=== PATIENT | male | born 1935 | race Hispanic/Latino ===

== ENCOUNTER 2016-10-28 13:32 | Inpatient (IN) | payer MEDICARE, OTHER ==
[2016-10-28 13:37] VITALS: BMI 35.8
[2016-10-28] MEDS ORDERED: Azithromycin 500MG/NS 250ml 250 ML IV STA (13:46)
[2016-10-28] MEDS ORDERED: cefTRIAXone 1 gm 100 ML IV STA (13:46)
--- NOTE | 2016-10-28 14:05 | ED PDOC ---
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 Patient reports non pleuritic chest pain since this morning. Pain is associated with shortness of breath. Patient notes chronic bilateral lower extremity swelling. He denies any fever, nausea, vomiting, or any other complaints at this time. HPI and ROS obtain via job site supervisor. Time/Duration: 1-3 hours Symptom Onset: Sudden Symptom Course: Unchanged Quality: Other Activities at Onset: Rest Context: Home Associated Symptoms (Text): shortness of breath Past Medical History - Provider Review Nursing Documentation Reviewed: Yes - Cardiac Hx Cardiac Disorders: Yes Hx Hypertension: Yes - Pulmonary Hx Respiratory Disorders: No - Neurological Hx Neurological Disorder: No - HEENT Hx HEENT Disorder: No - Renal Hx Renal Disorder: No - Endocrine/Metabolic Hx Endocrine Disorders: Yes Hx Diabetes Mellitus Type 2: Yes - Hematological/Oncological Hx Blood Disorders: No - Integumentary Hx Dermatological Disorder: No - Musculoskeletal/Rheumatological Hx Musculoskeletal Disorders: No - Gastrointestinal Hx Gastrointestinal Disorders: No - Genitourinary/Gynecological Hx Genitourinary Disorders: No - Psychiatric Hx Psychophysiologic Disorder: No Hx Substance Use: No Family/Social History - Physician Review Nursing Documentation Reviewed: Yes Family/Social History: No Known Family HX Smoking Status: Unknown If Ever Smoked Hx Alcohol Use: No Hx Substance Use: No Allergies/Home Meds Allergies/Adverse Reactions: Allergies No Known Allergies Allergy (Verified 10/28/16 13:37) Home Medications: Home Meds Medication Instructions Recorded Confirmed Unobtainable 10/28/16 10/28/16 Physical Exam - Physical Exam Narrative Physical Exam (Text): - Review of Systems Constitutional: Normal. absent: Fatigue, Weight Change, Fevers Eyes: Normal ENT: Normal Respiratory: Shortness of breath. absent: Cough, Sputum Cardiovascular: Chest Pain. absent: Palpitations, Syncope Gastrointestinal: Normal absent: Abdominal pain, Diarrhea, Nausea, Vomiting Genitourinary: Normal. absent: Dysuria, Frequency, Hematuria Musculoskeletal: Normal. absent: Arthralgias, Back Pain, Neck Pain Skin: Normal Neurological: Normal absent: Focal Weakness Endocrine: Normal Hemo/Lymphatic: Normal Psychiatric: Normal - Physical exam Patient appears age appropriate, speaking full sentences without difficulty - Systems Exam Head: Present: Atraumatic, Normocephalic Pupils: Present: PERRL Extraocular Muscles: Present: EOMI Conjunctiva: Present: Normal Mouth: Present: Moist Mucous Membranes Neck: Present: Normal Range of Motion. No: MIDLINE TENDERNESS, Paraspinal Tenderness Respiratory/Chest: Present: Clear to Auscultation, Good Air Exchange. No: Respiratory Distress, Accessory Muscle Use, Tachypneic Cardiovascular: Present: Regular Rate and Rhythm, Normal S1, S2, Peripheral Pulses Present. No: Murmurs Abdomen: Present: Normal Bowel Sounds, No: Tenderness, Peritoneal Signs, Rebound, Guarding, Distention Back: Present: Normal Inspection. No: Midline Tenderness, Paraspinal Tenderness Upper Extremity: Present: Normal Inspection. No: Cyanosis, Edema Lower Extremity: Present: +3 pitting edema bilaterally. Neurological: Present: GCS=15, Speech Normal, cranial nerves II through XII fully intact with no cerebellar abnormality, neuro-sensory fully intact. No focal neurological deficits. Skin: Present: Warm, Dry, Normal Color. No: Rashes Lymphatic: Present: OX3, NI, NC Psychiatric: Present: Alert, Oriented x 3, Normal Insight, Normal Concentration Vital Signs Reviewed: Yes Vital Signs Pulse BP 10/28/16 14:08 108 H 10/28/16 14:06 155/100 H Temperature: Afebrile Blood Pressure: Hypertensive Pulse: Regular Respiratory Rate: Normal Appearance: Positive for: Well-Appearing, Non-Toxic, Comfortable Pain Distress: None Mental Status: Positive for: Alert and Oriented X 3 Medical Decision Making ED Course and Treatment: 10/28/16 13:41 Impression: A 81 year old male with chest pain associated with shortness of breath. Physical examination findings reveal patient has +3 pitting edema to the bilateral lower extremities, which patient states has been present for 5 years. Differential Diagnosis include but are not limited to: CHF vs. Pneumonia vs. ACS vs. PE Plan: -- EKG -- Chest X-ray -- Labs -- Urinalysis -- Aspirin, Duoneb, Lasix, Nitroglycerin, Rocephin and Azithromycin -- Reassess and disposition Progress Notes: EKG: Ordered, reviewed, and independently interpreted by me. Rate : 110 BPM Rhythm : Sinus Tachycardia Interpretation : ST-segment elevations with right bundle branch block. 10/28/16 14:25 Chest X-ray: Creator and Dictator: SHAR PATEL MD IMPRESSION: Question of right lower lobe atelectasis/ pneumonia. 10/28/16 14:50 Patient is tachycardic with shortness of breath. Cannot rule out PE. Chest CT ordered. 10/28/16 16:52 Patient's lactate is elevated, no large fluid bolus ordered due to patient's elevated BNP and history of CHF. 10/28/16 16:57 On reevaluation the patient states he feels better. On physical examinations the patient lungs are clear bilaterally. Patient will need admission for pleural effusion and CHF. He does not have a doctor here, Dr. Zarco (medical service automation sales manager) paged. 10/28/16 17:[address]: Creator and Dictator: SHAR PATEL MD IMPRESSION: No CTA evidence for acute pulmonary embolism. No evidence of aortic aneurysm or dissection. Mild cardiomegaly. Moderate bilateral pleural effusions , larger on the right. Confluent airspace disease in the lower lobes may represent atelectasis or pneumonia. 10/28/16 17:[address] Tolbert (covering for Dr. Zarco), who is aware and states to give the patient to the hospitalist. Case discussed with Dr. Luciano, who is aware and agrees with the plan to admit the patient to her services. 10/28/16 17:11 pt and family aware of and agree with plan - Lab Interpretations Lab Results: 10/28/16 13:45 10/28/16 13:45 Lab Results 10/28/16 14:50: Urine Color Straw, Urine Appearance Clear, Urine pH 6.0, Ur Specific [place] 1.015, Urine Protein 30 H, Urine Glucose (UA) Negative, Urine Ketones Negative, Urine Blood Trace-lysed H, Urine Nitrate Negative, Urine Bilirubin Negative, Urine Urobilinogen 0.2, Ur Leukocyte Esterase Negative, Urine RBC 2 - 5, Urine WBC 0 - 2, Ur Epithelial Cells 0 - 2 10/28/16 13:45: WBC 7.0, RBC 3.73, Hgb 10.8 L, Hct 35.1 L, MCV 94.1, MCH 29.0, MCHC 30.8 L, RDW 16.4 H, Plt Count 168, MPV 12.8 H, Gran % 79.1 H, Lymph % (Auto ) 10.9 L, [place] % (Auto) 10.0 H, Eos % (Auto) 0.0 L, Baso % (Auto) 0.0, Gran # 5.51, Lymph # 0.8 L, [place] # 0.7 H, Eos # 0.0, Baso # 0.00, PT 11.2, INR 1.04, APTT 26.7, D-Dimer, Quantitative 0.56 H, pO2 41, VBG pH 7.27 L, VBG pCO2 68.0 H* , VBG HCO3 31.2 H, VBG Total CO2 33.3 H, VBG O2 Sat (Calc) 68.8 H, VBG Base Excess 2.3 H, VBG Potassium 4.4, Glucose 194 H, Lactate 2.7 H, FiO2 21.0, Sodium 135.0, Potassium 4.1, Chloride 98.0, Carbon Dioxide 30, Anion Gap 15, BUN 22 H, Creatinine 0.8, Est GFR ( Amer) > 60, Est GFR (Non-Af Amer) > 60, Random Glucose 198 H, Calcium 9.5, Total Bilirubin 0.8, AST 28, ALT 23, Alkaline Phosphatase 71, NT-Pro-B Natriuret Pep 5020 H, Total Protein 8.1, Albumin 4.1, Globulin 4.0, Albumin/Globulin Ratio 1.0 L, Venous Blood Potassium 4.4 I have reviewed the lab results: Yes - RAD Interpretation Radiology Orders: 10/28/16 13:47 CHEST PORTABLE [RAD] Stat 10/28/16 14:50 ANGIO CHEST PE PROTOCOL [CT] Stat - Medication Orders Current Medication Orders: Discontinued Medications Albuterol/Ipratropium (Duoneb 3 Mg/0.5 Mg (3 Ml) Ud) 3 ml IH Q15M JEROME Stop: 10/28/16 14:31 Last Admin: 10/28/16 14:45 Dose: 3 ML Aspirin (Aspirin Chewable) 324 mg PO STAT STA Stop: 10/28/16 13:47 Last Admin: 10/28/16 14:06 Dose: 324 MG Furosemide (Lasix) 40 mg IVP STAT STA Stop: 10/28/16 13:47 Last Admin: 10/28/16 14:06 Dose: 40 MG MAR Blood Pressure Document 10/28/16 14:06 JOL (Rec: 10/28/16 14:06 [id number] Blood Pressure Blood Pressure (100/60-150/90 mm Hg) 155/100 IVP Administration Document 10/28/16 14:06 JOL (Rec: 10/28/16 14:06 [id number] Charges for Administration # of IVP Administrations 1 Azithromycin (Zithromax 500mg In Ns) 250 mls @ 166.667 mls/hr IV STAT STA PRN Reason: Protocol Stop: 10/28/16 15:15 Last Admin: 10/28/16 15:37 Dose: 166.667 MLS/HR eMAR Start Stop Document 10/28/16 15:37 JOL (Rec: 10/28/16 15:38 [id number] Intravenous Solution Start Date 10/28/16 Start Time 15:38 End Date 10/28/16 End time 16:38 Total Infusion Time 60 Ceftriaxone Sodium (Rocephin 1 Gram Ivpb) 100 mls @ 200 mls/hr IV STAT STA PRN Reason: Protocol Stop: 10/28/16 14:15 Last Admin: 10/28/16 14:07 Dose: 200 MLS/HR eMAR Start Stop Document 10/28/16 14:07 JO (Rec: 10/28/16 14:07 [id number] Intravenous Solution Start Date 10/28/16 Start Time 14:07 End Date 10/28/16 End time 15:07 Total Infusion Time 60 Iodixanol (Visipaque 320 Mg/Ml 100 Ml) Confirm Administered Dose 100 ml IV .STK- MED ONE Stop: 10/28/16 16:14 Nitroglycerin (Nitrostat Sl Tab) 0.3 mg SL STAT STA Stop: 10/28/16 13:47 Last Admin: 10/28/16 14:07 Dose: 0.3 MG - Scribe Statement The provider has reviewed the documentation as recorded by the Nolaibkatey Mazariegos Provider Scribe Attestation: All medical record entries made by the Scribe were at my direction and personally dictated by me. I have reviewed the chart and agree that the record accurately reflects my personal performance of the history, physical exam, medical decision making, and the department course for this patient. I have also personally directed, reviewed, and agree with the discharge instructions and disposition. Disposition/Present on Arrival - Present on Arrival Any Indicators Present on Arrival: No History of DVT/PE: No History of Uncontrolled Diabetes: No Urinary Catheter: No History of Decub. Ulcer: No History Surgical Site Infection Following: None - Disposition Have Diagnosis and Disposition been Completed?: Yes Diagnosis: Congestive heart failure Disposition: HOSPITALIZED Disposition Time: 16:58 Patient Plan: Admission Condition: FAIR Discharge Instructions (ExitCare): Heart Failure (ED)
[2016-10-28] MEDS: Albuterol-Ipratrop 3 mg / 0.5 (3 ml) UD IH SCH ×3 (14:07→14:45)
[2016-10-28 14:11] LABS: ADD MANUAL DIFF? NO
[2016-10-28 14:12] LABS: VENOUS BLOOD GAS BASE EXCESS 2.3 mmol/L (0.0-2.0); VENOUS BLOOD PH 7.27 (7.32-7.43)
--- NOTE | 2016-10-28 14:24 | RAD ---
HISTORY: cough COMPARISON: 08/19/2013 FINDINGS: LUNGS: There is airspace disease in the right lower lobe. There are chronic changes in the lungs. There is no focal consolidation. PLEURA: No significant pleural effusion identified, no pneumothorax apparent. CARDIOVASCULAR: Normal. OSSEOUS STRUCTURES: No significant abnormalities. VISUALIZED UPPER ABDOMEN: Normal. OTHER FINDINGS: None. IMPRESSION: Question of right lower lobe atelectasis/ pneumonia.
[2016-10-28 14:30] LABS: GRAN # 5.51 (1.4-6.5); GRAN % 79.1 % (50.0-68.0); HEMATOCRIT 35.1 % (42.0-52.0); LYMPH # 0.8 (1.2-3.4); LYMPH % 10.9 % (22.0-35.0); MEAN CELL VOLUME 94.1 fL (80.0-105.0); MEAN CORPUSCULAR HGB CONC 30.8 g/dl (31.0-37.0); MEAN PLATELET VOLUME 12.8 fl (7.0-11.0); MONO # 0.7 (0.1-0.6); PLATELET COUNT 168 10^3/uL (120.0-450.0); RED CELL DISTRIBUTION WIDTH 16.4 % (11.5-14.5)
[2016-10-28 14:32] LABS: ALKALINE PHOSPHATASE 71 U/L (38-133); ALT/SGPT 23 U/L (7-56); AST/SGOT 28 U/L (15-59); BILIRUBIN,TOTAL 0.8 mg/dL (0.2-1.3); BLOOD UREA NITROGEN 22 mg/dL (7-21); CALCIUM 9.5 mg/dL (8.4-10.5); CARBON DIOXIDE 30 mmol/L (21-33); CHLORIDE 91 mmol/L (98-107); GFR AFRICAN-AMERICAN > 60; GLUCOSE,RANDOM 198 mg/dL (70-110); POTASSIUM 4.1 mmol/L (3.6-5.0); SODIUM 132 mmol/L (132-148); TOTAL PROTEIN 8.1 g/dL (5.8-8.3)
[2016-10-28 14:48] LABS: INR 1.04 (0.93-1.08); PARTIAL THROMBOPLASTIN TIME 26.7 Seconds (23.7-30.8)
[2016-10-28 14:51] LABS: D DIMER 0.56 mg/L FEU (0-0.50)
[2016-10-28 15:45] LABS: URINE BILIRUBIN NEGATIVE (NEGATIVE); URINE BLOOD TRACE-LYSED (NEGATIVE); URINE GLUCOSE (UA) NEGATIVE (NEGATIVE); URINE KETONE NEGATIVE (NEGATIVE); URINE LEUKOCYTE ESTERASE NEGATIVE Leu/uL (NEGATIVE); URINE PROTEIN 30 mg/dL (<30 mg/dL); URINE UROBILINOGEN 0.2 E.U./dL (<1 E.U./dL)
[2016-10-28 15:59] LABS: URINE APPEARANCE CLEAR (CLEAR); URINE COLOR STRAW (YELLOW)
[2016-10-28 16:08] LABS: URINE EPITHELIAL CELLS 0 - 2 /hpf (0-5); URINE WBC 0 - 2 /hpf (0-6)
[2016-10-28] MEDS ORDERED: Iodixanol 320 MG/ML 100 ML BOTTLE IV ONE (16:13)
--- NOTE | 2016-10-28 16:52 | CT ---
PROCEDURE: CT Chest with contrast (Pulmonary Angiogram) HISTORY: r/o PE COMPARISON: None available. TECHNIQUE: Axial computed tomography images were obtained of the chest in the pulmonary arterial phase of enhancement. Coronal and sagittal reformatted images were created and reviewed. Intravenous contrast dose: 96 mL Visipaque. Radiation dose: Total exam DLP = 829.97 MGy-cm. FINDINGS: PULMONARY ARTERIES: There are no central filling defects in the pulmonary arteries or branches. No pulmonary embolism. AORTA: There is no evidence of aortic aneurysm or dissection. The aorta is normal in caliber. LUNGS: There are moderate bilateral pleural effusions and confluent airspace disease in the lower lobes, right larger than left. There is a loculated fluid in the superior left major fissure. There is no pneumothorax. There are no endobronchial lesions. HEART: There is mild cardiomegaly. There is no pericardial effusion. There atherosclerotic calcifications typical. LYMPH NODES: There are subcentimeter mediastinal lymph nodes, likely reactive. BONES, CHEST WALL: There is diffuse bone demineralization and multilevel degenerative changes in the spine. There are no destructive bony lesions. There is a hemangioma in 1 of the lower thoracic vertebral bodies. The focal area of sclerosis in 1 of the mid thoracic vertebral bodies is statistically most compatible with a bone island. OTHER FINDINGS: There is fatty infiltration in the liver. Both adrenal glands are normal. There is a small sliding hiatal hernia. IMPRESSION: No CTA evidence for acute pulmonary embolism. No evidence of aortic aneurysm or dissection. Mild cardiomegaly. Moderate bilateral pleural effusions, larger on the right. Confluent airspace disease in the lower lobes may represent atelectasis or pneumonia.
[2016-10-28 17:23] LABS: VENOUS BLOOD GAS BASE EXCESS 4.3 mmol/L (0.0-2.0); VENOUS BLOOD PH 7.28 (7.32-7.43)
[2016-10-28 17:31] LABS: VENOUS BLOOD GAS BASE EXCESS 4.4 mmol/L (0.0-2.0); VENOUS BLOOD PH 7.29 (7.32-7.43)
[2016-10-28] MEDS ORDERED: guaiFENesin 100 mg/5 ml Syrup UD PO PRN (17:35)
--- NOTE | 2016-10-28 17:58 | CP.PCM.HP ---
History of Present Illness - History of Present Illness History of Present Illness: shortness of breath. Patient seen and examined in ER bed 3. Patient's granddaughter by the bedside. patient is alert, awake and oriented. Able to give history. patient is a 81-year-old male With a past medical history of diabetes, hypertension, arthritis, cardiac history is getting admitted with progressive shortness of breath for the past 2 weeks. The patient was evaluated by PMD 2 weeks ago for shortness of breath. Lasix dose was increased. Patient complaint of chest discomfort and cough. Denies any fevers, chills.Complaining of minimal sputum production. complaining of increased leg swelling for the past 2 weeks. complaining of exertional dyspnea. Denies any abdominal pain, nausea, vomiting. Denies any urinary, bowel symptoms. Patient usually ambulates with a walker at home. medications; does not remember. Past medical history; Hypertension Diabetes Arthritis Cardiac history depression Obesity chronic leg edema surgical history; Right knee surgery Allergies; None Social history; never smoked No alcohol abuse No drug abuse Lives in [place] with his daughter Present on Admission - Present on Admission Any Indicators Present on Admission: No History of DVT/PE: No History of Uncontrolled Diabetes: No Urinary Catheter: No Decubitus Ulcer Present: No Review of Systems - Constitutional Constitutional: absent: Chills - EENT Eyes: absent: Blurred Vision Nose/Mouth/Throat: absent: Nasal Congestion - Cardiovascular Cardiovascular: Chest Pain - Respiratory Respiratory: Cough, Dyspnea on Exertion. absent: Wheezing, Snoring - Gastrointestinal Gastrointestinal: absent: Abdominal Pain, Nausea, Vomiting - Musculoskeletal Musculoskeletal: Abnormal Gait - Neurological Neurological: Abnormal Gait, Weakness - Psychiatric Psychiatric: Depression - Hematologic/Lymphatic Hematologic: absent: Easy Bleeding, Easy Bruising Past Patient History - Past Social History Smoking Status: Unknown If Ever Smoked Alcohol: None Drugs: Denies Home Situation {Lives}: With Family - CARDIAC Hx Cardiac Disorders: Yes Hx Hypertension: Yes - PULMONARY Hx Respiratory Disorders: No - NEUROLOGICAL Hx Neurological Disorder: No - HEENT Hx HEENT Problems: No - RENAL Hx Chronic Kidney Disease: No - ENDOCRINE/METABOLIC Hx Endocrine Disorders: Yes Hx Diabetes Mellitus Type 2: Yes - HEMATOLOGICAL/ONCOLOGICAL Hx Blood Disorders: No - INTEGUMENTARY Hx Dermatological Problems: No - MUSCULOSKELETAL/RHEUMATOLOGICAL Hx Musculoskeletal Disorders: No - GASTROINTESTINAL Hx Gastrointestinal Disorders: No - GENITOURINARY/GYNECOLOGICAL Hx Genitourinary Disorders: No - PSYCHIATRIC Hx Psychophysiologic Disorder: No Hx Substance Use: No - SURGICAL HISTORY Hx Surgeries: No (pt denies) Meds Allergies/Adverse Reactions: Allergies Allergy/AdvReac Type Severity Reaction Status Date / Time No Known Allergies Allergy Verified 10/28/16 13:37 Physical Exam - Constitutional Appears: Well - Head Exam Head Exam: NORMAL INSPECTION - Eye Exam Eye Exam: Normal appearance - ENT Exam ENT Exam: Mucous Membranes Moist - Respiratory Exam Respiratory Exam: NORMAL BREATHING PATTERN Additional comments: decreased breath sounds on both lower lung field - Cardiovascular Exam Cardiovascular Exam: REGULAR RHYTHM - GI/Abdominal Exam GI & Abdominal Exam: Normal Bowel Sounds, Soft. absent: Tenderness Additional comments: abdominal wall edema - Extremities Exam Extremities exam: Positive for: pedal edema Additional comments: bilateral leg edema up to knee level - Neurological Exam Neurological exam: Alert, Oriented x3 - Psychiatric Exam Psychiatric exam: Normal Affect - Skin Skin Exam: Normal Color Results - Vital Signs Recent Vital Signs: Last Vital Signs Temp Pulse 108 H 10/28/16 14:08 Resp BP 155/100 H 10/28/16 14:06 Pulse Ox - Labs Result Diagrams: 11/01/16 05:00 11/01/16 05:00 Labs: Laboratory Results - last 24 hr 10/28/16 10/28/16 10/28/16 13:45 14:50 17:10 WBC 7.0 RBC 3.73 Hgb 10.8 L Hct 35.1 L MCV 94.1 MCH 29.0 MCHC 30.8 L RDW 16.4 H Plt Count 168 MPV 12.8 H Gran % 79.1 H Lymph % (Auto) 10.9 L [place] % (Auto) 10.0 H Eos % (Auto) 0.0 L Baso % (Auto) 0.0 Gran # 5.51 Lymph # 0.8 L [place] # 0.7 H Eos # 0.0 Baso # 0.00 PT 11.2 INR 1.04 APTT 26.7 D-Dimer, Quantitative 0.56 H pO2 41 45 VBG pH 7.27 L 7.29 L VBG pCO2 68.0 H* 69.0 H* VBG HCO3 31.2 H 33.2 H VBG Total CO2 33.3 H 35.3 H VBG O2 Sat (Calc) 68.8 H 76.0 H VBG Base Excess 2.3 H 4.4 H VBG Potassium 4.4 4.3 Sodium 132 134.0 Chloride 91 L 98.0 Glucose 194 H 183 H Lactate 2.7 H 1.7 FiO2 21.0 21.0 Potassium 4.1 Carbon Dioxide 30 Anion Gap 15 BUN 22 H Creatinine 0.8 Est GFR ( Amer) > 60 Est GFR (Non-Af Amer) > 60 Random Glucose 198 H Calcium 9.5 Total Bilirubin 0.8 AST 28 ALT 23 Alkaline Phosphatase 71 NT-Pro-B Natriuret Pep 5020 H Total Protein 8.1 Albumin 4.1 Globulin 4.0 Albumin/Globulin Ratio 1.0 L Venous Blood Potassium 4.4 4.3 Urine Color Straw Urine Appearance Clear Urine pH 6.0 Ur Specific [place] 1.015 Urine Protein 30 H Urine Glucose (UA) Negative Urine Ketones Negative Urine Blood Trace-lysed H Urine Nitrate Negative Urine Bilirubin Negative Urine Urobilinogen 0.2 Ur Leukocyte Esterase Negative Urine RBC 2 - 5 Urine WBC 0 - 2 Ur Epithelial Cells 0 - 2 Assessment & Plan - Assessment and Plan (Free Text) Assessment: 1.Patient is a 81-year-old male admitted with progressive shortness of breath and increasing leg swelling for the past few weeks. Rule out CHF. patient with a history of heart problems in the past. Denies any echocardiogram or stress test recently. Questionable history of cardiac Over 10 years ago. Started on IV Lasix. Strict input and output ordered. Daily weight ordered. Cardiac enzymes ordered to r/o ischemia. Echocardiogram ordered. chest x-ray showed bilateral effusion. CT chest showed bilateral lower lobe atelectasis/Pneumonia with effusion. NO pulmonary embolus noted. Cardiology evaluation requested. 2. Hypertension; continue Norvasc and enalapril. 3. Diabetes; continue actos. hold metformin secondary to contrast study. 4.depression; continue Lexapro. 5. Lower extremity Doppler ordered to rule out DVT. 6.GI prophylaxis with Pepcid. 7. DVT prophylaxis with Lovenox. case discussed with PMD Dr. Beach in detail.
[2016-10-28] MEDS: Non Formulary Medication (Bimatoprost [Lumigan] 1 DROP) OS SCH (18:38)
[2016-10-28] MEDS: cefTRIAXone 1 gm 100 ML IVPB SCH (18:40)
[2016-10-28] MEDS: Pilocarpine 1% Opht (15ml) OU SCH (18:41)
[2016-10-28] MEDS: Enoxaparin 40 mg Syringe SC SCH (18:53)
[2016-10-29] MEDS: Insulin Reg-MEDIUM-Coverage SC SCH ×5 (02:32→22:18)
[2016-10-29] MEDS ORDERED: Albuterol-Ipratrop 3 mg / 0.5 (3 ml) UD ONE (06:42)
[2016-10-29 07:22] LABS: BLOOD UREA NITROGEN 18 mg/dL (7-21); CALCIUM 8.7 mg/dL (8.4-10.5); CARBON DIOXIDE 33 mmol/L (21-33); CHLORIDE 91 mmol/L (98-107); CHOLESTEROL 141 mg/dL (130-200); GFR AFRICAN-AMERICAN > 60; GLUCOSE,RANDOM 141 mg/dL (70-110); POTASSIUM 3.9 mmol/L (3.6-5.0); SODIUM 133 mmol/L (132-148)
[2016-10-29 07:55] LABS: HEMATOCRIT 32.3 % (42.0-52.0); MEAN CELL VOLUME 92.3 fL (80.0-105.0); MEAN CORPUSCULAR HEMOGLOBIN 29.1 pg (25.0-35.0); MEAN CORPUSCULAR HGB CONC 31.6 g/dl (31.0-37.0); MEAN PLATELET VOLUME 12.4 fl (7.0-11.0); RED CELL DISTRIBUTION WIDTH 16.3 % (11.5-14.5); WHITE BLOOD COUNT 6.4 10^3/ul (4.5-11.0)
[2016-10-29 10:03] LABS: TROPONIN I 0.06 ng/mL
--- NOTE | 2016-10-29 10:09 | US ---
HISTORY: Leg pain and swelling. Evaluate for DVT PHYSICIAN(S): Sky Herrera MD. TECHNIQUE: Duplex sonography and color-flow Doppler with graded compression were used to evaluate the deep venous systems of both lower extremities. FINDINGS: The visualized deep venous systems of both lower extremities are sonographically normal and compressible. Normal wave forms and augmentation are seen. There is no sonographic evidence for deep venous thrombosis in the visualized segments of both lower extremities. IMPRESSION: No sonographic evidence for deep venous thrombosis in the visualized segments of both lower extremities.
[2016-10-29] MEDS: Albuterol-Ipratrop 3 mg / 0.5 (3 ml) UD IH SCH ×5 (10:10→23:44)
[2016-10-29] MEDS: Pilocarpine 1% Opht (15ml) OU SCH ×2 (10:29→18:30)
[2016-10-29] MEDS: cefTRIAXone 1 gm 100 ML IVPB SCH (10:30)
[2016-10-29] MEDS: Enoxaparin 40 mg Syringe SC SCH (10:30)
--- NOTE | 2016-10-29 12:53 | CP.PCM.PN ---
<Jose Miller - Last Filed: 10/29/16 12:49> Subjective - Date & Time of Evaluation Date of Evaluation: 10/29/16 Time of Evaluation: 07:15 - Subjective Subjective: Dr. Miller PGY 1 Hospitalist Note Patient seen and evaluated at bedside. He states that he is urinating more and feels as though his leg swelling has decreased. He denies any chest pain, or SOB. He notes that aver the past few months he has not been able to ambulate as much. He denies any fever, chills, nausea, vomiting, or diarrhea. He says he has not had any sick contacts. A 12 point review of systems was performed and negative except where noted above. Objective - Vital Signs/Intake and Output Vital Signs (last 24 hours): Temp Pulse Resp BP Pulse Ox 98 F 88 20 144/69 97 10/29/16 12:00 10/29/16 12:00 10/29/16 12:00 10/29/16 12:00 10/29/16 05:33 Intake and Output: 10/29/16 10/29/16 06:59 18:59 Intake Total 240 Output Total 1400 Balance -1160 - Medications Medications: Current Medications Albuterol/Ipratropium (Duoneb 3 Mg/0.5 Mg (3 Ml) Ud) 3 ml IH [id number] [facility] Last Admin: 10/29/16 11:45 Dose: 3 ml Aspirin (Ecotrin) 81 mg PO DAILY [facility] Last Admin: 10/29/16 10:29 Dose: 81 mg Azithromycin (Zithromax) 500 mg PO DAILY [facility] PRN Reason: Protocol Last Admin: 10/29/16 10:32 Dose: 500 mg Enoxaparin Sodium (Lovenox) 120 mg SC Q12H [facility] PRN Reason: Protocol Escitalopram Oxalate (Lexapro) 10 mg PO DAILY [facility] Last Admin: 10/29/16 10:30 Dose: 10 mg Famotidine (Pepcid) 20 mg PO DAILY [facility] Last Admin: 10/29/16 10:32 Dose: 20 mg Furosemide (Lasix) 60 mg IVP Q12 [facility] Last Admin: 10/29/16 09:39 Dose: 60 mg Gabapentin (Neurontin) 100 mg PO BID [facility] PRN Reason: Protocol Last Admin: 10/29/16 10:31 Dose: 100 mg Guaifenesin (Robitussin) 100 mg PO Q4H PRN PRN Reason: Cough Ceftriaxone Sodium (Rocephin 1 Gram Ivpb) 100 mls @ 100 mls/hr IVPB DAILY [facility] PRN Reason: Protocol Last Admin: 10/28/16 18:40 Dose: Not Given Insulin Human Regular (Humulin R Med) 0 units SC ACHS [facility] Last Admin: 10/29/16 11:53 Dose: 1 units Lisinopril (Zestril) 40 mg PO DAILY [facility] Last Admin: 10/29/16 10:32 Dose: 40 mg Non-Formulary Medication (Bimatoprost [Lumigan]) 1 drop OS DIN [facility] Last Admin: 10/28/16 18:38 Dose: Not Given Pilocarpine HCl (Isopto Carpine 1% Opht Soln) 0 ml OU BID [facility] Last Admin: 10/29/16 10:29 Dose: 1 drop Pioglitazone HCl (Actos) 30 mg PO DAILY [facility] Last Admin: 10/29/16 11:53 Dose: 30 mg Verapamil HCl (Calan Tab) 40 mg PO TID [facility] - Labs Labs: 10/29/16 07:50 10/29/16 06:30 PT 11.2 Seconds (9.9-11.8) 10/28/16 13:45 INR 1.04 (0.93-1.08) 10/28/16 13:45 APTT 26.7 Seconds (23.7-30.8) 10/28/16 13:45 - Constitutional Appears: Non-toxic, No Acute Distress - Head Exam Head Exam: ATRAUMATIC, NORMOCEPHALIC - Eye Exam Eye Exam: EOMI, Normal appearance, PERRL Pupil Exam: NORMAL ACCOMODATION, PERRL - ENT Exam ENT Exam: Mucous Membranes Moist - Respiratory Exam Respiratory Exam: Decreased Breath Sounds (Bilateral lower lobes ), NORMAL BREATHING PATTERN. absent: Rales, Rhonchi, Wheezes - Cardiovascular Exam Cardiovascular Exam: REGULAR RHYTHM, +S1, +S2. absent: Gallop, Rubs, Murmur - GI/Abdominal Exam GI & Abdominal Exam: Soft, Normal Bowel Sounds. absent: Tenderness, Mass - Extremities Exam Extremities Exam: Pedal Edema (+2 bilateral lower extremities). absent: Tenderness - Back Exam Back Exam: NORMAL INSPECTION. absent: paraspinal tenderness, rash noted - Neurological Exam Neurological Exam: Alert, Awake, CN II-XII Intact, Oriented x3 - Psychiatric Exam Psychiatric exam: Normal Affect, Normal Mood - Skin Skin Exam: Dry, Intact, Warm Assessment and Plan - Assessment and Plan (Free Text) Assessment: Patient is an 81 y/o M with history of HTN, DM, arthritis, obesity, who presents with complaint of leg swelling and SOB. Plan: 1) SOB * Echocardiogram ordered, f/u results * chest x-ray showed bilateral effusion * CT chest showed bilateral lower lobe atelectasis/pneumonia with effusion * cariology consulted, help appreciated * continue IV lasix * cardiac enzymes negative x2 * strict I'sand O's * daily weights * continue rocephin and azithromycin * continue robitussin * pt remains afebrile w/o leukocytosis * f/u blood cultures 2) Edema * LE duplex showed no evidence of DVT 3) HTN * continue norvasc and enalapril 4) DM * continue actos * hold metformin * continue neurontin * accuchecks * sliding scale insulin 5) Hypothyroidism * low TSH * f/u repeat * start synthroid 6) Depression * Continue lexapro 7) PPX * pepcid * lovenox * tylenol * SCD's contraindicated due to bilateral Edema Assessment and plan discussed with attending physician. <Amanda Carroll - Last Filed: 10/29/16 18:27> Objective - Vital Signs/Intake and Output Vital Signs (last 24 hours): Temp Pulse Resp BP Pulse Ox 98 F 73 20 155/74 H 96 10/29/16 12:00 10/29/16 17:15 10/29/16 12:00 10/29/16 13:38 10/29/16 13:38 Intake and Output: 10/29/16 10/29/16 06:59 18:59 Intake Total 240 900 Output Total 1400 Balance -1160 900 - Medications Medications: Current Medications Albuterol/Ipratropium (Duoneb 3 Mg/0.5 Mg (3 Ml) Ud) 3 ml [id number] [facility] Last Admin: 10/29/16 14:57 Dose: 3 ml Aspirin (Ecotrin) 81 mg PO DAILY [facility] Last Admin: 10/29/16 10:29 Dose: 81 mg Azithromycin (Zithromax) 500 mg PO DAILY [facility] PRN Reason: Protocol Last Admin: 10/29/16 10:32 Dose: 500 mg Enoxaparin Sodium (Lovenox) 120 mg SC Q12H [facility] PRN Reason: Protocol Escitalopram Oxalate (Lexapro) 10 mg PO DAILY [facility] Last Admin: 10/29/16 10:30 Dose: 10 mg Famotidine (Pepcid) 20 mg PO DAILY [facility] Last Admin: 10/29/16 10:32 Dose: 20 mg Furosemide (Lasix) 60 mg IVP Q12 [facility] Last Admin: 10/29/16 09:39 Dose: 60 mg Gabapentin (Neurontin) 100 mg PO BID [facility] PRN Reason: Protocol Last Admin: 10/29/16 10:31 Dose: 100 mg Guaifenesin (Robitussin) 100 mg PO Q4H PRN PRN Reason: Cough Ceftriaxone Sodium (Rocephin 1 Gram Ivpb) 100 mls @ 100 mls/hr IVPB DAILY [facility] PRN Reason: Protocol Last Admin: 10/29/16 10:30 Dose: 100 mls/hr Sodium Chloride (Sodium Chloride 0.9%) 1,000 mls @ 100 mls/hr IV .Q10H [facility] Insulin Human Regular (Humulin R Med) 0 units SC ACHS [facility] Last Admin: 10/29/16 16:49 Dose: Not Given Lisinopril (Zestril) 40 mg PO DAILY [facility] Last Admin: 10/29/16 10:32 Dose: 40 mg Methylprednisolone (Solu-Medrol) 40 mg IVP Q12 [facility] Non-Formulary Medication (Bimatoprost [Lumigan]) 1 drop OS DIN [facility] Last Admin: 10/28/16 18:38 Dose: Not Given Pilocarpine HCl (Isopto Carpine 1% Opht Soln) 0 ml OU BID [facility] Last Admin: 10/29/16 10:29 Dose: 1 drop Pioglitazone HCl (Actos) 30 mg PO DAILY [facility] Last Admin: 10/29/16 11:53 Dose: 30 mg Verapamil HCl (Calan Tab) 40 mg PO TID [facility] - Labs Labs: 10/29/16 07:50 10/29/16 06:30 PT 11.2 Seconds (9.9-11.8) 10/28/16 13:45 INR 1.04 (0.93-1.08) 10/28/16 13:45 APTT 26.7 Seconds (23.7-30.8) 10/28/16 13:45 Attending/Attestation - Attestation I have personally seen and examined this patient.: Yes I have fully participated in the care of the patient.: Yes I have reviewed all pertinent clinical information, including history, physical exam and plan: Yes Notes (Text): I have seen and examined patient with the resident. This is 81 year old male with history of HTN, DM-2, arthritis, Afib, obesity, former smoker, depression, leg edema, right knee surgery who got admitted for evaluation of worsening of leg swelling and shortness of breath most likely secondary to CHF exacerbation. He was found to have elevated BNP, Effusions on CXR. Echo was done this morning which revealed mild LVH, EF 55-60% and moderate to severe TR. He was started on lovenox for afib. 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 After he came back from echo, his vitals were done and he was found to be hypoxic. ABg was done which revealed respiratory acidosis. He became increasingly lethargic therefore bipap was started. Patient was upgraded to ICU. Discussed case in detail with Dr Beach (PMD) and transit specialist. Plan to dc antibiotics once procal is negative. Dr Amanda Carroll
[2016-10-29 13:41] LABS: ARTERIAL BLOOD GAS HCO3 34.9 mmol/L (21-28); ARTERIAL BLOOD GAS O2 CONTENT 12.6 ML/dl (15-23); ARTERIAL BLOOD GAS PH 7.27 (7.35-7.45); ARTERIAL BLOOD HGB O2 SAT 95.1 % (95.0-98.0); CARBOXYHEMOGLOBIN 1.8 % (0.5-1.5); HHB 2.8 % (0-5); METHEMOGLOBIN 0.2 % (0.0-3.0)
--- NOTE | 2016-10-29 13:47 | CARD ---
APPROVED REPORT EXAM: Two-dimensional and M-mode echocardiogram with Doppler and color Doppler. INDICATION LV Function:SystolicDiastolic Congestive Heart Failure 2D DIMENSIONS Left Atrium (2D)4.6 (1.6-4.0cm)IVSd1.0 (0.7-1.1cm) LVDd4.5 (3.9-5.9cm)PWd1.5 (0.7-1.1cm) LVDs3.1 (2.5-4.0cm)FS (%) 31.0 % LVEF (%)58.8 (>50%) M-Mode DIMENSIONS Aortic Root2.70 (2.2-3.7cm)Aortic Cusp Exc.1.90 (1.5-2.0cm) Aortic Valve AoV Peak Zhkuogmf211.0cm/Nancy Peak GR.15mmHg Mitral Valve MV E Vagomube955.0cm/sMV A Zbvzibon662.0cm/sE/A ratio0.8 TDI E/Lateral E'0.0E/Medial E'0.0 Tricuspid Valve TR Peak [id number]/sRAP [id number] Peak Gr.65mmHg [id number] LEFT VENTRICLE The left ventricle is normal size. There is borderline to mild concentric left ventricular hypertrophy. The left ventricular function is normal.EF-55-60% There is normal LV segmental wall motion. The left ventricular diastolic function is normal. No left ventricle thrombus noted on this study. There is no ventricular septal defect visualized. There is no left ventricular aneurysm. There is no mass noted in the left ventricle. RIGHT VENTRICLE The right ventricle is severely dilated. There is normal right ventricular wall thickness. Systolic function is moderately reduced. ATRIA The left atrium is moderately dilated. The right atrium is moderately dilated. The interatrial septum is intact with no evidence for an atrial septal defect. AORTIC VALVE The aortic valve is calcified but opens well. There is trace aortic regurgitation. There is no aortic valvular stenosis. There is no aortic valvular vegetation. MITRAL VALVE The mitral valve is calcified but opens well. Mitral annular calcification is moderate. Mitral regurgitation is mild. There is no mitral valve stenosis. There is no evidence of mitral valve prolapse. TRICUSPID VALVE The tricuspid valve leaflets are thickened , but open well. There is moderate tricuspid regurgitation.RVSP-75 mmof Hg. There is moderate to severe tricuspid regurgitation. There is no tricuspid valve stenosis. There is no tricuspid valve prolapse or vegetation. PULMONIC VALVE The pulmonic valve is not well visualized. GREAT VESSELS The aortic root is normal in size. The ascending aorta is normal in size. The pulmonary artery is normal. The IVC is dilated. PERICARDIAL EFFUSION There is no pleural effusion. There is no pericardial effusion. <Conclusion> The left ventricle is normal size. There is borderline to mild concentric left ventricular hypertrophy. The left ventricular function is normal.EF-55-60% There is normal LV segmental wall motion. There is trace aortic regurgitation. Mitral regurgitation is mild. There is moderate tricuspid regurgitation.RVSP-75 mmof Hg. There is moderate to severe tricuspid regurgitation.
[2016-10-29] MEDS ORDERED: Etomidate 20 mg/10ml Inj IV ONE (15:20)
[2016-10-29] MEDS ORDERED: Succinylcholine 200 mg/10 ml Inj IV ONE (15:21)
--- NOTE | 2016-10-29 15:46 | CARD ---
APPROVED REPORT EKG Measurement Heart [id number] <Conclusion> Sinus tachycardia with occasional and consecutive premature ventricular complexes and fusion complexes Pulmonary disease pattern Incomplete right bundle branch block Left anterior fascicular block Cannot rule out Inferior infarct (masked by fascicular block?), age undetermined Abnormal ECG
--- NOTE | 2016-10-29 16:03 | CON ---
DATE: 10/29/2016 REASON FOR CONSULTATION AND FOLLOWUP: Decompensated congestive heart failure, obesity, admitted with atrial fibrillation and CHF. BRIEF CLINICAL HISTORY: This is an 81-year-old male with past medical history of diabetes, hypertension, hyperlipidemia, who said that he has progressive worsening shortness of breath over the 2 weeks. Family brought here and was on increasing dose of Lasix, being followed by Dr. Francie Jacobo at [facility]. PAST HISTORY: Significant for hypertension, diabetes, and history of cardiac but the daughter does not know the detail. PREVIOUS CARDIAC WORKUP: The patient had echocardiography done in office, shows a normal ejection fraction, moderate mitral stenosis, RV systolic pressure 34, was in sinus. History of a stress test done in PMD office, does not walk that much on the treadmill, suspicious for inferior wall ischemia. CURRENT MEDICATIONS: At home, patient is taking amlodipine, Lotrel 5 mg combination from amlodipine and benazepril, timolol eyedrop, gabapentin, Neurontin, Pepcid, Lasix, Lexapro. REVIEW OF SYSTEMS: As per HPI. PHYSICAL EXAMINATION: As follows: VITAL SIGNS: Temperature afebrile, heart rate 88, blood pressure 144/69. HEENT: PERRLA, intact. NECK: Supple. No carotid bruits. No thyromegaly. CHEST: Clear to auscultation. HEART: S1, S2 regular. ABDOMEN: Soft. EXTREMITIES: Clubbing, cyanosis negative. BLOOD WORKUP: As follows: WBC 6.4, hemoglobin 10.2, hematocrit 32.3, platelet count 151. Chemistry shows sodium 133, potassium 3.9, chloride 91, carbon dioxide 33, anion gap of 13, BUN 18, creatinine 0.8. Troponin 0.09, BNP 5020. IMPRESSION: Acute decompensated congestive heart failure, atrial fibrillation, morbid obesity, diabetes, hypertension, hyperlipidemia. Positive stress test with , a small area of ischemia, but echo told normal left ventricular function, possible mitral stenosis, right ventricular systolic pressure 34. RECOMMENDATION: We will get echo to assess LV function and rule out pulmonary hypertension. Follow up CPK, troponin. Start Lovenox 1 mg/kg because of the atrial fibrillation. We will discuss with and with the patient's son, reference cardiac catheterization. If patient agrees will proceed for cath in 1 -2 days when pt would be able to lay flat on cath table, otherwise treat medically and we will start rate-limiting beta flavio as well as anticoagulation for atrial fibrillation. Continue diuretics. Further recommendation depending hospital course. Also discuss with [id number] and patient's son and will discuss with . We will follow with you. Anthony Mckinley MD cc: [id number] TT: 10/29/2016 15:22:43 Confirmation # [id number] Dictation # [id number] [facility]
[2016-10-29 16:43] LABS: ARTERIAL BLOOD GAS HCO3 38.6 mmol/L (21-28); ARTERIAL BLOOD GAS PH 7.26 (7.35-7.45)
[2016-10-29 16:53] LABS: TROPONIN I 0.05 ng/mL
[2016-10-29] MEDS ORDERED: Enoxaparin 80 mg Syringe SC STA (16:57)
[2016-10-29] MEDS: Non Formulary Medication (Bimatoprost [Lumigan] 1 DROP) OS SCH (18:29)
[2016-10-29] MEDS: Enoxaparin 120 mg Syringe SC SCH (18:31)
[2016-10-29] MEDS: Sodium Chloride 0.9% 1,000 ML IV SCH (18:32)
--- NOTE | 2016-10-29 18:49 | CP.PCM.CON ---
<Chiki Peña - Last Filed: 10/29/16 19:08> History of Present Illness - History of Present Illness History of Present Illness: ICU consult This is 81 year old male with history of HTN, DM-2, arthritis, Afib, obesity, former smoker, depression, leg edema, right knee surgery is brought into the emergency department via EMS for complaints of chest pain. Patient reports non pleuritic chest pain since yesterday. Pain is associated with shortness of breath. Patient notes chronic bilateral lower extremity swelling. He denies any fever, nausea, vomiting.Pt is admitted for evaluation of worsening of leg swelling and shortness of breath most likely secondary to CHF exacerbation. He was found to have elevated BNP, Effusions on CXR. Echo was done this morning which revealed mild LVH, EF 55-60% and moderate to severe TR. He was started on lovenox for afib. After he came back from echo, his vitals were done and he was found to be hypoxic. ABg was done which revealed respiratory acidosis. He became increasingly lethargic therefore bipap was started. Patient was upgraded to ICU. Review of Systems - Review of Systems Systems not reviewed;Unavailable: Altered Mental Status Past Patient History - Past Social History Smoking Status: Former Smoker - CARDIAC Hx Cardiac Disorders: Yes Hx Hypertension: Yes - PULMONARY Hx Respiratory Disorders: No - NEUROLOGICAL Hx Neurological Disorder: No - HEENT Hx HEENT Problems: No - RENAL Hx Chronic Kidney Disease: No - ENDOCRINE/METABOLIC Hx Endocrine Disorders: Yes Hx Diabetes Mellitus Type 2: Yes - HEMATOLOGICAL/ONCOLOGICAL Hx Blood Disorders: No - INTEGUMENTARY Hx Dermatological Problems: No - MUSCULOSKELETAL/RHEUMATOLOGICAL Hx Falls: No - GASTROINTESTINAL Hx Gastrointestinal Disorders: No - GENITOURINARY/GYNECOLOGICAL Hx Genitourinary Disorders: No - PSYCHIATRIC Hx Substance Use: No - SURGICAL HISTORY Hx Surgeries: No (pt denies) Meds Allergies/Adverse Reactions: Allergies Allergy/AdvReac Type Severity Reaction Status Date / Time No Known Allergies Allergy Verified 10/28/16 13:37 - Medications Medications: Current Medications Albuterol/Ipratropium (Duoneb 3 Mg/0.5 Mg (3 Ml) Ud) 3 ml IH [id number] [facility] Last Admin: 10/29/16 14:57 Dose: 3 ml Aspirin (Ecotrin) 81 mg PO DAILY [facility] Last Admin: 10/29/16 10:29 Dose: 81 mg Azithromycin (Zithromax) 500 mg PO DAILY [facility] PRN Reason: Protocol Last Admin: 10/29/16 10:32 Dose: 500 mg Enoxaparin Sodium (Lovenox) 120 mg SC Q12H [facility] PRN Reason: Protocol Escitalopram Oxalate (Lexapro) 10 mg PO DAILY [facility] Last Admin: 10/29/16 10:30 Dose: 10 mg Famotidine (Pepcid) 20 mg PO DAILY [facility] Last Admin: 10/29/16 10:32 Dose: 20 mg Furosemide (Lasix) 60 mg IVP Q12 [facility] Last Admin: 10/29/16 09:39 Dose: 60 mg Gabapentin (Neurontin) 100 mg PO BID [facility] PRN Reason: Protocol Last Admin: 10/29/16 10:31 Dose: 100 mg Guaifenesin (Robitussin) 100 mg PO Q4H PRN PRN Reason: Cough Ceftriaxone Sodium (Rocephin 1 Gram Ivpb) 100 mls @ 100 mls/hr IVPB DAILY [facility] PRN Reason: Protocol Last Admin: 10/29/16 10:30 Dose: 100 mls/hr Sodium Chloride (Sodium Chloride 0.9%) 1,000 mls @ 100 mls/hr IV .Q10H [facility] Insulin Human Regular (Humulin R Med) 0 units SC ACHS [facility] Last Admin: 10/29/16 16:49 Dose: Not Given Lisinopril (Zestril) 40 mg PO DAILY [facility] Last Admin: 10/29/16 10:32 Dose: 40 mg Methylprednisolone (Solu-Medrol) 40 mg IVP Q12 [facility] Non-Formulary Medication (Bimatoprost [Lumigan]) 1 drop OS DIN [facility] Last Admin: 10/28/16 18:38 Dose: Not Given Pilocarpine HCl (Isopto Carpine 1% Opht Soln) 0 ml OU BID [facility] Last Admin: 10/29/16 10:29 Dose: 1 drop Pioglitazone HCl (Actos) 30 mg PO DAILY [facility] Last Admin: 10/29/16 11:53 Dose: 30 mg Verapamil HCl (Calan Tab) 40 mg PO TID [facility] Physical Exam - Constitutional Appears: In Acute Distress - Head Exam Head Exam: ATRAUMATIC, NORMAL INSPECTION, NORMOCEPHALIC - Eye Exam Eye Exam: Normal appearance - ENT Exam ENT Exam: Mucous Membranes Moist - Neck Exam Neck exam: Positive for: Normal Inspection - Respiratory Exam Respiratory Exam: Respiratory Distress. absent: Accessory Muscle Use - Cardiovascular Exam Cardiovascular Exam: REGULAR RHYTHM, +S1, +S2 - GI/Abdominal Exam GI & Abdominal Exam: Soft. absent: Distended, Firm, Guarding - Extremities Exam Extremities exam: Positive for: normal inspection - Back Exam Back exam: NORMAL INSPECTION - Skin Skin Exam: Dry, Intact Results - Vital Signs Recent Vital Signs: Last Vital Signs Temp 98 F 10/29/16 12:00 Pulse 73 10/29/16 17:15 Resp 20 10/29/16 12:00 BP 155/74 H 10/29/16 13:38 Pulse Ox 96 10/29/16 13:38 - Labs Result Diagrams: 10/29/16 07:50 10/29/16 06:30 Labs: Laboratory Results - last 24 hr 10/28/16 10/29/16 10/29/16 22:11 06:30 07:14 WBC RBC Hgb Hct MCV MCH MCHC RDW Plt Count MPV pCO2 pO2 HCO3 ABG pH ABG Total CO2 ABG O2 Saturation ABG O2 Content ABG Base Excess ABG Hemoglobin ABG Carboxyhemoglobin POC ABG HHb (Measured) ABG Methemoglobin ABG O2 Capacity ABG Potassium Hgb O2 Saturation Glucose Lactate FiO2 Inspiratory BiPAP Sodium 133 Potassium 3.9 Chloride 91 L Carbon Dioxide 33 Anion Gap 13 BUN 18 Creatinine 0.8 Est GFR ( Amer) > 60 Est GFR (Non-Af Amer) > 60 POC Glucose (mg/dL) 211 H 158 H Random Glucose 141 H Calcium 8.7 Lactate Dehydrogenase 537 Total Creatine Kinase 83 Troponin I 0.06 D Triglycerides 46 Cholesterol 141 LDL Cholesterol Direct 71 HDL Cholesterol 66 H Procalcitonin < 0.05 L Arterial Blood Potassium 10/29/16 10/29/16 10/29/16 07:50 11:35 13:32 WBC 6.4 RBC 3.50 Hgb 10.2 L Hct 32.3 L MCV 92.3 MCH 29.1 MCHC 31.6 RDW 16.3 H Plt Count 151 MPV 12.4 H pCO2 76 H* pO2 94.0 HCO3 34.9 H ABG pH 7.27 L ABG Total CO2 37.2 H ABG O2 Saturation 97.1 ABG O2 Content 12.6 L ABG Base Excess 6.4 H ABG Hemoglobin 9.3 L ABG Carboxyhemoglobin 1.8 H POC ABG HHb (Measured) 2.8 ABG Methemoglobin 0.2 ABG O2 Capacity 13.0 L ABG Potassium 3.1 L Hgb O2 Saturation 95.1 Glucose 142 H Lactate 0.7 FiO2 100.0 Inspiratory BiPAP Sodium 138.0 Potassium Chloride 102.0 Carbon Dioxide Anion Gap BUN Creatinine Est GFR ( Amer) Est GFR (Non-Af Amer) POC Glucose (mg/dL) 190 H Random Glucose Calcium Lactate Dehydrogenase Total Creatine Kinase Troponin I Triglycerides Cholesterol LDL Cholesterol Direct HDL Cholesterol Procalcitonin Arterial Blood Potassium 3.1 L 10/29/16 10/29/16 16:20 16:39 WBC RBC Hgb Hct MCV MCH MCHC RDW Plt Count MPV pCO2 86 H* pO2 69.0 L HCO3 38.6 H ABG pH 7.26 L ABG Total CO2 41.2 H ABG O2 Saturation 92.9 L ABG O2 Content ABG Base Excess 8.1 H ABG Hemoglobin ABG Carboxyhemoglobin POC ABG HHb (Measured) ABG Methemoglobin ABG O2 Capacity ABG Potassium 3.9 Hgb O2 Saturation Glucose 125 H Lactate 0.5 L FiO2 60.0 Inspiratory BiPAP 14 Sodium 135.0 Potassium Chloride 97.0 L Carbon Dioxide Anion Gap BUN Creatinine Est GFR ( Amer) Est GFR (Non-Af Amer) POC Glucose (mg/dL) Random Glucose Calcium Lactate Dehydrogenase 511 Total Creatine Kinase 79 Troponin I 0.05 Triglycerides Cholesterol LDL Cholesterol Direct HDL Cholesterol Procalcitonin Arterial Blood Potassium 3.9 Assessment & Plan - Assessment and Plan (Free Text) Assessment: Hypercapnic respiratory failure CV * Echocardiogram: Diastolic dysfunction. Dilated R ventricle * chest x-ray showed bilateral effusion * CT chest showed bilateral lower lobe atelectasis/pneumonia with effusion * cardiology consulted: possible cath * continue IV lasix * cardiac enzymes negative x2 * strict I'sand O's * daily weights * continue norvasc and enalapril * Keep MAP over 65 * LVX 120 Pulm * continue rocephin and azithromycin * continue robitussin * Wean * Keep SaO2 over 90% * Duoneb * Solumedrol GI PTX/Pepcid NPO except med ID * pt remains afebrile w/o leukocytosis * f/u blood cultures * Tylenol * Keep normothermia DVT * LE duplex showed no evidence of DVT * LVX 120 Endo: DM * continue actos * hold metformin * continue neurontin * accuchecks * sliding scale insulin * Keep euglycemia 140-160 Hypothyroidism * low TSH * f/u repeat * start synthroid Psych: Depression * Continue lexapro Assessment and plan discussed with attending physician. <Pedro Reese - Last Filed: 10/31/16 13:48> Meds - Medications Medications: Current Medications Albuterol/Ipratropium (Duoneb 3 Mg/0.5 Mg (3 Ml) Ud) 3 ml IH [id number] [facility] Last Admin: 10/31/16 11:04 Dose: 3 ml Aspirin (Ecotrin) 81 mg PO DAILY [facility] Last Admin: 10/31/16 09:27 Dose: 81 mg Clopidogrel Bisulfate (Plavix) 75 mg PO DAILY [facility] Last Admin: 10/31/16 09:31 Dose: 75 mg Enoxaparin Sodium (Lovenox) 120 mg SC Q12H [facility] PRN Reason: Protocol Stop: 10/31/16 23:59 Last Admin: 10/31/16 12:03 Dose: 120 mg Escitalopram Oxalate (Lexapro) 10 mg PO DAILY [facility] Last Admin: 10/31/16 09:31 Dose: 10 mg Famotidine (Pepcid) 20 mg PO DAILY [facility] Last Admin: 10/31/16 09:31 Dose: 20 mg Furosemide (Lasix) 60 mg IVP Q12 [facility] Last Admin: 10/31/16 09:30 Dose: 60 mg Gabapentin (Neurontin) 100 mg PO BID [facility] PRN Reason: Protocol Last Admin: 10/31/16 09:27 Dose: 100 mg Guaifenesin (Robitussin) 100 mg PO Q4H PRN PRN Reason: Cough Home Med (Home Med) 1 unit OU HS [facility] Hydralazine HCl (Apresoline) 10 mg IVP Q6 PRN PRN Reason: Systolic Blood Pressure Milrinone Lactate/Dextrose (Primacor 20mg/100ml D5w) 100 mls @ 7.702 mls/hr IV .Q13H PRN; Protocol; 0.2 MCG/KG/MIN PRN Reason: TITRATE PER MD ORDER Last Titration: 10/31/16 06:05 Dose: 0.2 mcg/kg/min Insulin Human Regular (Humulin R Med) 0 units SC ACHS [facility] Last Admin: 10/31/16 12:01 Dose: 3 units Lisinopril (Zestril) 40 mg PO DAILY [facility] Last Admin: 10/31/16 09:31 Dose: 40 mg Methylprednisolone (Solu-Medrol) 40 mg IVP Q12 [facility] Last Admin: 10/31/16 09:32 Dose: 40 mg Bimatoprost [Lumigan (] (Home Med)) 1 drop OS DIN [facility] Pilocarpine HCl (Isopto Carpine 1% Opht Soln) 0 ml OU BID [facility] Last Admin: 10/31/16 09:34 Dose: 1 drop Timolol Maleate (Timoptic 0.25% Ophth Soln) 2 drop OU BID [facility] Verapamil HCl (Calan Tab) 40 mg PO TID [facility] Last Admin: 10/31/16 13:15 Dose: 40 mg Results - Vital Signs Recent Vital Signs: Last Vital Signs Temp 98.5 F 10/31/16 12:00 Pulse 81 10/31/16 13:15 Resp 24 10/31/16 11:07 BP 132/57 L 10/31/16 13:15 Pulse Ox 95 10/31/16 10:00 - Labs Result Diagrams: 10/31/16 05:00 10/31/16 05:00 Labs: Laboratory Results - last 24 hr 10/30/16 10/30/16 10/31/16 16:23 21:36 05:00 WBC 3.6 L D RBC 3.43 L Hgb 10.0 L Hct 31.4 L MCV 91.5 MCH 29.2 MCHC 31.8 RDW 16.2 H Plt Count 157 MPV 12.2 H Gran % 87.0 H Lymph % (Auto) 8.0 L [place] % (Auto) 5.0 Eos % (Auto) 0.0 L Baso % (Auto) 0.0 Gran # 3.15 Lymph # 0.3 L [place] # 0.2 Eos # 0.0 Baso # 0.00 pCO2 pO2 HCO3 ABG pH ABG Total CO2 ABG O2 Saturation ABG O2 Content ABG Base Excess ABG Hemoglobin ABG Carboxyhemoglobin POC ABG HHb (Measured) ABG Methemoglobin ABG O2 Capacity Hgb O2 Saturation FiO2 Sodium 135 Potassium 3.7 Chloride 93 L Carbon Dioxide 33 Anion Gap 13 BUN 29 H Creatinine 0.9 Est GFR ( Amer) > 60 Est GFR (Non-Af Amer) > 60 POC Glucose (mg/dL) 149 H 143 H Random Glucose 170 H Calcium 8.5 Phosphorus 4.0 Magnesium 1.8 10/31/16 10/31/16 10/31/16 05:20 07:22 08:45 WBC RBC Hgb Hct MCV MCH MCHC RDW Plt Count MPV Gran % Lymph % (Auto) [place] % (Auto) Eos % (Auto) Baso % (Auto) Gran # Lymph # [place] # Eos # Baso # pCO2 54 H 51 H pO2 68.0 L 71.0 L HCO3 34.2 H 33.1 H ABG pH 7.41 7.42 ABG Total CO2 35.9 H 34.7 H ABG O2 Saturation 94.8 L 95.4 ABG O2 Content 16.4 13.3 L ABG Base Excess 8.0 H 7.5 H ABG Hemoglobin 12.6 10.1 L ABG Carboxyhemoglobin 2.2 H 1.7 H POC ABG HHb (Measured) 5.1 H 4.5 ABG Methemoglobin 0.0 0.6 ABG O2 Capacity 17.3 13.9 L Hgb O2 Saturation 92.7 L 93.2 L FiO2 40.0 50.0 Sodium Potassium Chloride Carbon Dioxide Anion Gap BUN Creatinine Est GFR ( Amer) Est GFR (Non-Af Amer) POC Glucose (mg/dL) 188 H Random Glucose Calcium Phosphorus Magnesium Addendum Addendum: 10/31/16 13:[address] Reese note
[2016-10-29 20:14] LABS: ARTERIAL BLOOD GAS HCO3 37.6 mmol/L (21-28); ARTERIAL BLOOD GAS O2 CONTENT 13.4 ML/dl (15-23); ARTERIAL BLOOD GAS PH 7.32 (7.35-7.45); ARTERIAL BLOOD HGB O2 SAT 93.5 % (95.0-98.0); CARBOXYHEMOGLOBIN 1.5 % (0.5-1.5); HHB 4.1 % (0-5); METHEMOGLOBIN 0.8 % (0.0-3.0)
[2016-10-29] MEDS: MethylPREDNISolone 40 mg Vial IVP SCH (22:25)
[2016-10-29 23:15] LABS: ARTERIAL BLOOD GAS HCO3 37.6 mmol/L (21-28); ARTERIAL BLOOD GAS PH 7.37 (7.35-7.45)
--- NOTE | 2016-10-30 00:13 | CP.PCM.PN ---
Subjective - Date & Time of Evaluation Date of Evaluation: 10/29/16 Time of Evaluation: 22:34 - Subjective Subjective: Overnight Events: I spoke with the patients son (i.e-primary decision maker), Jerry Olvera Jr, via telephone overnight. I explained to him that if the patient were to require intubation, his eventual extubation may prove to be difficult, given the patient s age, co-morbidities and severely dilated right ventricle, noted on recent 2D- echo. Despite these realities, the son stated that he wants the patient to remain full code. He also would like Dr. Mckinley to speak with the patients outside adult educator tomorrow, if possible. I told him I would convey his wishes to the morning team. The son is currently in [place] but would like to be made aware of any significant events which may occur in his fathers hospital course (cell #: [phone]). He did not have the patients cardiologists contact info handy at the time but will have it by the morning. Lastly, the patient's Bipap respiratory rate was increased from 20 to 24 based on the ABG done at 20:05 and then his FIO2 was increased from 60 to 70% based on the ABG done at 23:12. Objective - Vital Signs/Intake and Output Vital Signs (last 24 hours): Temp Pulse Resp BP Pulse Ox 98.2 F 81 19 165/77 H 96 10/29/16 20:00 10/29/16 23:50 10/29/16 20:01 10/29/16 22:25 10/29/16 20:01 Intake and Output: 10/29/16 10/30/16 18:59 06:59 Intake Total 900 Balance 900 - Medications Medications: Current Medications Albuterol/Ipratropium (Duoneb 3 Mg/0.5 Mg (3 Ml) Ud) 3 ml IH [id number] [facility] Last Admin: 10/29/16 23:44 Dose: 3 ml Aspirin (Ecotrin) 81 mg PO DAILY [facility] Last Admin: 10/29/16 10:29 Dose: 81 mg Azithromycin (Zithromax) 500 mg PO DAILY [facility] PRN Reason: Protocol Last Admin: 10/29/16 10:32 Dose: 500 mg Enoxaparin Sodium (Lovenox) 120 mg SC Q12H [facility] PRN Reason: Protocol Last Admin: 10/29/16 18:31 Dose: Not Given Escitalopram Oxalate (Lexapro) 10 mg PO DAILY [facility] Last Admin: 10/29/16 10:30 Dose: 10 mg Famotidine (Pepcid) 20 mg PO DAILY [facility] Last Admin: 10/29/16 10:32 Dose: 20 mg Furosemide (Lasix) 60 mg IVP Q12 [facility] Last Admin: 10/29/16 22:25 Dose: 60 mg Gabapentin (Neurontin) 100 mg PO BID [facility] PRN Reason: Protocol Last Admin: 10/29/16 18:31 Dose: Not Given Guaifenesin (Robitussin) 100 mg PO Q4H PRN PRN Reason: Cough Ceftriaxone Sodium (Rocephin 1 Gram Ivpb) 100 mls @ 100 mls/hr IVPB DAILY [facility] PRN Reason: Protocol Last Admin: 10/29/16 10:30 Dose: 100 mls/hr Sodium Chloride (Sodium Chloride 0.9%) 1,000 mls @ 100 mls/hr IV .Q10H [facility] Last Admin: 10/29/16 18:32 Dose: 100 mls/hr Insulin Human Regular (Humulin R Med) 0 units SC ACHS [facility] Last Admin: 10/29/16 22:18 Dose: Not Given Lisinopril (Zestril) 40 mg PO DAILY [facility] Last Admin: 10/29/16 10:32 Dose: 40 mg Methylprednisolone (Solu-Medrol) 40 mg IVP Q12 [facility] Last Admin: 10/29/16 22:25 Dose: 40 mg Non-Formulary Medication (Bimatoprost [Lumigan]) 1 drop OS DIN [facility] Last Admin: 10/29/16 18:29 Dose: Not Given Pilocarpine HCl (Isopto Carpine 1% Opht Soln) 0 ml OU BID [facility] Last Admin: 10/29/16 18:30 Dose: 1 drop Pioglitazone HCl (Actos) 30 mg PO DAILY [facility] Last Admin: 10/29/16 11:53 Dose: 30 mg Verapamil HCl (Calan Tab) 40 mg PO TID [facility] Last Admin: 10/29/16 18:29 Dose: Not Given - Labs Labs: 10/29/16 07:50 10/29/16 06:30 PT 11.2 Seconds (9.9-11.8) 10/28/16 13:45 INR 1.04 (0.93-1.08) 10/28/16 13:45 APTT 26.7 Seconds (23.7-30.8) 10/28/16 13:45
[2016-10-30] MEDS: Enoxaparin 120 mg Syringe SC SCH ×2 (00:18→12:46)
[2016-10-30] MEDS: Albuterol-Ipratrop 3 mg / 0.5 (3 ml) UD IH SCH ×5 (04:34→20:29)
[2016-10-30 05:26] LABS: ADD MANUAL DIFF? NO
[2016-10-30 05:32] LABS: ARTERIAL BLOOD GAS HCO3 38.1 mmol/L (21-28); ARTERIAL BLOOD GAS O2 CONTENT 13.7 ML/dl (15-23); ARTERIAL BLOOD GAS PH 7.35 (7.35-7.45); ARTERIAL BLOOD HGB O2 SAT 95.7 % (95.0-98.0); CARBOXYHEMOGLOBIN 1.6 % (0.5-1.5); HHB 1.9 % (0-5); METHEMOGLOBIN 0.8 % (0.0-3.0)
[2016-10-30 05:40] LABS: GRAN # 4.71 (1.4-6.5); GRAN % 92.1 % (50.0-68.0); HEMATOCRIT 33.8 % (42.0-52.0); LYMPH # 0.3 (1.2-3.4); LYMPH % 6.3 % (22.0-35.0); MEAN CELL VOLUME 93.9 fL (80.0-105.0); MEAN CORPUSCULAR HEMOGLOBIN 29.2 pg (25.0-35.0); MEAN CORPUSCULAR HGB CONC 31.1 g/dl (31.0-37.0); MEAN PLATELET VOLUME 12.7 fl (7.0-11.0); MONO # 0.1 (0.1-0.6); MONO % 1.6 % (1.0-6.0); PLATELET COUNT 151 10^3/uL (120.0-450.0); RED CELL DISTRIBUTION WIDTH 16.2 % (11.5-14.5); WHITE BLOOD COUNT 5.1 10^3/ul (4.5-11.0)
[2016-10-30 05:50] LABS: ALB/GLOB RATIO 0.9 (1.1-1.8); ALKALINE PHOSPHATASE 56 U/L (38-133); ALT/SGPT 24 U/L (7-56); AST/SGOT 28 U/L (15-59); BILIRUBIN,TOTAL 0.7 mg/dL (0.2-1.3); BLOOD UREA NITROGEN 18 mg/dL (7-21); CALCIUM 8.7 mg/dL (8.4-10.5); CARBON DIOXIDE 35 mmol/L (21-33); CHLORIDE 92 mmol/L (98-107); GFR AFRICAN-AMERICAN > 60; GLUCOSE,RANDOM 148 mg/dL (70-110); MAGNESIUM 1.7 mg/dL (1.7-2.2); PHOSPHOROUS 4.5 mg/dL (2.5-4.5); SODIUM 135 mmol/L (132-148); TOTAL PROTEIN 7.2 g/dL (5.8-8.3)
--- NOTE | 2016-10-30 05:53 | CON ---
DATE: 10/29/2016 HISTORY OF PRESENT ILLNESS: This is an 81-year-old gentleman whose past medical history includes diabetes, and who was brought to the Emergency Department yesterday with complaint of chest pain. The patient describes some chest tightness. The patient reports some sharp chest pain in the middle of the sternum, not radiating, associated with shortness of breath and worsening of bilateral lower extremity swelling. No fever. No nausea. No vomiting. No diarrhea. No constipation. Subsequent workup revealed no ischemic changes in the EKG. CAT scan of the chest with PE protocol did not reveal a central pulmonary embolism, as well as lower extremity venous Doppler was negative. The patient had echocardiogram, which revealed normal systolic and diastolic function of the left ventricle, and severely dilated right ventricle with moderately decreased right ventricular systolic function. RV wall thickness wnl. The patient also appeared to have severe right ventricular systolic pressure up to 73. PAST MEDICAL HISTORY: Diabetes. FAMILY HISTORY: Noncontributory. SOCIAL HISTORY: The patient is an ex-smoker. No alcohol or illicit drug abuse. ALLERGIES: NKDA. MEDICATIONS: The patient is on Lumigan eyedrops, Actos, verapamil, DuoNeb every 4 hours, aspirin, regular insulin sliding scale medium protocol, Lasix 60 mg IV q.12, Lexapro, Lovenox 120 mg subQ q.12, Neurontin, Pepcid 20 mg daily, Robitussin, ceftriaxone, Solu-Medrol 40 mg IV q.12, lisinopril, azithromycin. PHYSICAL EXAMINATION: VITAL SIGNS: Temperature 98, heart rate 70, blood pressure 155/74, oxygen saturation 96% on 60% FIO2, 14/6 BiPAP. HEAD AND NECK: Atraumatic. LUNGS: Clear to auscultation bilaterally. HEART: Regular rate and rhythm. S1, S2 normal. ABDOMEN: Soft, nontender, nondistended. MUSCULOSKELETAL: No C/C/E. NEUROLOGIC: The patient moves all extremities spontaneously. SKIN: Moist. PSYCHIATRIC: The patient is alert, somewhat somnolent but following commands without problem and responds to conversation and commands. LABORATORY DATA: Sodium 133, potassium 3.9, chloride 91, BUN 18, creatinine 0.8 , glucose 190. Troponin 0.06 x 2 negative, third is pending. Procalcitonin less than 0.05. HDL cholesterol 66. INR 1.04, PTT 26.7. Blood gas upon presentation 7.27/76/94. Lactic acid 0.7. CAT scan of the chest revealed no central pulmonary embolism, no evidence of aortic aneurysm or dissection, moderate bilateral pleural effusion, larger on the right, confluent airspace disease in the lower lobes may represent atelectasis or pneumonia. Echocardiogram showed ejection fraction of the left ventricle 55% to 60%. There is normal left ventricular segmental wall motion. The left ventricular diastolic function is normal (quoting official report). No left ventricular thrombosis noted on this study. There is no ventricular septal defect visualized. There is no left ventricle aneurysm. There is no mass noted in the left ventricle. The right ventricle is severely dilated with normal right ventricular wall thickness. Systolic function is moderately reduced. The right atrium is moderately dilated, and the left atrium is moderately dilated, as well. RVSP 73 mmHg. ASSESSMENT AND PLAN: This is an 81-year-old gentleman without left ventricular systolic dysfunction and without anatomical left ventricular diastolic dysfunction. Functional left ventricular diastolic dysfunction is possible by severely dilated right ventricle impinging on to the left ventricle during diastole, thus causing functional left ventricular diastolic dysfunction. By that mechanism, it is plausible to imagine that cardiogenic pulmonary edema with some pleural effusion due to functional diastolic dysfunction may develop. Even though there are some reports that pleural effusion may be associated with idiopathic, CTD or portal hypertension related pulmonary hypertension, the mechanism by which those types of pulmonary hypertension may cause pleural effusion is not completely understood. It is also possible that right ventricular failure in this patient may be related to yet undiagnosed COPD and represents cor pulmonale. No matter what etiology of severe RV failure, putting patient with severe RVF/PH on IPPV may substantially worsen his pulmonary hypertension and right ventricular systolic function. Thus, I will try to avoid it as much as possible. Some CO2 retention may have potentially caused worsening of patient's mental status, and we will repeat ABG to see if BiPAP positively impacted his ventilatory and mental status as well. Meanwhile, I would continue with systemic steroids, bronchodilators, antibiotics. Input from cardiology service is pending. Given severe right ventricular failure, conversation with the family about advanced directives appears to be appropriate. Maintaining euvolemia is critical in this patient as over- aggressive diuresis may tip balance to hemodynamic instability in light of all above. At the same time, fluid overload may worsen his respiratory status as well. Component of community-acquired pneumonia tipping patient off is also a possibility and maybe to some degree explain some airspace disease; however, it is unlikely that the patient has severe sepsis as procalcitonin level is less than 0.05. The patient also is afebrile and does not have leukocytosis. I would continue to target euvolemia, euglycemia, normothermia, and oxygen saturation more than 90%. I will continue with deep venous thrombosis and gastrointestinal prophylaxis. I will follow up on ABG. ccm time 40 min Pedro Reese MD cc: [id number] TT: 10/30/2016 04:38:09 Confirmation # [id number] Dictation # [id number] tn 10/30/2016 04:52:23 VESTA
[2016-10-30 06:06] LABS: FREE T4 1.81 ng/dL (0.78-2.19)
[2016-10-30 06:20] LABS: THYROID STIMULATING HORMONE 0.21 mIU/mL (0.46-4.68)
[2016-10-30] MEDS: Insulin Reg-MEDIUM-Coverage SC SCH ×4 (07:32→23:48)
--- NOTE | 2016-10-30 08:35 | RAD ---
HISTORY: hypoxia COMPARISON: No prior. FINDINGS: LUNGS: There are bilateral pleural effusions, larger on the right. There is mild pulmonary venous congestion. PLEURA: No pneumothorax apparent. CARDIOVASCULAR: Normal. OSSEOUS STRUCTURES: No significant abnormalities. VISUALIZED UPPER ABDOMEN: Normal. OTHER FINDINGS: None. IMPRESSION: Bilateral pleural effusions, larger on the right.
[2016-10-30] MEDS: MethylPREDNISolone 40 mg Vial IVP SCH ×2 (10:05→21:32)
[2016-10-30] MEDS: cefTRIAXone 1 gm 100 ML IVPB SCH (10:09)
[2016-10-30] MEDS: Pilocarpine 1% Opht (15ml) OU SCH ×2 (10:13→17:16)
--- NOTE | 2016-10-30 10:55 | PN ---
DATE: 10/30/2016 REASON FOR CONSULTATION AND FOLLOWUP: Decompensated congestive heart failure, obesity, admitted with atrial fibrillation, CHF, hypercapnia, CO2 narcosis. BRIEF CLINICAL HISTORY: An 81-year-old male with past medical history significant for diabetes, obes ity, hypertension, hyperlipidemia, admitted with progressively worsening shortness of breath over 2 w eeks. The patient yesterday underwent a CAT scan of the chest to rule out PE, found to be negative. The patient is being followed by Dr. Jacobo at [facility] who had a stress test one m onth ago and found to be small area of inferior wall hypokinesis, suspicious for ischemia. The patie nt's echo at that time was essentially told negative. The patient yesterday had an echo done here in the [facility] that showed a significant elevated PA pressure 75, severely dilated RV. By afternoon yesterday, patient developed hypercapnia, CO2 narcosis and patient was moved to ICU. Cu rrently, the patient is on BiPAP and is still in AFib. PHYSICAL EXAMINATION: VITAL SIGNS: Temperature afebrile, heart rate 98, blood pressure 113/66. HEENT: PERRLA. Extraocular muscles intact. JVD elevated. NECK: Supple. No carotid bruits. No thyromegaly. CHEST: Clear to auscultation. HEART: S1, S2 regular. ABDOMEN: Soft. EXTREMITIES: Clubbing and cyanosis negative. LABORATORY DATA: Blood workup as follows: WBC 5.1, hemoglobin 10.5, hematocrit 33.8, platelet coun t 151. Chemistry shows sodium 135, potassium 4, chloride 92, carbon dioxide 35, anion gap of 12, BUN 18, creatinine 0.8. I's and O's, 1.5 liter negative fluid balance and yesterday it was 1.1, so tota l 2.6 liters of fluid, negative fluid balance. IMPRESSION: Decompensated congestive heart failure secondary to diastolic possibly dysfunction, atri al fibrillation, pulmonary hypertension, severe right ventricle enlargement, right ventricle hypokine sis, ejection fraction 50%-55%, atrial fibrillation, mild mitral regurgitation, no mitral stenosis, s evere tricuspid regurgitation, ejection fraction 55%-60%, CO2 narcosis, atrial fibrillation. CT ches t was negative for pulmonary embolism. Ultrasound was negative, or duplex scan, for deep venous thro mbosis. RECOMMENDATION: Continue Lovenox 1 mg/kg body weight. Continue IV hydralazine. Avoid nephrotoxic m edication. Continue verapamil to control the heart rate. Put p.r.n. hydralazine. We will start IV Primacor to loser PA pressure and once the patient is stable in a day or two, consider cardiac cathet erization. We will discuss with the son. Discussed with Dr. Gatito Jacobo yesterday. We will discus s with the son, Jerry, on telephone, about the patient's condition and for cardi ac catheterization. We will follow with you. Discussed with instructor flying, Carly, and Dr. Mary calvo in ICU, and also the resident taking care of the patient. We will follow with you. Thank you, Dr. Carroll, for providing the opportunity in taking care of this patient. Anthony Mckinley MD cc: [id number] TT: 10/30/2016 10:54:52 Confirmation # [id number] Dictation # [id number] elba
--- NOTE | 2016-10-30 11:45 | CP.CCUPN ---
<Dedra Stacy - Last Filed: 10/30/16 12:05> CCU Subjective - Physician Review Events Since Last Encounter (Free Text): 10/30/16 12:06 Patient seen and examined bedside. No acute events overnight. Off BiPAP this AM , currently on High flow O2, tolerating without problems. Patient related 2 week h/o worsening SOB at home prior to admission with cough, and orthopnea, no wheezing. Currently denies CP, abd pain, n/v/d, fevers, chills. Critical Care Time Spent (in minutes): 40 CCU Objective - Vital Signs / Intake & Output Vital Signs (Last 4 hours): Vital Signs Temp Pulse Resp BP 10/30/16 11:12 20 10/30/16 10:05 131/59 L 10/30/16 09:39 16 10/30/16 08:00 97.9 F 10/30/16 07:50 98 H Intake and Output (Last 8hrs): Intake & Output 10/29/16 10/30/16 10/30/16 22:59 06:59 14:59 Intake Total 900 1200 Output Total 2750 Balance 900 -1550 Intake: IV 1200 Right Antecubital 0 Left Forearm 1200 Oral 900 Output: Urine 2750 Urine, Voided 2750 Other: Voiding Method Indwelling Catheter # Voids Urine, Voided 3 # Bowel Movements 1 0 - Physical Exam Head: Positive for: Atraumatic, Normocephalic Pupils: Positive for: PERRL Extroacular Muscles: Positive for: EOMI Conjunctiva: Positive for: Normal Mouth: Positive for: Moist Mucous Membranes Neck: Positive for: Normal Range of Motion, JVD Respiratory/Chest: Positive for: Clear to Auscultation. Negative for: Good Air Exchange (poor air movement throughout), Respiratory Distress Cardiovascular: Positive for: Regular Rate and Rhythm Abdomen: Positive for: Normal Bowel Sounds. Negative for: Tenderness, Distention Neurological: Positive for: GCS=15 Psychiatric: Positive for: Alert, Oriented x 3 - Medications Active Medications: Active Medications Generic Name Dose Route Start Last Admin Trade Name Freq PRN Reason Stop Dose Admin Albuterol/Ipratropium 3 ml 10/29/16 11:30 10/30/16 11:09 Duoneb 3 Mg/0.5 Mg (3 Ml) Ud IH 3 ml [id number] JEROME Administration Aspirin 81 mg 03/26/17 18:00 10/30/16 10:07 Ecotrin PO 81 mg DAILY JEROME Administration Azithromycin 500 mg 10/28/16 17:45 10/30/16 10:11 Zithromax PO 500 mg DAILY JEROME Administration Protocol Clopidogrel Bisulfate 75 mg 10/31/16 10:00 Plavix PO DAILY JEROME Enoxaparin Sodium 120 mg 10/29/16 12:45 10/30/16 00:18 Lovenox SC 10/31/16 23:59 120 mg Q12H JEROME Administration Protocol Escitalopram Oxalate 10 mg 10/28/16 17:45 10/30/16 10:08 Lexapro PO 10 mg DAILY JEROME Administration Famotidine 20 mg 10/28/16 17:45 10/30/16 10:08 Pepcid PO 20 mg DAILY JEROME Administration Furosemide 60 mg 10/28/16 22:00 10/30/16 10:05 Lasix IVP 60 mg Q12 JEROME Administration Gabapentin 100 mg 10/28/16 18:00 10/30/16 10:08 Neurontin PO 100 mg BID JEROME Administration Protocol Guaifenesin 100 mg 10/28/16 17:35 Robitussin PO Q4H PRN Cough Hydralazine HCl 10 mg 10/30/16 01:42 Apresoline IVP Q6 PRN Systolic Blood Pressure Ceftriaxone Sodium 100 mls @ 100 mls/hr 10/28/16 17:45 10/30/16 10:09 Rocephin 1 Gram Ivpb IVPB 100 mls/hr DAILY JEROME Administration Protocol Sodium Chloride 1,000 mls @ 100 mls/hr 10/29/16 17:45 10/29/16 18:32 Sodium Chloride 0.9% IV 100 mls/hr .Q10H JEROME Administration Milrinone Lactate/Dextrose 100 mls @ 7.702 mls/hr 10/30/16 09:47 Primacor 20mg/100ml D5w IV .Q13H PRN TITRATE PER MD ORDER Protocol 0.2 MCG/KG/MIN Insulin Human Regular 0 units 10/28/16 22:00 10/30/16 07:32 Humulin R Med SC Not Given ACHS JEROME Lisinopril 40 mg 10/28/16 18:00 10/30/16 10:09 Zestril PO 40 mg DAILY JEROME Administration Methylprednisolone 40 mg 10/29/16 22:00 10/30/16 10:05 Solu-Medrol IVP 40 mg Q12 JEROME Administration Non-Formulary Medication 1 drop 10/28/16 17:45 10/29/16 18:29 Bimatoprost [Lumigan] OS Not Given DIN JEROME Pilocarpine HCl 0 ml 10/28/16 18:00 10/30/16 10:13 Isopto Carpine 1% Opht Soln OU 1 drop BID JEROME Administration Verapamil HCl 40 mg 10/29/16 14:00 10/30/16 10:08 Calan Tab PO 40 mg TID JEROME Administration - Patient Studies Lab Studies: Lab Studies 10/30/16 10/30/16 10/30/16 Range/Units 11:15 07:32 05:15 WBC (4.5-11.0) 10^3/ul RBC (3.5-6.1) 10^6/uL Hgb (14.0-18.0) gm/dL Hct (42.0-52.0) % MCV (80.0-105.0) fL MCH (25.0-35.0) pg MCHC (31.0-37.0) g/dl RDW (11.5-14.5) % Plt Count (120.0-450.0) 10^3/uL MPV (7.0-11.0) fl Gran % (50.0-68.0) % Lymph % (Auto) (22.0-35.0) % [place] % (Auto) (1.0-6.0) % Eos % (Auto) (1.5-5.0) % Baso % (Auto) (0.0-3.0) % Gran # (1.4-6.5) Lymph # (1.2-3.4) [place] # (0.1-0.6) Eos # (0.0-0.7) Baso # (0.0-2.0) K/mm3 pCO2 69 H (35-45) mm/Hg pO2 118.0 H (80-100) mm/Hg HCO3 38.1 H (21-28) mmol/L ABG pH 7.35 (7.35-7.45) ABG Total CO2 40.2 H (22-28) mmol.L ABG O2 Saturation 98.1 H (95-98) % ABG O2 Content 13.7 L (15-23) ML/dl ABG Base Excess 10.5 H (-2.0-3.0) mmol/L ABG Hemoglobin 10.0 L (11.7-17.4) g/dL ABG Carboxyhemoglobin 1.6 H (0.5-1.5) % POC ABG HHb (Measured) 1.9 (0-5) % ABG Methemoglobin 0.8 (0.0-3.0) % ABG O2 Capacity 14.0 L (16-24) mL/dl ABG Potassium (3.6-5.2) mmol/L Hgb O2 Saturation 95.7 (95.0-98.0) % Glucose (75-110) mg/dl Lactate (0.7-2.1) mmol/L FiO2 70.0 % Inspiratory BiPAP Sodium (132-148) mmol/L Potassium (3.6-5.0) mmol/L Chloride (98-107) mmol/L Carbon Dioxide (21-33) mmol/L Anion Gap (10-20) BUN (7-21) mg/dL Creatinine (0.5-1.4) mg/dL Est GFR ( Amer) Est GFR (Non-Af Amer) POC Glucose (mg/dL) 150 H 147 H (65-110) mg/dL Random Glucose (70-110) mg/dL Hemoglobin A1c (4.2-6.5) % Calcium (8.4-10.5) mg/dL Phosphorus (2.5-4.5) mg/dL Magnesium (1.7-2.2) mg/dL Total Bilirubin (0.2-1.3) mg/dL AST (15-59) U/L ALT (7-56) U/L Alkaline Phosphatase (38-133) U/L Lactate Dehydrogenase (333-699) U/L Total Creatine Kinase (35-230) U/L Troponin I ng/mL Total Protein (5.8-8.3) g/dL Albumin (3.0-4.8) g/dL Globulin gm/dL Albumin/Globulin Ratio (1.1-1.8) Procalcitonin (0.19-0.49) NG/ML Free T4 (0.78-2.19) ng/dL TSH 3rd Generation (0.46-4.68) mIU/mL Arterial Blood Potassium (3.6-5.2) mmol/L 10/30/16 10/29/16 10/29/16 Range/Units 05:00 23:12 21:27 WBC 5.1 D (4.5-11.0) 10^3/ul RBC 3.60 (3.5-6.1) 10^6/uL Hgb 10.5 L (14.0-18.0) gm/dL Hct 33.8 L (42.0-52.0) % MCV 93.9 (80.0-105.0) fL MCH 29.2 (25.0-35.0) pg MCHC 31.1 (31.0-37.0) g/dl RDW 16.2 H (11.5-14.5) % Plt Count 151 (120.0-450.0) 10^3/uL MPV 12.7 H (7.0-11.0) fl Gran % 92.1 H (50.0-68.0) % Lymph % (Auto) 6.3 L (22.0-35.0) % [place] % (Auto) 1.6 (1.0-6.0) % Eos % (Auto) 0.0 L (1.5-5.0) % Baso % (Auto) 0.0 (0.0-3.0) % Gran # 4.71 (1.4-6.5) Lymph # 0.3 L (1.2-3.4) [place] # 0.1 (0.1-0.6) Eos # 0.0 (0.0-0.7) Baso # 0.00 (0.0-2.0) K/mm3 pCO2 65 H (35-45) mm/Hg pO2 73.0 L (80-100) mm/Hg HCO3 37.6 H (21-28) mmol/L ABG pH 7.37 (7.35-7.45) ABG Total CO2 39.6 H (22-28) mmol.L ABG O2 Saturation 95.9 (95-98) % ABG O2 Content (15-23) ML/dl ABG Base Excess 9.7 H (-2.0-3.0) mmol/L ABG Hemoglobin (11.7-17.4) g/dL ABG Carboxyhemoglobin (0.5-1.5) % POC ABG HHb (Measured) (0-5) % ABG Methemoglobin (0.0-3.0) % ABG O2 Capacity (16-24) mL/dl ABG Potassium 3.5 L (3.6-5.2) mmol/L Hgb O2 Saturation (95.0-98.0) % Glucose 98 (75-110) mg/dl Lactate 0.5 L (0.7-2.1) mmol/L FiO2 60.0 % Inspiratory BiPAP Sodium 135 137.0 (132-148) mmol/L Potassium 4.0 (3.6-5.0) mmol/L Chloride 92 L 100.0 (98-107) mmol/L Carbon Dioxide 35 H (21-33) mmol/L Anion Gap 12 (10-20) BUN 18 (7-21) mg/dL Creatinine 0.8 (0.5-1.4) mg/dL Est GFR ( Amer) > 60 Est GFR (Non-Af Amer) > 60 POC Glucose (mg/dL) 108 (65-110) mg/dL Random Glucose 148 H (70-110) mg/dL Hemoglobin A1c 6.9 H (4.2-6.5) % Calcium 8.7 (8.4-10.5) mg/dL Phosphorus 4.5 (2.5-4.5) mg/dL Magnesium 1.7 (1.7-2.2) mg/dL Total Bilirubin 0.7 (0.2-1.3) mg/dL AST 28 (15-59) U/L ALT 24 (7-56) U/L Alkaline Phosphatase 56 (38-133) U/L Lactate Dehydrogenase (333-699) U/L Total Creatine Kinase (35-230) U/L Troponin I ng/mL Total Protein 7.2 (5.8-8.3) g/dL Albumin 3.4 (3.0-4.8) g/dL Globulin 3.8 gm/dL Albumin/Globulin Ratio 0.9 L (1.1-1.8) Procalcitonin (0.19-0.49) NG/ML Free T4 1.81 (0.78-2.19) ng/dL TSH 3rd Generation 0.21 L (0.46-4.68) mIU/mL Arterial Blood Potassium 3.5 L (3.6-5.2) mmol/L 10/29/16 10/29/16 10/29/16 Range/Units 20:05 16:41 16:39 WBC (4.5-11.0) 10^3/ul RBC (3.5-6.1) 10^6/uL Hgb (14.0-18.0) gm/dL Hct (42.0-52.0) % MCV (80.0-105.0) fL MCH (25.0-35.0) pg MCHC (31.0-37.0) g/dl RDW (11.5-14.5) % Plt Count (120.0-450.0) 10^3/uL MPV (7.0-11.0) fl Gran % (50.0-68.0) % Lymph % (Auto) (22.0-35.0) % [place] % (Auto) (1.0-6.0) % Eos % (Auto) (1.5-5.0) % Baso % (Auto) (0.0-3.0) % Gran # (1.4-6.5) Lymph # (1.2-3.4) [place] # (0.1-0.6) Eos # (0.0-0.7) Baso # (0.0-2.0) K/mm3 pCO2 73 H* 86 H* (35-45) mm/Hg pO2 81.0 69.0 L (80-100) mm/Hg HCO3 37.6 H 38.6 H (21-28) mmol/L ABG pH 7.32 L 7.26 L (7.35-7.45) ABG Total CO2 39.8 H 41.2 H (22-28) mmol.L ABG O2 Saturation 95.8 92.9 L (95-98) % ABG O2 Content 13.4 L (15-23) ML/dl ABG Base Excess 9.5 H 8.1 H (-2.0-3.0) mmol/L ABG Hemoglobin 10.1 L (11.7-17.4) g/dL ABG Carboxyhemoglobin 1.5 (0.5-1.5) % POC ABG HHb (Measured) 4.1 (0-5) % ABG Methemoglobin 0.8 (0.0-3.0) % ABG O2 Capacity 14.0 L (16-24) mL/dl ABG Potassium 3.9 (3.6-5.2) mmol/L Hgb O2 Saturation 93.5 L (95.0-98.0) % Glucose 125 H (75-110) mg/dl Lactate 0.5 L (0.7-2.1) mmol/L FiO2 60.0 60.0 % Inspiratory BiPAP 14 Sodium 135.0 (132-148) mmol/L Potassium (3.6-5.0) mmol/L Chloride 97.0 L (98-107) mmol/L Carbon Dioxide (21-33) mmol/L Anion Gap (10-20) BUN (7-21) mg/dL Creatinine (0.5-1.4) mg/dL Est GFR ( Amer) Est GFR (Non-Af Amer) POC Glucose (mg/dL) 127 H (65-110) mg/dL Random Glucose (70-110) mg/dL Hemoglobin A1c (4.2-6.5) % Calcium (8.4-10.5) mg/dL Phosphorus (2.5-4.5) mg/dL Magnesium (1.7-2.2) mg/dL Total Bilirubin (0.2-1.3) mg/dL AST (15-59) U/L ALT (7-56) U/L Alkaline Phosphatase (38-133) U/L Lactate Dehydrogenase (333-699) U/L Total Creatine Kinase (35-230) U/L Troponin I ng/mL Total Protein (5.8-8.3) g/dL Albumin (3.0-4.8) g/dL Globulin gm/dL Albumin/Globulin Ratio (1.1-1.8) Procalcitonin (0.19-0.49) NG/ML Free T4 (0.78-2.19) ng/dL TSH 3rd Generation (0.46-4.68) mIU/mL Arterial Blood Potassium 3.9 (3.6-5.2) mmol/L 10/29/16 10/29/16 10/29/16 Range/Units 16:20 13:32 06:30 WBC (4.5-11.0) 10^3/ul RBC (3.5-6.1) 10^6/uL Hgb (14.0-18.0) gm/dL Hct (42.0-52.0) % MCV (80.0-105.0) fL MCH (25.0-35.0) pg MCHC (31.0-37.0) g/dl RDW (11.5-14.5) % Plt Count (120.0-450.0) 10^3/uL MPV (7.0-11.0) fl Gran % (50.0-68.0) % Lymph % (Auto) (22.0-35.0) % [place] % (Auto) (1.0-6.0) % Eos % (Auto) (1.5-5.0) % Baso % (Auto) (0.0-3.0) % Gran # (1.4-6.5) Lymph # (1.2-3.4) [place] # (0.1-0.6) Eos # (0.0-0.7) Baso # (0.0-2.0) K/mm3 pCO2 76 H* (35-45) mm/Hg pO2 94.0 (80-100) mm/Hg HCO3 34.9 H (21-28) mmol/L ABG pH 7.27 L (7.35-7.45) ABG Total CO2 37.2 H (22-28) mmol.L ABG O2 Saturation 97.1 (95-98) % ABG O2 Content 12.6 L (15-23) ML/dl ABG Base Excess 6.4 H (-2.0-3.0) mmol/L ABG Hemoglobin 9.3 L (11.7-17.4) g/dL ABG Carboxyhemoglobin 1.8 H (0.5-1.5) % POC ABG HHb (Measured) 2.8 (0-5) % ABG Methemoglobin 0.2 (0.0-3.0) % ABG O2 Capacity 13.0 L (16-24) mL/dl ABG Potassium 3.1 L (3.6-5.2) mmol/L Hgb O2 Saturation 95.1 (95.0-98.0) % Glucose 142 H (75-110) mg/dl Lactate 0.7 (0.7-2.1) mmol/L FiO2 100.0 % Inspiratory BiPAP Sodium 138.0 (132-148) mmol/L Potassium (3.6-5.0) mmol/L Chloride 102.0 (98-107) mmol/L Carbon Dioxide (21-33) mmol/L Anion Gap (10-20) BUN (7-21) mg/dL Creatinine (0.5-1.4) mg/dL Est GFR ( Amer) Est GFR (Non-Af Amer) POC Glucose (mg/dL) (65-110) mg/dL Random Glucose (70-110) mg/dL Hemoglobin A1c (4.2-6.5) % Calcium (8.4-10.5) mg/dL Phosphorus (2.5-4.5) mg/dL Magnesium (1.7-2.2) mg/dL Total Bilirubin (0.2-1.3) mg/dL AST (15-59) U/L ALT (7-56) U/L Alkaline Phosphatase (38-133) U/L Lactate Dehydrogenase 511 (333-699) U/L Total Creatine Kinase 79 (35-230) U/L Troponin I 0.05 ng/mL Total Protein (5.8-8.3) g/dL Albumin (3.0-4.8) g/dL Globulin gm/dL Albumin/Globulin Ratio (1.1-1.8) Procalcitonin < 0.05 L (0.19-0.49) NG/ML Free T4 (0.78-2.19) ng/dL TSH 3rd Generation (0.46-4.68) mIU/mL Arterial Blood Potassium 3.1 L (3.6-5.2) mmol/L Laboratory Results - last 24 hr 10/29/16 10/29/16 10/29/16 06:30 13:32 16:20 WBC RBC Hgb Hct MCV MCH MCHC RDW Plt Count MPV Gran % Lymph % (Auto) [place] % (Auto) Eos % (Auto) Baso % (Auto) Gran # Lymph # [place] # Eos # Baso # pCO2 76 H* pO2 94.0 HCO3 34.9 H ABG pH 7.27 L ABG Total CO2 37.2 H ABG O2 Saturation 97.1 ABG O2 Content 12.6 L ABG Base Excess 6.4 H ABG Hemoglobin 9.3 L ABG Carboxyhemoglobin 1.8 H POC ABG HHb (Measured) 2.8 ABG Methemoglobin 0.2 ABG O2 Capacity 13.0 L ABG Potassium 3.1 L Hgb O2 Saturation 95.1 Sodium 138.0 Chloride 102.0 Glucose 142 H Lactate 0.7 FiO2 100.0 Inspiratory BiPAP Potassium Carbon Dioxide Anion Gap BUN Creatinine Est GFR ( Amer) Est GFR (Non-Af Amer) POC Glucose (mg/dL) Random Glucose Hemoglobin A1c Calcium Phosphorus Magnesium Total Bilirubin AST ALT Alkaline Phosphatase Lactate Dehydrogenase 511 Total Creatine Kinase 79 Troponin I 0.05 Total Protein Albumin Globulin Albumin/Globulin Ratio Procalcitonin < 0.05 L Free T4 TSH 3rd Generation Arterial Blood Potassium 3.1 L 10/29/16 10/29/16 10/29/16 16:39 16:41 20:05 WBC RBC Hgb Hct MCV MCH MCHC RDW Plt Count MPV Gran % Lymph % (Auto) [place] % (Auto) Eos % (Auto) Baso % (Auto) Gran # Lymph # [place] # Eos # Baso # pCO2 86 H* 73 H* pO2 69.0 L 81.0 HCO3 38.6 H 37.6 H ABG pH 7.26 L 7.32 L ABG Total CO2 41.2 H 39.8 H ABG O2 Saturation 92.9 L 95.8 ABG O2 Content 13.4 L ABG Base Excess 8.1 H 9.5 H ABG Hemoglobin 10.1 L ABG Carboxyhemoglobin 1.5 POC ABG HHb (Measured) 4.1 ABG Methemoglobin 0.8 ABG O2 Capacity 14.0 L ABG Potassium 3.9 Hgb O2 Saturation 93.5 L Sodium 135.0 Chloride 97.0 L Glucose 125 H Lactate 0.5 L FiO2 60.0 60.0 Inspiratory BiPAP 14 Potassium Carbon Dioxide Anion Gap BUN Creatinine Est GFR ( Amer) Est GFR (Non-Af Amer) POC Glucose (mg/dL) 127 H Random Glucose Hemoglobin A1c Calcium Phosphorus Magnesium Total Bilirubin AST ALT Alkaline Phosphatase Lactate Dehydrogenase Total Creatine Kinase Troponin I Total Protein Albumin Globulin Albumin/Globulin Ratio Procalcitonin Free T4 TSH 3rd Generation Arterial Blood Potassium 3.9 10/29/16 10/29/16 10/30/16 21:27 23:12 05:00 WBC 5.1 D RBC 3.60 Hgb 10.5 L Hct 33.8 L MCV 93.9 MCH 29.2 MCHC 31.1 RDW 16.2 H Plt Count 151 MPV 12.7 H Gran % 92.1 H Lymph % (Auto) 6.3 L [place] % (Auto) 1.6 Eos % (Auto) 0.0 L Baso % (Auto) 0.0 Gran # 4.71 Lymph # 0.3 L [place] # 0.1 Eos # 0.0 Baso # 0.00 pCO2 65 H pO2 73.0 L HCO3 37.6 H ABG pH 7.37 ABG Total CO2 39.6 H ABG O2 Saturation 95.9 ABG O2 Content ABG Base Excess 9.7 H ABG Hemoglobin ABG Carboxyhemoglobin POC ABG HHb (Measured) ABG Methemoglobin ABG O2 Capacity ABG Potassium 3.5 L Hgb O2 Saturation Sodium 137.0 135 Chloride 100.0 92 L Glucose 98 Lactate 0.5 L FiO2 60.0 Inspiratory BiPAP Potassium 4.0 Carbon Dioxide 35 H Anion Gap 12 BUN 18 Creatinine 0.8 Est GFR ( Amer) > 60 Est GFR (Non-Af Amer) > 60 POC Glucose (mg/dL) 108 Random Glucose 148 H Hemoglobin A1c 6.9 H Calcium 8.7 Phosphorus 4.5 Magnesium 1.7 Total Bilirubin 0.7 AST 28 ALT 24 Alkaline Phosphatase 56 Lactate Dehydrogenase Total Creatine Kinase Troponin I Total Protein 7.2 Albumin 3.4 Globulin 3.8 Albumin/Globulin Ratio 0.9 L Procalcitonin Free T4 1.81 TSH 3rd Generation 0.21 L Arterial Blood Potassium 3.5 L 10/30/16 10/30/16 10/30/16 05:15 07:32 11:15 WBC RBC Hgb Hct MCV MCH MCHC RDW Plt Count MPV Gran % Lymph % (Auto) [place] % (Auto) Eos % (Auto) Baso % (Auto) Gran # Lymph # [place] # Eos # Baso # pCO2 69 H pO2 118.0 H HCO3 38.1 H ABG pH 7.35 ABG Total CO2 40.2 H ABG O2 Saturation 98.1 H ABG O2 Content 13.7 L ABG Base Excess 10.5 H ABG Hemoglobin 10.0 L ABG Carboxyhemoglobin 1.6 H POC ABG HHb (Measured) 1.9 ABG Methemoglobin 0.8 ABG O2 Capacity 14.0 L ABG Potassium Hgb O2 Saturation 95.7 Sodium Chloride Glucose Lactate FiO2 70.0 Inspiratory BiPAP Potassium Carbon Dioxide Anion Gap BUN Creatinine Est GFR ( Amer) Est GFR (Non-Af Amer) POC Glucose (mg/dL) 147 H 150 H Random Glucose Hemoglobin A1c Calcium Phosphorus Magnesium Total Bilirubin AST ALT Alkaline Phosphatase Lactate Dehydrogenase Total Creatine Kinase Troponin I Total Protein Albumin Globulin Albumin/Globulin Ratio Procalcitonin Free T4 TSH 3rd Generation Arterial Blood Potassium Fingerstick Blood Sugar Results: 147 Review of Systems - Constitutional Constitutional: absent: Fever, Chills - EENT Eyes: absent: Blurred Vision, Change in Vision - Cardiovascular Cardiovascular: absent: Chest Pain, Dyspnea (resolved) - Respiratory Respiratory: Cough. absent: Dyspnea, Dyspnea on Exertion, Pain on Inspiration - Genitourinary Genitourinary: absent: Dysuria - Integumentary Integumentary: absent: New Lesions - Neurological Neurological: absent: Dizziness, Headaches Critical Care Progress Note - Ventilator Checklist PUD Prophalyxis: Yes DVT Prophylaxis: Yes - Nutrition Nutrition: Nutrition Category Date Time Status NPO Diet [DIET] Diets 10/29/16 Dinner Ordered Assessment/Plan - Assessment and Plan (Free Text) Assessment: 81yo M w h/o DM, former tobacco abuse, HTN, NIDDM2, depression admitted to ICU with hypercarbic respiratory failure requiring BiPAP Plan: Neuro: AAOx3, NAD, tolerating High-flow Maintain normothermia CV: 2D ECHO shows LVEF 55-60%, Trace AR, mild MR, mod TR, RVSP 75mmHg, Dilated RV Acute PE ruled out. BL LE Dupplex negative for DVTs. Patient unlikely to be able to do V/Q scan Now on milrinone drip as per cardio Continue therapeutic lovenox for a fib as per cardio Continue lasix as per cardio HTN meds as per cardio Pulm: Hypercarbic RF improving Severe pHTN 2/2 MAHI +/- COPD Poor air movement - continue solumedrol. Rocephin, azithromycin for possible CAP as per primary team GI: GI ppx Renal: No acute issues. Continue to monitor renal function, I&Os. Maintain euvolemia Endo: A1C 6.9 Maintain euglycemia 140-180 Will discontinue oral antihyperglycemics while in the hospital ID: [place] azithromycin for possible CAP. Afebrile, no leukocytosis, procalcitonin <0.05 Heme: Hb stable. No signs of bleeding. Monitor. DVT/GI ppx: Therpaeutic lovenox, Pepcid, NPO - Date & Time Date: 10/30/16 Time: 12:11 <Bakari Carroll MD H - Last Filed: 10/30/16 15:12> CCU Objective - Vital Signs / Intake & Output Vital Signs (Last 4 hours): Vital Signs Resp 10/30/16 11:12 20 Intake and Output (Last 8hrs): Intake & Output 10/30/16 10/30/16 10/30/16 06:59 14:59 22:59 Intake Total 1200 Output Total 2750 Balance -1550 Intake: IV 1200 Right Antecubital 0 Left Forearm 1200 Output: Urine 2750 Urine, Voided 2750 Other: # Bowel Movements 0 - Medications Active Medications: Active Medications Generic Name Dose Route Start Last Admin Trade Name Freq PRN Reason Stop Dose Admin Albuterol/Ipratropium 3 ml 10/29/16 11:30 10/30/16 11:09 Duoneb 3 Mg/0.5 Mg (3 Ml) Ud IH 3 ml [id number] JEROME Administration Aspirin 81 mg 10/28/16 18:00 10/30/16 10:07 Ecotrin PO 81 mg DAILY JEROME Administration Azithromycin 500 mg 10/28/16 17:45 10/30/16 10:11 Zithromax PO 500 mg DAILY JEROME Administration Protocol Clopidogrel Bisulfate 75 mg 10/31/16 10:00 Plavix PO DAILY JEROME Enoxaparin Sodium 120 mg 10/29/16 12:45 10/30/16 12:46 Lovenox SC 10/31/16 23:59 120 mg Q12H JEROME Administration Protocol Escitalopram Oxalate 10 mg 10/28/16 17:45 10/30/16 10:08 Lexapro PO 10 mg DAILY JEROME Administration Famotidine 20 mg 10/28/16 17:45 10/30/16 10:08 Pepcid PO 20 mg DAILY JEROME Administration Furosemide 60 mg 10/28/16 22:00 10/30/16 10:05 Lasix IVP 60 mg Q12 JEROME Administration Gabapentin 100 mg 10/28/16 18:00 10/30/16 10:08 Neurontin PO 100 mg BID JEROME Administration Protocol Guaifenesin 100 mg 10/28/16 17:35 Robitussin PO Q4H PRN Cough Hydralazine HCl 10 mg 10/30/16 01:42 Apresoline IVP Q6 PRN Systolic Blood Pressure Ceftriaxone Sodium 100 mls @ 100 mls/hr 10/28/16 17:45 10/30/16 10:09 Rocephin 1 Gram Ivpb IVPB 100 mls/hr DAILY JEROME Administration Protocol Sodium Chloride 1,000 mls @ 100 mls/hr 10/29/16 17:45 10/29/16 18:32 Sodium Chloride 0.9% IV 100 mls/hr .Q10H JEROME Administration Milrinone Lactate/Dextrose 100 mls @ 7.702 mls/hr 10/30/16 09:47 Primacor 20mg/100ml D5w IV .Q13H PRN TITRATE PER MD ORDER Protocol 0.2 MCG/KG/MIN Insulin Human Regular 0 units 10/28/16 22:00 10/30/16 12:14 Humulin R Med SC Not Given ACHS JEROME Lisinopril 40 mg 10/28/16 18:00 10/30/16 10:09 Zestril PO 40 mg DAILY JEROME Administration Methylprednisolone 40 mg 10/29/16 22:00 10/30/16 10:05 Solu-Medrol IVP 40 mg Q12 JEROME Administration Non-Formulary Medication 1 drop 10/28/16 17:45 10/29/16 18:29 Bimatoprost [Lumigan] OS Not Given DIN JEROME Pilocarpine HCl 0 ml 10/28/16 18:00 10/30/16 10:13 Isopto Carpine 1% Opht Soln OU 1 drop BID JEROME Administration Verapamil HCl 40 mg 10/29/16 14:00 10/30/16 10:08 Calan Tab PO 40 mg TID JEROME Administration - Patient Studies Lab Studies: Lab Studies 10/30/16 10/30/16 10/30/16 Range/Units 11:15 07:32 05:15 WBC (4.5-11.0) 10^3/ul RBC (3.5-6.1) 10^6/uL Hgb (14.0-18.0) gm/dL Hct (42.0-52.0) % MCV (80.0-105.0) fL MCH (25.0-35.0) pg MCHC (31.0-37.0) g/dl RDW (11.5-14.5) % Plt Count (120.0-450.0) 10^3/uL MPV (7.0-11.0) fl Gran % (50.0-68.0) % Lymph % (Auto) (22.0-35.0) % Duc[place]ne % (Auto) (1.0-6.0) % Eos % (Auto) (1.5-5.0) % Baso % (Auto) (0.0-3.0) % Gran # (1.4-6.5) Lymph # (1.2-3.4) Duc[place]ne # (0.1-0.6) Eos # (0.0-0.7) Baso # (0.0-2.0) K/mm3 pCO2 69 H (35-45) mm/Hg pO2 118.0 H (80-100) mm/Hg HCO3 38.1 H (21-28) mmol/L ABG pH 7.35 (7.35-7.45) ABG Total CO2 40.2 H (22-28) mmol.L ABG O2 Saturation 98.1 H (95-98) % ABG O2 Content 13.7 L (15-23) ML/dl ABG Base Excess 10.5 H (-2.0-3.0) mmol/L ABG Hemoglobin 10.0 L (11.7-17.4) g/dL ABG Carboxyhemoglobin 1.6 H (0.5-1.5) % POC ABG HHb (Measured) 1.9 (0-5) % ABG Methemoglobin 0.8 (0.0-3.0) % ABG O2 Capacity 14.0 L (16-24) mL/dl ABG Potassium (3.6-5.2) mmol/L Hgb O2 Saturation 95.7 (95.0-98.0) % Glucose (75-110) mg/dl Lactate (0.7-2.1) mmol/L FiO2 70.0 % Inspiratory BiPAP Sodium (132-148) mmol/L Potassium (3.6-5.0) mmol/L Chloride (98-107) mmol/L Carbon Dioxide (21-33) mmol/L Anion Gap (10-20) BUN (7-21) mg/dL Creatinine (0.5-1.4) mg/dL Est GFR ( Amer) Est GFR (Non-Af Amer) POC Glucose (mg/dL) 150 H 147 H (65-110) mg/dL Random Glucose (70-110) mg/dL Hemoglobin A1c (4.2-6.5) % Calcium (8.4-10.5) mg/dL Phosphorus (2.5-4.5) mg/dL Magnesium (1.7-2.2) mg/dL Total Bilirubin (0.2-1.3) mg/dL AST (15-59) U/L ALT (7-56) U/L Alkaline Phosphatase (38-133) U/L Lactate Dehydrogenase (333-699) U/L Total Creatine Kinase (35-230) U/L Troponin I ng/mL Total Protein (5.8-8.3) g/dL Albumin (3.0-4.8) g/dL Globulin gm/dL Albumin/Globulin Ratio (1.1-1.8) Free T4 (0.78-2.19) ng/dL TSH 3rd Generation (0.46-4.68) mIU/mL Arterial Blood Potassium (3.6-5.2) mmol/L 10/30/16 10/29/16 10/29/16 Range/Units 05:00 23:12 21:27 WBC 5.1 D (4.5-11.0) 10^3/ul RBC 3.60 (3.5-6.1) 10^6/uL Hgb 10.5 L (14.0-18.0) gm/dL Hct 33.8 L (42.0-52.0) % MCV 93.9 (80.0-105.0) fL MCH 29.2 (25.0-35.0) pg MCHC 31.1 (31.0-37.0) g/dl RDW 16.2 H (11.5-14.5) % Plt Count 151 (120.0-450.0) 10^3/uL MPV 12.7 H (7.0-11.0) fl Gran % 92.1 H (50.0-68.0) % Lymph % (Auto) 6.3 L (22.0-35.0) % [place]ne % (Auto) 1.6 (1.0-6.0) % Eos % (Auto) 0.0 L (1.5-5.0) % Baso % (Auto) 0.0 (0.0-3.0) % Gran # 4.71 (1.4-6.5) Lymph # 0.3 L (1.2-3.4) Duc[place]ne # 0.1 (0.1-0.6) Eos # 0.0 (0.0-0.7) Baso # 0.00 (0.0-2.0) K/mm3 pCO2 65 H (35-45) mm/Hg pO2 73.0 L (80-100) mm/Hg HCO3 37.6 H (21-28) mmol/L ABG pH 7.37 (7.35-7.45) ABG Total CO2 39.6 H (22-28) mmol.L ABG O2 Saturation 95.9 (95-98) % ABG O2 Content (15-23) ML/dl ABG Base Excess 9.7 H (-2.0-3.0) mmol/L ABG Hemoglobin (11.7-17.4) g/dL ABG Carboxyhemoglobin (0.5-1.5) % POC ABG HHb (Measured) (0-5) % ABG Methemoglobin (0.0-3.0) % ABG O2 Capacity (16-24) mL/dl ABG Potassium 3.5 L (3.6-5.2) mmol/L Hgb O2 Saturation (95.0-98.0) % Glucose 98 (75-110) mg/dl Lactate 0.5 L (0.7-2.1) mmol/L FiO2 60.0 % Inspiratory BiPAP Sodium 135 137.0 (132-148) mmol/L Potassium 4.0 (3.6-5.0) mmol/L Chloride 92 L 100.0 (98-107) mmol/L Carbon Dioxide 35 H (21-33) mmol/L Anion Gap 12 (10-20) BUN 18 (7-21) mg/dL Creatinine 0.8 (0.5-1.4) mg/dL Est GFR ( Amer) > 60 Est GFR (Non-Af Amer) > 60 POC Glucose (mg/dL) 108 (65-110) mg/dL Random Glucose 148 H (70-110) mg/dL Hemoglobin A1c 6.9 H (4.2-6.5) % Calcium 8.7 (8.4-10.5) mg/dL Phosphorus 4.5 (2.5-4.5) mg/dL Magnesium 1.7 (1.7-2.2) mg/dL Total Bilirubin 0.7 (0.2-1.3) mg/dL AST 28 (15-59) U/L ALT 24 (7-56) U/L Alkaline Phosphatase 56 (38-133) U/L Lactate Dehydrogenase (333-699) U/L Total Creatine Kinase (35-230) U/L Troponin I ng/mL Total Protein 7.2 (5.8-8.3) g/dL Albumin 3.4 (3.0-4.8) g/dL Globulin 3.8 gm/dL Albumin/Globulin Ratio 0.9 L (1.1-1.8) Free T4 1.81 (0.78-2.19) ng/dL TSH 3rd Generation 0.21 L (0.46-4.68) mIU/mL Arterial Blood Potassium 3.5 L (3.6-5.2) mmol/L 10/29/16 10/29/16 10/29/16 Range/Units 20:05 16:41 16:39 WBC (4.5-11.0) 10^3/ul RBC (3.5-6.1) 10^6/uL Hgb (14.0-18.0) gm/dL Hct (42.0-52.0) % MCV (80.0-105.0) fL MCH (25.0-35.0) pg MCHC (31.0-37.0) g/dl RDW (11.5-14.5) % Plt Count (120.0-450.0) 10^3/uL MPV (7.0-11.0) fl Gran % (50.0-68.0) % Lymph % (Auto) (22.0-35.0) % [place] % (Auto) (1.0-6.0) % Eos % (Auto) (1.5-5.0) % Baso % (Auto) (0.0-3.0) % Gran # (1.4-6.5) Lymph # (1.2-3.4) [place] # (0.1-0.6) Eos # (0.0-0.7) Baso # (0.0-2.0) K/mm3 pCO2 73 H* 86 H* (35-45) mm/Hg pO2 81.0 69.0 L (80-100) mm/Hg HCO3 37.6 H 38.6 H (21-28) mmol/L ABG pH 7.32 L 7.26 L (7.35-7.45) ABG Total CO2 39.8 H 41.2 H (22-28) mmol.L ABG O2 Saturation 95.8 92.9 L (95-98) % ABG O2 Content 13.4 L (15-23) ML/dl ABG Base Excess 9.5 H 8.1 H (-2.0-3.0) mmol/L ABG Hemoglobin 10.1 L (11.7-17.4) g/dL ABG Carboxyhemoglobin 1.5 (0.5-1.5) % POC ABG HHb (Measured) 4.1 (0-5) % ABG Methemoglobin 0.8 (0.0-3.0) % ABG O2 Capacity 14.0 L (16-24) mL/dl ABG Potassium 3.9 (3.6-5.2) mmol/L Hgb O2 Saturation 93.5 L (95.0-98.0) % Glucose 125 H (75-110) mg/dl Lactate 0.5 L (0.7-2.1) mmol/L FiO2 60.0 60.0 % Inspiratory BiPAP 14 Sodium 135.0 (132-148) mmol/L Potassium (3.6-5.0) mmol/L Chloride 97.0 L (98-107) mmol/L Carbon Dioxide (21-33) mmol/L Anion Gap (10-20) BUN (7-21) mg/dL Creatinine (0.5-1.4) mg/dL Est GFR ( Amer) Est GFR (Non-Af Amer) POC Glucose (mg/dL) 127 H (65-110) mg/dL Random Glucose (70-110) mg/dL Hemoglobin A1c (4.2-6.5) % Calcium (8.4-10.5) mg/dL Phosphorus (2.5-4.5) mg/dL Magnesium (1.7-2.2) mg/dL Total Bilirubin (0.2-1.3) mg/dL AST (15-59) U/L ALT (7-56) U/L Alkaline Phosphatase (38-133) U/L Lactate Dehydrogenase (333-699) U/L Total Creatine Kinase (35-230) U/L Troponin I ng/mL Total Protein (5.8-8.3) g/dL Albumin (3.0-4.8) g/dL Globulin gm/dL Albumin/Globulin Ratio (1.1-1.8) Free T4 (0.78-2.19) ng/dL TSH 3rd Generation (0.46-4.68) mIU/mL Arterial Blood Potassium 3.9 (3.6-5.2) mmol/L 10/29/ Range/Units 16:20 WBC (4.5-11.0) 10^3/ul RBC (3.5-6.1) 10^6/uL Hgb (14.0-18.0) gm/dL Hct (42.0-52.0) % MCV (80.0-105.0) fL MCH (25.0-35.0) pg MCHC (31.0-37.0) g/dl RDW (11.5-14.5) % Plt Count (120.0-450.0) 10^3/uL MPV (7.0-11.0) fl Gran % (50.0-68.0) % Lymph % (Auto) (22.0-35.0) % [place] % (Auto) (1.0-6.0) % Eos % (Auto) (1.5-5.0) % Baso % (Auto) (0.0-3.0) % Gran # (1.4-6.5) Lymph # (1.2-3.4) [place]ne # (0.1-0.6) Eos # (0.0-0.7) Baso # (0.0-2.0) K/mm3 pCO2 (35-45) mm/Hg pO2 (80-100) mm/Hg HCO3 (21-28) mmol/L ABG pH (7.35-7.45) ABG Total CO2 (22-28) mmol.L ABG O2 Saturation (95-98) % ABG O2 Content (15-23) ML/dl ABG Base Excess (-2.0-3.0) mmol/L ABG Hemoglobin (11.7-17.4) g/dL ABG Carboxyhemoglobin (0.5-1.5) % POC ABG HHb (Measured) (0-5) % ABG Methemoglobin (0.0-3.0) % ABG O2 Capacity (16-24) mL/dl ABG Potassium (3.6-5.2) mmol/L Hgb O2 Saturation (95.0-98.0) % Glucose (75-110) mg/dl Lactate (0.7-2.1) mmol/L FiO2 % Inspiratory BiPAP Sodium (132-148) mmol/L Potassium (3.6-5.0) mmol/L Chloride (98-107) mmol/L Carbon Dioxide (21-33) mmol/L Anion Gap (10-20) BUN (7-21) mg/dL Creatinine (0.5-1.4) mg/dL Est GFR ( Amer) Est GFR (Non-Af Amer) POC Glucose (mg/dL) (65-110) mg/dL Random Glucose (70-110) mg/dL Hemoglobin A1c (4.2-6.5) % Calcium (8.4-10.5) mg/dL Phosphorus (2.5-4.5) mg/dL Magnesium (1.7-2.2) mg/dL Total Bilirubin (0.2-1.3) mg/dL AST (15-59) U/L ALT (7-56) U/L Alkaline Phosphatase (38-133) U/L Lactate Dehydrogenase 511 (333-699) U/L Total Creatine Kinase 79 (35-230) U/L Troponin I 0.05 ng/mL Total Protein (5.8-8.3) g/dL Albumin (3.0-4.8) g/dL Globulin gm/dL Albumin/Globulin Ratio (1.1-1.8) Free T4 (0.78-2.19) ng/dL TSH 3rd Generation (0.46-4.68) mIU/mL Arterial Blood Potassium (3.6-5.2) mmol/L Laboratory Results - last 24 hr 10/29/16 10/29/16 10/29/16 16:20 16:39 16:41 WBC RBC Hgb Hct MCV MCH MCHC RDW Plt Count MPV Gran % Lymph % (Auto) [place] % (Auto) Eos % (Auto) Baso % (Auto) Gran # Lymph # [place] # Eos # Baso # pCO2 86 H* pO2 69.0 L HCO3 38.6 H ABG pH 7.26 L ABG Total CO2 41.2 H ABG O2 Saturation 92.9 L ABG O2 Content ABG Base Excess 8.1 H ABG Hemoglobin ABG Carboxyhemoglobin POC ABG HHb (Measured) ABG Methemoglobin ABG O2 Capacity ABG Potassium 3.9 Hgb O2 Saturation Sodium 135.0 Chloride 97.0 L Glucose 125 H Lactate 0.5 L FiO2 60.0 Inspiratory BiPAP 14 Potassium Carbon Dioxide Anion Gap BUN Creatinine Est GFR ( Amer) Est GFR (Non-Af Amer) POC Glucose (mg/dL) 127 H Random Glucose Hemoglobin A1c Calcium Phosphorus Magnesium Total Bilirubin AST ALT Alkaline Phosphatase Lactate Dehydrogenase 511 Total Creatine Kinase 79 Troponin I 0.05 Total Protein Albumin Globulin Albumin/Globulin Ratio Free T4 TSH 3rd Generation Arterial Blood Potassium 3.9 10/29/16 10/29/16 10/29/16 20:05 21:27 23:12 WBC RBC Hgb Hct MCV MCH MCHC RDW Plt Count MPV Gran % Lymph % (Auto) [place]ne % (Auto) Eos % (Auto) Baso % (Auto) Gran # Lymph # [place] # Eos # Baso # pCO2 73 H* 65 H pO2 81.0 73.0 L HCO3 37.6 H 37.6 H ABG pH 7.32 L 7.37 ABG Total CO2 39.8 H 39.6 H ABG O2 Saturation 95.8 95.9 ABG O2 Content 13.4 L ABG Base Excess 9.5 H 9.7 H ABG Hemoglobin 10.1 L ABG Carboxyhemoglobin 1.5 POC ABG HHb (Measured) 4.1 ABG Methemoglobin 0.8 ABG O2 Capacity 14.0 L ABG Potassium 3.5 L Hgb O2 Saturation 93.5 L Sodium 137.0 Chloride 100.0 Glucose 98 Lactate 0.5 L FiO2 60.0 60.0 Inspiratory BiPAP Potassium Carbon Dioxide Anion Gap BUN Creatinine Est GFR ( Amer) Est GFR (Non-Af Amer) POC Glucose (mg/dL) 108 Random Glucose Hemoglobin A1c Calcium Phosphorus Magnesium Total Bilirubin AST ALT Alkaline Phosphatase Lactate Dehydrogenase Total Creatine Kinase Troponin I Total Protein Albumin Globulin Albumin/Globulin Ratio Free T4 TSH 3rd Generation Arterial Blood Potassium 3.5 L 10/30/16 10/30/16 10/30/16 05:00 05:15 07:32 WBC 5.1 D RBC 3.60 Hgb 10.5 L Hct 33.8 L MCV 93.9 MCH 29.2 MCHC 31.1 RDW 16.2 H Plt Count 151 MPV 12.7 H Gran % 92.1 H Lymph % (Auto) 6.3 L [place] % (Auto) 1.6 Eos % (Auto) 0.0 L Baso % (Auto) 0.0 Gran # 4.71 Lymph # 0.3 L [place]ne # 0.1 Eos # 0.0 Baso # 0.00 pCO2 69 H pO2 118.0 H HCO3 38.1 H ABG pH 7.35 ABG Total CO2 40.2 H ABG O2 Saturation 98.1 H ABG O2 Content 13.7 L ABG Base Excess 10.5 H ABG Hemoglobin 10.0 L ABG Carboxyhemoglobin 1.6 H POC ABG HHb (Measured) 1.9 ABG Methemoglobin 0.8 ABG O2 Capacity 14.0 L ABG Potassium Hgb O2 Saturation 95.7 Sodium 135 Chloride 92 L Glucose Lactate FiO2 70.0 Inspiratory BiPAP Potassium 4.0 Carbon Dioxide 35 H Anion Gap 12 BUN 18 Creatinine 0.8 Est GFR ( Amer) > 60 Est GFR (Non-Af Amer) > 60 POC Glucose (mg/dL) 147 H Random Glucose 148 H Hemoglobin A1c 6.9 H Calcium 8.7 Phosphorus 4.5 Magnesium 1.7 Total Bilirubin 0.7 AST 28 ALT 24 Alkaline Phosphatase 56 Lactate Dehydrogenase Total Creatine Kinase Troponin I Total Protein 7.2 Albumin 3.4 Globulin 3.8 Albumin/Globulin Ratio 0.9 L Free T4 1.81 TSH 3rd Generation 0.21 L Arterial Blood Potassium 10/30/16 11:15 WBC RBC Hgb Hct MCV MCH MCHC RDW Plt Count MPV Gran % Lymph % (Auto) [place] % (Auto) Eos % (Auto) Baso % (Auto) Gran # Lymph # [place] # Eos # Baso # pCO2 pO2 HCO3 ABG pH ABG Total CO2 ABG O2 Saturation ABG O2 Content ABG Base Excess ABG Hemoglobin ABG Carboxyhemoglobin POC ABG HHb (Measured) ABG Methemoglobin ABG O2 Capacity ABG Potassium Hgb O2 Saturation Sodium Chloride Glucose Lactate FiO2 Inspiratory BiPAP Potassium Carbon Dioxide Anion Gap BUN Creatinine Est GFR ( Amer) Est GFR (Non-Af Amer) POC Glucose (mg/dL) 150 H Random Glucose Hemoglobin A1c Calcium Phosphorus Magnesium Total Bilirubin AST ALT Alkaline Phosphatase Lactate Dehydrogenase Total Creatine Kinase Troponin I Total Protein Albumin Globulin Albumin/Globulin Ratio Free T4 TSH 3rd Generation Arterial Blood Potassium Critical Care Progress Note - Nutrition Nutrition: Nutrition Category Date Time Status NPO Diet [DIET] Diets 10/29/16 Dinner Ordered Attending/Attestation - Attestation I have personally seen and examined this patient.: Yes I have fully participated in the care of the patient.: Yes I have reviewed all pertinent clinical information: Yes Notes (Text): 10/30/16 15:07 Overnight patient remained on BIPAP with moderate CO2 clearance Placed on HFNC this morning. Case d/w Cardiology and Milrinone was started for RV failure Diuresis continued, important to watch for hypotention . Strict I&O's Keep pao2>60 Severe Pulmonary HTN class 2 and 3. Less likely 4, but have not r/o CTEPH. Could possibly do V/Q once stable. Cardiology consult appreciated. Poor prognosis if no acute reason is found. If chronic QOL is poor. On treatment dose Lovenox for presumed VTE . cc time 75 min
--- NOTE | 2016-10-30 15:47 | CP.PCM.PN ---
<Jose Miller - Last Filed: 10/30/16 15:44> Subjective - Date & Time of Evaluation Date of Evaluation: 10/30/16 Time of Evaluation: 09:15 - Subjective Subjective: Dr. Miller PGY 1 Hospitalist note Patient seen and evaluated at bedside in ICU. He was wearing Bipap and watching TV. He is able to answer questions appropriately. He denies any chest pain, nausea, vomiting, diarrhea, abdominal pain, or leg pain. He states he does not remember the events of yesterday evening which led to him being in the ICU. He states he just felt tired. A 12 point review of systems was performed and negative except where indicated above. Objective - Vital Signs/Intake and Output Vital Signs (last 24 hours): Temp Pulse Resp BP Pulse Ox 97.9 F 92 H 24 145/69 94 L 10/30/16 08:00 10/30/16 15:14 10/30/16 15:14 10/30/16 15:14 10/30/16 07:00 Intake and Output: 10/30/16 10/30/16 06:59 18:59 Intake Total 1200 Output Total 2750 Balance -1550 - Medications Medications: Current Medications Albuterol/Ipratropium (Duoneb 3 Mg/0.5 Mg (3 Ml) Ud) 3 ml IH [id number] [facility] Last Admin: 10/30/16 15:12 Dose: 3 ml Aspirin (Ecotrin) 81 mg PO DAILY [facility] Last Admin: 10/30/16 10:07 Dose: 81 mg Azithromycin (Zithromax) 500 mg PO DAILY [facility] PRN Reason: Protocol Last Admin: 10/30/16 10:11 Dose: 500 mg Clopidogrel Bisulfate (Plavix) 75 mg PO DAILY [facility] Enoxaparin Sodium (Lovenox) 120 mg SC Q12H [facility] PRN Reason: Protocol Stop: 10/31/16 23:59 Last Admin: 10/30/16 12:46 Dose: 120 mg Escitalopram Oxalate (Lexapro) 10 mg PO DAILY [facility] Last Admin: 10/30/16 10:08 Dose: 10 mg Famotidine (Pepcid) 20 mg PO DAILY [facility] Last Admin: 10/30/16 10:08 Dose: 20 mg Furosemide (Lasix) 60 mg IVP Q12 [facility] Last Admin: 10/30/16 10:05 Dose: 60 mg Gabapentin (Neurontin) 100 mg PO BID [facility] PRN Reason: Protocol Last Admin: 10/30/16 10:08 Dose: 100 mg Guaifenesin (Robitussin) 100 mg PO Q4H PRN PRN Reason: Cough Hydralazine HCl (Apresoline) 10 mg IVP Q6 PRN PRN Reason: Systolic Blood Pressure Ceftriaxone Sodium (Rocephin 1 Gram Ivpb) 100 mls @ 100 mls/hr IVPB DAILY [facility] PRN Reason: Protocol Last Admin: 10/30/16 10:09 Dose: 100 mls/hr Sodium Chloride (Sodium Chloride 0.9%) 1,000 mls @ 100 mls/hr IV .Q10H [facility] Last Admin: 10/29/16 18:32 Dose: 100 mls/hr Milrinone Lactate/Dextrose (Primacor 20mg/100ml D5w) 100 mls @ 7.702 mls/hr IV .Q13H PRN; Protocol; 0.2 MCG/KG/MIN PRN Reason: TITRATE PER MD ORDER Insulin Human Regular (Humulin R Med) 0 units SC ACHS [facility] Last Admin: 10/30/16 12:14 Dose: Not Given Lisinopril (Zestril) 40 mg PO DAILY [facility] Last Admin: 10/30/16 10:09 Dose: 40 mg Methylprednisolone (Solu-Medrol) 40 mg IVP Q12 [facility] Last Admin: 10/30/16 10:05 Dose: 40 mg Non-Formulary Medication (Bimatoprost [Lumigan]) 1 drop OS DIN [facility] Last Admin: 10/29/16 18:29 Dose: Not Given Pilocarpine HCl (Isopto Carpine 1% Opht Soln) 0 ml OU BID [facility] Last Admin: 10/30/16 10:13 Dose: 1 drop Verapamil HCl (Calan Tab) 40 mg PO TID [facility] Last Admin: 10/30/16 15:14 Dose: 40 mg - Labs Labs: 10/30/16 05:00 10/30/16 05:00 PT 11.2 Seconds (9.9-11.8) 10/28/16 13:45 INR 1.04 (0.93-1.08) 10/28/16 13:45 APTT 26.7 Seconds (23.7-30.8) 10/28/16 13:45 - Constitutional Appears: No Acute Distress, Other (obese with bipap in place) - Head Exam Head Exam: ATRAUMATIC, NORMOCEPHALIC - Eye Exam Eye Exam: EOMI, Normal appearance, PERRL Pupil Exam: NORMAL ACCOMODATION, PERRL - ENT Exam ENT Exam: Mucous Membranes Moist - Respiratory Exam Respiratory Exam: Decreased Breath Sounds (bilateral lower lobes ), NORMAL BREATHING PATTERN. absent: Rales, Rhonchi, Wheezes - Cardiovascular Exam Cardiovascular Exam: Irregular Rhythm (irregularly irregular), +S1, +S2. absent : Gallop, Rubs, Murmur - GI/Abdominal Exam GI & Abdominal Exam: Soft, Normal Bowel Sounds. absent: Tenderness - Extremities Exam Extremities Exam: Pedal Edema (+2 edema bilatel LE ) - Neurological Exam Neurological Exam: Alert, Awake, CN II-XII Intact, Oriented x3 - Psychiatric Exam Psychiatric exam: Flat Affect - Skin Skin Exam: Dry, Warm Assessment and Plan - Assessment and Plan (Free Text) Assessment: Patient is an 81 y/o M with history of HTN, DM, arthritis, obesity, who presents with complaint of leg swelling and SOB. Patient had echocardiogram performed and developed hypercapnic respiratory failure and was taken to ICU and placed on bipap. Plan: 1) Respiratory failure * Pulmonology, cardiology, and ID consulted, help appreciated * Pt closely monitored in ICU * repeat chest x-ray showed bilateral effusion R>L * CT chest showed bilateral lower lobe atelectasis/pneumonia with effusion [see full report] * continue IV lasix * cardiac enzymes negative x2 * daily weights * continue rocephin and azithromycin for CAP * continue robitussin * pt remains afebrile w/o leukocytosis * blood cultures negative * Maintain O2 say >90% with supplemental oxygen 2) Edema * LE duplex showed no evidence of DVT * Echocardiogram showed LV normal size with mild concentric LV hypertrophy and EF of 55-60%, mild tricuspid regurge wtih RVSP 75 mm of Hg. [ see full report] * Cardiology consulted, help appreciated * Continue IV lasix * strict I's and O's 3) Afib * Continue lovenox as per cardiology * continue aspirin and plavix 4) HTN * continue Verapamil and Zestril * Hydralazine started as per cardiology 5) DM * continue actos * hold metformin * continue neurontin * accuchecks * sliding scale insulin 6) Hypothyroidism * low TSH at 0.21 and normal Free T4 at 1.81 * likely subacute hypthyroidism * recommend repeat in 6-8 weeks from discharge 7) Depression * Continue lexapro 8) PPX * pepcid * lovenox * tylenol * SCD's contraindicated due to bilateral Edema Assessment and plan discussed with attending physician. <Amanda Carroll - Last Filed: 10/30/16 16:17> Objective - Vital Signs/Intake and Output Vital Signs (last 24 hours): Temp Pulse Resp BP Pulse Ox 97.9 F 92 H 24 145/69 94 L 10/30/16 08:00 10/30/16 15:14 10/30/16 15:14 10/30/16 15:14 10/30/16 07:00 Intake and Output: 10/30/16 10/30/16 06:59 18:59 Intake Total 1200 Output Total 2750 Balance -1550 - Medications Medications: Current Medications Albuterol/Ipratropium (Duoneb 3 Mg/0.5 Mg (3 Ml) Ud) 3 ml IH [id number] [facility] Last Admin: 10/30/16 15:12 Dose: 3 ml Aspirin (Ecotrin) 81 mg PO DAILY [facility] Last Admin: 10/30/16 10:07 Dose: 81 mg Azithromycin (Zithromax) 500 mg PO DAILY [facility] PRN Reason: Protocol Last Admin: 10/30/16 10:11 Dose: 500 mg Clopidogrel Bisulfate (Plavix) 75 mg PO DAILY [facility] Enoxaparin Sodium (Lovenox) 120 mg SC Q12H [facility] PRN Reason: Protocol Stop: 10/31/16 23:59 Last Admin: 10/30/16 12:46 Dose: 120 mg Escitalopram Oxalate (Lexapro) 10 mg PO DAILY [facility] Last Admin: 10/30/16 10:08 Dose: 10 mg Famotidine (Pepcid) 20 mg PO DAILY [facility] Last Admin: 10/30/16 10:08 Dose: 20 mg Furosemide (Lasix) 60 mg IVP Q12 [facility] Last Admin: 10/30/16 10:05 Dose: 60 mg Gabapentin (Neurontin) 100 mg PO BID [facility] PRN Reason: Protocol Last Admin: 10/30/16 10:08 Dose: 100 mg Guaifenesin (Robitussin) 100 mg PO Q4H PRN PRN Reason: Cough Hydralazine HCl (Apresoline) 10 mg IVP Q6 PRN PRN Reason: Systolic Blood Pressure Ceftriaxone Sodium (Rocephin 1 Gram Ivpb) 100 mls @ 100 mls/hr IVPB DAILY [facility] PRN Reason: Protocol Last Admin: 10/30/16 10:09 Dose: 100 mls/hr Sodium Chloride (Sodium Chloride 0.9%) 1,000 mls @ 100 mls/hr IV .Q10H [facility] Last Admin: 10/30/16 16:01 Dose: 100 mls/hr Milrinone Lactate/Dextrose (Primacor 20mg/100ml D5w) 100 mls @ 7.702 mls/hr IV .Q13H PRN; Protocol; 0.2 MCG/KG/MIN PRN Reason: TITRATE PER MD ORDER Insulin Human Regular (Humulin R Med) 0 units SC ACHS [facility] Last Admin: 10/30/16 12:14 Dose: Not Given Lisinopril (Zestril) 40 mg PO DAILY [facility] Last Admin: 10/30/16 10:09 Dose: 40 mg Methylprednisolone (Solu-Medrol) 40 mg IVP Q12 [facility] Last Admin: 10/30/16 10:05 Dose: 40 mg Non-Formulary Medication (Bimatoprost [Lumigan]) 1 drop OS DIN [facility] Last Admin: 10/29/16 18:29 Dose: Not Given Pilocarpine HCl (Isopto Carpine 1% Opht Soln) 0 ml OU BID [facility] Last Admin: 10/30/16 10:13 Dose: 1 drop Verapamil HCl (Calan Tab) 40 mg PO TID [facility] Last Admin: 10/30/16 15:14 Dose: 40 mg - Labs Labs: 10/30/16 05:00 10/30/16 05:00 PT 11.2 Seconds (9.9-11.8) 10/28/16 13:45 INR 1.04 (0.93-1.08) 10/28/16 13:45 APTT 26.7 Seconds (23.7-30.8) 10/28/16 13:45 Attending/Attestation - Attestation I have personally seen and examined this patient.: Yes I have fully participated in the care of the patient.: Yes I have reviewed all pertinent clinical information, including history, physical exam and plan: Yes Notes (Text): I have seen and examined patient with the resident. This is 81 year old male with history of HTN, DM-2, arthritis, Afib, obesity, former smoker, depression, leg edema, right knee surgery who got admitted for evaluation of worsening of leg swelling and shortness of breath most likely secondary to CHF exacerbation. He was found to have elevated BNP, Effusions on CXR. Echo revealed mild LVH, EF 55-60% and moderate to severe TR, pulmonary hypertension. He was started on lovenox for afib. Plan for possible cardiac cath as per shotblaster if patient and family agrees. Yesterday he became lethargic and developed hypoxia secondary to respiratory acidosis therefore patient was transferred to ICU. Patient is awake and alert today. Able to answer all the questions. He was on bipap until this morning. Primacor was started for RV failure. Patient has low TSH and Free T4 secondary to non thyroidal illness. Plan to repeat TFT's in 6-[address] Amanda Carroll
[2016-10-30] MEDS: Sodium Chloride 0.9% 1,000 ML IV SCH (16:01)
[2016-10-30] MEDS: Non Formulary Medication (Bimatoprost [Lumigan] 1 DROP) OS SCH (17:16)
[2016-10-30] MEDS: Milrinone 20mg/100ml D5W 100 ML IV PRN (21:43)
[2016-10-31] MEDS: Sodium Chloride 0.9% 1,000 ML IV SCH (00:02)
[2016-10-31] MEDS: Albuterol-Ipratrop 3 mg / 0.5 (3 ml) UD IH SCH ×6 (01:58→20:08)
[2016-10-31] MEDS: Enoxaparin 120 mg Syringe SC SCH ×2 (02:00→12:03)
[2016-10-31 05:16] LABS: ADD MANUAL DIFF? NO
[2016-10-31 05:28] LABS: GRAN # 3.15 (1.4-6.5); HEMATOCRIT 31.4 % (42.0-52.0); LYMPH # 0.3 (1.2-3.4); MEAN CELL VOLUME 91.5 fL (80.0-105.0); MEAN CORPUSCULAR HEMOGLOBIN 29.2 pg (25.0-35.0); MEAN CORPUSCULAR HGB CONC 31.8 g/dl (31.0-37.0); MEAN PLATELET VOLUME 12.2 fl (7.0-11.0); MONO # 0.2 (0.1-0.6); PLATELET COUNT 157 10^3/uL (120.0-450.0); RED CELL DISTRIBUTION WIDTH 16.2 % (11.5-14.5); WHITE BLOOD COUNT 3.6 10^3/ul (4.5-11.0)
[2016-10-31 05:36] LABS: BLOOD UREA NITROGEN 29 mg/dL (7-21); CALCIUM 8.5 mg/dL (8.4-10.5); CARBON DIOXIDE 33 mmol/L (21-33); CHLORIDE 93 mmol/L (95-110); GFR AFRICAN-AMERICAN > 60; GLUCOSE,RANDOM 170 mg/dL (70-110); MAGNESIUM 1.8 mg/dL (1.7-2.2); POTASSIUM 3.7 mmol/L (3.6-5.0); SODIUM 135 mmol/L (132-148)
[2016-10-31 05:46] LABS: ARTERIAL BLOOD GAS HCO3 34.2 mmol/L (21-28); ARTERIAL BLOOD GAS O2 CAPACITY 17.3 mL/dl (16-24); ARTERIAL BLOOD GAS O2 CONTENT 16.4 ML/dl (15-23); ARTERIAL BLOOD GAS PH 7.41 (7.35-7.45); ARTERIAL BLOOD HGB O2 SAT 92.7 % (95.0-98.0); CARBOXYHEMOGLOBIN 2.2 % (0.5-1.5); HHB 5.1 % (0-5)
[2016-10-31] MEDS: Insulin Reg-MEDIUM-Coverage SC SCH ×4 (08:15→21:41)
[2016-10-31] MEDS ORDERED: Potassium Chloride 20 mEq ER Tab PO ONE (08:17)
[2016-10-31 08:48] LABS: ARTERIAL BLOOD GAS HCO3 33.1 mmol/L (21-28); ARTERIAL BLOOD GAS O2 CAPACITY 13.9 mL/dl (16-24); ARTERIAL BLOOD GAS O2 CONTENT 13.3 ML/dl (15-23); ARTERIAL BLOOD GAS PH 7.42 (7.35-7.45); ARTERIAL BLOOD HGB O2 SAT 93.2 % (95.0-98.0); CARBOXYHEMOGLOBIN 1.7 % (0.5-1.5); HHB 4.5 % (0-5); METHEMOGLOBIN 0.6 % (0.0-3.0)
--- NOTE | 2016-10-31 08:49 | PN ---
DATE: 10/31/2016 REASON FOR CONSULTATION AND FOLLOWUP: Decompensated congestive heart failure, admitted with atrial f ibrillation, CHF, hypercapnia, CO2 narcosis, obesity. BRIEF CLINICAL HISTORY: An 81-year-old male with a past medical history significant for diabetes, ob esity, hypertension, hyperlipidemia. Admitted with progressive worsening shortness of breath over e 2 weeks. The patient underwent CAT scan of the chest to rule out PE. The patient is being followe d by [facility], being followed by Dr. Jacobo at [facility], who had a stress test 1 month ago and found to have a small area of the inferior wall hypokinesis, suspicious for ischemia. The patient's echo at that time essentially told was negative. The patient had yesterday echo in the [facility]. It shows significant elevated PA pressure of 75, severely dilated RA. By a fternoon day before yesterday, the patient developed hypercapnia, CO2 narcosis, moved to ICU. Currnova rodríguez, the patient is on noninvasive ventilator, much awake and alert. Yesterday, patient was started on IV Primacor and diuretics, feels a lot better. Spontaneously converted to normal sinus, had a neg ative fluid balance. PHYSICAL EXAMINATION: VITAL SIGNS: Temperature afebrile, heart rate 86, blood pressure 142/70. HEENT: PERRLA. Extraocular muscles intact. NECK: Supple. No carotid bruits. No thyromegaly. CHEST: Clear to auscultation. HEART: S1, S2 regular. ABDOMEN: Soft. EXTREMITIES: Clubbing, cyanosis negative. WBC .6, hemoglobin 10, hematocrit 31.4, platelet count 157. Chemistry shows sodium 135, potassi um 3.7, chloride 93, carbon dioxide 33, anion gap of 13, BUN 23, creatinine 0.9. IMPRESSION: Decompensated congestive heart failure secondary to right heart failure, severe pulmonar y hypertension, preserved left ventricular function. Repeat echo done here yesterday that showed eje ction fraction 55%-60%, trace aortic regurgitation, mild mitral regurgitation, moderate to severe tri cuspid regurgitation, right ventricular systolic pressure 75, atrial fibrillation at that time on ech o. Now, patient converted to normal sinus. Paroxysmal atrial fibrillation, morbid obesity, hyperten addie, abnormal stress test, carbon dioxide narcosis, hypercapnia, probably Pickwickian syndrome. RECOMMENDATION: We will continue IV Primacor. Continue diuretics. Discontinue Lovenox after today' s dose. Continue IV Lasix and we will discontinue IV Lasix after morning dose. Continue Plavix, con tinue aspirin. Cardiac catheterization tomorrow. Discussed with the son. Will discuss with the pat ient again and we will give further recommendation after the cardiac catheterization tomorrow. We wi ll follow with you. Thank you, Dr. Carroll, for providing us the opportunity in taking care of the patient. We will keep n. p.o. after midnight for cardiac catheterization in the morning. We will repeat the blood workup in t he morning. We will discontinue IV fluid to prevent going into congestive heart failure. We will fo llow with you. If needed, if patient drops the blood pressure, we can give the boluses. Discussed w amalia Carrlol, applique cutter, but do not give the continuous IV fluid. Thank you, Dr. Amanda Carroll, for providing us the opportunity in taking care of the patient. Anthony Mckinley MD cc: [id number] TT: 10/31/2016 08:48:54 Confirmation # [id number] Dictation # [id number]
[2016-10-31] MEDS ORDERED: Potassium Chloride 20 mEq ER Tab PO STA (08:57)
[2016-10-31] MEDS: MethylPREDNISolone 40 mg Vial IVP SCH ×2 (09:32→21:10)
[2016-10-31] MEDS: Pilocarpine 1% Opht (15ml) OU SCH ×2 (09:34→17:08)
--- NOTE | 2016-10-31 09:53 | RAD ---
HISTORY: f/u COMPARISON: 10/30/2016 at 8:25 a.m. FINDINGS: LUNGS: The prior bilateral pleural effusions with the right slightly greater than left are similar in appearance with mild background pulmonary venous congestion is also suggested PLEURA: Bilateral pleural effusions increase as above. No pneumothorax CARDIOVASCULAR: Mild cardiomegaly -more conspicuous OSSEOUS STRUCTURES: Thoracic spondylosis VISUALIZED UPPER ABDOMEN: Normal. OTHER FINDINGS: None. IMPRESSION: Bilateral pleural effusions on left -similar. Pulmonary venous congestion with cardiomegaly and consistent with CHF are suggested. . The pulmonary venous congestion appears slightly increased
--- NOTE | 2016-10-31 11:12 | CP.CCUPN ---
<Dedra Stacy - Last Filed: 10/31/16 11:09> CCU Subjective - Physician Review Events Since Last Encounter (Free Text): 10/31/16 11:10 Patient seen and examined bedside. No acute events overnight. Has been on BiPAP overnight, will change to High Flow this AM, repeat ABG this AM. Patient currently denies CP, abd pain, n/v/d, fevers, chills. Critical Care Time Spent (in minutes): 30 CCU Objective - Vital Signs / Intake & Output Vital Signs (Last 4 hours): Vital Signs Temp Pulse Resp BP Pulse Ox 10/31/16 11:07 24 10/31/16 10:00 90 26 H 134/60 95 10/31/16 09:30 157/93 H 10/31/16 09:28 94 H 157/93 H 10/31/16 09:01 101 H 27 H 157/93 H 91 L 10/31/16 08:00 98.4 F 89 14 138/63 93 L 10/31/16 07:18 20 Intake and Output (Last 8hrs): Intake & Output 10/30/16 10/31/16 10/31/16 22:59 06:59 14:59 Intake Total 1390 1120 Output Total 700 1100 Balance 690 20 Weight 283 lb 283 lb Intake: IV 1350 1070 Left Forearm 1350 1070 Oral 40 50 Output: Urine 700 1100 Urethral (Taylor) 700 1100 Other: Voiding Method Indwelling Catheter # Bowel Movements 0 - Physical Exam Head: Positive for: Atraumatic, Normocephalic Pupils: Positive for: PERRL Extroacular Muscles: Positive for: EOMI Conjunctiva: Positive for: Normal Mouth: Positive for: Moist Mucous Membranes Neck: Positive for: Normal Range of Motion, JVD Respiratory/Chest: Positive for: Clear to Auscultation. Negative for: Good Air Exchange (poor air movement throughout), Respiratory Distress Cardiovascular: Positive for: Regular Rate and Rhythm Abdomen: Positive for: Normal Bowel Sounds. Negative for: Tenderness, Distention Neurological: Positive for: GCS=15 Psychiatric: Positive for: Alert, Oriented x 3 - Medications Active Medications: Active Medications Generic Name Dose Route Start Last Admin Trade Name Freq PRN Reason Stop Dose Admin Albuterol/Ipratropium 3 ml 10/29/16 11:30 10/31/16 11:04 Duoneb 3 Mg/0.5 Mg (3 Ml) Ud IH 3 ml [id number] JEROME Administration Aspirin 81 mg 10/28/16 18:00 10/31/16 09:27 Ecotrin PO 81 mg DAILY JEROME Administration Clopidogrel Bisulfate 75 mg 10/31/16 10:00 10/31/16 09:31 Plavix PO 75 mg DAILY JEROME Administration Enoxaparin Sodium 120 mg 10/29/16 12:45 10/31/16 02:00 Lovenox SC 10/31/16 23:59 120 mg Q12H JEROME Administration Protocol Escitalopram Oxalate 10 mg 10/28/16 17:45 10/31/16 09:31 Lexapro PO 10 mg DAILY JEROME Administration Famotidine 20 mg 10/28/16 17:45 10/31/16 09:31 Pepcid PO 20 mg DAILY JEROME Administration Furosemide 60 mg 10/28/16 22:00 10/31/16 09:30 Lasix IVP 60 mg Q12 JEROME Administration Gabapentin 100 mg 10/28/16 18:00 10/31/16 09:27 Neurontin PO 100 mg BID JEROME Administration Protocol Guaifenesin 100 mg 10/28/16 17:35 Robitussin PO Q4H PRN Cough Hydralazine HCl 10 mg 10/30/16 01:42 Apresoline IVP Q6 PRN Systolic Blood Pressure Milrinone Lactate/Dextrose 100 mls @ 7.702 mls/hr 10/30/16 09:47 10/31/16 06:05 Primacor 20mg/100ml D5w IV 0.2 mcg/kg/min .Q13H PRN Titration TITRATE PER MD ORDER Protocol 0.2 MCG/KG/MIN Insulin Human Regular 0 units 10/28/16 22:00 10/31/16 08:15 Humulin R Med SC 1 units ACHS JEROME Administration Lisinopril 40 mg 10/28/16 18:00 10/31/16 09:31 Zestril PO 40 mg DAILY JEROME Administration Methylprednisolone 40 mg 10/29/16 22:00 10/31/16 09:32 Solu-Medrol IVP 40 mg Q12 JEROME Administration Non-Formulary Medication 1 drop 10/28/16 17:45 10/30/16 17:16 Bimatoprost [Lumigan] OS Not Given DIN JEROME Pilocarpine HCl 0 ml 10/28/16 18:00 10/31/16 09:34 Isopto Carpine 1% Opht Soln OU 1 drop BID JEROME Administration Verapamil HCl 40 mg 10/29/16 14:00 10/31/16 09:28 Calan Tab PO 40 mg TID JEROME Administration - Patient Studies Lab Studies: Microbiology Studies 10/29/16 15:00 MRSA Culture (Admit) - Final Naris MRSA NOT DETECTED Lab Studies 10/31/16 10/31/16 10/31/16 Range/Units 08:45 07:22 05:20 WBC (4.5-11.0) 10^3/ul RBC (3.5-6.1) 10^6/uL Hgb (14.0-18.0) gm/dL Hct (42.0-52.0) % MCV (80.0-105.0) fL MCH (25.0-35.0) pg MCHC (31.0-37.0) g/dl RDW (11.5-14.5) % Plt Count (120.0-450.0) 10^3/uL MPV (7.0-11.0) fl Gran % (50.0-68.0) % Lymph % (Auto) (22.0-35.0) % Nelson % (Auto) (1.0-6.0) % Eos % (Auto) (1.5-5.0) % Baso % (Auto) (0.0-3.0) % Gran # (1.4-6.5) Lymph # (1.2-3.4) Nelson # (0.1-0.6) Eos # (0.0-0.7) Baso # (0.0-2.0) K/mm3 pCO2 51 H 54 H (35-45) mm/Hg pO2 71.0 L 68.0 L (80-100) mm/Hg HCO3 33.1 H 34.2 H (21-28) mmol/L ABG pH 7.42 7.41 (7.35-7.45) ABG Total CO2 34.7 H 35.9 H (22-28) mmol.L ABG O2 Saturation 95.4 94.8 L (95-98) % ABG O2 Content 13.3 L 16.4 (15-23) ML/dl ABG Base Excess 7.5 H 8.0 H (-2.0-3.0) mmol/L ABG Hemoglobin 10.1 L 12.6 (11.7-17.4) g/dL ABG Carboxyhemoglobin 1.7 H 2.2 H (0.5-1.5) % POC ABG HHb (Measured) 4.5 5.1 H (0-5) % ABG Methemoglobin 0.6 0.0 (0.0-3.0) % ABG O2 Capacity 13.9 L 17.3 (16-24) mL/dl Hgb O2 Saturation 93.2 L 92.7 L (95.0-98.0) % FiO2 50.0 40.0 % Sodium (132-148) mmol/L Potassium (3.6-5.0) mmol/L Chloride (95-110) mmol/L Carbon Dioxide (21-33) mmol/L Anion Gap (10-20) BUN (7-21) mg/dL Creatinine (0.5-1.4) mg/dL Est GFR ( Amer) Est GFR (Non-Af Amer) POC Glucose (mg/dL) 188 H (65-110) mg/dL Random Glucose (70-110) mg/dL Hemoglobin A1c (4.2-6.5) % Calcium (8.4-10.5) mg/dL Phosphorus (2.5-4.5) mg/dL Magnesium (1.7-2.2) mg/dL 10/31/16 10/30/16 10/30/16 Range/Units 05:00 21:36 16:23 WBC 3.6 L D (4.5-11.0) 10^3/ul RBC 3.43 L (3.5-6.1) 10^6/uL Hgb 10.0 L (14.0-18.0) gm/dL Hct 31.4 L (42.0-52.0) % MCV 91.5 (80.0-105.0) fL MCH 29.2 (25.0-35.0) pg MCHC 31.8 (31.0-37.0) g/dl RDW 16.2 H (11.5-14.5) % Plt Count 157 (120.0-450.0) 10^3/uL MPV 12.2 H (7.0-11.0) fl Gran % 87.0 H (50.0-68.0) % Lymph % (Auto) 8.0 L (22.0-35.0) % Nelson % (Auto) 5.0 (1.0-6.0) % Eos % (Auto) 0.0 L (1.5-5.0) % Baso % (Auto) 0.0 (0.0-3.0) % Gran # 3.15 (1.4-6.5) Lymph # 0.3 L (1.2-3.4) Nelson # 0.2 (0.1-0.6) Eos # 0.0 (0.0-0.7) Baso # 0.00 (0.0-2.0) K/mm3 pCO2 (35-45) mm/Hg pO2 (80-100) mm/Hg HCO3 (21-28) mmol/L ABG pH (7.35-7.45) ABG Total CO2 (22-28) mmol.L ABG O2 Saturation (95-98) % ABG O2 Content (15-23) ML/dl ABG Base Excess (-2.0-3.0) mmol/L ABG Hemoglobin (11.7-17.4) g/dL ABG Carboxyhemoglobin (0.5-1.5) % POC ABG HHb (Measured) (0-5) % ABG Methemoglobin (0.0-3.0) % ABG O2 Capacity (16-24) mL/dl Hgb O2 Saturation (95.0-98.0) % FiO2 % Sodium 135 (132-148) mmol/L Potassium 3.7 (3.6-5.0) mmol/L Chloride 93 L (95-110) mmol/L Carbon Dioxide 33 (21-33) mmol/L Anion Gap 13 (10-20) BUN 29 H (7-21) mg/dL Creatinine 0.9 (0.5-1.4) mg/dL Est GFR ( Amer) > 60 Est GFR (Non-Af Amer) > 60 POC Glucose (mg/dL) 143 H 149 H (65-110) mg/dL Random Glucose 170 H (70-110) mg/dL Hemoglobin A1c (4.2-6.5) % Calcium 8.5 (8.4-10.5) mg/dL Phosphorus 4.0 (2.5-4.5) mg/dL Magnesium 1.8 (1.7-2.2) mg/dL 10/30/16 10/30/16 Range/Units 11:15 05:00 WBC (4.5-11.0) 10^3/ul RBC (3.5-6.1) 10^6/uL Hgb (14.0-18.0) gm/dL Hct (42.0-52.0) % MCV (80.0-105.0) fL MCH (25.0-35.0) pg MCHC (31.0-37.0) g/dl RDW (11.5-14.5) % Plt Count (120.0-450.0) 10^3/uL MPV (7.0-11.0) fl Gran % (50.0-68.0) % Lymph % (Auto) (22.0-35.0) % Nelson % (Auto) (1.0-6.0) % Eos % (Auto) (1.5-5.0) % Baso % (Auto) (0.0-3.0) % Gran # (1.4-6.5) Lymph # (1.2-3.4) Nelson # (0.1-0.6) Eos # (0.0-0.7) Baso # (0.0-2.0) K/mm3 pCO2 (35-45) mm/Hg pO2 (80-100) mm/Hg HCO3 (21-28) mmol/L ABG pH (7.35-7.45) ABG Total CO2 (22-28) mmol.L ABG O2 Saturation (95-98) % ABG O2 Content (15-23) ML/dl ABG Base Excess (-2.0-3.0) mmol/L ABG Hemoglobin (11.7-17.4) g/dL ABG Carboxyhemoglobin (0.5-1.5) % POC ABG HHb (Measured) (0-5) % ABG Methemoglobin (0.0-3.0) % ABG O2 Capacity (16-24) mL/dl Hgb O2 Saturation (95.0-98.0) % FiO2 % Sodium (132-148) mmol/L Potassium (3.6-5.0) mmol/L Chloride (95-110) mmol/L Carbon Dioxide (21-33) mmol/L Anion Gap (10-20) BUN (7-21) mg/dL Creatinine (0.5-1.4) mg/dL Est GFR ( Amer) Est GFR (Non-Af Amer) POC Glucose (mg/dL) 150 H (65-110) mg/dL Random Glucose (70-110) mg/dL Hemoglobin A1c 6.9 H (4.2-6.5) % Calcium (8.4-10.5) mg/dL Phosphorus (2.5-4.5) mg/dL Magnesium (1.7-2.2) mg/dL Laboratory Results - last 24 hr 10/30/16 10/30/16 10/30/16 05:00 11:15 16:23 WBC RBC Hgb Hct MCV MCH MCHC RDW Plt Count MPV Gran % Lymph % (Auto) Nelson % (Auto) Eos % (Auto) Baso % (Auto) Gran # Lymph # Nelson # Eos # Baso # pCO2 pO2 HCO3 ABG pH ABG Total CO2 ABG O2 Saturation ABG O2 Content ABG Base Excess ABG Hemoglobin ABG Carboxyhemoglobin POC ABG HHb (Measured) ABG Methemoglobin ABG O2 Capacity Hgb O2 Saturation FiO2 Sodium Potassium Chloride Carbon Dioxide Anion Gap BUN Creatinine Est GFR ( Amer) Est GFR (Non-Af Amer) POC Glucose (mg/dL) 150 H 149 H Random Glucose Hemoglobin A1c 6.9 H Calcium Phosphorus Magnesium 10/30/16 10/31/16 10/31/16 21:36 05:00 05:20 WBC 3.6 L D RBC 3.43 L Hgb 10.0 L Hct 31.4 L MCV 91.5 MCH 29.2 MCHC 31.8 RDW 16.2 H Plt Count 157 MPV 12.2 H Gran % 87.0 H Lymph % (Auto) 8.0 L Nelson % (Auto) 5.0 Eos % (Auto) 0.0 L Baso % (Auto) 0.0 Gran # 3.15 Lymph # 0.3 L Nelson # 0.2 Eos # 0.0 Baso # 0.00 pCO2 54 H pO2 68.0 L HCO3 34.2 H ABG pH 7.41 ABG Total CO2 35.9 H ABG O2 Saturation 94.8 L ABG O2 Content 16.4 ABG Base Excess 8.0 H ABG Hemoglobin 12.6 ABG Carboxyhemoglobin 2.2 H POC ABG HHb (Measured) 5.1 H ABG Methemoglobin 0.0 ABG O2 Capacity 17.3 Hgb O2 Saturation 92.7 L FiO2 40.0 Sodium 135 Potassium 3.7 Chloride 93 L Carbon Dioxide 33 Anion Gap 13 BUN 29 H Creatinine 0.9 Est GFR ( Amer) > 60 Est GFR (Non-Af Amer) > 60 POC Glucose (mg/dL) 143 H Random Glucose 170 H Hemoglobin A1c Calcium 8.5 Phosphorus 4.0 Magnesium 1.8 10/31/16 10/31/16 07:22 08:45 WBC RBC Hgb Hct MCV MCH MCHC RDW Plt Count MPV Gran % Lymph % (Auto) Nelson % (Auto) Eos % (Auto) Baso % (Auto) Gran # Lymph # Nelson # Eos # Baso # pCO2 51 H pO2 71.0 L HCO3 33.1 H ABG pH 7.42 ABG Total CO2 34.7 H ABG O2 Saturation 95.4 ABG O2 Content 13.3 L ABG Base Excess 7.5 H ABG Hemoglobin 10.1 L ABG Carboxyhemoglobin 1.7 H POC ABG HHb (Measured) 4.5 ABG Methemoglobin 0.6 ABG O2 Capacity 13.9 L Hgb O2 Saturation 93.2 L FiO2 50.0 Sodium Potassium Chloride Carbon Dioxide Anion Gap BUN Creatinine Est GFR ( Amer) Est GFR (Non-Af Amer) POC Glucose (mg/dL) 188 H Random Glucose Hemoglobin A1c Calcium Phosphorus Magnesium Fingerstick Blood Sugar Results: 188 Review of Systems - Constitutional Constitutional: absent: Fever, Chills - EENT Eyes: absent: Change in Vision Ears: absent: Dizziness - Cardiovascular Cardiovascular: absent: Chest Pain, Diaphoresis - Respiratory Respiratory: absent: Cough, Dyspnea, Pain on Inspiration - Gastrointestinal Gastrointestinal: absent: Abdominal Pain, Nausea, Vomiting - Integumentary Integumentary: absent: New Lesions Critical Care Progress Note - Ventilator Checklist PUD Prophalyxis: Yes DVT Prophylaxis: Yes - Prophylaxis GI Prophylaxis GI: Pepsid - Prophylaxis DVT Prophylaxis DVT: Lovenox - Nutrition Nutrition: Nutrition Category Date Time Status Consistent Carbohydrate [DIET] Diets 10/31/16 Breakfast Ordered Assessment/Plan - Assessment and Plan (Free Text) Assessment: 81yo M w h/o DM, former tobacco abuse, HTN, NIDDM2, depression admitted to ICU with hypercarbic respiratory failure requiring BiPAP, now doing well on high- flow O2 Plan: Neuro: AAOx3, NAD, tolerating High-flow Maintain normothermia CV: 2D ECHO shows LVEF 55-60%, Trace AR, mild MR, mod TR, RVSP 75mmHg, Dilated RV Acute PE ruled out. BL LE Dupplex negative for DVTs Continue milrinone drip as per cardio Continue diuresis with lasix as per cardio HTN meds as per cardio Will DC Therapeutic lovenox as per cardio recs Maintain MAP >65 Pulm: Hypercarbic RF improved. Tolerating High flow. Continue High flow O2, BiPAP Qhs. ABG in AM Severe pHTN 2/2 MAHI +/- COPD +/- OHS Improved or air movement - continue solumedrol Duonebs Q4hr Maintain spo2>90 GI: GI ppx Renal: No acute issues. Continue to monitor renal function, I&Os. Maintain euvolemia Mild hypokalemia and hypomagnesemia replaced. Monitor AM labs Endo: A1C 6.9. Maintain euglycemia 140-180 Discontinue oral antihyperglycemics while in the hospital ID: Off rocephin, azithromycin for possible CAP. Afebrile, no leukocytosis, procalcitonin <0.05 Heme: Hb stable. No signs of bleeding. Monitor. DVT/GI ppx: Pepcid, DM diet Dispo: Transfer to telemetry - Date & Time Date: 10/31/16 Time: 11:12 <Pedro Reese - Last Filed: 10/31/16 13:53> CCU Objective - Vital Signs / Intake & Output Vital Signs (Last 4 hours): Vital Signs Temp Pulse Resp BP Pulse Ox 10/31/16 13:15 81 132/57 L 10/31/16 12:00 98.5 F 10/31/16 11:07 24 10/31/16 10:00 90 26 H 134/60 95 Intake and Output (Last 8hrs): Intake & Output 10/30/16 10/31/16 10/31/16 22:59 06:59 14:59 Intake Total 1390 1120 Output Total 700 1100 Balance 690 20 Weight 283 lb 283 lb Intake: IV 1350 1070 Left Forearm 1350 1070 Oral 40 50 Output: Urine 700 1100 Urethral (Taylor) 700 1100 Other: Voiding Method Indwelling Catheter # Bowel Movements 0 - Medications Active Medications: Active Medications Generic Name Dose Route Start Last Admin Trade Name Freq PRN Reason Stop Dose Admin Albuterol/Ipratropium 3 ml 10/29/16 11:30 10/31/16 11:04 Duoneb 3 Mg/0.5 Mg (3 Ml) Ud IH 3 ml [id number] JEROME Administration Aspirin 81 mg 10/28/16 18:00 10/31/16 09:27 Ecotrin PO 81 mg DAILY JEROME Administration Clopidogrel Bisulfate 75 mg 10/31/16 10:00 10/31/16 09:31 Plavix PO 75 mg DAILY JEROME Administration Enoxaparin Sodium 120 mg 10/29/16 12:45 10/31/16 12:03 Lovenox SC 10/31/16 23:59 120 mg Q12H JEROME Administration Protocol Escitalopram Oxalate 10 mg 10/28/16 17:45 10/31/16 09:31 Lexapro PO 10 mg DAILY JEROME Administration Famotidine 20 mg 10/28/16 17:45 10/31/16 09:31 Pepcid PO 20 mg DAILY JEROME Administration Furosemide 60 mg 10/28/16 22:00 10/31/16 09:30 Lasix IVP 60 mg Q12 JEROME Administration Gabapentin 100 mg 10/28/16 18:00 10/31/16 09:27 Neurontin PO 100 mg BID JEROME Administration Protocol Guaifenesin 100 mg 10/28/16 17:35 Robitussin PO Q4H PRN Cough Home Med 1 unit 10/31/16 22:00 Home Med OU HS JEROME Hydralazine HCl 10 mg 10/30/16 01:42 Apresoline IVP Q6 PRN Systolic Blood Pressure Milrinone Lactate/Dextrose 100 mls @ 7.702 mls/hr 10/30/16 09:47 10/31/16 06:05 Primacor 20mg/100ml D5w IV 0.2 mcg/kg/min .Q13H PRN Titration TITRATE PER MD ORDER Protocol 0.2 MCG/KG/MIN Insulin Human Regular 0 units 10/28/16 22:00 10/31/16 12:01 Humulin R Med SC 3 units ACHS JEROME Administration Lisinopril 40 mg 10/28/16 18:00 10/31/16 09:31 Zestril PO 40 mg DAILY JEROME Administration Methylprednisolone 40 mg 10/29/16 22:00 10/31/16 09:32 Solu-Medrol IVP 40 mg Q12 JEROME Administration Bimatoprost [Lumigan 1 drop 10/31/16 13:47 ] (Home Med) OS DIN JEROME Pilocarpine HCl 0 ml 10/28/16 18:00 10/31/16 09:34 Isopto Carpine 1% Opht Soln OU 1 drop BID JEROME Administration Timolol Maleate 2 drop 10/31/16 13:45 Timoptic 0.25% Ophth Soln OU BID JEROME Verapamil HCl 40 mg 10/29/16 14:00 10/31/16 13:15 Calan Tab PO 40 mg TID JEROME Administration - Patient Studies Lab Studies: Microbiology Studies 10/29/16 15:00 MRSA Culture (Admit) - Final Naris MRSA NOT DETECTED Lab Studies 10/31/16 10/31/16 10/31/16 Range/Units 08:45 07:22 05:20 WBC (4.5-11.0) 10^3/ul RBC (3.5-6.1) 10^6/uL Hgb (14.0-18.0) gm/dL Hct (42.0-52.0) % MCV (80.0-105.0) fL MCH (25.0-35.0) pg MCHC (31.0-37.0) g/dl RDW (11.5-14.5) % Plt Count (120.0-450.0) 10^3/uL MPV (7.0-11.0) fl Gran % (50.0-68.0) % Lymph % (Auto) (22.0-35.0) % Nelson % (Auto) (1.0-6.0) % Eos % (Auto) (1.5-5.0) % Baso % (Auto) (0.0-3.0) % Gran # (1.4-6.5) Lymph # (1.2-3.4) Nelson # (0.1-0.6) Eos # (0.0-0.7) Baso # (0.0-2.0) K/mm3 pCO2 51 H 54 H (35-45) mm/Hg pO2 71.0 L 68.0 L (80-100) mm/Hg HCO3 33.1 H 34.2 H (21-28) mmol/L ABG pH 7.42 7.41 (7.35-7.45) ABG Total CO2 34.7 H 35.9 H (22-28) mmol.L ABG O2 Saturation 95.4 94.8 L (95-98) % ABG O2 Content 13.3 L 16.4 (15-23) ML/dl ABG Base Excess 7.5 H 8.0 H (-2.0-3.0) mmol/L ABG Hemoglobin 10.1 L 12.6 (11.7-17.4) g/dL ABG Carboxyhemoglobin 1.7 H 2.2 H (0.5-1.5) % POC ABG HHb (Measured) 4.5 5.1 H (0-5) % ABG Methemoglobin 0.6 0.0 (0.0-3.0) % ABG O2 Capacity 13.9 L 17.3 (16-24) mL/dl Hgb O2 Saturation 93.2 L 92.7 L (95.0-98.0) % FiO2 50.0 40.0 % Sodium (132-148) mmol/L Potassium (3.6-5.0) mmol/L Chloride (95-110) mmol/L Carbon Dioxide (21-33) mmol/L Anion Gap (10-20) BUN (7-21) mg/dL Creatinine (0.5-1.4) mg/dL Est GFR ( Amer) Est GFR (Non-Af Amer) POC Glucose (mg/dL) 188 H (65-110) mg/dL Random Glucose (70-110) mg/dL Calcium (8.4-10.5) mg/dL Phosphorus (2.5-4.5) mg/dL Magnesium (1.7-2.2) mg/dL 10/31/16 10/30/16 10/30/16 Range/Units 05:00 21:36 16:23 WBC 3.6 L D (4.5-11.0) 10^3/ul RBC 3.43 L (3.5-6.1) 10^6/uL Hgb 10.0 L (14.0-18.0) gm/dL Hct 31.4 L (42.0-52.0) % MCV 91.5 (80.0-105.0) fL MCH 29.2 (25.0-35.0) pg MCHC 31.8 (31.0-37.0) g/dl RDW 16.2 H (11.5-14.5) % Plt Count 157 (120.0-450.0) 10^3/uL MPV 12.2 H (7.0-11.0) fl Gran % 87.0 H (50.0-68.0) % Lymph % (Auto) 8.0 L (22.0-35.0) % Nelson % (Auto) 5.0 (1.0-6.0) % Eos % (Auto) 0.0 L (1.5-5.0) % Baso % (Auto) 0.0 (0.0-3.0) % Gran # 3.15 (1.4-6.5) Lymph # 0.3 L (1.2-3.4) Nelson # 0.2 (0.1-0.6) Eos # 0.0 (0.0-0.7) Baso # 0.00 (0.0-2.0) K/mm3 pCO2 (35-45) mm/Hg pO2 (80-100) mm/Hg HCO3 (21-28) mmol/L ABG pH (7.35-7.45) ABG Total CO2 (22-28) mmol.L ABG O2 Saturation (95-98) % ABG O2 Content (15-23) ML/dl ABG Base Excess (-2.0-3.0) mmol/L ABG Hemoglobin (11.7-17.4) g/dL ABG Carboxyhemoglobin (0.5-1.5) % POC ABG HHb (Measured) (0-5) % ABG Methemoglobin (0.0-3.0) % ABG O2 Capacity (16-24) mL/dl Hgb O2 Saturation (95.0-98.0) % FiO2 % Sodium 135 (132-148) mmol/L Potassium 3.7 (3.6-5.0) mmol/L Chloride 93 L (95-110) mmol/L Carbon Dioxide 33 (21-33) mmol/L Anion Gap 13 (10-20) BUN 29 H (7-21) mg/dL Creatinine 0.9 (0.5-1.4) mg/dL Est GFR ( Amer) > 60 Est GFR (Non-Af Amer) > 60 POC Glucose (mg/dL) 143 H 149 H (65-110) mg/dL Random Glucose 170 H (70-110) mg/dL Calcium 8.5 (8.4-10.5) mg/dL Phosphorus 4.0 (2.5-4.5) mg/dL Magnesium 1.8 (1.7-2.2) mg/dL Laboratory Results - last 24 hr 10/30/16 10/30/16 10/31/16 16:23 21:36 05:00 WBC 3.6 L D RBC 3.43 L Hgb 10.0 L Hct 31.4 L MCV 91.5 MCH 29.2 MCHC 31.8 RDW 16.2 H Plt Count 157 MPV 12.2 H Gran % 87.0 H Lymph % (Auto) 8.0 L Nelson % (Auto) 5.0 Eos % (Auto) 0.0 L Baso % (Auto) 0.0 Gran # 3.15 Lymph # 0.3 L Nelson # 0.2 Eos # 0.0 Baso # 0.00 pCO2 pO2 HCO3 ABG pH ABG Total CO2 ABG O2 Saturation ABG O2 Content ABG Base Excess ABG Hemoglobin ABG Carboxyhemoglobin POC ABG HHb (Measured) ABG Methemoglobin ABG O2 Capacity Hgb O2 Saturation FiO2 Sodium 135 Potassium 3.7 Chloride 93 L Carbon Dioxide 33 Anion Gap 13 BUN 29 H Creatinine 0.9 Est GFR ( Amer) > 60 Est GFR (Non-Af Amer) > 60 POC Glucose (mg/dL) 149 H 143 H Random Glucose 170 H Calcium 8.5 Phosphorus 4.0 Magnesium 1.8 10/31/16 10/31/16 10/31/16 05:20 07:22 08:45 WBC RBC Hgb Hct MCV MCH MCHC RDW Plt Count MPV Gran % Lymph % (Auto) Nelson % (Auto) Eos % (Auto) Baso % (Auto) Gran # Lymph # Nelson # Eos # Baso # pCO2 54 H 51 H pO2 68.0 L 71.0 L HCO3 34.2 H 33.1 H ABG pH 7.41 7.42 ABG Total CO2 35.9 H 34.7 H ABG O2 Saturation 94.8 L 95.4 ABG O2 Content 16.4 13.3 L ABG Base Excess 8.0 H 7.5 H ABG Hemoglobin 12.6 10.1 L ABG Carboxyhemoglobin 2.2 H 1.7 H POC ABG HHb (Measured) 5.1 H 4.5 ABG Methemoglobin 0.0 0.6 ABG O2 Capacity 17.3 13.9 L Hgb O2 Saturation 92.7 L 93.2 L FiO2 40.0 50.0 Sodium Potassium Chloride Carbon Dioxide Anion Gap BUN Creatinine Est GFR ( Amer) Est GFR (Non-Af Amer) POC Glucose (mg/dL) 188 H Random Glucose Calcium Phosphorus Magnesium Critical Care Progress Note - Nutrition Nutrition: Nutrition Category Date Time Status Consistent Carbohydrate [DIET] Diets 10/31/16 Breakfast Ordered Addendum Addendum: 10/31/16 13:49 patient was seen, examined and discussed shoulder to shoulder with dr. Stacy. Her note reflects my exam, assessment and plan except as below. Meds/Labs/ONE reviewed. 81 yo male with HCRF, likely due to exacerbation of undiagnosed/underlying COPD , complicated by RV failure/cor pulmonale?, now significantly improved with steroid taper, bronchodilators, milrinone and bipap at night. Sitting in the chair comfortable, alet and oriented. No respiratory discomfort whatsoever. Protecting his airways and tolerating oral nutrition. Maintain conversation. DVT /GI prophylaxis. Ok to downgrade to tele ccm time 40 min
[2016-10-31] MEDS ORDERED: BIMATOPROST OS SCH (13:47)
--- NOTE | 2016-10-31 15:03 | CP.PCM.PN ---
<Jose Miller - Last Filed: 10/31/16 15:24> Subjective - Date & Time of Evaluation Date of Evaluation: 10/31/16 Time of Evaluation: 09:10 - Subjective Subjective: Dr. Miller PGY 1 Hospitalist Note Patient seen and evaluated at bedside. He is sitting up comfortably with high flow oxygen. Per nursing, he slept with the BIPAP on over night. He currently denies any chest pain, SOB, nausea, vomiting, abdominal pain, or leg pain. He voices some hunger due to being NPO. A 12 point review of systems was performed and negative except where indicated above. Objective - Vital Signs/Intake and Output Vital Signs (last 24 hours): Temp Pulse Resp BP Pulse Ox 98.5 F 80 16 132/57 L 96 10/31/16 12:00 10/31/16 14:00 10/31/16 14:00 10/31/16 13:15 10/31/16 14:00 Intake and Output: 10/31/16 10/31/16 06:59 18:59 Intake Total 1120 Output Total 1100 Balance 20 - Medications Medications: Current Medications Albuterol/Ipratropium (Duoneb 3 Mg/0.5 Mg (3 Ml) Ud) 3 ml IH [id number] [facility] Last Admin: 10/31/16 11:04 Dose: 3 ml Aspirin (Ecotrin) 81 mg PO DAILY [facility] Last Admin: 10/31/16 09:27 Dose: 81 mg Clopidogrel Bisulfate (Plavix) 75 mg PO DAILY [facility] Last Admin: 10/31/16 09:31 Dose: 75 mg Enoxaparin Sodium (Lovenox) 120 mg SC Q12H [facility] PRN Reason: Protocol Stop: 10/31/16 23:59 Last Admin: 10/31/16 12:03 Dose: 120 mg Escitalopram Oxalate (Lexapro) 10 mg PO DAILY [facility] Last Admin: 10/31/16 09:31 Dose: 10 mg Famotidine (Pepcid) 20 mg PO DAILY [facility] Last Admin: 10/31/16 09:31 Dose: 20 mg Furosemide (Lasix) 60 mg IVP Q12 [facility] Last Admin: 10/31/16 09:30 Dose: 60 mg Gabapentin (Neurontin) 100 mg PO BID [facility] PRN Reason: Protocol Last Admin: 10/31/16 09:27 Dose: 100 mg Guaifenesin (Robitussin) 100 mg PO Q4H PRN PRN Reason: Cough Hydralazine HCl (Apresoline) 10 mg IVP Q6 PRN PRN Reason: Systolic Blood Pressure Milrinone Lactate/Dextrose (Primacor 20mg/100ml D5w) 100 mls @ 7.702 mls/hr IV .Q13H PRN; Protocol; 0.2 MCG/KG/MIN PRN Reason: TITRATE PER MD ORDER Last Titration: 10/31/16 06:05 Dose: 0.2 mcg/kg/min Insulin Human Regular (Humulin R Med) 0 units SC ACHS [facility] Last Admin: 10/31/16 12:01 Dose: 3 units Lisinopril (Zestril) 40 mg PO DAILY [facility] Last Admin: 10/31/16 09:31 Dose: 40 mg Methylprednisolone (Solu-Medrol) 40 mg IVP Q12 [facility] Last Admin: 10/31/16 09:32 Dose: 40 mg Bimatoprost [Lumigan (] 0.01% Opth Soln) 1 drop OS DIN [facility] Pilocarpine HCl (Isopto Carpine 1% Opht Soln) 0 ml OU BID [facility] Last Admin: 10/31/16 09:34 Dose: 1 drop Timolol Maleate (Timoptic 0.25% Ophth Soln) 1 drop OU BID [facility] Verapamil HCl (Calan Tab) 40 mg PO TID [facility] Last Admin: 10/31/16 13:15 Dose: 40 mg - Labs Labs: 10/31/16 05:00 10/31/16 05:00 PT 11.2 Seconds (9.9-11.8) 10/28/16 13:45 INR 1.04 (0.93-1.08) 10/28/16 13:45 APTT 26.7 Seconds (23.7-30.8) 10/28/16 13:45 - Constitutional Appears: Non-toxic, No Acute Distress - Head Exam Head Exam: ATRAUMATIC, NORMOCEPHALIC - Eye Exam Eye Exam: EOMI, Normal appearance, PERRL Pupil Exam: NORMAL ACCOMODATION, PERRL - ENT Exam ENT Exam: Mucous Membranes Moist - Neck Exam Neck Exam: Normal Inspection - Respiratory Exam Respiratory Exam: Decreased Breath Sounds (bilateral lower lobes ), NORMAL BREATHING PATTERN. absent: Rales, Rhonchi, Wheezes - Cardiovascular Exam Cardiovascular Exam: REGULAR RHYTHM, +S1, +S2. absent: Gallop, Rubs, Murmur - GI/Abdominal Exam GI & Abdominal Exam: Soft, Normal Bowel Sounds. absent: Tenderness - Extremities Exam Extremities Exam: Pedal Edema (+2 edema) - Neurological Exam Neurological Exam: Alert, Awake, CN II-XII Intact, Oriented x3 - Psychiatric Exam Psychiatric exam: Normal Affect, Normal Mood - Skin Skin Exam: Dry, Intact, Warm Assessment and Plan - Assessment and Plan (Free Text) Assessment: Patient is an 81 y/o M with history of HTN, DM, arthritis, obesity, who presents with complaint of leg swelling and SOB. Patient had echocardiogram performed and developed hypercapnic respiratory failure and was taken to ICU and placed on bipap. Currently doing well on high flow oxygen. Plan: 1) Respiratory failure * Pulmonology, cardiology, and ID consulted, help appreciated * Pt closely monitored in ICU * repeat chest x-ray continues to show bilateral effusion R>L * CT chest showed bilateral lower lobe atelectasis/pneumonia with effusion [see full report] * continue IV lasix * cardiac enzymes negative x2 * daily weights * discontinued rocephin and azithromycin- will restart if repeat procalcitonin elevated * continue robitussin * pt remains afebrile w/o leukocytosis * blood cultures negative * repeat procalcitonin * Maintain O2 say >90% with supplemental oxygen 2) Edema * LE duplex showed no evidence of DVT * Echocardiogram showed LV normal size with mild concentric LV hypertrophy and EF of 55-60%, mild tricuspid regurge wtih RVSP 75 mm of Hg. [ see full report] * Cardiology consulted, help appreciated * Continue IV primacor and lasix * strict I's and O's * keep patient NPO for cardiac cath tomorrow 3) Afib * Continue lovenox as per cardiology * continue aspirin and plavix 4) HTN * continue Verapamil and Zestril * Hydralazine started as per cardiology 5) DM * continue actos * hold metformin * continue neurontin * accuchecks * sliding scale insulin 6) Hypothyroidism * low TSH at 0.21 and normal Free T4 at 1.81 * likely subacute hypthyroidism * recommend repeat in 6-8 weeks from discharge 7) Depression * Continue lexapro 8) PPX * pepcid * lovenox held for cath tomorrow * tylenol * SCD's contraindicated due to bilateral Edema Assessment and plan discussed with attending physician. <CarlyAmanda B - Last Filed: 11/02/16 15:05> Objective - Vital Signs/Intake and Output Vital Signs (last 24 hours): Temp Pulse Resp BP Pulse Ox 97.8 F 88 18 123/59 L 92 L 11/01/16 12:00 11/01/16 08:06 11/01/16 10:00 11/01/16 09:30 11/01/16 08:06 Intake and Output: 11/01/16 11/01/16 06:59 18:59 Intake Total 93 Output Total 1100 Balance -1007 - Medications Medications: Current Medications Albuterol/Ipratropium (Duoneb 3 Mg/0.5 Mg (3 Ml) Ud) 3 ml IH [id number] [facility] Last Admin: 11/01/16 10:58 Dose: 3 ml Aspirin (Ecotrin) 81 mg PO DAILY [facility] Last Admin: 11/01/16 09:03 Dose: 81 mg Clopidogrel Bisulfate (Plavix) 75 mg PO DAILY [facility] Last Admin: 11/01/16 09:03 Dose: 75 mg Escitalopram Oxalate (Lexapro) 10 mg PO DAILY [facility] Last Admin: 11/01/16 09:30 Dose: 10 mg Famotidine (Pepcid) 20 mg PO DAILY [facility] Last Admin: 11/01/16 09:30 Dose: 20 mg Furosemide (Lasix) 60 mg IVP Q12 [facility] Last Admin: 11/01/16 09:30 Dose: 60 mg Gabapentin (Neurontin) 100 mg PO BID [facility] PRN Reason: Protocol Last Admin: 11/01/16 09:30 Dose: 100 mg Guaifenesin (Robitussin) 100 mg PO Q4H PRN PRN Reason: Cough Hydralazine HCl (Apresoline) 10 mg IVP Q6 PRN PRN Reason: Systolic Blood Pressure Milrinone Lactate/Dextrose (Primacor 20mg/100ml D5w) 100 mls @ 7.702 mls/hr IV .Q13H PRN; Protocol; 0.2 MCG/KG/MIN PRN Reason: TITRATE PER MD ORDER Last Admin: 11/01/16 09:02 Dose: 7.702 mls/hr Sodium Chloride (Sodium Chloride 0.9%) 1,000 mls @ 100 mls/hr IV .Q10H [facility] Last Admin: 11/01/16 06:39 Dose: 100 mls/hr Insulin Human Regular (Humulin R Med) 0 units SC ACHS [facility] Last Admin: 11/01/16 12:00 Dose: Not Given Lisinopril (Zestril) 40 mg PO DAILY [facility] Last Admin: 11/01/16 09:30 Dose: 40 mg Methylprednisolone (Solu-Medrol) 40 mg IVP Q12 [facility] Last Admin: 11/01/16 11:21 Dose: 40 mg Bimatoprost [Lumigan (] 0.01% Opth Soln) 1 drop OS DIN [facility] Last Admin: 10/31/16 17:04 Dose: 1 drop Pilocarpine HCl (Isopto Carpine 1% Opht Soln) 0 ml OU BID [facility] Last Admin: 10/31/16 17:08 Dose: 1 drop Timolol Maleate (Timoptic 0.25% Ophth Soln) 1 drop OU BID [facility] Last Admin: 10/31/16 17:07 Dose: 1 drop Verapamil HCl (Calan Tab) 40 mg PO TID [facility] Last Admin: 11/01/16 14:54 Dose: Not Given - Labs Labs: 11/01/16 05:00 11/01/16 05:00 PT 11.2 Seconds (9.9-11.8) 10/28/16 13:45 INR 1.04 (0.93-1.08) 10/28/16 13:45 APTT 26.7 Seconds (23.7-30.8) 10/28/16 13:45 Attending/Attestation - Attestation I have personally seen and examined this patient.: Yes I have fully participated in the care of the patient.: Yes I have reviewed all pertinent clinical information, including history, physical exam and plan: Yes Notes (Text): I have seen and examined patient with the resident. 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 He was found to have elevated BNP, Effusions on CXR. Echo revealed mild LVH, EF 55-60% and moderate to severe TR, pulmonary hypertension. He was started on lovenox for afib. Plan for possible cardiac cath as per [employer]fter [employer] if patient and family agrees. Few days ago he became lethargic and developed hypoxia, CO2 narcosis and hypercapnia secondary to respiratory acidosis therefore patient was transferred to ICU. Patient is awake and alert today. Able to answer all the questions and follow commands. He is on NC. Continue Primacor for RV failure. Plan for cardiac cath tomorrow. Discussed in detail with the patient and all questions answered. Patient has low TSH and Free T4 secondary to non thyroidal illness. Plan to repeat TFT's in 6-[address] Amanda Carroll
[2016-10-31] MEDS: Timolol 0.25% Ophth SOLN OU SCH ×2 (16:54→17:07)
[2016-10-31] MEDS: OPTH OS SCH (17:04)
[2016-10-31] MEDS: BIMATOPROST 0.01% OS SCH (17:04)
[2016-10-31] MEDS ORDERED: Home Med 1 UNIT OU SCH (22:00)
[2016-11-01] MEDS: Albuterol-Ipratrop 3 mg / 0.5 (3 ml) UD IH SCH ×7 (00:47→23:36)
[2016-11-01 05:15] LABS: ADD MANUAL DIFF? NO
[2016-11-01 05:38] LABS: GRAN # 4.16 (1.4-6.5); GRAN % 89.5 % (50.0-68.0); HEMATOCRIT 31.7 % (42.0-52.0); LYMPH # 0.3 (1.2-3.4); LYMPH % 6.2 % (22.0-35.0); MEAN CELL VOLUME 91.1 fL (80.0-105.0); MEAN CORPUSCULAR HGB CONC 31.9 g/dl (31.0-37.0); MEAN PLATELET VOLUME 12.2 fl (7.0-11.0); MONO # 0.2 (0.1-0.6); MONO % 4.3 % (1.0-6.0); PLATELET COUNT 165 10^3/uL (120.0-450.0); WHITE BLOOD COUNT 4.7 10^3/ul (4.5-11.0)
[2016-11-01 05:39] LABS: ALKALINE PHOSPHATASE 49 U/L (38-133); ALT/SGPT 33 U/L (7-56); AST/SGOT 22 U/L (15-59); BILIRUBIN,TOTAL 0.5 mg/dL (0.2-1.3); BLOOD UREA NITROGEN 41 mg/dL (7-21); CALCIUM 8.6 mg/dL (8.4-10.5); CARBON DIOXIDE 34 mmol/L (21-33); CHLORIDE 94 mmol/L (95-110); GFR AFRICAN-AMERICAN > 60; GLUCOSE,RANDOM 192 mg/dL (70-110); MAGNESIUM 2.2 mg/dL (1.7-2.2); PHOSPHOROUS 4.9 mg/dL (2.5-4.5); POTASSIUM 4.5 mmol/L (3.6-5.0); SODIUM 134 mmol/L (132-148); TOTAL PROTEIN 6.5 g/dL (5.8-8.3)
[2016-11-01 06:15] LABS: ARTERIAL BLOOD GAS HCO3 33.1 mmol/L (21-28); ARTERIAL BLOOD GAS O2 CAPACITY 13.1 mL/dl (16-24); ARTERIAL BLOOD GAS O2 CONTENT 12.3 ML/dl (15-23); ARTERIAL BLOOD GAS PH 7.38 (7.35-7.45); ARTERIAL BLOOD HGB O2 SAT 92.8 % (95.0-98.0); CARBOXYHEMOGLOBIN 1.6 % (0.5-1.5); HHB 5.7 % (0-5)
[2016-11-01] MEDS: Sodium Chloride 0.9% 1,000 ML IV SCH ×2 (06:39→18:18)
[2016-11-01] MEDS: Insulin Reg-MEDIUM-Coverage SC SCH ×3 (08:05→21:42)
[2016-11-01] MEDS: Milrinone 20mg/100ml D5W 100 ML IV PRN (09:02)
--- NOTE | 2016-11-01 09:41 | PN ---
DATE: 11/01/2016 REASON FOR CONSULTATION AND FOLLOWUP: Decompensated congestive heart failure, admitted with atrial fib CHF, hypercapnia, CO2 narcosis, obesity, abnormal stress test. BRIEF CLINICAL HISTORY: An 81-year-old male with a past medical history significant for obesity, diabetes, hypertension, hyperlipidemia. Recently had a stress test done in Dr. Jacobo's office at [facility], inferior wall reversible ischemia. Echo that was told negative. Now, the echo shows significant pulmonary hypertension. The patient was on the floor, developed CO2 narcosis, hypercapnia, moved to ICU. Now, is on high flow oxygen , awake and alert. Denies any chest pain. PHYSICAL EXAMINATION: VITAL SIGNS: Temperature afebrile, heart rate 88, blood pressure 142/64. HEENT: PERRLA. Extraocular muscles intact. NECK: Supple. No carotid bruits. No thyromegaly. CHEST: Clear to auscultation. HEART: S1, S2 regular. ABDOMEN: Soft. EXTREMITIES: Clubbing, cyanosis negative. BLOOD WORKUP: WBC 4.7, hemoglobin 10 hematocrit 31.7, platelet count 165. Chemistry shows sodium 135, potassium 4.5, chloride 94, carbon dioxide 34, anion gap of 11, BUN 41, creatinine 1.1. IMPRESSION: Pulmonary hypertension, abnormal stress test, morbid obesity, paroxysmal atrial fibrillation, decompensated congestive heart failure, carbon dioxide narcosis, hypercapnia, mild mitral regurgitation, moderate to severe tricuspid regurgitation, right ventricular systolic pressure 75, left ventricular ejection fraction 55, hypertension, hyperlipidemia, abnormal stress test, carbon dioxide narcosis, hypercapnia. RECOMMENDATION: Continue IV Primacor. Continue diuretics. We will start IV fluid 100 mL an hour preoperative catheterization. Further recommendation after the cardiac catheterization. The patient will have left and right heart catheterization, possible angioplasty. Further recommendation after cardiac catheterization. We will follow with you. Thank you, Dr. Carroll, for providing us the opportunity in taking care of the patient. Anthony Mckinley MD cc: [id number] TT: 11/01/2016 09:40:13 Confirmation # [id number] Dictation # [id number] en [email or web address]
[2016-11-01] MEDS: Pilocarpine 1% Opht (15ml) OU SCH ×2 (10:00→17:00)
[2016-11-01] MEDS: Timolol 0.25% Ophth SOLN OU SCH ×2 (10:05→17:00)
[2016-11-01] MEDS: MethylPREDNISolone 40 mg Vial IVP SCH ×2 (11:21→21:21)
[2016-11-01] MEDS ORDERED: Lidocaine 2% Inj (20ml) ONE (15:46)
[2016-11-01] MEDS ORDERED: Midazolam 2 MG/2 ML VIAL ONE (15:46)
--- NOTE | 2016-11-01 16:22 | CP.PCM.PN ---
<Jose Miller - Last Filed: 11/01/16 18:49> Subjective - Date & Time of Evaluation Date of Evaluation: 11/01/16 Time of Evaluation: 07:30 - Subjective Subjective: Dr. Miller PGY 1 Hospitalist Note Patient seen and evaluated at bedside. He is resting in bed in ICU with high flow oxygen. Per nursing, he slept with BiPAP on all night. He currently states he is breathing much better and denies any chest pain, fever, chills, nausea, or vomiting. He says his legs feel much better. 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 A 12 point review of systems was performed and negative accept where indicated above. He is awaiting cardiac cath this morning. Objective - Vital Signs/Intake and Output Vital Signs (last 24 hours): Temp Pulse Resp BP Pulse Ox 97.8 F 88 18 123/59 L 92 L 11/01/16 12:00 11/01/16 08:06 11/01/16 10:00 11/01/16 09:30 11/01/16 08:06 Intake and Output: 11/01/16 11/01/16 06:59 18:59 Intake Total 93 Output Total 1100 Balance -1007 - Medications Medications: Current Medications Albuterol/Ipratropium (Duoneb 3 Mg/0.5 Mg (3 Ml) Ud) 3 ml IH [id number] [facility] Last Admin: 11/01/16 10:58 Dose: 3 ml Aspirin (Ecotrin) 81 mg PO DAILY [facility] Last Admin: 11/01/16 09:03 Dose: 81 mg Clopidogrel Bisulfate (Plavix) 75 mg PO DAILY [facility] Last Admin: 11/01/16 09:03 Dose: 75 mg Escitalopram Oxalate (Lexapro) 10 mg PO DAILY [facility] Last Admin: 11/01/16 09:30 Dose: 10 mg Famotidine (Pepcid) 20 mg PO DAILY [facility] Last Admin: 11/01/16 09:30 Dose: 20 mg Furosemide (Lasix) 60 mg IVP Q12 [facility] Last Admin: 11/01/16 09:30 Dose: 60 mg Gabapentin (Neurontin) 100 mg PO BID [facility] PRN Reason: Protocol Last Admin: 11/01/16 09:30 Dose: 100 mg Guaifenesin (Robitussin) 100 mg PO Q4H PRN PRN Reason: Cough Hydralazine HCl (Apresoline) 10 mg IVP Q6 PRN PRN Reason: Systolic Blood Pressure Milrinone Lactate/Dextrose (Primacor 20mg/100ml D5w) 100 mls @ 7.702 mls/hr IV .Q13H PRN; Protocol; 0.2 MCG/KG/MIN PRN Reason: TITRATE PER MD ORDER Last Admin: 11/01/16 09:02 Dose: 7.702 mls/hr Sodium Chloride (Sodium Chloride 0.9%) 1,000 mls @ 100 mls/hr IV .Q10H [facility] Last Admin: 11/01/16 06:39 Dose: 100 mls/hr Insulin Human Regular (Humulin R Med) 0 units SC ACHS [facility] Last Admin: 11/01/16 12:00 Dose: Not Given Lisinopril (Zestril) 40 mg PO DAILY [facility] Last Admin: 11/01/16 09:30 Dose: 40 mg Methylprednisolone (Solu-Medrol) 40 mg IVP Q12 [facility] Last Admin: 11/01/16 11:21 Dose: 40 mg Bimatoprost [Lumigan (] 0.01% Opth Soln) 1 drop OS DIN [facility] Last Admin: 10/31/16 17:04 Dose: 1 drop Pilocarpine HCl (Isopto Carpine 1% Opht Soln) 0 ml OU BID [facility] Last Admin: 10/31/16 17:08 Dose: 1 drop Timolol Maleate (Timoptic 0.25% Ophth Soln) 1 drop OU BID [facility] Last Admin: 10/31/16 17:07 Dose: 1 drop Verapamil HCl (Calan Tab) 40 mg PO TID [facility] Last Admin: 11/01/16 14:54 Dose: Not Given - Labs Labs: 11/01/16 05:00 11/01/16 05:00 PT 11.2 Seconds (9.9-11.8) 10/28/16 13:45 INR 1.04 (0.93-1.08) 10/28/16 13:45 APTT 26.7 Seconds (23.7-30.8) 10/28/16 13:45 - Constitutional Appears: Non-toxic, No Acute Distress, Other (obese) - Head Exam Head Exam: ATRAUMATIC, NORMOCEPHALIC - Eye Exam Eye Exam: EOMI, Normal appearance, PERRL. absent: Conjunctival injection, Scleral icterus Pupil Exam: NORMAL ACCOMODATION, PERRL - ENT Exam ENT Exam: Mucous Membranes Moist, Normal Oropharynx - Respiratory Exam Respiratory Exam: Decreased Breath Sounds (bilateral lower lobes ), NORMAL BREATHING PATTERN. absent: Rales, Rhonchi, Wheezes - Cardiovascular Exam Cardiovascular Exam: Irregular Rhythm (irregularly irregular), +S1, +S2. absent : Gallop, Rubs, Murmur - GI/Abdominal Exam GI & Abdominal Exam: Soft, Normal Bowel Sounds. absent: Tenderness - Extremities Exam Extremities Exam: Normal Capillary Refill, Pedal Edema. absent: Tenderness - Neurological Exam Neurological Exam: Alert, Awake, CN II-XII Intact, Oriented x3 - Psychiatric Exam Psychiatric exam: Normal Affect, Normal Mood - Skin Skin Exam: Dry, Intact, Warm Assessment and Plan - Assessment and Plan (Free Text) Assessment: Patient is an 81 y/o M with history of HTN, DM, arthritis, obesity, who presents with complaint of leg swelling and SOB. Patient had echocardiogram performed and developed hypercapnic respiratory failure and was taken to ICU and placed on bipap. Currently doing well on high flow oxygen and awaiting cardiac catheterization. Plan: 1) Respiratory failure * Pulmonology, cardiology, and ID consulted, help appreciated * Pt closely monitored in ICU * repeat chest x-ray continues to show bilateral effusion R>L * CT chest showed bilateral lower lobe atelectasis/pneumonia with effusion [see full report] * continue IV lasix * cardiac enzymes negative x3 * daily weights * continue robitussin * pt remains afebrile w/o leukocytosis * blood cultures negative * repeat procalcitonin wnl * Maintain O2 say >90% with supplemental oxygen 2) Edema * LE duplex showed no evidence of DVT * Echocardiogram showed LV normal size with mild concentric LV hypertrophy and EF of 55-60%, mild tricuspid regurge wtih RVSP 75 mm of Hg. [ see full report] * Cardiology consulted, help appreciated * Continue IV primacor and lasix * strict I's and O's * F/U cardiac cath 3) Afib * Continue lovenox as per cardiology * continue aspirin and plavix 4) HTN * continue Verapamil and Zestril * Hydralazine started as per cardiology 5) DM * continue actos * hold metformin * continue neurontin * accuchecks * sliding scale insulin 6) Hypothyroidism * low TSH at 0.21 and normal Free T4 at 1.81 * likely subacute hypthyroidism * recommend repeat in 6-8 weeks from discharge 7) Depression * Continue lexapro 8) PPX * pepcid * lovenox held for cath tomorrow * tylenol * SCD's contraindicated due to bilateral Edema Assessment and plan discussed with attending physician. <Amanda Carroll B - Last Filed: 11/02/16 15:11> Objective - Vital Signs/Intake and Output Vital Signs (last 24 hours): Temp Pulse Resp BP Pulse Ox 97.1 F L 99 H 18 143/77 94 L 11/02/16 12:00 11/02/16 12:00 11/02/16 12:00 11/02/16 13:50 11/02/16 08:00 Intake and Output: 11/02/16 11/02/16 06:59 18:59 Intake Total 950 500 Output Total 2000 Balance -1050 500 - Medications Medications: Current Medications Albuterol/Ipratropium (Duoneb 3 Mg/0.5 Mg (3 Ml) Ud) 3 ml IH [id number] [facility] Last Admin: 11/02/16 13:11 Dose: 3 ml Apixaban (Eliquis) 5 mg PO BID [facility] PRN Reason: Protocol Aspirin (Ecotrin) 81 mg PO DAILY [facility] Stop: 11/02/16 23:59 Last Admin: 11/02/16 13:39 Dose: 81 mg Atorvastatin Calcium (Lipitor) 20 mg PO DIN [facility] Clopidogrel Bisulfate (Plavix) 75 mg PO DAILY [facility] Last Admin: 11/02/16 13:39 Dose: 75 mg Escitalopram Oxalate (Lexapro) 10 mg PO DAILY [facility] Last Admin: 11/02/16 13:39 Dose: 10 mg Famotidine (Pepcid) 20 mg PO DAILY [facility] Last Admin: 11/02/16 13:39 Dose: 20 mg Furosemide (Lasix) 40 mg IVP 0800,1400 [facility] Last Admin: 11/02/16 07:43 Dose: 40 mg Gabapentin (Neurontin) 100 mg PO BID [facility] PRN Reason: Protocol Last Admin: 11/02/16 13:39 Dose: 100 mg Guaifenesin (Robitussin) 100 mg PO Q4H PRN PRN Reason: Cough Hydralazine HCl (Apresoline) 10 mg IVP Q6 PRN PRN Reason: Systolic Blood Pressure Last Admin: 11/02/16 05:31 Dose: 10 mg Insulin Human Regular (Humulin R Med) 0 units SC ACHS [facility] Last Admin: 11/02/16 13:50 Dose: 3 units Lisinopril (Zestril) 40 mg PO DAILY [facility] Last Admin: 11/02/16 13:42 Dose: 40 mg Methylprednisolone (Solu-Medrol) 40 mg IVP DAILY [facility] Last Admin: 11/02/16 13:40 Dose: 40 mg Bimatoprost [Lumigan (] 0.01% Opth Soln) 1 drop OS DIN [facility] Last Admin: 11/01/16 17:00 Dose: Not Given Pilocarpine HCl (Isopto Carpine 1% Opht Soln) 0 ml OU BID [facility] Last Admin: 11/02/16 13:40 Dose: 1 drop Timolol Maleate (Timoptic 0.25% Ophth Soln) 1 drop OU BID [facility] Last Admin: 11/02/16 13:40 Dose: 1 drop Verapamil HCl (Calan Sr Tab) 120 mg PO DAILY [facility] Last Admin: 11/02/16 13:50 Dose: 120 mg - Labs Labs: 11/02/16 05:30 11/02/16 05:30 PT 11.2 Seconds (9.9-11.8) 10/28/16 13:45 INR 1.04 (0.93-1.08) 10/28/16 13:45 APTT 26.7 Seconds (23.7-30.8) 10/28/16 13:45 Attending/Attestation - Attestation I have personally seen and examined this patient.: Yes I have fully participated in the care of the patient.: Yes I have reviewed all pertinent clinical information, including history, physical exam and plan: Yes Notes (Text): I have seen and examined patient with the resident. 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 He was found to have elevated BNP, Effusions on CXR. Echo revealed mild LVH, EF 55-60% and moderate to severe TR, pulmonary hypertension. He was on lovenox for afib which is on hold. He is waiting to go for cardiac cath. Patient is awake and alert today. Able to answer all the questions and follow commands. He is on NC. Continue Primacor for RV failure. . Discussed in detail with the patient and all questions answered. Patient has low TSH and Free T4 secondary to non thyroidal illness. Plan to repeat TFT's in 6-[address] Amanda Carroll
[2016-11-01] MEDS ORDERED: Eptifibatide 20 mg/10mL Inj IVP ONE (16:50)
[2016-11-01] MEDS ORDERED: Iohexol 350mgl/ml 50 ML ONE (16:51)
[2016-11-01] MEDS ORDERED: Iohexol 350 MG/100 ML VIAL ONE (16:56)
[2016-11-01] MEDS: OPTH OS SCH (17:00)
[2016-11-01] MEDS: BIMATOPROST 0.01% OS SCH (17:00)
--- NOTE | 2016-11-01 19:43 | CARD ---
APPROVED REPORT Procedure(s) performed: Complete Heart Catheterization PTCA with Stenting of Mid Cx with HOLDEN HISTORY The patient is a 81 year-old male with a history of : coronary artery disease, hypertension , dyslipidemia , Hx PTCA of LAD in the past, recent stress test Positive by Dr. Jacobo, admitted wt CHF, pulmonary HTN, respiratory Distress and new onset of A Fib. INDICATION The indication(s) include : positive stress test. CASE TECHNIQUE The patient was brought emergently to the Cardiac Catheterization Laboratory in a fasting state and was prepped and draped in a sterile manner. The right femoral groin was infiltrated with 1% Lidocaine subcutaneous anesthesia. A Holly sheath was inserted into the right femoral artery without difficulty. Coronary angiography was performed using coronary diagnostic catheters. The left coronary system was accessed and visualized with a Diagnostic , JL4.0,%FR catheter. The right coronary system was accessed and visualized with a Diagnostic , 3.5 jr, %Fr catheter. The left ventricle was accessed and visualized with a pigtail catheter. Left ventriculogram was performed in ZAMORA projection. A Right Heart Catheterization was performed with a 7 Fr. [place] catheter and pressure were recorded. A 7 sheath was inserted into the right femoral vein without difficulty. Coronary angiography was performed using coronary diagnostic catheters. Cardiac outputs were obtained by the Thermal Dilution method. Pre-demployment femoral angiogram was performed . Closure device was deployed with a Fr Mynx in Vein and Angioseal in Artery without any complications. The patient tolerated the procedure well and there were no complications associated with the procedure. Vessel Analysis The patient's coronary anatomy is co-dominant. The left main coronary artery is a large size vessel without significant stenosis. The left main bifurcates to the left anterior descending and circumflex. The left anterior descending artery is a large size vessel with diffuse calcification noted throughout this vessel and without significant stenosis. Patent stent Proximally The first diagonal branch is a medium size vessel with diffuse calcification noted throughout this vessel and without significant stenosis. The circumflex artery is a large size vessel with diffuse calcification noted throughout this vessel and with significant stenosis. There is a 80% stenosis in the mid segment. Patent stent proximally, distal to stent 80% stenosis The first obtuse marginal branch is a medium size vessel with diffuse calcification noted throughout this vessel and without significant stenosis. The second obtuse marginal branch is a medium size vessel with diffuse calcification noted throughout this vessel and without significant stenosis. The third obtuse marginal branch is a small size vessel with diffuse calcification noted throughout this vessel and without significant stenosis. The left posterior descending artery is a medium size vessel with diffuse calcification noted throughout this vessel and without significant stenosis. The right coronary artery is a large size vessel with diffuse calcification noted throughout this vessel and without significant stenosis. The right posterior descending artery is a medium size vessel with diffuse calcification noted throughout this vessel and without significant stenosis. Left Ventricle The left ventricle is normal in size with normal contractility. There was no cardiomyopathy. The left ventricular ejection fraction is estimated to be 65%. The left ventricular end diastolic pressure is 20 mmHg. There was no gradient across the aortic valve upon pullback. Right Heart Cath Findings The Right Atrial Pressure is 18 mmHg. The Right Ventricular Pressure is 70/14 mmHg. The Pulmonary Artery Pressure is 70/35 mmHg. mean of 48 The Pulmonary Catheter Wedge Pressure is 20 mmHg. PVR 4.00 Wood units. The cardiac output and index were assessed using thermo dilution. The Cardiac Output is 7.83 L/min. The Cardiac index is 3.17 L/min/m2. PCI Technique Lesion Anticoagulation was achieved with Heparin. Percutaneous coronary intervention was performed on the mid circumflex artery segment. The lesion stenosis prior to intervention was 80% with AGUSTIN 2 flow. A XB3.5 Guide Catheter was used to engage the ostium. BALLOON DILATION A Balloon catheter 2.5/8 was inserted and inflated up to 10atm for 20seconds. STENT DEPLOYMENT A drug-eluting stent 2.75/14 was inserted and inflated up to 14atm for 20seconds. POST STENT DEPLOYMENT BALLOON DILATION A Balloon catheter 3.0/9 was inserted and inflated up to 14atm for 20seconds. Final angiography reveals 0 % stenosis with AGUSTIN 3 flow. Conclusion Single Vessel CAD MId CX ( Co-dominant). Patent Stent In Proximal LAD and Proximal to Mid Cx. Preserved LV Fx, EF-65%. EDP-230 MMof Hg, RHC;Ra-18, RV-70/12:PA-70/35 meab of 48, PCW-20, Co-7.83, CI-3.17, PVR04 fontenot unit Morbid Obesity A Fib Successfully PTCA with HOLDEN of Mid Cx done. Recommendations Cardiac Rehabilitation ReferralDaily ASA with Plavix for at least one year Aggressive Medical TherapyCardiac Risk Reduction Program Weight Loss Reduction Program Will sttart Eliquis for A Fib Continue Plavix for 6 months, then Baby Asa and eliquis. CC; Dr. Jacobo,F
[2016-11-01 21:00] LABS: ADD MANUAL DIFF? NO; GRAN # 4.52 (1.4-6.5); GRAN % 83.1 % (50.0-68.0); HEMATOCRIT 33.4 % (42.0-52.0); LYMPH # 0.3 (1.2-3.4); LYMPH % 4.6 % (22.0-35.0); MEAN CORPUSCULAR HEMOGLOBIN 29.2 pg (25.0-35.0); MEAN PLATELET VOLUME 12.7 fl (7.0-11.0); MONO # 0.7 (0.1-0.6); MONO % 12.3 % (1.0-6.0); PLATELET COUNT 176 10^3/uL (120.0-450.0); RED CELL DISTRIBUTION WIDTH 15.9 % (11.5-14.5); WHITE BLOOD COUNT 5.4 10^3/ul (4.5-11.0)
[2016-11-01 21:14] LABS: BLOOD UREA NITROGEN 39 mg/dL (7-21); CALCIUM 8.5 mg/dL (8.4-10.5); CARBON DIOXIDE 37 mmol/L (21-33); CHLORIDE 92 mmol/L (98-107); GFR AFRICAN-AMERICAN > 60; GLUCOSE,RANDOM 218 mg/dL (70-110); POTASSIUM 4.3 mmol/L (3.6-5.0); SODIUM 133 mmol/L (132-148)
[2016-11-02 05:56] LABS: ADD MANUAL DIFF? NO
[2016-11-02 05:58] LABS: GRAN # 3.88 (1.4-6.5); GRAN % 86.8 % (50.0-68.0); HEMATOCRIT 35.1 % (42.0-52.0); LYMPH # 0.3 (1.2-3.4); LYMPH % 5.6 % (22.0-35.0); MEAN CELL VOLUME 91.6 fL (80.0-105.0); MEAN CORPUSCULAR HEMOGLOBIN 28.5 pg (25.0-35.0); MEAN CORPUSCULAR HGB CONC 31.1 g/dl (31.0-37.0); MEAN PLATELET VOLUME 12.2 fl (7.0-11.0); MONO # 0.3 (0.1-0.6); MONO % 7.6 % (1.0-6.0); PLATELET COUNT 164 10^3/uL (120.0-450.0); WHITE BLOOD COUNT 4.5 10^3/ul (4.5-11.0)
[2016-11-02 06:16] LABS: ALB/GLOB RATIO 0.9 (1.1-1.8); ALKALINE PHOSPHATASE 49 U/L (38-133); ALT/SGPT 19 U/L (7-56); AST/SGOT 25 U/L (15-59); BILIRUBIN,TOTAL 0.6 mg/dL (0.2-1.3); BLOOD UREA NITROGEN 40 mg/dL (7-21); CALCIUM 8.6 mg/dL (8.4-10.5); CARBON DIOXIDE 38 mmol/L (21-33); CHLORIDE 93 mmol/L (98-107); GFR AFRICAN-AMERICAN > 60; GLUCOSE,RANDOM 187 mg/dL (70-110); MAGNESIUM 2.2 mg/dL (1.7-2.2); POTASSIUM 4.3 mmol/L (3.6-5.0); SODIUM 136 mmol/L (132-148); TOTAL PROTEIN 6.9 g/dL (5.8-8.3)
[2016-11-02] MEDS: Insulin Reg-MEDIUM-Coverage SC SCH ×5 (07:41→23:29)
[2016-11-02] MEDS: Albuterol-Ipratrop 3 mg / 0.5 (3 ml) UD IH SCH ×5 (08:43→23:28)
--- NOTE | 2016-11-02 08:52 | PN ---
DATE: 11/02/2016 REASON FOR CONSULTATION AND FOLLOWUP: Decompensated congestive heart failure, atrial fibrillation, p aroxysmal, morbid obesity, rule out Pickwickian syndrome, CO2 narcosis, abnormal stress test. BRIEF CLINICAL HISTORY: An 81-year-old male with a past medical history significant for obesity, hyp ertension, hyperlipidemia, history of coronary artery disease, history of stent in LAD, stent in circ umflex, being followed by Dr. Jacobo at [facility]. Admitted with decompensated conge stive heart failure. The patient had a stress test with Dr. Jacobo 1 month prior to admission with in ferior wall ischemia. While the patient was admitted here, developed CO2 narcosis, hypercapnia, gomes sferred to ICU and managed with noninvasive ventilator, also found to be in AFib. The patient yester day underwent cardiac catheterization, complete left and right heart catheterization and stenting of the mid circumflex. Previous stent was found to be patent in LAD and circumflex. Now, patient is ly ing flat, comfortable. Denies any chest pain, shortness of breath, any palpitation. PHYSICAL EXAMINATION: VITAL SIGNS: Temperature afebrile, heart rate 77, blood pressure 116/50. HEENT: PERRLA. Extraocular muscles intact. NECK: Supple. No carotid bruits. No thyromegaly. CHEST: Clear to auscultation. HEART: S1, S2 regular. ABDOMEN: Soft. EXTREMITIES: Clubbing, cyanosis negative. BLOOD WORKUP: WBC 4.5, hemoglobin 10.9, hematocrit 35.1, platelet count 164. Chemistry shows sodium , potassium 4.3, chloride 93, carbon dioxide 36, anion gap of 9, BUN 40, creatinine 1.1. IMPRESSION: Pulmonary hypertension, right ventricular systolic pressure 70 by noninvasive as well as by right heart catheterization, pulmonary vascular resistance 4 Wood units, coronary artery disease, status post percutaneous transluminal coronary angioplasty of circumflex yesterday. Prior, patient had a percutaneous transluminal coronary angioplasty of left anterior descending and circumflex. Yes terday, distal circumflex percutaneous transluminal coronary angioplasty was done. Diabetes, hyperte nsion, hyperlipidemia, morbid obesity, paroxysmal atrial fibrillation, pulmonary hypertension. RECOMMENDATION: We will discontinue Primacor tomorrow. Decrease the dose of Lasix to 40 b.i.d. from 60. Start Eliquis. Continue Eliquis and continue Plavix. We will discontinue aspirin after today' s dose. The patient yesterday underwent a drug-eluting stent in the circumflex. Ambulate. Possible discharge in a day or 2 when stable. Will transfer to telemetry. Discussed with Dr. Reese. Con tinue verapamil 40 mg and we will change to 120 from today. Continue atorvastatin, continue lisinopr il. We will inform Dr. Jacobo about patient's cath report and follow up with Dr. Jacobo as outpatient. Anthony Mckinley MD cc: [id number] TT: 11/02/2016 08:51:52 Confirmation # [id number] Dictation # [id number]
--- NOTE | 2016-11-02 11:44 | CP.PCM.PN ---
<Jose Miller - Last Filed: 11/02/16 12:47> Subjective - Date & Time of Evaluation Date of Evaluation: 11/02/16 Time of Evaluation: 07:15 - Subjective Subjective: Dr. Miller PGY 1 Hospitalist Note Patient seen and evaluated at bedside. He denies any pain or swelling at his cath site. He says he is feeling "good" and denies any chest pain or SOB. He also denies any nausea, vomiting, leg pain, or abdominal pain. A 12 point review of systems was performed and negative except where indicated above. Objective - Vital Signs/Intake and Output Vital Signs (last 24 hours): Temp Pulse Resp BP Pulse Ox 98 F 78 19 160/79 H 94 L 11/02/16 08:44 11/02/16 08:00 11/02/16 08:00 11/02/16 08:00 11/02/16 08:00 Intake and Output: 11/02/16 11/02/16 06:59 18:59 Intake Total 950 500 Output Total 2000 Balance -1050 500 - Medications Medications: Current Medications Albuterol/Ipratropium (Duoneb 3 Mg/0.5 Mg (3 Ml) Ud) 3 ml IH [id number] [facility] Last Admin: 11/02/16 08:43 Dose: 3 ml Apixaban (Eliquis) 5 mg PO BID [facility] PRN Reason: Protocol Aspirin (Ecotrin) 81 mg PO DAILY [facility] Stop: 11/02/16 23:59 Last Admin: 11/01/16 09:03 Dose: 81 mg Atorvastatin Calcium (Lipitor) 20 mg PO DIN [facility] Clopidogrel Bisulfate (Plavix) 75 mg PO DAILY [facility] Last Admin: 11/01/16 09:03 Dose: 75 mg Escitalopram Oxalate (Lexapro) 10 mg PO DAILY [facility] Last Admin: 11/01/16 09:30 Dose: 10 mg Famotidine (Pepcid) 20 mg PO DAILY [facility] Last Admin: 11/01/16 09:30 Dose: 20 mg Furosemide (Lasix) 40 mg IVP 0800,1400 [facility] Last Admin: 11/02/16 07:43 Dose: 40 mg Gabapentin (Neurontin) 100 mg PO BID [facility] PRN Reason: Protocol Last Admin: 11/01/16 17:00 Dose: Not Given Guaifenesin (Robitussin) 100 mg PO Q4H PRN PRN Reason: Cough Hydralazine HCl (Apresoline) 10 mg IVP Q6 PRN PRN Reason: Systolic Blood Pressure Last Admin: 11/02/16 05:31 Dose: 10 mg Insulin Human Regular (Humulin R Med) 0 units SC ACHS [facility] Last Admin: 11/02/16 07:43 Dose: 1 units Lisinopril (Zestril) 40 mg PO DAILY [facility] Last Admin: 11/01/16 09:30 Dose: 40 mg Methylprednisolone (Solu-Medrol) 40 mg IVP DAILY [facility] Bimatoprost [Lumigan (] 0.01% Opth Soln) 1 drop OS DIN [facility] Last Admin: 11/01/16 17:00 Dose: Not Given Pilocarpine HCl (Isopto Carpine 1% Opht Soln) 0 ml OU BID [facility] Last Admin: 11/01/16 17:00 Dose: Not Given Timolol Maleate (Timoptic 0.25% Ophth Soln) 1 drop OU BID [facility] Last Admin: 11/01/16 17:00 Dose: Not Given Verapamil HCl (Calan Sr Tab) 120 mg PO DAILY [facility] - Labs Labs: 11/02/16 05:30 11/02/16 05:30 PT 11.2 Seconds (9.9-11.8) 10/28/16 13:45 INR 1.04 (0.93-1.08) 10/28/16 13:45 APTT 26.7 Seconds (23.7-30.8) 10/28/16 13:45 - Constitutional Appears: Non-toxic, No Acute Distress, Other (obese) - Head Exam Head Exam: ATRAUMATIC, NORMOCEPHALIC - Eye Exam Eye Exam: EOMI, Normal appearance, PERRL Pupil Exam: NORMAL ACCOMODATION, PERRL - ENT Exam ENT Exam: Mucous Membranes Moist - Respiratory Exam Respiratory Exam: Decreased Breath Sounds (bilateral lower lobes ), Clear to Ausculation Bilateral, NORMAL BREATHING PATTERN. absent: Rales, Rhonchi, Wheezes - Cardiovascular Exam Cardiovascular Exam: Irregular Rhythm (irregularly irregular), +S1, +S2. absent : Gallop, Rubs, Murmur - GI/Abdominal Exam GI & Abdominal Exam: Soft, Normal Bowel Sounds. absent: Tenderness - Exam Bimanual exam: NORMAL BIMANUAL EXAM (perla in place) - Extremities Exam Extremities Exam: Normal Capillary Refill, Pedal Edema (+2 bilateral lowe ext) Additional comments: cath site clean, dry, dressed - Neurological Exam Neurological Exam: Alert, Awake, CN II-XII Intact, Oriented x3 - Psychiatric Exam Psychiatric exam: Normal Affect, Normal Mood - Skin Skin Exam: Dry, Intact, Warm Assessment and Plan - Assessment and Plan (Free Text) Assessment: Patient is an 81 y/o M with history of HTN, DM, arthritis, obesity, who presents with complaint of leg swelling and SOB. Patient had echocardiogram performed and developed hypercapnic respiratory failure and was taken to ICU and placed on bipap. Currently doing well on high flow oxygen and transferred to telemetry floor. Complete left and right heart catheterization and stenting of mid circumflex. Plan: 1) Respiratory failure * Pulmonology, cardiology, and ID consulted, help appreciated * Pt transferred to telemetry floor post cardiac cath * repeat chest x-ray continues to show bilateral effusion R>L * CT chest showed bilateral lower lobe atelectasis/pneumonia with effusion [see full report] * continue IV lasix * cardiac enzymes negative x3 * daily weights * continue robitussin * pt remains afebrile w/o leukocytosis * blood cultures negative * repeat procalcitonin wnl * Maintain O2 say >90% with supplemental oxygen * steroid taper 2) Edema * LE duplex showed no evidence of DVT * Echocardiogram showed LV normal size with mild concentric LV hypertrophy and EF of 55-60%, mild tricuspid regurge wtih RVSP 75 mm of Hg. [ see full report] * Cardiology consulted, help appreciated * Cardiac catheterization complete left and right heart with stenting of mid circumflex, preserved LvEF 65%, RV 70/12 PA 70/35, PCW 20, [see full report] * Continue IV primacor and lasix * D/C perla and monitor output * F/U cardiac cath * PT ordered 3) Afib * Continue lovenox as per cardiology * continue aspirin and plavix * started on eliquis by cardiology 4) HTN * continue Verapamil and Zestril * Hydralazine started as per cardiology 5) DM * continue actos * hold metformin * continue neurontin * accuchecks * sliding scale insulin 6) Hypothyroidism * low TSH at 0.21 and normal Free T4 at 1.81 * likely subacute hypthyroidism * recommend repeat in 6-8 weeks from discharge 7) Depression * Continue lexapro 8) PPX * pepcid * lovenox held for cath tomorrow * tylenol * SCD's contraindicated due to bilateral Edema Assessment and plan discussed with attending physician. <Amanda Carroll B - Last Filed: 11/02/16 15:40> Objective - Vital Signs/Intake and Output Vital Signs (last 24 hours): Temp Pulse Resp BP Pulse Ox 97.1 F L 99 H 18 143/77 94 L 11/02/16 12:00 11/02/16 12:00 11/02/16 12:00 11/02/16 13:50 11/02/16 08:00 Intake and Output: 11/02/16 11/02/16 06:59 18:59 Intake Total 950 500 Output Total 2000 Balance -1050 500 - Medications Medications: Current Medications Albuterol/Ipratropium (Duoneb 3 Mg/0.5 Mg (3 Ml) Ud) 3 ml IH [id number] [facility] Last Admin: 11/02/16 13:11 Dose: 3 ml Apixaban (Eliquis) 5 mg PO BID [facility] PRN Reason: Protocol Aspirin (Ecotrin) 81 mg PO DAILY [facility] Stop: 11/02/16 23:59 Last Admin: 11/02/16 13:39 Dose: 81 mg Atorvastatin Calcium (Lipitor) 20 mg PO DIN [facility] Clopidogrel Bisulfate (Plavix) 75 mg PO DAILY [facility] Last Admin: 11/02/16 13:39 Dose: 75 mg Escitalopram Oxalate (Lexapro) 10 mg PO DAILY [facility] Last Admin: 11/02/16 13:39 Dose: 10 mg Famotidine (Pepcid) 20 mg PO DAILY [facility] Last Admin: 11/02/16 13:39 Dose: 20 mg Furosemide (Lasix) 40 mg IVP 0800,1400 [facility] Last Admin: 11/02/16 07:43 Dose: 40 mg Gabapentin (Neurontin) 100 mg PO BID [facility] PRN Reason: Protocol Last Admin: 11/02/16 13:39 Dose: 100 mg Guaifenesin (Robitussin) 100 mg PO Q4H PRN PRN Reason: Cough Hydralazine HCl (Apresoline) 10 mg IVP Q6 PRN PRN Reason: Systolic Blood Pressure Last Admin: 11/02/16 05:31 Dose: 10 mg Insulin Human Regular (Humulin R Med) 0 units SC ACHS [facility] Last Admin: 11/02/16 13:50 Dose: 3 units Lisinopril (Zestril) 40 mg PO DAILY [facility] Last Admin: 11/02/16 13:42 Dose: 40 mg Methylprednisolone (Solu-Medrol) 40 mg IVP DAILY [facility] Last Admin: 11/02/16 13:40 Dose: 40 mg Bimatoprost [Lumigan (] 0.01% Opth Soln) 1 drop OS DIN [facility] Last Admin: 11/01/16 17:00 Dose: Not Given Pilocarpine HCl (Isopto Carpine 1% Opht Soln) 0 ml OU BID [facility] Last Admin: 11/02/16 13:40 Dose: 1 drop Timolol Maleate (Timoptic 0.25% Ophth Soln) 1 drop OU BID [facility] Last Admin: 11/02/16 13:40 Dose: 1 drop Verapamil HCl (Calan Sr Tab) 120 mg PO DAILY [facility] Last Admin: 11/02/16 13:50 Dose: 120 mg - Labs Labs: 11/02/16 05:30 11/02/16 05:30 PT 11.2 Seconds (9.9-11.8) 10/28/16 13:45 INR 1.04 (0.93-1.08) 10/28/16 13:45 APTT 26.7 Seconds (23.7-30.8) 10/28/16 13:45 Attending/Attestation - Attestation I have personally seen and examined this patient.: Yes I have fully participated in the care of the patient.: Yes I have reviewed all pertinent clinical information, including history, physical exam and plan: Yes Notes (Text): I have seen and examined patient with the resident. 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 He was found to have elevated BNP, Effusions on CXR. Echo revealed mild LVH, EF 55-60% and moderate to severe TR, pulmonary hypertension. Patient underwent cardiac cath and drug eluting stent was placed in mid circumflex. He had previous stents in LAD and cicumflex. Patient is awake and alert and denies any complaints. He is on NC. Continue Primacor for RV failure. Discussed in detail with the patient . Patient has low TSH and Free T4 secondary to non thyroidal illness. Plan to repeat TFT's in 6-8 weeks. Advised to have sleep study as an outpatient. Upon discharge patient will follow up with Dr Beach. Dr Amanda Carroll
[2016-11-02] MEDS: MethylPREDNISolone 40 mg Vial IVP SCH (13:40)
[2016-11-02] MEDS: Pilocarpine 1% Opht (15ml) OU SCH ×2 (13:40→19:03)
[2016-11-02] MEDS: Timolol 0.25% Ophth SOLN OU SCH ×2 (13:40→19:00)
[2016-11-02] MEDS: Verapamil 120 mg ER Tab PO SCH (13:50)
--- NOTE | 2016-11-02 14:28 | CARD ---
APPROVED REPORT EKG Measurement Heart [id number] <Conclusion> Atrial fibrillation with rapid ventricular response Incomplete right bundle branch block Possible Inferior infarct, age undetermined Abnormal ECG
[2016-11-02] MEDS: BIMATOPROST 0.01% OS SCH (18:54)
[2016-11-02] MEDS: OPTH OS SCH (18:54)
[2016-11-03] MEDS: Insulin Reg-MEDIUM-Coverage SC SCH ×6 (01:34→21:29)
[2016-11-03] MEDS: Albuterol-Ipratrop 3 mg / 0.5 (3 ml) UD IH SCH ×6 (03:30→20:15)
[2016-11-03 06:31] LABS: ADD MANUAL DIFF? NO
[2016-11-03 06:38] LABS: GRAN # 4.71 (1.4-6.5); GRAN % 73.3 % (50.0-68.0); HEMATOCRIT 34.2 % (42.0-52.0); LYMPH # 0.5 (1.2-3.4); LYMPH % 8.2 % (22.0-35.0); MEAN CELL VOLUME 91.7 fL (80.0-105.0); MEAN CORPUSCULAR HGB CONC 31.6 g/dl (31.0-37.0); MEAN PLATELET VOLUME 12.3 fl (7.0-11.0); MONO # 1.2 (0.1-0.6); MONO % 18.5 % (1.0-6.0); PLATELET COUNT 166 10^3/uL (120.0-450.0); WHITE BLOOD COUNT 6.4 10^3/ul (4.5-11.0)
[2016-11-03 06:42] LABS: INR 1.06 (0.93-1.08)
[2016-11-03 06:48] LABS: ALB/GLOB RATIO 0.9 (1.1-1.8); ALKALINE PHOSPHATASE 50 U/L (38-133); ALT/SGPT 20 U/L (7-56); AST/SGOT 24 U/L (15-59); BILIRUBIN,TOTAL 0.6 mg/dL (0.2-1.3); BLOOD UREA NITROGEN 46 mg/dL (7-21); CALCIUM 8.5 mg/dL (8.4-10.5); CARBON DIOXIDE 38 mmol/L (21-33); CHLORIDE 90 mmol/L (98-107); GFR AFRICAN-AMERICAN > 60; GLUCOSE,RANDOM 217 mg/dL (70-110); MAGNESIUM 2.2 mg/dL (1.7-2.2); PHOSPHOROUS 4.4 mg/dL (2.5-4.5); POTASSIUM 3.8 mmol/L (3.6-5.0); SODIUM 132 mmol/L (132-148); TOTAL PROTEIN 6.6 g/dL (5.8-8.3)
--- NOTE | 2016-11-03 08:24 | CARD ---
APPROVED REPORT EKG Measurement Heart [id number] <Conclusion> Sinus rhythm with 1st degree AV block with premature atrial complexes Possible Left atrial enlargement Incomplete right bundle branch block Left anterior fascicular block Cannot rule out Inferior infarct (masked by fascicular block?), age undetermined Abnormal ECG
[2016-11-03] MEDS: MethylPREDNISolone 40 mg Vial IVP SCH (10:18)
[2016-11-03] MEDS: Verapamil 120 mg ER Tab PO SCH (10:21)
[2016-11-03] MEDS: Timolol 0.25% Ophth SOLN OU SCH ×2 (10:30→17:35)
[2016-11-03] MEDS: Pilocarpine 1% Opht (15ml) OU SCH ×2 (10:30→17:36)
--- NOTE | 2016-11-03 12:56 | PN ---
DATE: 11/03/2016 The patient is in room 262, bed 1. REASON FOR CONSULTATION AND FOLLOWUP: Decompensated congestive heart failure, atrial fibrillation wh ich is paroxysmal type, morbid obesity, rule out Pickwickian syndrome, CO2 narcosis, abnormal stress test. HISTORY OF PRESENT ILLNESS: An 81-year-old male with past medical history significant for obesity, h ypertension, hyperlipidemia, history of coronary artery disease, history of stent in LAD, stent in ci rcumflex, being followed by Dr. Davidson at [facility], admitted with decompensated conge stive heart failure. The patient had a stress test with Dr. Davidson 1 month prior to admission with inf erior wall ischemia. While the patient was admitted here, he developed CO2 narcosis, hypercapnia and transferred to ICU where managed with noninvasive ventilator, also found to be in atrial fibrillatio n. Two days ago, the patient underwent cardiac catheterization, both left and right heart and had st enting of the mid circumflex artery. Previous stents was found to be patent in LAD and circumflex. The patient is sitting in chair comfortably without any chest pain. His breathing is much better. H e denies palpitation. PHYSICAL EXAMINATION: VITAL SIGNS: Blood pressure 94/47, respirations 18, pulse 90, temperature 97.8. HEAD: Normocephalic. EYES: Pupils normal. Conjunctivae slightly pale. NECK: JVP low. Carotid equal. THORAX: AP diameter normal. LUNGS: No significant rales. CARDIOVASCULAR: S1, S2. ABDOMEN: Markedly protuberant. EXTREMITIES: No clubbing, no cyanosis. LABORATORY DATA: WBC 6.4, hemoglobin 10.8, hematocrit 34.2, platelet 166. Sodium 132, potassium 3.8 , BUN 46, creatinine 1.0, random glucose 217. Calcium, phosphorus, magnesium normal. Total protein 6.6, albumin 3.1. DIAGNOSES: Pulmonary hypertension, right ventricular systolic pressure of 70 by noninvasive as well as by right heart catheterization, pulmonary vascular resistance 4 Wood units, coronary artery diseas e, status post transluminal coronary angioplasty of circumflex; diabetes, hypertension, hyperlipidemi a, morbid obesity, paroxysmal atrial fibrillation, pulmonary hypertension. PLAN: The patient is getting verapamil 120 mg daily long acting verapamil, DuoNeb hand nebulizer the rapy, Eliquis 5 mg b.i.d., furosemide 40 IV b.i.d., Lipitor 20 p.o. daily, Neurontin 100 mg b.i.d., P lavix 75 mg daily, Solu-Medrol 40 mg IV daily, lisinopril 40 mg daily. We will continue to follow wi th you. Anthony Aldana MD cc: [id number] TT: 11/03/2016 12:55:24 Confirmation # [id number] Dictation # [id number]
--- NOTE | 2016-11-03 13:27 | CP.PCM.PN ---
<Jose Miller - Last Filed: 11/03/16 13:24> Subjective - Date & Time of Evaluation Date of Evaluation: 11/03/16 Time of Evaluation: 08:15 - Subjective Subjective: Dr. Miller PGY 1 Hospitalist Note Patient seen and evaluated at bedside. He was sitting up in bed and eating breakfast. He denies any chest pain, cough, or SOB. He states the cath site does not hurt. He says he would like to get rehab due to her poor condition. He denies any nausea, vomiting, diarrhea, fever, or chills. Per nursing, the patient slept with a BiPAP and was placed on high flow oxygen this morning. Objective - Vital Signs/Intake and Output Vital Signs (last 24 hours): Temp Pulse Resp BP Pulse Ox 97.8 F 66 18 104/54 L 92 L 11/03/16 12:00 11/03/16 12:00 11/03/16 12:00 11/03/16 12:00 11/03/16 06:00 Intake and Output: 11/03/16 11/03/16 06:59 18:59 Intake Total 540 Output Total 750 Balance -210 - Medications Medications: Current Medications Albuterol/Ipratropium (Duoneb 3 Mg/0.5 Mg (3 Ml) Ud) 3 ml IH [id number] [facility] Last Admin: 11/03/16 12:16 Dose: 3 ml Apixaban (Eliquis) 5 mg PO BID [facility] PRN Reason: Protocol Last Admin: 11/03/16 10:20 Dose: 5 mg Atorvastatin Calcium (Lipitor) 20 mg PO DIN [facility] Last Admin: 11/02/16 18:57 Dose: 20 mg Clopidogrel Bisulfate (Plavix) 75 mg PO DAILY [facility] Last Admin: 11/03/16 10:19 Dose: 75 mg Escitalopram Oxalate (Lexapro) 10 mg PO DAILY [facility] Last Admin: 11/03/16 10:19 Dose: 10 mg Famotidine (Pepcid) 20 mg PO DAILY [facility] Last Admin: 11/03/16 10:20 Dose: 20 mg Furosemide (Lasix) 40 mg IVP 0800,1400 [facility] Last Admin: 11/03/16 08:34 Dose: Not Given Gabapentin (Neurontin) 100 mg PO BID [facility] PRN Reason: Protocol Last Admin: 11/03/16 10:19 Dose: 100 mg Guaifenesin (Robitussin) 100 mg PO Q4H PRN PRN Reason: Cough Hydralazine HCl (Apresoline) 10 mg IVP Q6 PRN PRN Reason: Systolic Blood Pressure Last Admin: 11/02/16 05:31 Dose: 10 mg Insulin Human Regular (Humulin R Med) 0 units SC ACHS [facility] Last Admin: 11/03/16 12:22 Dose: 3 units Lisinopril (Zestril) 40 mg PO DAILY [facility] Last Admin: 11/03/16 10:19 Dose: Not Given Methylprednisolone (Solu-Medrol) 40 mg IVP DAILY [facility] Last Admin: 11/03/16 10:18 Dose: 40 mg Bimatoprost [Lumigan (] 0.01% Opth Soln) 1 drop OS DIN [facility] Last Admin: 11/02/16 18:54 Dose: 1 drop Pilocarpine HCl (Isopto Carpine 1% Opht Soln) 0 ml OU BID [facility] Last Admin: 11/03/16 10:30 Dose: 1 drop Timolol Maleate (Timoptic 0.25% Ophth Soln) 1 drop OU BID [facility] Last Admin: 11/03/16 10:30 Dose: 1 drop Verapamil HCl (Calan Sr Tab) 120 mg PO DAILY [facility] Last Admin: 11/03/16 10:21 Dose: Not Given - Labs Labs: 11/03/16 06:20 11/03/16 06:20 PT 11.4 Seconds (9.9-11.8) 11/03/16 06:20 INR 1.06 (0.93-1.08) 11/03/16 06:20 APTT 26.7 Seconds (23.7-30.8) 10/28/16 13:45 - Head Exam Head Exam: ATRAUMATIC, NORMOCEPHALIC - Eye Exam Eye Exam: EOMI, Normal appearance, PERRL. absent: Conjunctival injection, Scleral icterus Pupil Exam: NORMAL ACCOMODATION, PERRL - ENT Exam ENT Exam: Mucous Membranes Moist - Respiratory Exam Respiratory Exam: Clear to Ausculation Bilateral, NORMAL BREATHING PATTERN. absent: Rales, Rhonchi, Wheezes - Cardiovascular Exam Cardiovascular Exam: Irregular Rhythm, +S1, +S2 - GI/Abdominal Exam GI & Abdominal Exam: Soft, Normal Bowel Sounds. absent: Distended - Extremities Exam Extremities Exam: Normal Capillary Refill, Pedal Edema (+2 bilaterally) - Back Exam Back Exam: NORMAL INSPECTION. absent: rash noted, tenderness - Neurological Exam Neurological Exam: Alert, Awake, CN II-XII Intact, Oriented x3 - Psychiatric Exam Psychiatric exam: Normal Affect, Normal Mood - Skin Skin Exam: Dry, Intact, Normal Color, Warm Assessment and Plan - Assessment and Plan (Free Text) Assessment: Patient is an 81 y/o M with history of HTN, DM, arthritis, obesity, who presents with complaint of leg swelling and SOB. Patient had echocardiogram performed and developed hypercapnic respiratory failure and was taken to ICU and placed on bipap. Currently doing well on high flow oxygen and transferred to telemetry floor. Complete left and right heart catheterization and stenting of mid circumflex. Plan: 1) Respiratory failure * Pulmonology, cardiology, and ID consulted, help appreciated * Pt on telemetry floor post cardiac cath * repeat chest x-ray continues to show bilateral effusion R>L * CT chest showed bilateral lower lobe atelectasis/pneumonia with effusion [see full report] * continue IV lasix * cardiac enzymes negative x3 * daily weights * continue robitussin * pt remains afebrile w/o leukocytosis * blood cultures negative * repeat procalcitonin wnl * Maintain O2 say >90% with supplemental oxygen * steroid taper * transition from high flow oxygen to NC 2) Edema * LE duplex showed no evidence of DVT * Echocardiogram showed LV normal size with mild concentric LV hypertrophy and EF of 55-60%, mild tricuspid regurge wtih RVSP 75 mm of Hg. [ see full report] * Cardiology consulted, help appreciated * Cardiac catheterization complete left and right heart with stenting of mid circumflex, preserved LvEF 65%, RV 70/12 PA 70/35, PCW 20, [see full report] * Continue IV lasix * monitor output 3) Afib * continue aspirin and plavix * conitnue eliquis 4) HTN * continue Verapamil and Zestril * continue Hydralazine 5) DM * continue actos * hold metformin * continue neurontin * accuchecks * sliding scale insulin 6) Hypothyroidism * low TSH at 0.21 and normal Free T4 at 1.81 * likely subacute hypthyroidism * recommend repeat in 6-8 weeks from discharge 7) Depression * Continue lexapro 8) PPX * pepcid * lovenox held for cath tomorrow * tylenol * SCD's contraindicated due to bilateral Edema Dispo: Will need PJ upon discharge. F/U TCU eval. Assessment and plan discussed with attending physician. <CarrollAmanda B - Last Filed: 11/03/16 14:43> Objective - Vital Signs/Intake and Output Vital Signs (last 24 hours): Temp Pulse Resp BP Pulse Ox 97.8 F 66 18 104/54 L 92 L 11/03/16 12:00 11/03/16 12:00 11/03/16 12:00 11/03/16 12:00 11/03/16 06:00 Intake and Output: 11/03/16 11/03/16 06:59 18:59 Intake Total 540 Output Total 750 Balance -210 - Medications Medications: Current Medications Albuterol/Ipratropium (Duoneb 3 Mg/0.5 Mg (3 Ml) Ud) 3 ml IH [id number] [facility] Last Admin: 11/03/16 12:16 Dose: 3 ml Apixaban (Eliquis) 5 mg PO BID [facility] PRN Reason: Protocol Last Admin: 11/03/16 10:20 Dose: 5 mg Atorvastatin Calcium (Lipitor) 20 mg PO DIN [facility] Last Admin: 11/02/16 18:57 Dose: 20 mg Clopidogrel Bisulfate (Plavix) 75 mg PO DAILY [facility] Last Admin: 11/03/16 10:19 Dose: 75 mg Escitalopram Oxalate (Lexapro) 10 mg PO DAILY [facility] Last Admin: 11/03/16 10:19 Dose: 10 mg Famotidine (Pepcid) 20 mg PO DAILY [facility] Last Admin: 11/03/16 10:20 Dose: 20 mg Furosemide (Lasix) 40 mg IVP 0800,1400 [facility] Last Admin: 11/03/16 08:34 Dose: Not Given Gabapentin (Neurontin) 100 mg PO BID [facility] PRN Reason: Protocol Last Admin: 11/03/16 10:19 Dose: 100 mg Guaifenesin (Robitussin) 100 mg PO Q4H PRN PRN Reason: Cough Hydralazine HCl (Apresoline) 10 mg IVP Q6 PRN PRN Reason: Systolic Blood Pressure Last Admin: 11/02/16 05:31 Dose: 10 mg Insulin Human Regular (Humulin R Med) 0 units SC ACHS [facility] Last Admin: 11/03/16 12:22 Dose: 3 units Lisinopril (Zestril) 40 mg PO DAILY [facility] Last Admin: 11/03/16 10:19 Dose: Not Given Methylprednisolone (Solu-Medrol) 40 mg IVP DAILY [facility] Last Admin: 11/03/16 10:18 Dose: 40 mg Bimatoprost [Lumigan (] 0.01% Opth Soln) 1 drop OS DIN [facility] Last Admin: 11/02/16 18:54 Dose: 1 drop Pilocarpine HCl (Isopto Carpine 1% Opht Soln) 0 ml OU BID [facility] Last Admin: 11/03/16 10:30 Dose: 1 drop Timolol Maleate (Timoptic 0.25% Oph Soln) 1 drop OU BID [facility] Last Admin: 11/03/16 10:30 Dose: 1 drop Verapamil HCl (Calan Sr Tab) 120 mg PO DAILY [facility] Last Admin: 11/03/16 10:21 Dose: Not Given - Labs Labs: 11/03/16 06:20 11/03/16 06:20 PT 11.4 Seconds (9.9-11.8) 11/03/16 06:20 INR 1.06 (0.93-1.08) 11/03/16 06:20 APTT 26.7 Seconds (23.7-30.8) 10/28/16 13:45 Attending/Attestation - Attestation I have personally seen and examined this patient.: Yes I have fully participated in the care of the patient.: Yes I have reviewed all pertinent clinical information, including history, physical exam and plan: Yes Notes (Text): I have seen and examined patient with the resident. 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 He was found to have elevated BNP, Effusions on CXR. Echo revealed mild LVH, EF 55-60% and moderate to severe TR, pulmonary hypertension. Patient underwent cardiac cath and drug eluting stent was placed in mid circumflex. He had previous stents in LAD and cicumflex. Patient is awake and alert and denies any complaints. He is on NC. Primacor was stopped today. Discussed in detail with the patient . Patient has low TSH and Free T4 secondary to non thyroidal illness. Plan to repeat TFT's in 6-8 weeks. Advised to have sleep study as an outpatient. PT recommended PJ for the patient. TCU evaluation pending. Upon discharge patient will follow up with Dr Beach. Dr Amanda Carroll
[2016-11-03] MEDS ORDERED: MethylPREDNISolone 40 mg Vial IVP SCH (14:39)
[2016-11-03] MEDS: OPTH OS SCH (17:36)
[2016-11-03] MEDS: BIMATOPROST 0.01% OS SCH (17:36)
[2016-11-04] MEDS: Albuterol-Ipratrop 3 mg / 0.5 (3 ml) UD IH SCH ×7 (04:30→23:30)
[2016-11-04 06:53] LABS: ADD MANUAL DIFF? NO
[2016-11-04 07:01] LABS: EOS % 0.1 % (1.5-5.0); GRAN # 4.79 (1.4-6.5); GRAN % 71.1 % (50.0-68.0); HEMATOCRIT 35.4 % (42.0-52.0); LYMPH % 14.4 % (22.0-35.0); MEAN CELL VOLUME 92.7 fL (80.0-105.0); MEAN CORPUSCULAR HEMOGLOBIN 28.8 pg (25.0-35.0); MEAN CORPUSCULAR HGB CONC 31.1 g/dl (31.0-37.0); MEAN PLATELET VOLUME 11.9 fl (7.0-11.0); MONO % 14.4 % (1.0-6.0); PLATELET COUNT 166 10^3/uL (120.0-450.0); WHITE BLOOD COUNT 6.7 10^3/ul (4.5-11.0)
[2016-11-04 07:08] LABS: ALB/GLOB RATIO 0.9 (1.1-1.8); ALKALINE PHOSPHATASE 41 U/L (38-133); ALT/SGPT 21 U/L (7-56); AST/SGOT 28 U/L (15-59); BILIRUBIN,TOTAL 0.9 mg/dL (0.2-1.3); BLOOD UREA NITROGEN 46 mg/dL (7-21); CALCIUM 8.8 mg/dL (8.4-10.5); CARBON DIOXIDE 40 mmol/L (21-33); CHLORIDE 91 mmol/L (98-107); GFR AFRICAN-AMERICAN > 60; GLUCOSE,RANDOM 154 mg/dL (70-110); POTASSIUM 4.4 mmol/L (3.6-5.0); SODIUM 134 mmol/L (132-148); TOTAL PROTEIN 6.7 g/dL (5.8-8.3)
[2016-11-04] MEDS ORDERED: MethylPREDNISolone 40 mg Vial IVP SCH (07:40)
[2016-11-04] MEDS: Insulin Reg-MEDIUM-Coverage SC SCH ×4 (08:27→22:17)
[2016-11-04] MEDS: Pilocarpine 1% Opht (15ml) OU SCH ×2 (10:34→17:34)
[2016-11-04] MEDS: Timolol 0.25% Ophth SOLN OU SCH ×2 (10:35→17:35)
[2016-11-04] MEDS: Verapamil 120 mg ER Tab PO SCH (11:40)
--- NOTE | 2016-11-04 11:45 | CP.PCM.PN ---
<LizzyJose - Last Filed: 11/04/16 11:46> Subjective - Date & Time of Evaluation Date of Evaluation: 11/04/16 Time of Evaluation: 09:00 - Subjective Subjective: PGY-1 Medicine Progress Note for Dr. Carroll Patient seen and evaluated at bedside. Patient did not use BiPAP overnight, stating he didnt know he was suppose to. He was sitting up in bed comfortably eating breakfast. Patient stated that he has no complaints this AM. Denies any chest pain, cough, SOB nausea, vomiting, diarrhea, fever, or chills. Objective - Vital Signs/Intake and Output Vital Signs (last 24 hours): Temp Pulse Resp BP Pulse Ox 97.7 F 84 18 93/60 L 99 11/04/16 06:00 11/04/16 06:00 11/04/16 06:00 11/04/16 11:40 11/04/16 06:00 Intake and Output: 11/04/16 11/04/16 06:59 18:59 Intake Total 0 Output Total 1150 Balance -1150 - Medications Medications: Current Medications Albuterol/Ipratropium (Duoneb 3 Mg/0.5 Mg (3 Ml) Ud) 3 ml IH [id number] [facility] Last Admin: 11/04/16 11:25 Dose: 3 ml Apixaban (Eliquis) 5 mg PO BID [facility] PRN Reason: Protocol Last Admin: 11/04/16 10:33 Dose: 5 mg Atorvastatin Calcium (Lipitor) 20 mg PO DIN [facility] Last Admin: 11/03/16 17:35 Dose: 20 mg Clopidogrel Bisulfate (Plavix) 75 mg PO DAILY [facility] Last Admin: 11/04/16 10:34 Dose: 75 mg Escitalopram Oxalate (Lexapro) 10 mg PO DAILY [facility] Last Admin: 11/04/16 10:34 Dose: 10 mg Famotidine (Pepcid) 20 mg PO DAILY [facility] Last Admin: 11/04/16 10:34 Dose: 20 mg Furosemide (Lasix) 40 mg IVP 0800,1400 [facility] Last Admin: 11/04/16 08:28 Dose: 40 mg Gabapentin (Neurontin) 100 mg PO BID [facility] PRN Reason: Protocol Last Admin: 11/04/16 10:34 Dose: 100 mg Guaifenesin (Robitussin) 100 mg PO Q4H PRN PRN Reason: Cough Hydralazine HCl (Apresoline) 10 mg IVP Q6 PRN PRN Reason: Systolic Blood Pressure Last Admin: 11/02/16 05:31 Dose: 10 mg Insulin Human Regular (Humulin R Med) 0 units SC ACHS [facility] Last Admin: 11/04/16 08:27 Dose: 1 units Lisinopril (Zestril) 40 mg PO DAILY [facility] Last Admin: 11/04/16 10:35 Dose: 40 mg Methylprednisolone (Solu-Medrol) 20 mg IVP DAILY [facility] Last Admin: 11/04/16 10:35 Dose: 20 mg Bimatoprost [Lumigan (] 0.01% Opth Soln) 1 drop OS DIN [facility] Last Admin: 11/03/16 17:36 Dose: 1 drop Pilocarpine HCl (Isopto Carpine 1% Opht Soln) 0 ml OU BID [facility] Last Admin: 11/04/16 10:34 Dose: 1 drop Timolol Maleate (Timoptic 0.25% Ophth Soln) 1 drop OU BID [facility] Last Admin: 11/04/16 10:35 Dose: 1 drop Verapamil HCl (Calan Sr Tab) 120 mg PO DAILY [facility] Last Admin: 11/04/16 11:40 Dose: Not Given - Labs Labs: 11/04/16 06:51 11/04/16 06:51 PT 11.4 Seconds (9.9-11.8) 11/03/16 06:20 INR 1.06 (0.93-1.08) 11/03/16 06:20 APTT 26.7 Seconds (23.7-30.8) 10/28/16 13:45 - Constitutional Appears: No Acute Distress - Head Exam Head Exam: ATRAUMATIC, NORMOCEPHALIC - Eye Exam Eye Exam: EOMI, Normal appearance Pupil Exam: PERRL - ENT Exam ENT Exam: Mucous Membranes Moist - Neck Exam Neck Exam: Normal Inspection - Respiratory Exam Respiratory Exam: Clear to Ausculation Bilateral, NORMAL BREATHING PATTERN - Cardiovascular Exam Cardiovascular Exam: Irregular Rhythm, +S1, +S2 - GI/Abdominal Exam GI & Abdominal Exam: Soft, Normal Bowel Sounds. absent: Distended, Guarding, Tenderness, Rebound - Extremities Exam Extremities Exam: Normal Capillary Refill, Pedal Edema - Back Exam Back Exam: absent: CVA tenderness (L), CVA tenderness (R) - Neurological Exam Neurological Exam: Alert, Awake, CN II-XII Intact, Oriented x3 - Psychiatric Exam Psychiatric exam: Normal Affect, Normal Mood - Skin Skin Exam: Dry, Intact, Normal Color, Warm Assessment and Plan - Assessment and Plan (Free Text) Plan: 81 M with history of HTN, DM, arthritis, obesity, who presents with complaint of leg swelling and SOB. Patient had echocardiogram performed and developed hypercapnic respiratory failure and was taken to ICU and placed on bipap. Currently doing well on high flow oxygen and transferred to telemetry floor. Complete left and right heart catheterization and stenting of mid circumflex. 1) Respiratory failure Pulmonology, cardiology, and ID consulted, help appreciated repeat chest x-ray continues to show bilateral effusion R>L CT chest showed bilateral lower lobe atelectasis/pneumonia with effusion [see full report] continue IV lasix cardiac enzymes negative x3 daily weights continue robitussin pt remains afebrile w/o leukocytosis blood cultures negative repeat procalcitonin wnl Maintain O2 say >90% with supplemental oxygen Solu-medrol 20 mg IVP daily 2) Edema LE duplex showed no evidence of DVT Echocardiogram showed LV normal size with mild concentric LV hypertrophy and EF of 55-60%, mild tricuspid regurge wtih RVSP 75 mm of Hg. [ see full report] Cardiology consulted, help appreciated Cardiac catheterization complete left and right heart with stenting of mid circumflex, preserved LvEF 65%, RV 70/12 PA 70/35, PCW 20, [see full report] Continue IV lasix monitor output 3) Afib continue aspirin and plavix conitnue eliquis 4) HTN continue Verapamil and Zestril continue Hydralazine 5) DM continue actos hold metformin continue neurontin accuchecks sliding scale insulin 6) Hypothyroidism low TSH at 0.21 and normal Free T4 at 1.81 likely subCLINICAL hypthyroidism recommend repeat in 6-8 weeks from discharge 7) Depression Continue lexapro 8) PPX pepcid 20 MG po DAILY SCD's contraindicated due to bilateral Edema Will need PJ upon discharge. F/U TCU eval. <Amanda Carroll B - Last Filed: 11/04/16 13:43> Objective - Vital Signs/Intake and Output Vital Signs (last 24 hours): Temp Pulse Resp BP Pulse Ox 97.5 F L 78 20 93/60 L 99 11/04/16 12:00 11/04/16 12:00 11/04/16 12:00 11/04/16 12:00 11/04/16 06:00 Intake and Output: 11/04/16 11/04/16 06:59 18:59 Intake Total 0 Output Total 1150 Balance -1150 - Medications Medications: Current Medications Albuterol/Ipratropium (Duoneb 3 Mg/0.5 Mg (3 Ml) Ud) 3 ml IH [id number] [facility] Last Admin: 11/04/16 11:25 Dose: 3 ml Apixaban (Eliquis) 5 mg PO BID [facility] PRN Reason: Protocol Last Admin: 11/04/16 10:33 Dose: 5 mg Atorvastatin Calcium (Lipitor) 20 mg PO DIN [facility] Last Admin: 11/03/16 17:35 Dose: 20 mg Clopidogrel Bisulfate (Plavix) 75 mg PO DAILY [facility] Last Admin: 11/04/16 10:34 Dose: 75 mg Escitalopram Oxalate (Lexapro) 10 mg PO DAILY [facility] Last Admin: 11/04/16 10:34 Dose: 10 mg Famotidine (Pepcid) 20 mg PO DAILY [facility] Last Admin: 11/04/16 10:34 Dose: 20 mg Furosemide (Lasix) 40 mg IVP 0800,1400 [facility] Last Admin: 11/04/16 08:28 Dose: 40 mg Gabapentin (Neurontin) 100 mg PO BID [facility] PRN Reason: Protocol Last Admin: 11/04/16 10:34 Dose: 100 mg Guaifenesin (Robitussin) 100 mg PO Q4H PRN PRN Reason: Cough Hydralazine HCl (Apresoline) 10 mg IVP Q6 PRN PRN Reason: Systolic Blood Pressure Last Admin: 11/02/16 05:31 Dose: 10 mg Insulin Human Regular (Humulin R Med) 0 units SC ACHS [facility] Last Admin: 11/04/16 12:41 Dose: 1 units Lisinopril (Zestril) 40 mg PO DAILY [facility] Last Admin: 11/04/16 10:35 Dose: 40 mg Methylprednisolone (Solu-Medrol) 20 mg IVP DAILY [facility] Last Admin: 11/04/16 10:35 Dose: 20 mg Bimatoprost [Lumigan (] 0.01% Opth Soln) 1 drop OS DIN [facility] Last Admin: 11/03/16 17:36 Dose: 1 drop Pilocarpine HCl (Isopto Carpine 1% Opht Soln) 0 ml OU BID [facility] Last Admin: 11/04/16 10:34 Dose: 1 drop Timolol Maleate (Timoptic 0.25% Ophth Soln) 1 drop OU BID [facility] Last Admin: 11/04/16 10:35 Dose: 1 drop Verapamil HCl (Calan Sr Tab) 120 mg PO DAILY [facility] Last Admin: 11/04/16 11:40 Dose: Not Given - Labs Labs: 11/04/16 06:51 11/04/16 06:51 PT 11.4 Seconds (9.9-11.8) 11/03/16 06:20 INR 1.06 (0.93-1.08) 11/03/16 06:20 APTT 26.7 Seconds (23.7-30.8) 10/28/16 13:45 Attending/Attestation - Attestation I have personally seen and examined this patient.: Yes I have fully participated in the care of the patient.: Yes I have reviewed all pertinent clinical information, including history, physical exam and plan: Yes Notes (Text): I have seen and examined patient with the resident. 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 He was found to have elevated BNP, Effusions on CXR. Echo revealed mild LVH, EF 55-60% and moderate to severe TR, pulmonary hypertension. Patient underwent cardiac cath and drug eluting stent was placed in mid circumflex. He had previous stents in LAD and cicumflex. Patient is awake and alert and denies any complaints. He is on NC. He didnt use bipap at night. Education provided that he needs to sleep with bipap on. Taper solumedrol. Patient has low TSH and Free T4 secondary to non thyroidal illness. Plan to repeat TFT's in 6-8 weeks. Advised to have sleep study as an outpatient. PT recommended PJ for the patient. TCU evaluation pending. Upon discharge patient will follow up with Dr Beach. Dr Amanda Carroll
--- NOTE | 2016-11-04 12:34 | PN ---
DATE: 11/04/2016 The patient is in room 262, bed 1. REASON FOR CONSULTATION AND FOLLOWUP: Decompensated congestive heart failure, atrial fibrillation, p aroxysmal type, morbid obesity, rule out Pickwickian syndrome, CO2 narcosis, abnormal stress test. HISTORY OF PRESENT ILLNESS: The patient is an 81-year-old male with past medical history significant for obesity, hypertension, hyperlipidemia, history of coronary artery disease, history of stent in L AD, also stent in circumflex, being followed by Dr. Jacobo at [facility]. Admitted wi th decompensated congestive heart failure. The patient had a stress test with Dr. Jacobo 1 month prio r to admission with inferior wall ischemia. While the patient was admitted here, he developed CO2 na rcosis, hypercapnia, transferred to ICU where he was managed with noninvasive ventilator. Also found to be in atrial fibrillation. Three days ago, patient underwent cardiac catheterization, both left and right heart catheterization was done and he had stent put in the mid circumflex artery. Previous stents were found to be patent in LAD and circumflex. The patient is now feeling much better. His breathing is better. He has no chest pain or palpitation. PHYSICAL EXAMINATION: VITAL SIGNS: Blood pressure 193/60, respirations 18, pulse 84, temperature 97.7. HEAD: Normocephalic. EYES: Pupils normal. Conjunctivae slightly pale. NECK: JVP low. Carotid equal. THORAX: AP diameter normal. LUNGS: No significant rales. CARDIOVASCULAR: S1, S2. ABDOMEN: Protuberant, no organomegaly. EXTREMITIES: No clubbing, no cyanosis. LABORATORY DATA: WBC 6.7, hemoglobin 11.0, hematocrit 35.4, platelet 166. Sodium 134, potassium 4.4 , BUN 46, creatinine 0.9. AST, ALT normal. Total protein 6.7, albumin 3.2, random sugar 154. DIAGNOSES: Pulmonary hypertension, right ventricular systolic pressure 70 by as well as by rig ht heart catheterization, pulmonary vascular resistance 4 Wood units, coronary artery disease, status post transluminal coronary angioplasty and stent insertion in circumflex, diabetes mellitus, hyperte nsion, hyperlipidemia, morbid obesity, paroxysmal atrial fibrillation. PLAN: The patient on verapamil which is Calan SR 120 mg p.o. daily, DuoNeb hand nebulizer therapy, E liquis 5 mg b.i.d., furosemide 40 IV b.i.d., Lipitor 20 daily, Plavix 75 mg daily, Solu-Medrol 20 mg IV daily, lisinopril 40 mg p.o. daily, Pepcid 20 p.o. daily, Neurontin 100 mg b.i.d. We will continu e present therapy. We will follow with you. Anthony Aldana MD cc: [id number] TT: 11/04/2016 12:34:18 Confirmation # [id number] Dictation # [id number] en
[2016-11-04] MEDS: OPTH OS SCH (17:34)
[2016-11-04] MEDS: BIMATOPROST 0.01% OS SCH (17:34)
[2016-11-04 19:39] VITALS: O2SAT 96
[2016-11-05] MEDS: Albuterol-Ipratrop 3 mg / 0.5 (3 ml) UD IH SCH ×3 (03:08→11:00)
[2016-11-05 06:51] LABS: ADD MANUAL DIFF? NO
[2016-11-05 07:12] LABS: ALB/GLOB RATIO 0.9 (1.1-1.8); ALKALINE PHOSPHATASE 46 U/L (38-133); ALT/SGPT 27 U/L (7-56); AST/SGOT 24 U/L (15-59); BILIRUBIN,TOTAL 0.8 mg/dL (0.2-1.3); BLOOD UREA NITROGEN 42 mg/dL (7-21); CHLORIDE 91 mmol/L (98-107); EOS % 0.5 % (1.5-5.0); GFR AFRICAN-AMERICAN > 60; GLUCOSE,RANDOM 140 mg/dL (70-110); GRAN # 4.46 (1.4-6.5); GRAN % 67.4 % (50.0-68.0); HEMATOCRIT 35.8 % (42.0-52.0); LYMPH # 1.3 (1.2-3.4); LYMPH % 19.5 % (22.0-35.0); MEAN CELL VOLUME 93.2 fL (80.0-105.0); MEAN CORPUSCULAR HEMOGLOBIN 28.4 pg (25.0-35.0); MEAN CORPUSCULAR HGB CONC 30.4 g/dl (31.0-37.0); MEAN PLATELET VOLUME 11.5 fl (7.0-11.0); MONO # 0.8 (0.1-0.6); MONO % 12.6 % (1.0-6.0); PLATELET COUNT 161 10^3/uL (120.0-450.0); POTASSIUM 4.4 mmol/L (3.6-5.0); SODIUM 138 mmol/L (132-148); TOTAL PROTEIN 6.4 g/dL (5.8-8.3); WHITE BLOOD COUNT 6.6 10^3/ul (4.5-11.0)
[2016-11-05 07:29] LABS: CARBON DIOXIDE 44 mmol/L (21-33)
[2016-11-05] MEDS: Insulin Reg-MEDIUM-Coverage SC SCH ×2 (08:18→12:17)
--- NOTE | 2016-11-05 11:11 | CP.PCM.DIS ---
<Jose Miller - Last Filed: 11/05/16 16:00> Provider - Provider Date of Admission: 10/28/16 17:12 Attending physician: Jena Luciano MD Primary care physician: Dr. Pavan Beach Consults: Dr. Anthony Reese Time Spent in preparation of Discharge (in minutes): 35 Diagnosis - Discharge Diagnosis (1) Afib Status: Chronic (2) Edema Status: Chronic (3) HTN (hypertension) Status: Chronic (4) Diabetes Status: Chronic (5) Hypothyroid Status: Acute Hospital Course - Lab Results Lab Results: Micro Results 10/29/16 15:00 Naris MRSA Culture (Admit) - Final MRSA NOT DETECTED Most Recent Lab Values WBC 6.6 10^3/ul (4.5-11.0) 11/05/16 06:30 RBC 3.84 10^6/uL (3.5-6.1) 11/05/16 06:30 Hgb 10.9 gm/dL (14.0-18.0) L 11/05/16 06:30 Hct 35.8 % (42.0-52.0) L 11/05/16 06:30 MCV 93.2 fL (80.0-105.0) 11/05/16 06:30 MCH 28.4 pg (25.0-35.0) 11/05/16 06:30 MCHC 30.4 g/dl (31.0-37.0) L 11/05/16 06:30 RDW 16.0 % (11.5-14.5) H 11/05/16 06:30 Plt Count 161 10^3/uL (120.0-450.0) 11/05/16 06:30 MPV 11.5 fl (7.0-11.0) H 11/05/16 06:30 Gran % 67.4 % (50.0-68.0) 11/05/16 06:30 Lymph % (Auto) 19.5 % (22.0-35.0) L 11/05/16 06:30 W[place]er % (Auto) 12.6 % (1.0-6.0) H 11/05/16 06:30 Eos % (Auto) 0.5 % (1.5-5.0) L 11/05/16 06:30 Baso % (Auto) 0.0 % (0.0-3.0) 11/05/16 06:30 Gran # 4.46 (1.4-6.5) 11/05/16 06:30 Lymph # 1.3 (1.2-3.4) 11/05/16 06:30 Wagoner # 0.8 (0.1-0.6) H 11/05/16 06:30 Eos # 0.0 (0.0-0.7) 11/05/16 06:30 Baso # 0.00 K/mm3 (0.0-2.0) 11/05/16 06:30 PT 11.4 Seconds (9.9-11.8) 11/03/16 06:20 INR 1.06 (0.93-1.08) 11/03/16 06:20 APTT 26.7 Seconds (23.7-30.8) 10/28/16 13:45 D-Dimer, Quantitative 0.56 mg/L FEU (0-0.50) H 10/28/16 13:45 pCO2 56 mm/Hg (35-45) H 11/01/16 06:12 pO2 66.0 mm/Hg (80-100) L 11/01/16 06:12 HCO3 33.1 mmol/L (21-28) H 11/01/16 06:12 ABG pH 7.38 (7.35-7.45) 11/01/16 06:12 ABG Total CO2 34.8 mmol.L (22-28) H 11/01/16 06:12 ABG O2 Saturation 94.2 % (95-98) L 11/01/16 06:12 ABG O2 Content 12.3 ML/dl (15-23) L 11/01/16 06:12 ABG Base Excess 6.8 mmol/L (-2.0-3.0) H 11/01/16 06:12 ABG Hemoglobin 9.4 g/dL (11.7-17.4) L 11/01/16 06:12 ABG Carboxyhemoglobin 1.6 % (0.5-1.5) H 11/01/16 06:12 POC ABG HHb (Measured) 5.7 % (0-5) H 11/01/16 06:12 ABG Methemoglobin 0.0 % (0.0-3.0) 11/01/16 06:12 ABG O2 Capacity 13.1 mL/dl (16-24) L 11/01/16 06:12 ABG Potassium 3.5 mmol/L (3.6-5.2) L 10/29/16 23:12 VBG pH 7.29 (7.32-7.43) L 10/28/16 17:10 VBG pCO2 69.0 (40-60) H* 10/28/16 17:10 VBG HCO3 33.2 mmol/l (21-28) H 10/28/16 17:10 VBG Total CO2 35.3 mmol.L (22-28) H 10/28/16 17:10 VBG O2 Sat (Calc) 76.0 % (40-65) H 10/28/16 17:10 VBG Base Excess 4.4 mmol/L (0.0-2.0) H 10/28/16 17:10 VBG Potassium 4.3 mmol/L (3.6-5.2) 10/28/16 17:10 Hgb O2 Saturation 92.8 % (95.0-98.0) L 11/01/16 06:12 Sodium 137.0 mmol/L (132-148) 10/29/16 23:12 Chloride 100.0 mmol/L (98-107) 10/29/16 23:12 Glucose 98 mg/dl (75-110) 10/29/16 23:12 Lactate 0.5 mmol/L (0.7-2.1) L 10/29/16 23:12 FiO2 50.0 % 11/01/16 06:12 Inspiratory BiPAP 14 10/29/16 16:39 Sodium 138 mmol/L (132-148) 11/05/16 06:30 Potassium 4.4 mmol/L (3.6-5.0) 11/05/16 06:30 Chloride 91 mmol/L (98-107) L 11/05/16 06:30 Carbon Dioxide 44 mmol/L (21-33) H 11/05/16 06:30 Anion Gap 7 (10-20) L 11/05/16 06:30 BUN 42 mg/dL (7-21) H 11/05/16 06:30 Creatinine 1.1 mg/dL (0.5-1.4) 11/05/16 06:30 Est GFR ( Amer) > 60 11/05/16 06:30 Est GFR (Non-Af Amer) > 60 11/05/16 06:30 POC Glucose (mg/dL) 196 mg/dL (65-110) H 11/04/16 11:43 Random Glucose 140 mg/dL (70-110) H 11/05/16 06:30 Hemoglobin A1c 6.9 % (4.2-6.5) H 10/30/16 05:00 Calcium 9.0 mg/dL (8.4-10.5) 11/05/16 06:30 Phosphorus 4.4 mg/dL (2.5-4.5) 11/03/16 06:20 Magnesium 2.2 mg/dL (1.7-2.2) 11/03/16 06:20 Total Bilirubin 0.8 mg/dL (0.2-1.3) 11/05/16 06:30 AST 24 U/L (15-59) 11/05/16 06:30 ALT 27 U/L (7-56) 11/05/16 06:30 Alkaline Phosphatase 46 U/L (38-133) 11/05/16 06:30 Lactate Dehydrogenase 511 U/L (333-699) 10/29/16 16:20 Total Creatine Kinase 79 U/L (35-230) 10/29/16 16:20 Troponin I 0.05 ng/mL 10/29/16 16:20 NT-Pro-B Natriuret Pep 5020 pg/mL (0-450) H 10/28/16 13:45 Total Protein 6.4 g/dL (5.8-8.3) 11/05/16 06:30 Albumin 3.0 g/dL (3.0-4.8) 11/05/16 06:30 Globulin 3.4 gm/dL 11/05/16 06:30 Albumin/Globulin Ratio 0.9 (1.1-1.8) L 11/05/16 06:30 Triglycerides 46 mg/dL (35-160) 10/29/16 06:30 Cholesterol 141 mg/dL (130-200) 10/29/16 06:30 LDL Cholesterol Direct 71 mg/dL (0-129) 10/29/16 06:30 HDL Cholesterol 66 mg/dL (29-60) H 10/29/16 06:30 Procalcitonin < 0.05 NG/ML (0.19-0.49) L 10/31/16 06:00 Free T4 1.81 ng/dL (0.78-2.19) 10/30/16 05:00 TSH 3rd Generation 0.21 mIU/mL (0.46-4.68) L 10/30/16 05:00 Arterial Blood Potassium 3.5 mmol/L (3.6-5.2) L 10/29/16 23:12 Venous Blood Potassium 4.3 mmol/L (3.6-5.2) 10/28/16 17:10 Urine Color Straw (YELLOW) 10/28/16 14:50 Urine Appearance Clear (CLEAR) 10/28/16 14:50 Urine pH 6.0 (4.7-8.0) 10/28/16 14:50 Ur Specific [place] 1.015 (1.005-1.035) 10/28/16 14:50 Urine Protein 30 mg/dL (<30 mg/dL) H 10/28/16 14:50 Urine Glucose (UA) Negative mg/dL (NEGATIVE) 10/28/16 14:50 Urine Ketones Negative mg/dL (NEGATIVE) 10/28/16 14:50 Urine Blood Trace-lysed (NEGATIVE) H 10/28/16 14:50 Urine Nitrate Negative (NEGATIVE) 10/28/16 14:50 Urine Bilirubin Negative (NEGATIVE) 10/28/16 14:50 Urine Urobilinogen 0.2 E.U./dL (<1 E.U./dL) 10/28/16 14:50 Ur Leukocyte Esterase Negative Ulysses/uL (NEGATIVE) 10/28/16 14:50 Urine RBC 2 - 5 /hpf (0-2) 10/28/16 14:50 Urine WBC 0 - 2 /hpf (0-6) 10/28/16 14:50 Ur Epithelial Cells 0 - 2 /hpf (0-5) 10/28/16 14:50 - Hospital Course Hospital Course: CC: SOB HPI: Patient seen and examined in ER bed 3. Patient's granddaughter by the bedside. patient is alert, awake and oriented. Able to give history. patient is a 81-year-old male With a past medical history of diabetes, hypertension, arthritis, cardiac history is getting admitted with progressive shortness of breath for the past 2 weeks. The patient was evaluated by PMD 2 weeks ago for shortness of breath. Lasix dose was increased. Patient complaint of chest discomfort and cough. Denies any fevers, chills.Complaining of minimal sputum production. Complaining of increased leg swelling for the past 2 weeks. Complaining of exertional dyspnea. Denies any abdominal pain, nausea, vomiting. Denies any urinary, bowel symptoms. Patient usually ambulates with a walker at home. Patient is a 81 y/o M who presented to the ED with complaint of SOB and leg swelling. An initial chest x-ray showed questionable right lower lobe atelectasis/pneumonia. An initial EKG showed sinus tachycardia with PVC's incomplete RBB, LAF block, and rate of 108. A CTA was performed which showed no evidence of acute PE, aneurysm, or dissection; however, showed moderate bilateral pleural effusions. A duplex of the lower extremities showed no evidence of DVT. Cardiology was consulted and an echocardiogram was performed showing: mild concentric LVH, with EF of 55-60% , trace aortic regurgitation, mitral regurgitation. The patient became somnolent and found to be in hypercapnic respiratory failure, was placed on a BiPAP and taken to the ICU for closer management. He was stabilized in the ICU and did not require intubation. He was taken to the OR for cardiac catheterization and stent placement in the middle circumflex artery. He was placed on the telemetry unit for close monitoring. Physical therapy evaluated and found to require rehab for being deconditioned. He was determined medically stable for discharge to the TCU for rehab. This is a brief summary of the patient's stay at this facility. For more detail , please see patient's full chart. - Date & Time of H&P Date of H&P: 10/28/16 Time of H&P: 17:41 Discharge Exam - Head Exam Head Exam: ATRAUMATIC, NORMOCEPHALIC - Eye Exam Eye Exam: EOMI, Normal appearance, PERRL Pupil Exam: NORMAL ACCOMODATION, PERRL - ENT Exam ENT Exam: Mucous Membranes Moist - Respiratory Exam Respiratory Exam: Wheezes, NORMAL BREATHING PATTERN. absent: Rales, Rhonchi - Cardiovascular Exam Cardiovascular Exam: Irregular Rhythm (irregularly irregular), +S1, +S2, Systolic Murmur. absent: Gallop, Rubs - GI/Abdominal Exam GI & Abdominal Exam: Normal Bowel Sounds, Soft. absent: Distended, Tenderness - Extremities Exam Extremities exam: pedal edema (+2 edema) - Back Exam Back exam: NORMAL INSPECTION. absent: rash noted, tenderness - Neurological Exam Neurological exam: Alert, CN II-XII Intact, Oriented x3 - Psychiatric Exam Psychiatric exam: Normal Affect, Normal Mood - Skin Skin Exam: Dry, Intact, Warm Discharge Plan - Follow Up Plan Condition: FAIR Disposition: TRANSF TO SNF Instructions: Heart Failure (DC), Heart Failure (GEN), Coronary Artery Disease (DC), Left Heart Catheterization (DC), Coronary Intravascular Stent Placement ( DC), Pacemaker (DC), Pacemaker (GEN), Pulmonary Edema (DC), Pulmonary Edema (GEN ), Ascites (DC), Ascites (GEN) Additional Instructions: You are being transferred to the TCU for more rehabilitation. <Jena Luciano - Last Filed: 11/06/16 17:25> Provider - Provider Date of Admission: 10/28/16 17:12 Attending physician: Jena Luciano MD Time Spent in preparation of Discharge (in minutes): 35 Hospital Course - Lab Results Lab Results: Micro Results 10/29/16 15:00 Naris MRSA Culture (Admit) - Final MRSA NOT DETECTED Most Recent Lab Values WBC 6.6 10^3/ul (4.5-11.0) 11/05/16 06:30 RBC 3.84 10^6/uL (3.5-6.1) 11/05/16 06:30 Hgb 10.9 gm/dL (14.0-18.0) L 11/05/16 06:30 Hct 35.8 % (42.0-52.0) L 11/05/16 06:30 MCV 93.2 fL (80.0-105.0) 11/05/16 06:30 MCH 28.4 pg (25.0-35.0) 11/05/16 06:30 MCHC 30.4 g/dl (31.0-37.0) L 11/05/16 06:30 RDW 16.0 % (11.5-14.5) H 11/05/16 06:30 Plt Count 161 10^3/uL (120.0-450.0) 11/05/16 06:30 MPV 11.5 fl (7.0-11.0) H 11/05/16 06:30 Gran % 67.4 % (50.0-68.0) 11/05/16 06:30 Lymph % (Auto) 19.5 % (22.0-35.0) L 11/05/16 06:30 Wagoner % (Auto) 12.6 % (1.0-6.0) H 11/05/16 06:30 Eos % (Auto) 0.5 % (1.5-5.0) L 11/05/16 06:30 Baso % (Auto) 0.0 % (0.0-3.0) 11/05/16 06:30 Gran # 4.46 (1.4-6.5) 11/05/16 06:30 Lymph # 1.3 (1.2-3.4) 11/05/16 06:30 Wagoner # 0.8 (0.1-0.6) H 11/05/16 06:30 Eos # 0.0 (0.0-0.7) 11/05/16 06:30 Baso # 0.00 K/mm3 (0.0-2.0) 11/05/16 06:30 PT 11.4 Seconds (9.9-11.8) 11/03/16 06:20 INR 1.06 (0.93-1.08) 11/03/16 06:20 APTT 26.7 Seconds (23.7-30.8) 10/28/16 13:45 D-Dimer, Quantitative 0.56 mg/L FEU (0-0.50) H 10/28/16 13:45 pCO2 56 mm/Hg (35-45) H 11/01/16 06:12 pO2 66.0 mm/Hg (80-100) L 11/01/16 06:12 HCO3 33.1 mmol/L (21-28) H 11/01/16 06:12 ABG pH 7.38 (7.35-7.45) 11/01/16 06:12 ABG Total CO2 34.8 mmol.L (22-28) H 11/01/16 06:12 ABG O2 Saturation 94.2 % (95-98) L 11/01/16 06:12 ABG O2 Content 12.3 ML/dl (15-23) L 11/01/16 06:12 ABG Base Excess 6.8 mmol/L (-2.0-3.0) H 11/01/16 06:12 ABG Hemoglobin 9.4 g/dL (11.7-17.4) L 11/01/16 06:12 ABG Carboxyhemoglobin 1.6 % (0.5-1.5) H 11/01/16 06:12 POC ABG HHb (Measured) 5.7 % (0-5) H 11/01/16 06:12 ABG Methemoglobin 0.0 % (0.0-3.0) 11/01/16 06:12 ABG O2 Capacity 13.1 mL/dl (16-24) L 11/01/16 06:12 ABG Potassium 3.5 mmol/L (3.6-5.2) L 10/29/16 23:12 VBG pH 7.29 (7.32-7.43) L 10/28/16 17:10 VBG pCO2 69.0 (40-60) H* 10/28/16 17:10 VBG HCO3 33.2 mmol/l (21-28) H 10/28/16 17:10 VBG Total CO2 35.3 mmol.L (22-28) H 10/28/16 17:10 VBG O2 Sat (Calc) 76.0 % (40-65) H 10/28/16 17:10 VBG Base Excess 4.4 mmol/L (0.0-2.0) H 10/28/16 17:10 VBG Potassium 4.3 mmol/L (3.6-5.2) 10/28/16 17:10 Hgb O2 Saturation 92.8 % (95.0-98.0) L 11/01/16 06:12 Sodium 137.0 mmol/L (132-148) 10/29/16 23:12 Chloride 100.0 mmol/L (98-107) 10/29/16 23:12 Glucose 98 mg/dl (75-110) 10/29/16 23:12 Lactate 0.5 mmol/L (0.7-2.1) L 10/29/16 23:12 FiO2 50.0 % 11/01/16 06:12 Inspiratory BiPAP 14 10/29/16 16:39 Sodium 138 mmol/L (132-148) 11/05/16 06:30 Potassium 4.4 mmol/L (3.6-5.0) 11/05/16 06:30 Chloride 91 mmol/L (98-107) L 11/05/16 06:30 Carbon Dioxide 44 mmol/L (21-33) H 11/05/16 06:30 Anion Gap 7 (10-20) L 11/05/16 06:30 BUN 42 mg/dL (7-21) H 11/05/16 06:30 Creatinine 1.1 mg/dL (0.5-1.4) 11/05/16 06:30 Est GFR ( Amer) > 60 11/05/16 06:30 Est GFR (Non-Af Amer) > 60 11/05/16 06:30 POC Glucose (mg/dL) 158 mg/dL (65-110) H 11/06/16 05:14 Random Glucose 140 mg/dL (70-110) H 11/05/16 06:30 Hemoglobin A1c 6.9 % (4.2-6.5) H 10/30/16 05:00 Calcium 9.0 mg/dL (8.4-10.5) 11/05/16 06:30 Phosphorus 4.4 mg/dL (2.5-4.5) 11/03/16 06:20 Magnesium 2.2 mg/dL (1.7-2.2) 11/03/16 06:20 Total Bilirubin 0.8 mg/dL (0.2-1.3) 11/05/16 06:30 AST 24 U/L (15-59) 11/05/16 06:30 ALT 27 U/L (7-56) 11/05/16 06:30 Alkaline Phosphatase 46 U/L (38-133) 11/05/16 06:30 Lactate Dehydrogenase 511 U/L (333-699) 10/29/16 16:20 Total Creatine Kinase 79 U/L (35-230) 10/29/16 16:20 Troponin I 0.05 ng/mL 10/29/16 16:20 NT-Pro-B Natriuret Pep 5020 pg/mL (0-450) H 10/28/16 13:45 Total Protein 6.4 g/dL (5.8-8.3) 11/05/16 06:30 Albumin 3.0 g/dL (3.0-4.8) 11/05/16 06:30 Globulin 3.4 gm/dL 11/05/16 06:30 Albumin/Globulin Ratio 0.9 (1.1-1.8) L 11/05/16 06:30 Triglycerides 46 mg/dL (35-160) 10/29/16 06:30 Cholesterol 141 mg/dL (130-200) 10/29/16 06:30 LDL Cholesterol Direct 71 mg/dL (0-129) 10/29/16 06:30 HDL Cholesterol 66 mg/dL (29-60) H 10/29/16 06:30 Procalcitonin < 0.05 NG/ML (0.19-0.49) L 10/31/16 06:00 Free T4 1.81 ng/dL (0.78-2.19) 10/30/16 05:00 TSH 3rd Generation 0.21 mIU/mL (0.46-4.68) L 10/30/16 05:00 Arterial Blood Potassium 3.5 mmol/L (3.6-5.2) L 10/29/16 23:12 Venous Blood Potassium 4.3 mmol/L (3.6-5.2) 10/28/16 17:10 Urine Color Straw (YELLOW) 10/28/16 14:50 Urine Appearance Clear (CLEAR) 10/28/16 14:50 Urine pH 6.0 (4.7-8.0) 10/28/16 14:50 Ur Specific [place] 1.015 (1.005-1.035) 10/28/16 14:50 Urine Protein 30 mg/dL (<30 mg/dL) H 10/28/16 14:50 Urine Glucose (UA) Negative mg/dL (NEGATIVE) 10/28/16 14:50 Urine Ketones Negative mg/dL (NEGATIVE) 10/28/16 14:50 Urine Blood Trace-lysed (NEGATIVE) H 10/28/16 14:50 Urine Nitrate Negative (NEGATIVE) 10/28/16 14:50 Urine Bilirubin Negative (NEGATIVE) 10/28/16 14:50 Urine Urobilinogen 0.2 E.U./dL (<1 E.U./dL) 10/28/16 14:50 Ur Leukocyte Esterase Negative Ulysses/uL (NEGATIVE) 10/28/16 14:50 Urine RBC 2 - 5 /hpf (0-2) 10/28/16 14:50 Urine WBC 0 - 2 /hpf (0-6) 10/28/16 14:50 Ur Epithelial Cells 0 - 2 /hpf (0-5) 10/28/16 14:50 - Hospital Course Hospital Course: Attending note; I have seen and examined patient with the resident. 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 He was found to have elevated BNP, Effusions on CXR. Echo revealed mild LVH, EF 55-60% and moderate to severe TR, pulmonary hypertension. Patient underwent cardiac cath and drug eluting stent was placed in mid circumflex. He had previous stents in LAD and cicumflex. clinically stable. Advised to have sleep study as an outpatient. Transfer to TCU today. Upon discharge patient will follow up with Dr Beach. Diagnosis; coronary artery disease/stent placement HTN DM arthritis CHF
[2016-11-05] MEDS: Verapamil 120 mg ER Tab PO SCH (11:31)
[2016-11-05] MEDS: Timolol 0.25% Ophth SOLN OU SCH (12:23)
[2016-11-05] MEDS: Pilocarpine 1% Opht (15ml) OU SCH (12:24)
[2016-11-05 13:48] VITALS: BP 115/67; PULSE 81; RESP 20; TEMP 97.2
--- NOTE | 2016-11-05 14:29 | PN ---
DATE: 11/05/2016 REASON FOR CONSULTATION AND FOLLOWUP: Decompensated congestive heart failure, atrial fibrillation, p aroxysmal atrial fibrillation, morbid obesity, rule out Pickwickian syndrome, CO2 narcosis, abnormal stress test, status post PTCA of the circumflex. BRIEF CLINICAL HISTORY: This is an 81-year-old male with a past medical history significant for obes ity, hypertension, hyperlipidemia, history of coronary artery disease, status post stent in LAD, stat us post stent in the circ, being followed by Dr. Jacobo. Admitted for acute decompensated congestive heart failure, CO2 narcosis, hypercapnia. After , patient underwent cardiac catheterization, le ft and right, and PTCA of circumflex was done, patent stent noted in LAD and circumflex. The patient got a stent in the circumflex. Being treated with IV Primacor. Now, patient is fairly stable. PHYSICAL EXAMINATION: VITAL SIGNS: Temperature afebrile, heart rate 81, blood pressure 115/67. HEENT: PERRLA. Extraocular muscles intact. NECK: Supple. No carotid bruits. No thyromegaly. CHEST: Clear to auscultation. HEART: S1, S2 regular. ABDOMEN: Soft. EXTREMITIES: Clubbing, cyanosis negative. BLOOD WORKUP: WBC 6.6, hemoglobin 10.9, hematocrit 35.8, platelet count 161. Chemistry shows sodium , potassium 4.4, chloride 91, carbon dioxide , anion gap of , BUN 42, creatinine 1.1. IMPRESSION: Decompensated congestive heart failure, diabetes, hypertension, hyperlipidemia, obesity, status post percutaneous transluminal coronary angioplasty of the circumflex, pulmonary hypertension . RECOMMENDATION: Continue Lasix to change to p.o. History of paroxysmal atrial fibrillation. Contin ue Eliquis and continue Plavix. Continue verapamil, hydralazine. Possible discharge planning. We w ill follow with you. Thank you, Dr. Carroll, for providing us the opportunity in taking care of the patient. We will follow with you. Possible discharge . Anthony Mckinley MD cc: [id number] TT: 11/05/2016 14:28:31 Confirmation # [id number] Dictation # [id number]
== END 2016-11-05 17:02 | DRG 246 ==
LOC: ED 13:32 → ERH 17:12 → 2RSO 21:53 → CCU 10-29 15:39 → 2RNO 11-02 09:08
PROVIDERS: ADMIT Internal Medicine; ATTEND Internal Medicine
PROC: 027034Z Dilation of Coronary Artery, One Artery with Drug-eluting Intraluminal Device, Percutaneous Approach (ICD-10-PCS; principal; 2016-11-01)
PROC: 4A023N8 Measurement of Cardiac Sampling and Pressure, Bilateral, Percutaneous Approach (ICD-10-PCS; 2016-11-01)
PROC: B211YZZ Fluoroscopy of Multiple Coronary Arteries using Other Contrast (ICD-10-PCS; 2016-11-01)
PROC: B215YZZ Fluoroscopy of Left Heart using Other Contrast (ICD-10-PCS; 2016-11-01)
DX: I50.43 Acute on chronic combined systolic (congestive) and diastolic (congestive) heart failure (principal); J18.9 Pneumonia, unspecified organism; J96.92 Respiratory failure, unspecified with hypercapnia; J44.0 Chronic obstructive pulmonary disease with (acute) lower respiratory infection; I27.2 Other secondary pulmonary hypertension; E87.2 Acidosis; I48.0 Paroxysmal atrial fibrillation; E66.2 Morbid (severe) obesity with alveolar hypoventilation; E83.42 Hypomagnesemia; E11.9 Type 2 diabetes mellitus without complications; J98.11 Atelectasis; I11.0 Hypertensive heart disease with heart failure; I27.81 Cor pulmonale (chronic); I49.3 Ventricular premature depolarization; E03.9 Hypothyroidism, unspecified; E78.5 Hyperlipidemia, unspecified; F32.89 Other specified depressive episodes; I25.10 Atherosclerotic heart disease of native coronary artery without angina pectoris; M19.90 Unspecified osteoarthritis, unspecified site; R09.02 Hypoxemia; Z87.891 Personal history of nicotine dependence; Z95.5 Presence of coronary angioplasty implant and graft; R40.2412 Glasgow coma scale score 13-15, at arrival to emergency department; I45.10 Unspecified right bundle-branch block; I08.3 Combined rheumatic disorders of mitral, aortic and tricuspid valves; G47.33 Obstructive sleep apnea (adult) (pediatric); R94.39 Abnormal result of other cardiovascular function study; E87.6 Hypokalemia; I51.7 Cardiomegaly; Z68.37 Body mass index [BMI] 37.0-37.9, adult

== ENCOUNTER 2016-11-05 18:11 | Inpatient (IN) | payer OTHER ==
[2016-11-05] MEDS ORDERED: guaiFENesin 100 mg/5 ml Syrup UD PO PRN (19:46)
[2016-11-05 22:23] VITALS: BMI 37.4
[2016-11-05] MEDS: Insulin Reg-MEDIUM-Coverage SC SCH (22:42)
[2016-11-05] MEDS: Albuterol-Ipratrop 3 mg / 0.5 (3 ml) UD IH SCH (23:30)
[2016-11-06] MEDS: Albuterol-Ipratrop 3 mg / 0.5 (3 ml) UD IH SCH ×6 (03:00→23:48)
[2016-11-06] MEDS: Insulin Reg-MEDIUM-Coverage SC SCH ×4 (06:45→22:09)
[2016-11-06] MEDS: Pilocarpine 1% Opht (15ml) OU SCH ×2 (09:00→17:42)
[2016-11-06] MEDS ORDERED: POLYETHYLENE GLYCOL 3350 17 GM/Dose PACKET PO ONE (09:47)
[2016-11-06] MEDS: Timolol 0.25% Ophth SOLN OU SCH ×2 (10:39→17:38)
[2016-11-06] MEDS: Verapamil 120 mg ER Tab PO SCH (10:48)
--- NOTE | 2016-11-06 14:14 | CP.PCM.HP ---
<Jose Miller - Last Filed: 11/06/16 14:11> History of Present Illness - History of Present Illness History of Present Illness: CC: SOB and leg swelling HPI: Patient seen and examined in TCU. He is an 81 y/o M who presented to the hospital with complaint of SOB and leg swelling over a 2 week duration. He was admitted for CHF exaccerbation. He is s/p cardiac catheterization with stent placement. He was assessed and found to require physical therapy due to his deconditioned state. He is alert, awake and oriented. He currently denies any chest pain, SOB, cough, fever, chills, nausea , vomiting, or abdominal pain. He notes the swelling in his legs have improved over his stay. He looks forward to more physical therapy. He reports that he normal ambulates using a walker at home. Past med hx: Hypertension, Diabetes, Arthritis, Cardiac history, depression, Obesity, chronic leg edema Past surgical hx: Right knee surgery Social hx: never smoked, denies alcohol and drug use, lives with family Allergies: NKDA PMD: Dr. Beach Present on Admission - Present on Admission Any Indicators Present on Admission: No Review of Systems - Constitutional Constitutional: Weakness. absent: Chills, Fever - EENT Eyes: absent: Blurred Vision, Change in Vision, Irritation Ears: absent: Decreased Hearing, Ear Pain Nose/Mouth/Throat: absent: Nasal Congestion, Dry Mouth, Sore Throat - Cardiovascular Cardiovascular: Leg Edema. absent: Chest Pain, Dyspnea - Respiratory Respiratory: absent: Cough, Dyspnea - Gastrointestinal Gastrointestinal: Constipation. absent: Diarrhea - Genitourinary Genitourinary: absent: Difficulty Urinating, Dysuria - Musculoskeletal Musculoskeletal: absent: Back Pain, Neck Pain, Numbness, Tingling - Integumentary Integumentary: absent: Pruritus, Rash, Skin Pain, Wounds - Neurological Neurological: Weakness. absent: Dizziness, Syncope, Tingling, Tremor, Vertigo - Psychiatric Psychiatric: absent: Anxiety, Depression - Endocrine Endocrine: absent: Change in Body Appearance Past Patient History - Infectious Disease Hx of Infectious Diseases: None - Tetanus Immunizations Tetanus Immunization: Unknown - Past Medical History & Family History Past Medical History?: Yes - Past Social History Smoking Status: Never Smoked Chewing Tobacco Use: No Cigar Use: No Alcohol: None Drugs: Denies Home Situation {Lives}: With Family - CARDIAC Hx Cardiac Disorders: Yes Hx Hypertension: Yes - PULMONARY Hx Respiratory Disorders: No - NEUROLOGICAL Hx Neurological Disorder: No - HEENT Hx HEENT Problems: No - RENAL Hx Chronic Kidney Disease: No - ENDOCRINE/METABOLIC Hx Diabetes Mellitus Type 2: Yes - HEMATOLOGICAL/ONCOLOGICAL Hx Blood Disorders: No - INTEGUMENTARY Hx Dermatological Problems: No - MUSCULOSKELETAL/RHEUMATOLOGICAL Hx Musculoskeletal Disorders: No Hx Falls: No - GASTROINTESTINAL Hx Gastrointestinal Disorders: No - GENITOURINARY/GYNECOLOGICAL Hx Genitourinary Disorders: No - PSYCHIATRIC Hx Psychophysiologic Disorder: No - SURGICAL HISTORY Hx Surgeries: No (pt denies) Meds Allergies/Adverse Reactions: Allergies Allergy/AdvReac Type Severity Reaction Status Date / Time No Known Allergies Allergy Verified 10/28/16 13:37 Physical Exam - Constitutional Appears: Non-toxic, No Acute Distress - Head Exam Head Exam: ATRAUMATIC, NORMAL INSPECTION - Eye Exam Eye Exam: EOMI, Normal appearance, PERRL Pupil Exam: NORMAL ACCOMODATION, PERRL - ENT Exam ENT Exam: Mucous Membranes Moist - Neck Exam Neck exam: Positive for: Normal Inspection - Respiratory Exam Respiratory Exam: Decreased Breath Sounds (bilateral lower lobes ), Clear to Auscultation Bilateral, NORMAL BREATHING PATTERN. absent: Rales, Rhonchi, Wheezes - Cardiovascular Exam Cardiovascular Exam: Irregular Rhythm (irregularly irregular), +S1, +S2. absent : Gallop, Rubs, Systolic Murmur - GI/Abdominal Exam GI & Abdominal Exam: Normal Bowel Sounds, Soft. absent: Tenderness - Rectal Exam Rectal Exam: Deferred - Extremities Exam Extremities exam: Positive for: normal capillary refill, pedal edema (+1 bilateral to knee ), pedal pulses present. Negative for: tenderness - Back Exam Back exam: NORMAL INSPECTION. absent: rash noted, tenderness - Neurological Exam Neurological exam: Alert, CN II-XII Intact, Oriented x3 - Psychiatric Exam Psychiatric exam: Normal Affect, Normal Mood - Skin Skin Exam: Dry, Intact, Normal Color Results - Vital Signs Recent Vital Signs: Last Vital Signs Temp 98.3 F 11/06/16 10:00 Pulse 86 11/06/16 10:00 Resp 18 11/06/16 10:00 BP 130/73 11/06/16 10:48 Pulse Ox 100 11/06/16 10:00 Assessment & Plan - Assessment and Plan (Free Text) Assessment: Patient is an 81 y/o M with history of HTN, DM, arthritis, obesity, who presents with complaint of leg swelling and SOB. S/p complete left and right heart catheterization and stenting of mid circumflex. On telemetry due to weakness, deconditioning, and need for physical therapy. Plan: 1) CHF * Cardiology consulted, Dr. Mckinley, help appreciated * Initial chest x-ray showed bilateral effusion * Initial CT chest showed bilateral lower lobe atelectasis/pneumonia with effusion [see full report] * Initial Echo showed LV normal size with mild concentric LV hypertrophy and EF of 55-60%, mild tricuspid regurge wtih RVSP 75 mm of Hg. [ see full report] * Lasix 40mg PO BID * daily weights * Maintain O2 sat >90% with supplemental oxygen * Duoneb's Q4H 2) CAD * S/p cardiac catheterization complete left and right heart with stenting of mid circumflex, preserved LvEF 65%, RV 70/12 PA 70/35, PCW 20, [see full report] * Continue aspirin and plavix 3) Afib * Rate controlled * continue Eliquis 5mg PO BID 4) HTN * continue Verapamil and Zestril * continue Hydralazine PRN 5) DM * Regular accuchecks * Sliding scale insulin * Continue neurontin for peripheral neuropathy * Resume metformin and actos prior to discharge 6) Hypothyroidism * low TSH at 0.21 and normal Free T4 at 1.81 * likely subacute hypthyroidism * recommend repeat in 6-8 weeks from discharge 7) Depression * Continue lexapro 8) Constipation * given prune juice and Miralax 9) PPX * continue pepcid * Robitussin for cough * SCD's contraindicated due to bilateral Edema Assessment and plan discussed with attending physician. <Jena Luciano - Last Filed: 11/07/16 14:12> Results - Vital Signs Recent Vital Signs: Last Vital Signs Temp 97.6 F 11/07/16 10:00 Pulse 62 11/07/16 10:00 Resp 18 11/07/16 10:00 BP 131/79 11/07/16 10:58 Pulse Ox 100 11/07/16 10:00 - Labs Result Diagrams: 11/07/16 06:30 11/07/16 06:30 Labs: Laboratory Results - last 24 hr 11/06/16 11/06/16 11/06/16 11:49 16:58 20:54 WBC RBC Hgb Hct MCV MCH MCHC RDW Plt Count MPV Gran % Lymph % (Auto) [place] % (Auto) Eos % (Auto) Baso % (Auto) Gran # Lymph # [place] # Eos # Baso # Sodium Potassium Chloride Carbon Dioxide Anion Gap BUN Creatinine Est GFR ( Amer) Est GFR (Non-Af Amer) POC Glucose (mg/dL) 212 H 165 H 218 H Random Glucose Calcium Total Bilirubin AST ALT Alkaline Phosphatase Total Protein Albumin Globulin Albumin/Globulin Ratio 11/07/16 06:30 WBC 5.8 RBC 3.65 Hgb 10.5 L Hct 33.6 L MCV 92.1 MCH 28.8 MCHC 31.3 RDW 16.0 H Plt Count 142 MPV 13.1 H Gran % 60.7 Lymph % (Auto) 16.9 L [place] % (Auto) 21.0 H Eos % (Auto) 1.4 L Baso % (Auto) 0.0 Gran # 3.53 Lymph # 1.0 L [place] # 1.2 H Eos # 0.1 Baso # 0.00 Sodium 138 Potassium 3.9 Chloride 93 L Carbon Dioxide 39 H Anion Gap 10 BUN 30 H Creatinine 1.0 Est GFR ( Amer) > 60 Est GFR (Non-Af Amer) > 60 POC Glucose (mg/dL) Random Glucose 137 H Calcium 8.9 Total Bilirubin 0.6 AST 23 ALT 44 Alkaline Phosphatase 52 Total Protein 6.1 Albumin 2.9 L Globulin 3.2 Albumin/Globulin Ratio 0.9 L Assessment & Plan - Assessment and Plan (Free Text) Assessment: attending note; patient seen and examined with resident in TCU. Getting physical therapy. 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 He was found to have elevated BNP, Effusions on CXR. Echo revealed mild LVH, EF 55-60% and moderate to severe TR, pulmonary hypertension. Patient underwent cardiac cath and drug eluting stent was placed in mid circumflex. He had previous stents in LAD and cicumflex. clinically stable. A. fib; rate controlled. On eliquis. diabetes and hypertension: currently controlled. Constipation; resolved. Advised to have sleep study as an outpatient. upon discharge the patient will follow-up with PMD Dr. fernandez and cardiology Dr. Mckinley. Attending/Attestation - Attestation I have personally seen and examined this patient.: Yes I have fully participated in the care of the patient.: Yes I have reviewed all pertinent clinical information: Yes
[2016-11-06] MEDS: Non Formulary Medication (Bimatoprost [Lumigan] 1 DROP) OS SCH (18:39)
--- NOTE | 2016-11-06 23:28 | CON ---
DATE: 11/06/2016 The patient in room 327, bed 1. REASON FOR CONSULTATION: Followup decompensated congestive heart failure, atrial fibrillation which is paroxysmal, morbid obesity, CO2 narcosis, status post PTCA of the circumflex. HISTORY OF PRESENT ILLNESS: This is an 81-year-old male with past medical history significant for ob esity, hypertension, hyperlipidemia, history of coronary artery disease status post stent in LAD, sta tus post stent in circumflex, being followed by Dr. Davidson in [place], was admitted to [facility] with acute decompensated congestive heart failure, CO2 narcosis, hypercapnia, after that the patien t underwent both right and left heart catheterization. Left ventricular ejection fraction was about 65%, patent stent in the proximal LAD and proximal mid circumflex. Right heart catheterization showe d RA pressure of 18, RV 70/12, PA pressure of 70/35, mean of 48, PC wedge pressure 20, cardiac output 7.3. Successful PTCA with drug-eluting stent was done in the mid circumflex vessel. The patient's CHF improved and the patient now admitted to transitional care unit for deconditioning and physical t herapy. The patient denies any chest pain, shortness of breath at present. PAST MEDICAL HISTORY: Significant for hypertension, diabetes, history of stents in the past and rece nt stent in the circumflex on this admission to medical floor. PREVIOUS CARDIAC WORKUP: The patient had echocardiography done in Dr. Davidson's office, which showed no rmal ejection fraction, moderate mitral stenosis. RV systolic pressure 34. History of stress test d one in Dr. Davidson's office and it is suspicious of inferior wall ischemia. As mentioned above, the pat ient had both right and left cardiac catheterization along with drug-eluting stent in the circumflex on 11/01/2016, findings have been described above in the history. HOME MEDICATIONS: Amlodipine, Lotrel 5 mg b.i.d., benazepril, Timolol eyedrops, gabapentin, Pepcid, Lasix, Lexapro. PERSONAL HISTORY: Denies smoking, denies drinking. REVIEW OF SYSTEMS: All the systems were reviewed, positive mentioned in the history, others were neg ative. ALLERGIES: No known allergies. PHYSICAL EXAMINATION: VITAL SIGNS: Blood pressure 114/61, respirations 18, pulse 79, temperature 97.6. HEENT: Head is normocephalic. Eyes: Pupils normal. Conjunctivae slightly pale. NECK: JVP low. Carotid equal. THORAX: AP diameter normal. LUNGS: Clear. CARDIOVASCULAR: S1, S2. ABDOMEN: Soft, no tenderness, no organomegaly. Bowel sounds normal. EXTREMITIES: The patient has chronic venous stasis changes, has some edema also present. LABORATORY DATA: WBC 6.6, hemoglobin 10.9, hematocrit 35.8, platelet 161. Sodium 138, potassium 4.4 , BUN 42, creatinine 1.1. AST, ALT normal. Total protein and albumin normal. EKG on 11/02/2016, sh owed sinus rhythm with first degree AV block, premature atrial complexes, incomplete bundle branch bl ock, left anterior fascicular block. Chest x-ray on admission on medical floor showed right lower lo be atelectasis, possible pneumonia. Later on x-ray showed bilateral pleural effusion and congestive changes. The patient had echocardiogram on 10/29/2016, showed left ventricle size is normal, borderl ine to mid concentric left ventricular hypertrophy, ejection fraction 55%-60%, mild mitral regurg, mo derate tricuspid regurg, RVSP 75 mmHg, moderate to severe tricuspid regurg, RVSP suggestive of severe pulmonary hypertension. DIAGNOSES: Decompensated congestive heart failure, diabetes mellitus, hypertension, hyperlipidemia, obesity, status post coronary angioplasty with stent insertion in the circumflex, pulmonary hypertens ion, obesity. PLAN: The patient is on verapamil 120 mg p.o. daily, DuoNeb hand nebulizer therapy, Eliquis 5 mg b.i .d., furosemide 40 mg p.o. b.i.d., Lipitor 20 daily, gabapentin 100 mg b.i.d., Pepcid 20 daily, Plavi x 75 mg daily, lisinopril 40 mg daily. Will continue present therapy. I told the patient to lose we ight. The patient will be getting physical therapy in transitional care unit. We will follow with you. Anthony Aldana MD cc: [id number] TT: 11/06/2016 23:27:11 Confirmation # [id number] Dictation # [id number] mn
[2016-11-07] MEDS: Albuterol-Ipratrop 3 mg / 0.5 (3 ml) UD IH SCH ×6 (04:48→23:09)
[2016-11-07] MEDS: Insulin Reg-MEDIUM-Coverage SC SCH ×4 (07:10→23:21)
[2016-11-07] MEDS ORDERED: POLYETHYLENE GLYCOL 3350 17 GM/Dose PACKET PO PRN (07:34)
[2016-11-07 08:21] LABS: ALB/GLOB RATIO 0.9 (1.1-1.8); ALKALINE PHOSPHATASE 52 U/L (38-133); ALT/SGPT 44 U/L (7-56); AST/SGOT 23 U/L (15-59); BILIRUBIN,TOTAL 0.6 mg/dL (0.2-1.3); BLOOD UREA NITROGEN 30 mg/dL (7-21); CALCIUM 8.9 mg/dL (8.4-10.5); CARBON DIOXIDE 39 mmol/L (21-33); CHLORIDE 93 mmol/L (98-107); GFR AFRICAN-AMERICAN > 60; GLUCOSE,RANDOM 137 mg/dL (70-110); POTASSIUM 3.9 mmol/L (3.6-5.0); SODIUM 138 mmol/L (132-148); TOTAL PROTEIN 6.1 g/dL (5.8-8.3)
[2016-11-07 08:24] LABS: EOS # 0.1 (0.0-0.7); EOS % 1.4 % (1.5-5.0); GRAN # 3.53 (1.4-6.5); GRAN % 60.7 % (50.0-68.0); HEMATOCRIT 33.6 % (42.0-52.0); LYMPH % 16.9 % (22.0-35.0); MEAN CELL VOLUME 92.1 fL (80.0-105.0); MEAN CORPUSCULAR HEMOGLOBIN 28.8 pg (25.0-35.0); MEAN CORPUSCULAR HGB CONC 31.3 g/dl (31.0-37.0); MEAN PLATELET VOLUME 13.1 fl (7.0-11.0); MONO # 1.2 (0.1-0.6); PLATELET COUNT 142 10^3/uL (120.0-450.0); WHITE BLOOD COUNT 5.8 10^3/ul (4.5-11.0)
[2016-11-07 08:28] LABS: ADD MANUAL DIFF? NO
[2016-11-07] MEDS: Verapamil 120 mg ER Tab PO SCH (10:57)
[2016-11-07] MEDS: Pilocarpine 1% Opht (15ml) OU SCH ×2 (10:58→17:33)
[2016-11-07] MEDS: Timolol 0.25% Ophth SOLN OU SCH (11:00)
[2016-11-07] MEDS: Non Formulary Medication (Bimatoprost [Lumigan] 1 DROP) OS SCH (17:31)
--- NOTE | 2016-11-07 19:14 | PN ---
DATE: 11/07/2016 The patient in room 327, bed 1. REASON FOR CONSULTATION AND FOLLOWUP: Decompensated congestive heart failure, atrial fibrillation wh ich is paroxysmal, morbid obesity, status post CO2 narcosis, status post PTCA of the circumflex. HISTORY OF PRESENT ILLNESS: An 81-year-old male who has paroxysmal atrial fibrillation, hypertension , hyperlipidemia, history of coronary artery disease status post stent in LAD and circumflex, being f ollowed by Dr. Davidson in [place], was admitted to this hospital with decompensated congestive heart failure, CO2 narcosis, hypercapnia. After that, patient underwent both right and left heart cathete rization which showed ejection fraction 65%. The patient had successful PTCA with drug-eluting stent in mid-circumflex. Right heart catheterization showed RV systolic pressure of 70 suggestive of lm re pulmonary hypertension. The patient treated on medical floor, and his CHF improved. Now he is in transitional care unit getting physical therapy. The patient, on examination: VITAL SIGNS: Blood pressure 131/79, respirations 18, pulse 62, temperature 97.6. HEAD: Normocephalic. EYES: Pupils normal, conjunctivae slightly pale. NECK: JVP low. Carotid equal. THORAX: AP diameter normal. LUNGS: No rales. CARDIOVASCULAR: S1, S2, systolic murmur, no rub. ABDOMEN: Protuberant, no organomegaly. EXTREMITIES: Changes of chronic venous stasis; some edema is present. LABORATORIES: WBC 5.8, hemoglobin 10.5, hematocrit 33.6, platelets 142. Sodium 138, potassium 3.9, BUN 30, creatinine 1.0. Glucose 217, repeat glucose 86, also, glucose of 137. AST 23, ALT 24. DIAGNOSES: Decompensated congestive heart failure, diabetes mellitus, hypertension, hyperlipidemia, obesity, status post coronary artery angioplasty with stent insertion in the circumflex, pulmonary hy pertension, obesity. PLAN: Continue Actos 30 mg daily, Verapamil SR 120 p.o. daily, Eliquis 5 mg b.i.d., furosemide 40 mg p.o. b.i.d., Lipitor 20 mg daily, Neurontin 100 mg p.o. b.i.d., Plavix 75 mg p.o. daily, lisinopril 40 mg p.o. daily. Will continue physical therapy. Will follow with you. Anthony Aldana MD cc: [id number] TT: 11/07/2016 19:14:15 Confirmation # [id number] Dictation # [id number] jn
[2016-11-08] MEDS: Insulin Reg-MEDIUM-Coverage SC SCH ×4 (06:31→23:49)
[2016-11-08 07:05] LABS: ADD MANUAL DIFF? NO
[2016-11-08 07:20] LABS: EOS # 0.1 (0.0-0.7); EOS % 1.1 % (1.5-5.0); GRAN # 3.73 (1.4-6.5); GRAN % 61.2 % (50.0-68.0); HEMATOCRIT 32.2 % (42.0-52.0); LYMPH # 1.1 (1.2-3.4); MEAN CELL VOLUME 92.3 fL (80.0-105.0); MEAN CORPUSCULAR HEMOGLOBIN 28.9 pg (25.0-35.0); MEAN CORPUSCULAR HGB CONC 31.4 g/dl (31.0-37.0); MEAN PLATELET VOLUME 11.7 fl (7.0-11.0); MONO # 1.2 (0.1-0.6); MONO % 19.7 % (1.0-6.0); PLATELET COUNT 131 10^3/uL (120.0-450.0); RED CELL DISTRIBUTION WIDTH 16.3 % (11.5-14.5); WHITE BLOOD COUNT 6.1 10^3/ul (4.5-11.0)
[2016-11-08 07:43] LABS: ALB/GLOB RATIO 0.9 (1.1-1.8); ALKALINE PHOSPHATASE 49 U/L (38-133); ALT/SGPT 38 U/L (7-56); AST/SGOT 24 U/L (15-59); BILIRUBIN,TOTAL 0.7 mg/dL (0.2-1.3); BLOOD UREA NITROGEN 26 mg/dL (7-21); CALCIUM 9.1 mg/dL (8.4-10.5); CARBON DIOXIDE 37 mmol/L (21-33); CHLORIDE 94 mmol/L (98-107); GFR AFRICAN-AMERICAN > 60; GLUCOSE,RANDOM 131 mg/dL (70-110); POTASSIUM 3.9 mmol/L (3.6-5.0); SODIUM 137 mmol/L (132-148)
[2016-11-08] MEDS: Albuterol-Ipratrop 3 mg / 0.5 (3 ml) UD IH SCH ×5 (07:51→23:26)
[2016-11-08] MEDS: Verapamil 120 mg ER Tab PO SCH (09:53)
[2016-11-08] MEDS: Timolol 0.25% Ophth SOLN OU SCH ×2 (09:54→17:16)
[2016-11-08] MEDS: Pilocarpine 1% Opht (15ml) OU SCH ×2 (09:55→17:14)
--- NOTE | 2016-11-08 11:26 | CP.PCM.PN ---
<Jose Miller - Last Filed: 11/08/16 12:50> Subjective - Date & Time of Evaluation Date of Evaluation: 11/08/16 Time of Evaluation: 09:30 - Subjective Subjective: Dr. Miller PGY 1 Hospitalist Note Patient seen and evaluated at bedside. He says he feels much stronger and looks forward to getting PT today. He says his breathing is improved and feels much better sleeping with the BiPAP on. He currently denies any chest pain, SOB, leg swelling, abdominal swelling, fever, or chills. No adverse events reported over night per nursing. Objective - Vital Signs/Intake and Output Vital Signs (last 24 hours): Temp Pulse Resp BP Pulse Ox 97.6 F 62 18 114/63 100 11/07/16 10:00 11/08/16 00:24 11/07/16 10:00 11/08/16 09:55 11/07/16 10:00 - Medications Medications: Current Medications Albuterol/Ipratropium (Duoneb 3 Mg/0.5 Mg (3 Ml) Ud) 3 ml IH [id number] [facility] Last Admin: 11/08/16 11:03 Dose: 3 ml Apixaban (Eliquis) 5 mg PO BID [facility] PRN Reason: Protocol Last Admin: 11/08/16 09:55 Dose: 5 mg Atorvastatin Calcium (Lipitor) 20 mg PO DIN [facility] Last Admin: 11/07/16 17:35 Dose: 20 mg Clopidogrel Bisulfate (Plavix) 75 mg PO DAILY [facility] Last Admin: 11/08/16 09:54 Dose: 75 mg Docusate Sodium (Colace) 100 mg PO DAILY [facility] Last Admin: 11/08/16 09:53 Dose: 100 mg Escitalopram Oxalate (Lexapro) 10 mg PO DAILY [facility] Last Admin: 11/08/16 09:54 Dose: 10 mg Famotidine (Pepcid) 20 mg PO DAILY [facility] Last Admin: 11/08/16 09:53 Dose: 20 mg Furosemide (Lasix) 40 mg PO BID [facility] Last Admin: 11/08/16 09:55 Dose: 40 mg Gabapentin (Neurontin) 100 mg PO BID [facility] PRN Reason: Protocol Last Admin: 11/08/16 09:53 Dose: 100 mg Guaifenesin (Robitussin) 100 mg PO Q4H PRN PRN Reason: Cough Insulin Human Regular (Humulin R Med) 0 units SC ACHS [facility] PRN Reason: Protocol Last Admin: 11/08/16 06:31 Dose: 1 units Lisinopril (Zestril) 40 mg PO DAILY [facility] Last Admin: 11/08/16 09:53 Dose: 40 mg Non-Formulary Medication (Bimatoprost [Lumigan]) 1 drop OS DIN [facility] Last Admin: 11/07/16 17:31 Dose: Not Given Pilocarpine HCl (Isopto Carpine 1% Opht Soln) 0 ml OU BID [facility] Last Admin: 11/08/16 09:55 Dose: 1 drop Pioglitazone HCl (Actos) 30 mg PO DAILY [facility] Last Admin: 11/07/16 14:32 Dose: 30 mg Timolol Maleate (Timoptic 0.25% Ophth Soln) 1 drop OU BID [facility] Last Admin: 11/08/16 09:54 Dose: 1 drop Verapamil HCl (Calan Sr Tab) 120 mg PO DAILY [facility] Last Admin: 11/08/16 09:53 Dose: 120 mg - Labs Labs: 11/08/16 06:15 11/08/16 06:15 - Constitutional Appears: Non-toxic, No Acute Distress, Other (obese) - Head Exam Head Exam: ATRAUMATIC, NORMOCEPHALIC - Eye Exam Eye Exam: EOMI, Normal appearance, PERRL Pupil Exam: NORMAL ACCOMODATION, PERRL - ENT Exam ENT Exam: Mucous Membranes Moist. absent: Normal Oropharynx (poor dentition) - Neck Exam Neck Exam: Normal Inspection. absent: Tenderness, Thyromegaly - Respiratory Exam Respiratory Exam: Decreased Breath Sounds (bilateral lower lobes ), Clear to Ausculation Bilateral, NORMAL BREATHING PATTERN. absent: Rales, Rhonchi, Wheezes - Cardiovascular Exam Cardiovascular Exam: Irregular Rhythm (irregularly irregular), +S1, +S2. absent : Gallop, Rubs, Murmur - GI/Abdominal Exam GI & Abdominal Exam: Soft, Normal Bowel Sounds. absent: Tenderness - Extremities Exam Extremities Exam: Normal Capillary Refill, Pedal Edema (+1 bilateral edema) - Back Exam Back Exam: NORMAL INSPECTION. absent: rash noted, tenderness - Neurological Exam Neurological Exam: Alert, Awake, CN II-XII Intact, Oriented x3 - Psychiatric Exam Psychiatric exam: Normal Affect, Normal Mood - Skin Skin Exam: Dry, Intact, Warm Assessment and Plan - Assessment and Plan (Free Text) Assessment: Patient is an 81 y/o M with history of HTN, DM, arthritis, obesity, who presents with complaint of leg swelling and SOB. S/p complete left and right heart catheterization and stenting of mid circumflex. In TCU for PT and improving daily. Plan: 1) CHF * Cardiology consulted, Dr. Mckinley, help appreciated * Pulmonology consulted, help appreciated * Initial chest x-ray showed bilateral effusion * Initial CT chest showed bilateral lower lobe atelectasis/pneumonia with effusion [see full report] * Initial Echo showed LV normal size with mild concentric LV hypertrophy and EF of 55-60%, mild tricuspid regurge wtih RVSP 75 mm of Hg. [ see full report] * Lasix 40mg PO BID * daily weights * Maintain O2 sat >90% with supplemental oxygen * Duoneb's Q4H * BiPAP at night 2) CAD * S/p cardiac catheterization complete left and right heart with stenting of mid circumflex, preserved LvEF 65%, RV 70/12 PA 70/35, PCW 20, [see full report] * Continue aspirin and plavix 3) Afib * Rate controlled * continue Eliquis 5mg PO BID 4) HTN * continue Verapamil and Zestril * continue Hydralazine PRN 5) DM * Regular accuchecks * Sliding scale insulin * Continue neurontin for peripheral neuropathy * Resume metformin and actos prior to discharge 6) Hypothyroidism * low TSH at 0.21 and normal Free T4 at 1.81 * likely subacute hypthyroidism * recommend repeat in 6-8 weeks from discharge 7) Depression * Continue lexapro 8) Constipation * given prune juice and Miralax 9) PPX * continue pepcid * Robitussin for cough * SCD's contraindicated due to bilateral Edema Assessment and plan discussed with attending physician. <Jena Luciano - Last Filed: 11/08/16 17:06> Objective - Vital Signs/Intake and Output Vital Signs (last 24 hours): Temp Pulse Resp BP Pulse Ox 97.6 F 62 18 114/63 100 11/07/16 10:00 11/08/16 00:24 11/07/16 10:00 11/08/16 09:55 11/07/16 10:00 - Medications Medications: Current Medications Albuterol/Ipratropium (Duoneb 3 Mg/0.5 Mg (3 Ml) Ud) 3 ml IH [id number] [facility] Last Admin: 11/08/16 15:45 Dose: 3 ml Apixaban (Eliquis) 5 mg PO BID [facility] PRN Reason: Protocol Last Admin: 11/08/16 09:55 Dose: 5 mg Atorvastatin Calcium (Lipitor) 20 mg PO DIN [facility] Last Admin: 11/07/16 17:35 Dose: 20 mg Clopidogrel Bisulfate (Plavix) 75 mg PO DAILY [facility] Last Admin: 11/08/16 09:54 Dose: 75 mg Docusate Sodium (Colace) 100 mg PO DAILY [facility] Last Admin: 11/08/16 09:53 Dose: 100 mg Escitalopram Oxalate (Lexapro) 10 mg PO DAILY [facility] Last Admin: 11/08/16 09:54 Dose: 10 mg Famotidine (Pepcid) 20 mg PO DAILY [facility] Last Admin: 11/08/16 09:53 Dose: 20 mg Furosemide (Lasix) 40 mg PO BID [facility] Last Admin: 11/08/16 09:55 Dose: 40 mg Gabapentin (Neurontin) 100 mg PO BID [facility] PRN Reason: Protocol Last Admin: 11/08/16 09:53 Dose: 100 mg Guaifenesin (Robitussin) 100 mg PO Q4H PRN PRN Reason: Cough Insulin Human Regular (Humulin R Med) 0 units SC [facility] PRN Reason: Protocol Last Admin: 11/08/16 12:28 Dose: 1 units Lisinopril (Zestril) 40 mg PO DAILY [facility] Last Admin: 11/08/16 09:53 Dose: 40 mg Non-Formulary Medication (Bimatoprost [Lumigan]) 1 drop OS DIN [facility] Last Admin: 11/07/16 17:31 Dose: Not Given Pilocarpine HCl (Isopto Carpine 1% Opht Soln) 0 ml OU BID [facility] Last Admin: 11/08/16 09:55 Dose: 1 drop Pioglitazone HCl (Actos) 30 mg PO DAILY [facility] Last Admin: 11/08/16 11:00 Dose: 30 mg Timolol Maleate (Timoptic 0.25% Ophth Soln) 1 drop OU BID [facility] Last Admin: 11/08/16 09:54 Dose: 1 drop Verapamil HCl (Calan Sr Tab) 120 mg PO DAILY [facility] Last Admin: 11/08/16 09:53 Dose: 120 mg - Labs Labs: 11/08/16 06:15 11/08/16 06:15 Assessment and Plan - Assessment and Plan (Free Text) Assessment: attending note; patient seen and examined with resident in TCU. This is a 81 year old male with history of HTN, DM-2, arthritis, obesity, former smoker, depression, leg edema, right knee surgery, pulmonary hypertension , paroxysmal atrial fibrillation, recent abnormal stress test which showed inferior wall ischemia at his [employer] office who got admitted for evaluation of worsening of leg swelling and shortness of breath secondary to decompensated CHF exacerbation. He was found to have elevated BNP, Effusions on CXR. Echo revealed mild LVH, EF 55-60% and moderate to severe TR, pulmonary hypertension. Patient underwent cardiac cath and drug eluting stent was placed in mid circumflex. He had previous stents in LAD and cicumflex. clinically stable. A. fib; rate controlled. On eliquis. Continue oxygen nasal cannula during daytime and BIPAP at night. Pulmonary follow up requested. diabetes and hypertension: currently controlled. Advised to have sleep study as an outpatient. upon discharge the patient will follow-up with PMD Dr. fernandez and cardiology Dr. Mckinley. Attending/Attestation - Attestation I have personally seen and examined this patient.: Yes I have fully participated in the care of the patient.: Yes I have reviewed all pertinent clinical information, including history, physical exam and plan: Yes
--- NOTE | 2016-11-08 15:16 | CON ---
DATE: 11/08/2016 HISTORY OF PRESENT ILLNESS: The patient is an 81-year-old gentleman with history of COPD, right ventricular failure and left ventricular diastolic dysfunction who was admitted to TCU after hospitalization for respiratory failure and chronic obstructive pulmonary disease exacerbation. At present time , pulmonary consult was called to evaluate for potential sleep apnea. The patient sleeps alone and is not aware whether he is snoring or not. His bedtime is very irregular and he is not sure how many hours a night he sleeps. He, however, reports that when he wakes up, he is not feeling completely refreshed. The patient denies any cough and sputum production at the present time. No chest pain, no shortness of breath, no nausea, no vomiting, no diarrhea, no constipation. The patient quit smoking many years ago. MEDICATIONS: Lumigan, Actos, verapamil, Colace, DuoNeb every 4 hours, Eliquis, regular insulin sliding scale medium protocol, Lasix, Lexapro, Lipitor, Neurontin, Pepcid, Plavix, timolol eyedrops, lisinopril. ALLERGIES: NKDA. PAST MEDICAL HISTORY: CHF, right ventricular failure, COPD, respiratory insufficiency. FAMILY HISTORY: Noncontributory. REVIEW OF SYSTEMS: Revealed 12 organ system other than mentioned in history of present illness is negative. SOCIAL HISTORY: The patient is an ex-smoker. No alcohol or illicit drug abuse. PHYSICAL EXAMINATION: VITAL SIGNS: Blood pressure 114/63, oxygen saturation 100% on 4 liters nasal cannula, heart rate 62, respiratory rate 18. HEAD AND NECK: Atraumatic. LUNGS: Decreased breath sounds bilaterally. HEART: Regular rate and rhythm. S1, S2 normal. ABDOMEN: Soft, nontender, nondistended. Obese. MUSCULOSKELETAL: 1+ bilateral pedal and ankle edema, some chronic venous stasis in both lower extremities. SKIN: Moist. PSYCHOLOGIC: The patient is alert and oriented x 3. LABORATORY DATA: WBC 6.1, hemoglobin 10.1, platelet count 131. Sodium 137, potassium 3.9, chloride 94, carbon dioxide 37, BUN 26, creatinine 1.1, glucose 131. AST 24, ALT 38. ASSESSMENT AND PLAN: This is an 81-year-old gentleman who is recovering from respiratory failure, however, still exhibits signs of respiratory insufficiency. He appears to chronically retain CO2 and would highly benefit from BiPAP at night. Once discharged, I would recommend to proceed with a sleep study to see if patient does indeed have obstructive sleep apnea. 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 I would continue with inhaled corticosteroids, long-acting beta agonist inhaler and anticholinergic inhalers to treat for his chronic obstructive pulmonary disease. I would continue with infection prophylaxis with vaccination. He would benefit from pulmonary rehab. I will continue to target euvolemia, euglycemia, normothermia and oxygen saturation more than 90%. I will continue with deep venous thrombosis and gastrointestinal prophylaxis. Pedro Reese MD cc: [id number] TT: 11/08/2016 15:15:32 Confirmation # [id number] Dictation # [id number] elba LEMONS
[2016-11-08] MEDS: Non Formulary Medication (Bimatoprost [Lumigan] 1 DROP) OS SCH (17:17)
--- NOTE | 2016-11-08 20:11 | PN ---
DATE: 11/08/2016 The patient in room 327, bed 1. REASON FOR CONSULTATION AND FOLLOWUP: Decompensated congestive heart failure, atrial fibrillation wh ich is paroxysmal, morbid obesity, status post CO2 narcosis, status post PTCA of the circumflex. HISTORY OF PRESENT ILLNESS: An 81-year-old male who is known case of paroxysmal atrial fibrillation, hypertension, hyperlipidemia, history of coronary artery disease status post stent in LAD and circum flex being followed by ____ in [place], was admitted to hospital with the decompensated conge stive heart failure, CO2 narcosis, hypercapnia. The patient had catheterization, both right and left , which showed ejection fraction 65%. Successful PTCA with drug-eluting stent of mid circumflex was done, right heart catheterization showed RV systolic pressure of 70 mmHg suggestive of severe pulmona ry hypertension. The patient was treated on medical floor, now improved, now he is in transitional c are unit for deconditioning and physical therapy. He is getting physical therapy without any chest p ain or shortness of breath, has been ambulating. PHYSICAL EXAMINATION: VITAL SIGNS: Blood pressure 114/63, respirations 20, pulse 62, afebrile. HEAD: Normocephalic. EYES: Pupils normal. Conjunctivae slightly pale. NECK: JVP low. Carotid equal. THORAX: AP diameter normal. LUNGS: Clear. CARDIOVASCULAR: S1, S2. ABDOMEN: Soft, nontender, no organomegaly. EXTREMITIES: No clubbing, no cyanosis. The patient had chronic venous stasis changes on the lower e xtremities. LABORATORY DATA: WBC 6.1, hemoglobin 10.1, hematocrit 32.2, platelets 131. Sodium 137, potassium 3. 9, BUN 26, creatinine 1.1. AST, ALT normal. Total protein normal. Albumin low 2.9. DIAGNOSES: Decompensated congestive heart failure, diabetes mellitus, hypertension, hyperlipidemia, obesity, status post coronary artery angioplasty with stent insertion in the circumflex, pulmonary hy pertension, obesity. PLAN: The patient getting physical therapy without any cardiac symptoms. We will continue physical therapy and we will continue present medication and will follow with you. Anthony Aldana MD cc: [id number] TT: 11/08/2016 20:11:27 Confirmation # [id number] Dictation # [id number] jn
[2016-11-09] MEDS: Albuterol-Ipratrop 3 mg / 0.5 (3 ml) UD IH SCH ×3 (05:49→12:00)
[2016-11-09] MEDS: Insulin Reg-MEDIUM-Coverage SC SCH ×4 (06:48→22:18)
[2016-11-09] MEDS: Verapamil 120 mg ER Tab PO SCH (10:07)
[2016-11-09] MEDS: Pilocarpine 1% Opht (15ml) OU SCH ×2 (10:08→18:22)
[2016-11-09] MEDS: Timolol 0.25% Ophth SOLN OU SCH ×2 (10:09→18:24)
--- NOTE | 2016-11-09 13:06 | PN ---
DATE: 11/09/2016 The patient seen and examined at bedside. He is comfortable. He talks full sentences. He is not in respiratory or otherwise distress. He was walking around the room with cane. PHYSICAL EXAMINATION: VITAL SIGNS: Temperature 98.4, blood pressure 117/72, respiratory rate 18, oxygen saturation 90% on 4 L nasal cannula. HEAD AND NECK: Atraumatic. LUNGS: Decreased breath sounds bilaterally. HEART: Regular rate and rhythm. S1, S2 normal. ABDOMEN: Soft, nontender, nondistended. MUSCULOSKELETAL: 2+ bilateral pedal and ankle edema. NEUROLOGIC: The patient moves all extremities spontaneously. SKIN: Moist. PSYCHIATRIC: The patient is alert and oriented x 3. LABORATORY DATA: WBC 6.1, hemoglobin 10.1, platelet count 131. Sodium 137, potassium 3.9, chloride 94, carbon dioxide 37, BUN 26, creatinine 1.1 up from 1.0. Glucose 139, AST 24, ALT 38. MEDICATIONS: Eye drops, Actos, verapamil, Colace, DuoNeb every 4 hours, apixaban, regular insulin sliding scale medium protocol, Lasix 40 mg p.o. b.i.d. , Lexapro, Lipitor, Neurontin, Pepcid, Plavix and lisinopril. 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 Possibility of obesity hypoventilation syndrome cannot be ruled out as well. At the present time, I would recommend nightly BiPAP therapy, anticholinergic inhalers, ICS/LABA inhalers, deep venous thrombosis and gastrointestinal prophylaxis. I would recommend to maintain euvolemia. I will hold Lasix at present time and give dose of Diamox as patient is at risk for contraction alkalosis and his bicarbonate is fairly elevated up to 34. I will proceed with 6-minute walk test to see how much oxygen he would require at rest and at exertion. The patient would need to see primary medical doctor or pulmonary doctor within 7 days of discharge for additional education about inhalers, pulmonary rehabilitation. Infection prophylaxis with vaccination is also recommended. Sleep study to rule in or rule out obstructive sleep apnea with subsequent treatment would also be recommended. Addendum: Patient's 02sat 86% on room air at rest. 6 min walk test done. Patient required 2L/min to maintain 02sat above 91% on mild to moderate exertion. Would recommend 2L/min 02 supplementation at rest and during mild to moderate exertion. Pedro Reese MD cc: [id number] TT: 11/09/2016 13:05:40 Confirmation # [id number] Dictation # [id number] MTDD
--- NOTE | 2016-11-09 16:10 | PN ---
DATE: 11/09/2016 The patient in room 327, bed 1. REASON FOR CONSULTATION AND FOLLOWUP: Decompensated congestive heart failure; atrial fibrillation, p aroxysmal; morbid obesity, status post CO2 narcosis, status post PTCA of the circumflex. HISTORY OF PRESENT ILLNESS: An 81-year-old male, known case of paroxysmal atrial fibrillation, hyper tension, hyperlipidemia, history of coronary artery disease status post stent in LAD and circumflex, being followed by Dr. Jcaobo in [place]. The patient was admitted to the hospital with decompensa ten congestive heart failure, CO2 narcosis, hypercapnia. The patient had catheterization, both right and left heart catheterization which showed LV ejection fraction of 65%. Successful PTCA with drug- eluting stent of midcircumflex was done. The right heart catheterization showed RV systolic pressure of 70 mmHg suggestive of severe pulmonary hypertension. The patient was treated and he is better. Now he is in transitional care unit for deconditioning and physical therapy. Continues to get physic al therapy without any chest pain, shortness of breath, or palpitation. PHYSICAL EXAMINATION: VITAL SIGNS: Blood pressure 117/72, respirations 18, pulse 70, temperature 98.4. HEAD: Normocephalic. EYES: Pupils normal. Conjunctivae slightly pale. NECK: JVP low. Carotid equal. THORAX: AP diameter normal. LUNGS: Clear. CARDIOVASCULAR: S1, S2. ABDOMEN: Soft. No tenderness, no organomegaly. Bowel sounds normal. EXTREMITIES: No clubbing, no cyanosis. LABORATORY DATA: WBC 6.1, hemoglobin 10.1, hematocrit 32.2, platelets 131. Sodium 137, potassium 3. 9, BUN 26, creatinine 1.1, glucose 139, calcium 9.1. AST, ALT normal. Total protein 6.0, albumin 2. 9. DIAGNOSES: Decompensated congestive heart failure, diabetes mellitus, hypertension, hyperlipidemia, obesity, status post coronary artery angioplasty and stent insertion in the circumflex, pulmonary hyp ertension. PLAN: Continue physical therapy. Continue Actos 30 mg daily, Calan SR 120 daily, Diamox 500 mg IV o nce was given, Eliquis 5 mg b.i.d., furosemide 40 mg p.o. b.i.d., Lipitor 20 daily, Plavix 75 daily, lisinopril 40 daily. Will follow with you. Anthony Aldana MD cc: [id number] TT: 11/09/2016 16:09:28 Confirmation # [id number] Dictation # [id number] mn
[2016-11-09] MEDS: Non Formulary Medication (Bimatoprost [Lumigan] 1 DROP) OS SCH (18:21)
[2016-11-09] MEDS: Arformoterol 15 mcg/2 ml Inh Sol IH SCH (20:58)
[2016-11-09] MEDS: Budesonide 0.5 mg/2 ml Inhal Susp UD IH SCH (20:58)
[2016-11-10] MEDS: Insulin Reg-MEDIUM-Coverage SC SCH ×4 (06:50→22:02)
[2016-11-10 07:14] LABS: ADD MANUAL DIFF? NO
[2016-11-10 07:24] LABS: EOS # 0.1 (0.0-0.7); EOS % 1.1 % (1.5-5.0); GRAN # 3.61 (1.4-6.5); GRAN % 59.2 % (50.0-68.0); HEMATOCRIT 31.7 % (42.0-52.0); LYMPH # 0.7 (1.2-3.4); LYMPH % 11.9 % (22.0-35.0); MEAN CELL VOLUME 93.5 fL (80.0-105.0); MEAN CORPUSCULAR HEMOGLOBIN 28.9 pg (25.0-35.0); MEAN CORPUSCULAR HGB CONC 30.9 g/dl (31.0-37.0); MONO # 1.7 (0.1-0.6); MONO % 27.8 % (1.0-6.0); PLATELET COUNT 139 10^3/uL (120.0-450.0); RED CELL DISTRIBUTION WIDTH 16.8 % (11.5-14.5); WHITE BLOOD COUNT 6.1 10^3/ul (4.5-11.0)
[2016-11-10 07:33] LABS: ALB/GLOB RATIO 0.9 (1.1-1.8); ALKALINE PHOSPHATASE 49 U/L (38-133); ALT/SGPT 39 U/L (7-56); AST/SGOT 21 U/L (15-59); BILIRUBIN,TOTAL 0.6 mg/dL (0.2-1.3); BLOOD UREA NITROGEN 21 mg/dL (7-21); CALCIUM 9.5 mg/dL (8.4-10.5); CARBON DIOXIDE 32 mmol/L (21-33); CHLORIDE 99 mmol/L (98-107); GFR AFRICAN-AMERICAN > 60; GLUCOSE,RANDOM 129 mg/dL (70-110); SODIUM 136 mmol/L (132-148); TOTAL PROTEIN 6.4 g/dL (5.8-8.3)
[2016-11-10] MEDS: Budesonide 0.5 mg/2 ml Inhal Susp UD IH SCH ×2 (07:40→20:22)
[2016-11-10] MEDS: Arformoterol 15 mcg/2 ml Inh Sol IH SCH ×2 (07:40→20:23)
[2016-11-10] MEDS: Pilocarpine 1% Opht (15ml) OU SCH ×2 (09:57→18:24)
[2016-11-10] MEDS: Timolol 0.25% Ophth SOLN OU SCH (10:00)
[2016-11-10] MEDS: Verapamil 120 mg ER Tab PO SCH (10:57)
[2016-11-10] MEDS: Tiotropium 18 mcg Cap For Inhalation IH SCH (10:58)
--- NOTE | 2016-11-10 12:37 | CP.PCM.PN ---
<Maik Huddleston - Last Filed: 11/10/16 19:10> Subjective - Date & Time of Evaluation Date of Evaluation: 11/10/16 Time of Evaluation: 07:40 - Subjective Subjective: Dr. Huddleston PGY 1 Hospitalist Note Patient seen and evaluated at bedside. Today, he is pleasant, feeling good and doing better with his physical therapy. He is making urine but still complains of shortness of breath during exercise. He currently denies any chest pain, SOB , leg swelling, abdominal swelling, fever, or chills. Objective - Vital Signs/Intake and Output Vital Signs (last 24 hours): Temp Pulse Resp BP Pulse Ox 97.9 F 78 20 109/64 93 L 11/09/16 15:55 11/09/16 15:55 11/09/16 15:55 11/10/16 10:57 11/09/16 15:55 Intake and Output: 11/10/16 11/10/16 06:59 18:59 Intake Total 520 420 Output Total 1400 Balance 520 -980 - Medications Medications: Current Medications Apixaban (Eliquis) 5 mg PO BID [facility] PRN Reason: Protocol Last Admin: 11/10/16 09:57 Dose: 5 mg Arformoterol Tartrate (Brovana) 15 mcg IH [id number] [facility] Last Admin: 11/10/16 07:40 Dose: 15 mcg Atorvastatin Calcium (Lipitor) 20 mg PO DIN [facility] Last Admin: 11/09/16 18:23 Dose: 20 mg Budesonide (Pulmicort Respules) 1 mg IH [id number] [facility] Last Admin: 11/10/16 07:40 Dose: 1 mg Clopidogrel Bisulfate (Plavix) 75 mg PO 0800 [facility] Last Admin: 11/10/16 08:45 Dose: 75 mg Docusate Sodium (Colace) 100 mg PO DAILY [facility] Last Admin: 11/10/16 09:56 Dose: 100 mg Escitalopram Oxalate (Lexapro) 10 mg PO DAILY [facility] Last Admin: 11/10/16 10:57 Dose: 10 mg Famotidine (Pepcid) 20 mg PO 2200 [facility] Furosemide (Lasix) 40 mg PO BID [facility] Last Admin: 11/09/16 10:09 Dose: 40 mg Gabapentin (Neurontin) 100 mg PO BID [facility] PRN Reason: Protocol Last Admin: 11/10/16 09:58 Dose: 100 mg Guaifenesin (Robitussin) 100 mg PO Q4H PRN PRN Reason: Cough Insulin Human Regular (Humulin R Med) 0 units SC ACHS [facility] PRN Reason: Protocol Last Admin: 11/10/16 06:50 Dose: Not Given Lisinopril (Zestril) 40 mg PO DAILY [facility] Last Admin: 11/10/16 11:00 Dose: 40 mg Non-Formulary Medication (Bimatoprost [Lumigan]) 1 drop OS DIN [facility] Last Admin: 11/09/16 18:21 Dose: Not Given Pilocarpine HCl (Isopto Carpine 1% Opht Soln) 0 ml OU BID [facility] Last Admin: 11/10/16 09:57 Dose: 1 drop Pioglitazone HCl (Actos) 30 mg PO 0800 [facility] Last Admin: 11/10/16 08:44 Dose: 30 mg Timolol Maleate (Timoptic 0.25% Ophth Soln) 1 drop OU BID [facility] Last Admin: 11/10/16 10:00 Dose: 1 drop Tiotropium Milton (Spiriva) 18 mcg IH DAILY [facility] Last Admin: 11/10/16 10:58 Dose: 18 mcg Verapamil HCl (Calan Sr Tab) 120 mg PO DAILY [facility] Last Admin: 11/10/16 10:57 Dose: 120 mg - Labs Labs: 11/10/16 07:13 11/10/16 07:13 - Constitutional Appears: No Acute Distress - Head Exam Head Exam: ATRAUMATIC - Eye Exam Eye Exam: EOMI - ENT Exam ENT Exam: Mucous Membranes Moist - Neck Exam Neck Exam: Full ROM - Respiratory Exam Respiratory Exam: Clear to Ausculation Bilateral, NORMAL BREATHING PATTERN - Cardiovascular Exam Cardiovascular Exam: Irregular Rhythm, +S1, +S2 - GI/Abdominal Exam GI & Abdominal Exam: Soft, Normal Bowel Sounds. absent: Tenderness - Extremities Exam Extremities Exam: Full ROM, Joint Swelling, Pedal Edema - Neurological Exam Neurological Exam: Alert, Awake, Oriented x3 - Psychiatric Exam Psychiatric exam: Normal Affect, Normal Mood - Skin Skin Exam: Dry, Intact, Warm Assessment and Plan - Assessment and Plan (Free Text) Assessment: Patient is an 81 y/o M with history of HTN, DM, arthritis, obesity, who presents with complaint of leg swelling and SOB. S/p complete left and right heart catheterization and stenting of mid circumflex. In TCU for PT and improving daily. Plan: 1) CHF * Cardiology consulted, Dr. Mckinley, help appreciated * Initial chest x-ray showed bilateral effusion * Initial CT chest showed bilateral lower lobe atelectasis/pneumonia with effusion [see full report] * Initial Echo showed LV normal size with mild concentric LV hypertrophy and EF of 55-60%, mild tricuspid regurge wtih RVSP 75 mm of Hg. [ see full report] * daily weights * Maintain O2 sat >90% with supplemental oxygen 2) COPD * Pulmonology consulted, Dr. Reese, help appreciated * Duoneb's Q4H * Brovana 15mcg Q12 * Budesonide 1mg IH Q12 * Tiotropium 18mcg IH daily * BiPAP at night * 2L NC at rest * please f/u with PMD or helper/driver within 7 days of d/c for additional education 3) CAD * S/p cardiac catheterization complete left and right heart with stenting of mid circumflex, preserved LvEF 65%, RV 70/12 PA 70/35, PCW 20, [see full report] * Continue aspirin, plavix, & lipitor 4) Afib * Rate controlled * continue Eliquis 5mg PO BID 5) HTN * continue Verapamil and Zestril 6) DM * Regular accuchecks * Sliding scale insulin * Pioglitazone * Continue neurontin for peripheral neuropathy * Resume metformin prior to discharge 7) Hypothyroidism * low TSH at 0.21 and normal Free T4 at 1.81 * likely subacute hypothyroidism * recommend repeat in 6-8 weeks from discharge 8) Depression * Continue lexapro 9) Constipation * Colace 10) PPX * pepcid 20mg daily * Robitussin prn for cough * SCD's contraindicated due to bilateral Edema Assessment and plan discussed with attending physician. <Jena Luciano - Last Filed: 11/11/16 10:24> Objective - Vital Signs/Intake and Output Vital Signs (last 24 hours): Temp Pulse Resp BP Pulse Ox 97.9 F 75 18 91/52 L 91 L 11/10/16 16:00 11/10/16 16:00 11/10/16 16:00 11/10/16 16:00 11/10/16 16:00 - Medications Medications: Current Medications Apixaban (Eliquis) 5 mg PO BID [facility] PRN Reason: Protocol Last Admin: 11/10/16 18:24 Dose: 5 mg Arformoterol Tartrate (Brovana) 15 mcg IH [id number] [facility] Last Admin: 11/11/16 07:53 Dose: 15 mcg Atorvastatin Calcium (Lipitor) 20 mg PO DIN [facility] Last Admin: 11/10/16 18:24 Dose: 20 mg Budesonide (Pulmicort Respules) 1 mg IH [id number] [facility] Last Admin: 11/11/16 07:53 Dose: 1 mg Clopidogrel Bisulfate (Plavix) 75 mg PO 0800 [facility] Last Admin: 11/11/16 08:26 Dose: 75 mg Docusate Sodium (Colace) 100 mg PO DAILY [facility] Last Admin: 11/10/16 09:56 Dose: 100 mg Escitalopram Oxalate (Lexapro) 10 mg PO DAILY [facility] Last Admin: 11/10/16 10:57 Dose: 10 mg Famotidine (Pepcid) 20 mg PO 2200 [facility] Last Admin: 11/10/16 22:02 Dose: 20 mg Furosemide (Lasix) 40 mg PO DAILY [facility] Gabapentin (Neurontin) 100 mg PO BID [facility] PRN Reason: Protocol Last Admin: 11/10/16 18:23 Dose: 100 mg Guaifenesin (Robitussin) 100 mg PO Q4H PRN PRN Reason: Cough Insulin Human Regular (Humulin R Med) 0 units SC [facility] PRN Reason: Protocol Last Admin: 11/11/16 07:01 Dose: Not Given Lisinopril (Zestril) 40 mg PO DAILY [facility] Last Admin: 11/10/16 11:00 Dose: 40 mg Non-Formulary Medication (Bimatoprost [Lumigan]) 1 drop OS DIN [facility] Last Admin: 11/10/16 18:24 Dose: Not Given Pilocarpine HCl (Isopto Carpine 1% Opht Soln) 0 ml OU BID [facility] Last Admin: 11/10/16 18:24 Dose: 1 drop Pioglitazone HCl (Actos) 30 mg PO 0800 [facility] Last Admin: 11/11/16 08:26 Dose: 30 mg Timolol Maleate (Timoptic 0.25% Ophth Soln) 1 drop OU BID [facility] Last Admin: 11/10/16 10:00 Dose: 1 drop Tiotropium Milton (Spiriva) 18 mcg IH DAILY [facility] Last Admin: 11/10/16 10:58 Dose: 18 mcg Verapamil HCl (Calan Sr Tab) 120 mg PO DAILY [facility] Last Admin: 11/10/16 10:57 Dose: 120 mg - Labs Labs: 11/10/16 07:13 11/10/16 07:13 Assessment and Plan - Assessment and Plan (Free Text) Assessment: Attending note; Patient seen and examined with resident. agree with notes with some additions and changes. patient seen and examined with resident in TCU. 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 He was found to have elevated BNP, Effusions on CXR. Echo revealed mild LVH, EF 55-60% and moderate to severe TR, pulmonary hypertension. Patient underwent cardiac cath and drug eluting stent was placed in mid circumflex. He had previous stents in LAD and cicumflex. clinically stable. currently on plavix only. A. fib; rate controlled. On eliquis. Continue oxygen nasal cannula during daytime and BIPAP at night. Pulmonary follow up requested. diabetes and hypertension: currently controlled. Advised to have sleep study as an outpatient. upon discharge the patient will follow-up with PMD Dr. fernandez and cardiology Dr. Mckinley. Attending/Attestation - Attestation I have personally seen and examined this patient.: Yes I have fully participated in the care of the patient.: Yes I have reviewed all pertinent clinical information, including history, physical exam and plan: Yes
[2016-11-10 13:11] VITALS: RESP 18
[2016-11-10] MEDS: Non Formulary Medication (Bimatoprost [Lumigan] 1 DROP) OS SCH (18:24)
[2016-11-11] MEDS: Insulin Reg-MEDIUM-Coverage SC SCH ×4 (07:01→22:27)
[2016-11-11] MEDS: Arformoterol 15 mcg/2 ml Inh Sol IH SCH ×2 (07:53→19:56)
[2016-11-11] MEDS: Budesonide 0.5 mg/2 ml Inhal Susp UD IH SCH ×2 (07:53→19:56)
[2016-11-11] MEDS: Tiotropium 18 mcg Cap For Inhalation IH SCH (11:00)
[2016-11-11] MEDS: Pilocarpine 1% Opht (15ml) OU SCH ×2 (11:00→17:55)
[2016-11-11] MEDS: Timolol 0.25% Ophth SOLN OU SCH ×2 (11:00→17:51)
[2016-11-11] MEDS: Verapamil 120 mg ER Tab PO SCH (11:03)
--- NOTE | 2016-11-11 17:25 | PN ---
DATE: 11/11/2016 REASON FOR CONSULTATION AND FOLLOWUP: Decompensated congestive heart failure, atrial fibrillation __ ___, morbid obesity, status post PTCA of circumflex. Now patient is in the transitional care u nit. BRIEF CLINICAL HISTORY: This is an 81-year-old male with a past medical history significant for paro xysmal atrial fibrillation, morbid obesity, history of a stent in the past, history of a circumflex s tent in the past, admitted with decompensated congestive heart failure, CO2 narcosis, hypertension, h yperlipidemia, congestive heart failure, underwent cardiac catheterization, left and right, and subse quently a stent in the circumflex. The patient is now in the transitional care unit getting rehabili tation. RV systolic pressure of 70 mmHg, history of [id number] pulmonary hypertension Denie s any chest pain, shortness of breath, or any palpitations. PHYSICAL EXAMINATION: VITAL SIGNS: Temperature afebrile, heart rate 82, blood pressure 100/75. HEENT: PERRLA. Extraocular muscles intact. NECK: Supple. No carotid bruits. No thyromegaly. CHEST: Clear to auscultation. HEART: S1, S2 regular. ABDOMEN: Soft. EXTREMITIES: Clubbing and cyanosis negative. BLOOD WORKUP: WBC 6.1, hemoglobin 9.8, hematocrit 31.7, platelet count 139. Chemistry shows sodium 130, potassium 4, chloride , carbon dioxide 32, anion gap of 9, BUN 21, creatinine 1.1. IMPRESSION: Diabetes, hypertension, hyperlipidemia, morbid obesity, paroxysmal atrial fibrillation, coronary artery disease status post multiple stents in the past, status post a stent in the circumfle x this time, pulmonary hypertension, right heart failure. RECOMMENDATION: Continue physical therapy. Continue verapamil. Continue Eliquis. Continue Lasix. Continue lisinopril. Follow up the lab in the morning. Will follow with you. Thank you, Dr. Luciano, for allowing us the opportunity in taking care of your patient. Upon disch arge, the patient will be followed by , turn over given . Anthony Mckinley MD cc: [id number] TT: 11/11/2016 17:23:49 Confirmation # [id number] Dictation # [id number] dn
[2016-11-11] MEDS: Non Formulary Medication (Bimatoprost [Lumigan] 1 DROP) OS SCH (17:53)
--- NOTE | 2016-11-11 18:07 | PN ---
DATE: 11/11/2016 SUBJECTIVE: The patient is resting in bed with nasal cannula and states that he puts the CPAP mask o n at night. He is comfortable at this time with no respiratory distress. No cough or congestion. N o fever or chills. No nausea or vomiting. No chest pain, no abdominal pain, no diarrhea. PHYSICAL EXAMINATION: VITAL SIGNS: His temperature is 97.9, his pulse is 82, respirations are 18, and BP is 129/75. SKIN: Warm and dry. HEAD: Atraumatic, normocephalic. EYES: Reactive to light. EARS, NOSE AND THROAT: Seem to be within normal limits. NECK: Supple. No JVD, no thyroid enlargement, no lymph nodes. HEART: Has a regular rate and rhythm. Normal S1, S2. LUNGS: Reveal decreased breath sounds at the bases with rare rhonchi at the bases as well. ABDOMEN: Soft, nontender, obese. GENITALIA AND RECTAL: Deferred. MUSCULOSKELETAL: No joint deformities. EXTREMITIES: Reveal positive trace edema. NEUROLOGIC: He seems to be grossly intact. IMPRESSION: This patient has obstructive sleep apnea with COPD, as well as cor pulmonale and severe pulmonary hypertension. He also has atrial fibrillation and hypothyroidism. PLAN: We will continue with BiPAP and O2 support. The patient is getting Brovana as a bronchodilato r. He is getting Lasix for diuresis and Pulmicort as well. We will continue with aggressive pulmona ry toilet. The patient is also getting Robitussin and Spiriva. I will follow closely and treat aggr essively along with the other consultants and the primary care doctor. Jairo Calderón MD cc: [id number] TT: 11/11/2016 18:06:18 Confirmation # [id number] Dictation # [id number] mn
[2016-11-12] MEDS: Insulin Reg-MEDIUM-Coverage SC SCH ×4 (07:06→22:37)
[2016-11-12 07:10] LABS: BLOOD UREA NITROGEN 23 mg/dL (7-21); CALCIUM 8.9 mg/dL (8.4-10.5); CARBON DIOXIDE 27 mmol/L (21-33); CHLORIDE 101 mmol/L (98-107); GFR AFRICAN-AMERICAN > 60; GLUCOSE,RANDOM 101 mg/dL (70-110); SODIUM 133 mmol/L (132-148)
[2016-11-12 07:12] LABS: HEMATOCRIT 29.3 % (42.0-52.0); MEAN CELL VOLUME 92.1 fL (80.0-105.0); MEAN CORPUSCULAR HEMOGLOBIN 28.9 pg (25.0-35.0); MEAN CORPUSCULAR HGB CONC 31.4 g/dl (31.0-37.0); MEAN PLATELET VOLUME 12.4 fl (7.0-11.0); RED CELL DISTRIBUTION WIDTH 16.7 % (11.5-14.5); WHITE BLOOD COUNT 8.1 10^3/ul (4.5-11.0)
[2016-11-12] MEDS: Budesonide 0.5 mg/2 ml Inhal Susp UD IH SCH ×2 (07:42→20:15)
[2016-11-12] MEDS: Arformoterol 15 mcg/2 ml Inh Sol IH SCH ×2 (07:42→20:15)
[2016-11-12] MEDS: Timolol 0.25% Ophth SOLN OU SCH ×2 (10:28→17:42)
[2016-11-12] MEDS: Verapamil 120 mg ER Tab PO SCH (10:28)
[2016-11-12] MEDS: Pilocarpine 1% Opht (15ml) OU SCH ×2 (10:30→17:41)
[2016-11-12] MEDS: Tiotropium 18 mcg Cap For Inhalation IH SCH (10:30)
--- NOTE | 2016-11-12 13:31 | PN ---
DATE: 11/12/2016 The patient is in room 327, bed 1. REASON FOR CONSULTATION AND FOLLOWUP: Decompensated congestive heart failure, atrial fibrillation, m orbid obesity, history of coronary artery disease, status post PTCA of circumflex. HISTORY OF PRESENT ILLNESS: The patient is an 81-year-old male with past medical history significant for paroxysmal atrial fibrillation, morbid obesity, history of stents in the past, history of circum flex stent in the past. Admitted with decompensated congestive heart failure, CO2 narcosis, hyperten addie, hyperlipidemia, congestive heart failure, underwent cardiac catheterization, both left and righ t, and subsequently had a stent insertion in circumflex. The patient now in transitional care unit g etting physical therapy. RV systolic pressure 70 mmHg, history of moderate to severe pulmonary hyper tension. The patient while doing exercise, denies any chest pain, shortness of breath, or palpitatio n. PHYSICAL EXAMINATION: VITAL SIGNS: Blood pressure 126/68, respirations 18, pulse 70, temperature 97.6. HEAD: Normocephalic. EYES: Pupils normal. Conjunctivae slightly pale. NECK: JVP low. Carotid equal. THORAX: AP diameter normal. LUNGS: Clear. CARDIOVASCULAR: S1, S2. ABDOMEN: Protuberant, no organomegaly. EXTREMITIES: No clubbing, no cyanosis. LABORATORY DATA: WBC 8.1, hemoglobin 9.2, hematocrit 29.3, platelets 118. Sodium 133, potassium 4.0 , BUN 23, creatinine 1.0, random glucose 101, calcium 8.9. DIAGNOSES: Diabetes, hypertension, hyperlipidemia, morbid obesity, paroxysmal atrial fibrillation, c oronary artery disease, status post multiple stents in the past, status post stent in circumflex on t his admission, pulmonary hypertension, right heart failure. PLAN: Advised patient to continue physical therapy and try to lose weight. The patient is getting A ctos 30 mg daily, Calan SR 120 t.i.d., Eliquis 5 b.i.d., Lasix 40 daily, Lipitor 20 daily, lisinopril 40 daily. We will continue present therapy. We will follow with you. Anthony Aldana MD cc: [phone] TT: 11/12/2016 13:31:14 Confirmation # [id number] Dictation # [id number]
--- NOTE | 2016-11-12 14:09 | CP.PCM.PN ---
<Lissette Stafford - Last Filed: 11/12/16 16:10> Subjective - Date & Time of Evaluation Date of Evaluation: 11/12/16 Time of Evaluation: 13:59 - Subjective Subjective: HOSPITALIST PROGRESS NOTE Pt seen and examined at bedside. No acute events overnight. Denies having any CP, SOB, dyspnea on exertion, abd pain, N/V/D/C, urinary symptoms. Pt is getting daily PT and is tolerating it well. Pt is using NC O2 continuously. Objective - Vital Signs/Intake and Output Vital Signs (last 24 hours): Temp Pulse Resp BP Pulse Ox 97.4 F L 83 18 126/68 96 11/12/16 10:00 11/12/16 10:00 11/12/16 10:00 11/12/16 10:28 11/12/16 10:00 Intake and Output: 11/12/16 11/12/16 06:59 18:59 Intake Total 420 Balance 420 - Medications Medications: Current Medications Apixaban (Eliquis) 5 mg PO BID [facility] PRN Reason: Protocol Last Admin: 11/12/16 10:29 Dose: 5 mg Arformoterol Tartrate (Brovana) 15 mcg IH [id number] [facility] Last Admin: 11/12/16 07:42 Dose: 15 mcg Atorvastatin Calcium (Lipitor) 20 mg PO DIN [facility] Last Admin: 11/11/16 17:55 Dose: 20 mg Budesonide (Pulmicort Respules) 1 mg IH [id number] [facility] Last Admin: 11/12/16 07:42 Dose: 1 mg Clopidogrel Bisulfate (Plavix) 75 mg PO 0800 [facility] Last Admin: 11/12/16 08:39 Dose: 75 mg Docusate Sodium (Colace) 100 mg PO DAILY [facility] Last Admin: 11/12/16 10:29 Dose: 100 mg Escitalopram Oxalate (Lexapro) 10 mg PO DAILY [facility] Last Admin: 11/12/16 10:30 Dose: 10 mg Famotidine (Pepcid) 20 mg PO 2200 [facility] Last Admin: 11/11/16 22:28 Dose: 20 mg Furosemide (Lasix) 40 mg PO DAILY [facility] Gabapentin (Neurontin) 100 mg PO BID [facility] PRN Reason: Protocol Last Admin: 11/12/16 10:26 Dose: 100 mg Guaifenesin (Robitussin) 100 mg PO Q4H PRN PRN Reason: Cough Insulin Human Regular (Humulin R Med) 0 units SC ACHS [facility] PRN Reason: Protocol Last Admin: 11/12/16 07:06 Dose: Not Given Lisinopril (Zestril) 40 mg PO DAILY [facility] Last Admin: 11/12/16 10:31 Dose: 40 mg Non-Formulary Medication (Bimatoprost [Lumigan]) 1 drop OS DIN [facility] Last Admin: 11/11/16 17:53 Dose: Not Given Pilocarpine HCl (Isopto Carpine 1% Opht Soln) 0 ml OU BID [facility] Last Admin: 11/12/16 10:30 Dose: 1 drop Pioglitazone HCl (Actos) 30 mg PO 0800 [facility] Last Admin: 11/12/16 08:38 Dose: 30 mg Timolol Maleate (Timoptic 0.25% Ophth Soln) 1 drop OU BID [facility] Last Admin: 11/12/16 10:28 Dose: 1 drop Tiotropium Chandler (Spiriva) 18 mcg IH DAILY [facility] Last Admin: 11/12/16 10:30 Dose: 18 mcg Verapamil HCl (Calan Sr Tab) 120 mg PO DAILY [facility] Last Admin: 11/12/16 10:28 Dose: 120 mg - Labs Labs: 11/12/16 06:30 11/12/16 06:00 - Constitutional Appears: Non-toxic, No Acute Distress - Head Exam Head Exam: ATRAUMATIC - ENT Exam ENT Exam: Mucous Membranes Moist - Respiratory Exam Respiratory Exam: Clear to Ausculation Bilateral. absent: Rales, Rhonchi, Wheezes - Cardiovascular Exam Cardiovascular Exam: REGULAR RHYTHM, +S1, +S2. absent: Gallop, Rubs, Murmur - GI/Abdominal Exam GI & Abdominal Exam: Soft, Normal Bowel Sounds. absent: Distended, Firm, Guarding, Rigid, Tenderness - Extremities Exam Extremities Exam: Pedal Edema (2+ B/L) - Neurological Exam Neurological Exam: Alert, Awake, Oriented x3 - Psychiatric Exam Psychiatric exam: Normal Affect, Normal Mood - Skin Skin Exam: Dry, Intact, Normal Color, Warm Assessment and Plan - Assessment and Plan (Free Text) Assessment: Patient is an 81 y/o M with past medical history of HTN, DM, arthritis, obesity who presented with SOB and LE swelling. Pt underwent complete left and right heart catheterization and stenting of mid circumflex. In TCU for PT and improving daily. Pt is also found to have chronic respiratory failure likely secondary to COPD. Plan: 1) Chronic Respiratory Failure likely due to severe COPD * PCO2 was 56 on last ABG on 11/01 * Pt has been having trouble tolerating BiPAP and complains of symptoms parallel to breath stacking. Plan is to discontinue the use of BiPAP as it has been proven insufficient and order Non-Invasive Ventilation to target volume control and reduce the elevated PCO2 levels that the pt has been experiencing on BiPAP. Without non-invasive ventilation pt might endure additional hospital admissions or even a life threatening event. Plan has been discussed with patient. * Pulmonology consulted, Dr. Reese, help appreciated * Duoneb's Q4H * Brovana 15mcg Q12 * Budesonide 1mg IH Q12 * Tiotropium 18mcg IH daily * BiPAP at night * 2L NC at rest * 6 min walk test done showed that pt required 2L/min O2 NC to maintain O2 sat > 91 % on mild to mod exertion. Would recommend 2L/min O2 supplementation at rest and during mod exertion. * Will discuss with Social Work to get home O2 2) CHF * Cardiology consulted, Dr. Mckinley, help appreciated * Initial chest x-ray showed bilateral effusion * Initial CT chest showed bilateral lower lobe atelectasis/pneumonia with effusion [see full report] * Initial Echo showed LV normal size with mild concentric LV hypertrophy and EF of 55-60%, mild tricuspid regurge wtih RVSP 75 mm of Hg. [ see full report] * daily weights * Maintain O2 sat >90% with supplemental oxygen 3) CAD * S/p cardiac catheterization complete left and right heart with stenting of mid circumflex, preserved LvEF 65%, RV 70/12 PA 70/35, PCW 20, [see full report] * Continue aspirin, plavix, & lipitor 4) Afib * Rate controlled * continue Eliquis 5mg PO BID 5) HTN * continue Verapamil and Zestril 6) DM * Regular accuchecks * Sliding scale insulin * Pioglitazone * Continue neurontin for peripheral neuropathy * Resume metformin prior to discharge 7) Hypothyroidism * low TSH at 0.21 and normal Free T4 at 1.81 * likely subacute hypothyroidism * recommend repeat in 6-8 weeks from discharge 8) Depression * Continue lexapro 9) Constipation * Colace 10) PPX * pepcid 20mg daily * Robitussin prn for cough * SCD's contraindicated due to bilateral Edema Case discussed with attending Dr. Amanda Carroll <Amanda Carroll - Last Filed: 11/12/16 16:25> Objective - Vital Signs/Intake and Output Vital Signs (last 24 hours): Temp Pulse Resp BP Pulse Ox 97.4 F L 83 18 126/68 96 11/12/16 10:00 11/12/16 10:00 11/12/16 10:00 11/12/16 10:28 11/12/16 10:00 Intake and Output: 11/12/16 11/12/16 06:59 18:59 Intake Total 420 Balance 420 - Medications Medications: Current Medications Apixaban (Eliquis) 5 mg PO BID [facility] PRN Reason: Protocol Last Admin: 11/12/16 10:29 Dose: 5 mg Arformoterol Tartrate (Brovana) 15 mcg IH [id number] [facility] Last Admin: 11/12/16 07:42 Dose: 15 mcg Atorvastatin Calcium (Lipitor) 20 mg PO DIN [facility] Last Admin: 11/11/16 17:55 Dose: 20 mg Budesonide (Pulmicort Respules) 1 mg IH [id number] [facility] Last Admin: 11/12/16 07:42 Dose: 1 mg Clopidogrel Bisulfate (Plavix) 75 mg PO 0800 [facility] Last Admin: 11/12/16 08:39 Dose: 75 mg Docusate Sodium (Colace) 100 mg PO DAILY [facility] Last Admin: 11/12/16 10:29 Dose: 100 mg Escitalopram Oxalate (Lexapro) 10 mg PO DAILY [facility] Last Admin: 11/12/16 10:30 Dose: 10 mg Famotidine (Pepcid) 20 mg PO 2200 [facility] Last Admin: 11/11/16 22:28 Dose: 20 mg Furosemide (Lasix) 40 mg PO DAILY [facility] Gabapentin (Neurontin) 100 mg PO BID [facility] PRN Reason: Protocol Last Admin: 11/12/16 10:26 Dose: 100 mg Guaifenesin (Robitussin) 100 mg PO Q4H PRN PRN Reason: Cough Insulin Human Regular (Humulin R Med) 0 units SC ACHS [facility] PRN Reason: Protocol Last Admin: 11/12/16 07:06 Dose: Not Given Lisinopril (Zestril) 40 mg PO DAILY [facility] Last Admin: 11/12/16 10:31 Dose: 40 mg Non-Formulary Medication (Bimatoprost [Lumigan]) 1 drop OS DIN [facility] Last Admin: 11/11/16 17:53 Dose: Not Given Pilocarpine HCl (Isopto Carpine 1% Opht Soln) 0 ml OU BID [facility] Last Admin: 11/12/16 10:30 Dose: 1 drop Pioglitazone HCl (Actos) 30 mg PO 0800 [facility] Last Admin: 11/12/16 08:38 Dose: 30 mg Timolol Maleate (Timoptic 0.25% Ophth Soln) 1 drop OU BID [facility] Last Admin: 11/12/16 10:28 Dose: 1 drop Tiotropium Chandler (Spiriva) 18 mcg IH DAILY [facility] Last Admin: 11/12/16 10:30 Dose: 18 mcg Verapamil HCl (Calan Sr Tab) 120 mg PO DAILY [facility] Last Admin: 11/12/16 10:28 Dose: 120 mg - Labs Labs: 11/12/16 06:30 11/12/16 06:00 Attending/Attestation - Attestation I have personally seen and examined this patient.: Yes I have fully participated in the care of the patient.: Yes I have reviewed all pertinent clinical information, including history, physical exam and plan: Yes Notes (Text): I have seen and examined patient with the resident. This is 81 year old male with history of HTN, DM-2, arthritis, obesity, former smoker, depression, leg edema, right knee surgery, pulmonary hypertension, paroxysmal atrial fibrillation who got admitted for worsening of leg swelling and shortness of breath most likely secondary to decompensated CHF exacerbation. He was found to have elevated BNP, Effusions on CXR. Echo revealed mild LVH, EF 55-60% and moderate to severe TR, pulmonary hypertension. Patient underwent cardiac cath and drug eluting stent was placed in mid circumflex. He had previous stents in LAD and cicumflex. Patient was transferred to TCU for rehab. He has been participating in PT. Continue plavix and eliquis. He has chronic respiratory failure secondary to COPD. Non invasive ventilation recommended for the patient to prevent additional hospital admissions. 6 min walk test showed that patient did require 2l/min o2 to maintain sats >91% on mild to moderate exertion. Discussed with the patient and SW. Patient is awake and alert and denies any complaints. Patient has low TSH and Free T4 secondary to non thyroidal illness. Plan to repeat TFT's in 6-8 weeks. Advised to have sleep study as an outpatient. Upon discharge patient will follow up with Dr Beach. Dr Amanda Carroll
[2016-11-12] MEDS: Non Formulary Medication (Bimatoprost [Lumigan] 1 DROP) OS SCH (17:38)
[2016-11-13] MEDS: Insulin Reg-MEDIUM-Coverage SC SCH ×2 (06:37→12:59)
[2016-11-13 07:44] LABS: ADD MANUAL DIFF? NO
[2016-11-13 07:52] LABS: EOS % 0.1 % (1.5-5.0); GRAN # 6.77 (1.4-6.5); GRAN % 67.9 % (50.0-68.0); HEMATOCRIT 31.7 % (42.0-52.0); LYMPH % 9.6 % (22.0-35.0); MEAN CELL VOLUME 92.2 fL (80.0-105.0); MEAN CORPUSCULAR HEMOGLOBIN 28.8 pg (25.0-35.0); MEAN CORPUSCULAR HGB CONC 31.2 g/dl (31.0-37.0); MEAN PLATELET VOLUME 13.1 fl (7.0-11.0); MONO # 2.2 (0.1-0.6); MONO % 22.4 % (1.0-6.0); PLATELET COUNT 122 10^3/uL (120.0-450.0); RED CELL DISTRIBUTION WIDTH 16.6 % (11.5-14.5)
[2016-11-13 08:11] LABS: ALB/GLOB RATIO 0.8 (1.1-1.8); ALKALINE PHOSPHATASE 68 U/L (38-133); ALT/SGPT 29 U/L (7-56); AST/SGOT 21 U/L (15-59); BLOOD UREA NITROGEN 29 mg/dL (7-21); CALCIUM 9.3 mg/dL (8.4-10.5); CARBON DIOXIDE 27 mmol/L (21-33); CHLORIDE 99 mmol/L (98-107); GFR AFRICAN-AMERICAN > 60; GLUCOSE,RANDOM 128 mg/dL (70-110); POTASSIUM 4.5 mmol/L (3.6-5.0); SODIUM 133 mmol/L (132-148); TOTAL PROTEIN 7.3 g/dL (5.8-8.3)
[2016-11-13] MEDS: Budesonide 0.5 mg/2 ml Inhal Susp UD IH SCH (09:12)
[2016-11-13] MEDS: Arformoterol 15 mcg/2 ml Inh Sol IH SCH (09:12)
[2016-11-13] MEDS: Verapamil 120 mg ER Tab PO SCH (10:21)
[2016-11-13] MEDS: Pilocarpine 1% Opht (15ml) OU SCH (10:22)
[2016-11-13] MEDS: Tiotropium 18 mcg Cap For Inhalation IH SCH (10:23)
[2016-11-13] MEDS: Timolol 0.25% Ophth SOLN OU SCH (10:23)
[2016-11-13 12:04] VITALS: BP 116/72; PULSE 72; TEMP 99; O2SAT 100
--- NOTE | 2016-11-13 12:23 | PN ---
DATE: 11/13/2016 REASON FOR CONSULTATION AND FOLLOWUP: Congestive heart failure, atrial fibrillation, morbid obesity, history of chronic atrial fibrillation status post PTCA of circumflex. BRIEF CLINICAL HISTORY: An 81-year-old morbidly obese male with a past medical history significant f or paroxysmal atrial fibrillation, morbid obesity, history of a stent in the past, history of circumf guero ____ stent. Admitted with decompensated congestive heart failure, acute ____. After being ____, patient underwent cardiac catheterization and stenting of the circumflex. Now, patient is getting r ehabilitation, feels better. PHYSICAL EXAMINATION: As follows: VITAL SIGNS: Temperature afebrile, heart rate 80, blood pressure 102/68. HEENT: PERRLA. Extraocular muscles intact. NECK: Supple. No carotid bruits. No thyromegaly. CHEST: Clear to auscultation. HEART: S1, S2 regular. ABDOMEN: Soft. EXTREMITIES: Clubbing and cyanosis negative. BLOOD WORKUP: As follows: WBC 10, hemoglobin 9.9, hematocrit 31.7, platelet count 122. Chemistry s hows sodium 133, potassium 4.5, chloride 99, carbon dioxide 27, anion gap of 12, BUN 29. IMPRESSION: Morbid obesity, diabetes, hypertension, hyperlipidemia, decompensated congestive heart f ailure, [id number] secondary to diastolic dysfunction, atrial fibrillation. RECOMMENDATION: Continue Eliquis. Continue verapamil. Continue Plavix. After 6 months, Plavix can be discontinued. Continue baby aspirin, Eliquis, and lisinopril. Upon discharge, patient will be f ollowed with Dr. Denver Jacobo. Discussed with Dr. Jacobo. Thank you, Dr. Luciano, for providing us the opportunity in taking care of the patient. Anthony Mckinley MD cc:Jena Luciano MD 305 TT: 11/13/2016 12:22:39 Confirmation # [id number] Dictation # [id number]
--- NOTE | 2016-11-13 16:37 | CP.PCM.DIS ---
<Lissette Stafford - Last Filed: 11/13/16 16:34> Provider - Provider Date of Admission: 11/05/16 18:11 Attending physician: Amanda Carroll MD Consults: Pulmonology: Dr. Thibodeaux Cardio: Dr. Mckinley Time Spent in preparation of Discharge (in minutes): 45 Diagnosis - Discharge Diagnosis (1) CHF (congestive heart failure) Status: Acute (2) Hypothyroid Status: Acute (3) Afib Status: Chronic (4) Diabetes Status: Chronic (5) Edema Status: Chronic (6) HTN (hypertension) Status: Chronic Hospital Course - Lab Results Lab Results: Most Recent Lab Values WBC 10.0 10^3/ul (4.5-11.0) D 11/13/16 07:00 RBC 3.44 10^6/uL (3.5-6.1) L 11/13/16 07:00 Hgb 9.9 gm/dL (14.0-18.0) L 11/13/16 07:00 Hct 31.7 % (42.0-52.0) L 11/13/16 07:00 MCV 92.2 fL (80.0-105.0) 11/13/16 07:00 MCH 28.8 pg (25.0-35.0) 11/13/16 07:00 MCHC 31.2 g/dl (31.0-37.0) 11/13/16 07:00 RDW 16.6 % (11.5-14.5) H 11/13/16 07:00 Plt Count 122 10^3/uL (120.0-450.0) 11/13/16 07:00 MPV 13.1 fl (7.0-11.0) H 11/13/16 07:00 Gran % 67.9 % (50.0-68.0) 11/13/16 07:00 Lymph % (Auto) 9.6 % (22.0-35.0) L 11/13/16 07:00 [place] % (Auto) 22.4 % (1.0-6.0) H 11/13/16 07:00 Eos % (Auto) 0.1 % (1.5-5.0) L 11/13/16 07:00 Baso % (Auto) 0.0 % (0.0-3.0) 04/11/17 07:00 Gran # 6.77 (1.4-6.5) H 11/13/16 07:00 Lymph # 1.0 (1.2-3.4) L 11/13/16 07:00 [place] # 2.2 (0.1-0.6) H 11/13/16 07:00 Eos # 0.0 (0.0-0.7) 11/13/16 07:00 Baso # 0.00 K/mm3 (0.0-2.0) 11/13/16 07:00 Sodium 133 mmol/L (132-148) 11/13/16 07:00 Potassium 4.5 mmol/L (3.6-5.0) 11/13/16 07:00 Chloride 99 mmol/L (98-107) 11/13/16 07:00 Carbon Dioxide 27 mmol/L (21-33) 11/13/16 07:00 Anion Gap 12 (10-20) 11/13/16 07:00 BUN 29 mg/dL (7-21) H 11/13/16 07:00 Creatinine 1.1 mg/dL (0.5-1.4) 11/13/16 07:00 Est GFR ( Amer) > 60 11/13/16 07:00 Est GFR (Non-Af Amer) > 60 11/13/16 07:00 POC Glucose (mg/dL) 132 mg/dL (65-110) H 11/13/16 05:11 Random Glucose 128 mg/dL (70-110) H 11/13/16 07:00 Calcium 9.3 mg/dL (8.4-10.5) 11/13/16 07:00 Total Bilirubin 1.0 mg/dL (0.2-1.3) 11/13/16 07:00 AST 21 U/L (15-59) 11/13/16 07:00 ALT 29 U/L (7-56) 11/13/16 07:00 Alkaline Phosphatase 68 U/L (38-133) 11/13/16 07:00 Total Protein 7.3 g/dL (5.8-8.3) 11/13/16 07:00 Albumin 3.3 g/dL (3.0-4.8) 11/13/16 07:00 Globulin 4.0 gm/dL 11/13/16 07:00 Albumin/Globulin Ratio 0.8 (1.1-1.8) L 11/13/16 07:00 - Hospital Course Hospital Course: HPI: Patient seen and examined in TCU. He is an 81 y/o M who presented to the hospital with complaint of SOB and leg swelling over a 2 week duration. He was admitted for CHF exaccerbation. He is s/p cardiac catheterization with stent placement. He was assessed and found to require physical therapy due to his deconditioned state. He is alert, awake and oriented. He currently denies any chest pain, SOB, cough, fever, chills, nausea , vomiting, or abdominal pain. He notes the swelling in his legs have improved over his stay. He looks forward to more physical therapy. He reports that he normal ambulates using a walker at home. During the patient's TCU stay, he received daily physical therapy. Pulmonology , Dr. Thibodeaux was consulted for sleep apnea. Patient had a 6 minute walk test which showed that patient required 2L/min O2 to maintain O2 sat>91% on mild to moderate exertion. Arrangements were made for home O2 and BiPAP machine. Patient was stable for discharge. Pt is asked to follow up with PMD Dr. Beach in one week - Patient is asked to follow up with Dr. Thibodeaux upon discharge - Patient will require a sleep study upon discharge - Patient is discharged with the following medications: Eliquis 5 mg PO BID, Brovana; Lipitor 20 mg PO DIN, Pulmicort, Plavix 75 mg PO QD, Colace 100 mg PI QD, Lexapro 10 mg PO QD, Lasix 20 mg PO QD, Neurontin 100 mg PO BID, Zestril 40 mg PO QD, Lumigan 1 drop OS DIN, Pilocarpine HCl 30 mg PO QD, Timolol Maleate .25% opth solution, Spiriva, Verapamil 120 mg PO QD. Scripts are sent to [facility] in [facility]. Please see MAR for full details - Date & Time of H&P Date of H&P: 11/13/16 Time of H&P: 16:34 Discharge Exam - Head Exam Head Exam: ATRAUMATIC - Eye Exam Eye Exam: EOMI - ENT Exam ENT Exam: Mucous Membranes Moist - Respiratory Exam Respiratory Exam: Clear to PA & Lateral, NORMAL BREATHING PATTERN. absent: Rales, Rhonchi, Wheezes - Cardiovascular Exam Cardiovascular Exam: REGULAR RHYTHM, +S1, +S2. absent: Diastolic murmur, Systolic Murmur - GI/Abdominal Exam GI & Abdominal Exam: Normal Bowel Sounds, Soft. absent: Distended, Firm, Guarding, Tenderness - Extremities Exam Additional comments: 2+ pitting edema B/L - Neurological Exam Neurological exam: Alert, Oriented x3 - Psychiatric Exam Psychiatric exam: Normal Affect, Normal Mood - Skin Skin Exam: Dry, Intact, Normal Color, Warm Discharge Plan - Discharge Medications Prescriptions: Pioglitazone [Actos] 30 mg PO 0800 #1 tab Albuterol 0.042% [Albuterol 0.042% Inhal Ladan (1.25mg/3ml) UD] 3 ml IH Q12 #1 ladan Arformoterol [Brovana] 15 mcg IH [id number] #1 neb Verapamil [Calan SR Tab] 120 mg PO DAILY #30 tab Docusate [Colace] 100 mg PO DAILY #30 cap Apixaban [Eliquis] 5 mg PO BID #30 tab Pilocarpine 1% Opht [Isopto Carpine 1% Opht Soln] 0 ml OU BID #1 bottle Furosemide [Lasix] 20 mg PO BID #30 tab Escitalopram [Lexapro] 10 mg PO DAILY #30 tab Atorvastatin [Lipitor] 20 mg PO DIN #30 tab Gabapentin [Neurontin] 100 mg PO BID #60 capsule Clopidogrel [Plavix] 75 mg PO DAILY #30 tab Budesonide [Pulmicort Respules] 1 mg IH [id number] #1 neb Tiotropium [Spiriva] 18 mcg IH DAILY #1 cap Timolol 0.25% Ophth [Timoptic 0.25% Ophth Soln] 1 drop OU BID #1 bottle Lisinopril [Zestril] 40 mg PO DAILY #30 tab - Follow Up Plan Condition: GOOD Disposition: HOME/ ROUTINE Instructions: Heart Failure (DC), Heart Failure (GEN), Pacemaker (DC), Pacemaker (GEN), Pulmonary Edema (DC), Pulmonary Edema (GEN), Ascites (DC), Ascites (GEN) Additional Instructions: Pt is asked to follow up with PMD Dr. Beach in one week - Patient is asked to follow up with Dr. Thibodeaux upon discharge - Patient will require a sleep study upon discharge - Patient is discharged with the following medications: Eliquis 5 mg PO BID, Brovana; Lipitor 20 mg PO DIN, Pulmicort, Plavix 75 mg PO QD, Colace 100 mg PI QD, Lexapro 10 mg PO QD, Lasix 20 mg PO QD, Neurontin 100 mg PO BID, Zestril 40 mg PO QD, Lumigan 1 drop OS DIN, Pilocarpine HCl 30 mg PO QD, Timolol Maleate .25% opth solution, Spiriva, Verapamil 120 mg PO QD. Scripts are sent to [facility] in [facility]. Arrangements have also been made for home O2 and BiPAP machine. <Amanda Carroll - Last Filed: 11/13/16 17:35> Provider - Provider Date of Admission: 11/05/16 18:11 Attending physician: Amanda Carroll MD Hospital Course - Lab Results Lab Results: Most Recent Lab Values WBC 10.0 10^3/ul (4.5-11.0) D 11/13/16 07:00 RBC 3.44 10^6/uL (3.5-6.1) L 11/13/16 07:00 Hgb 9.9 gm/dL (14.0-18.0) L 11/13/16 07:00 Hct 31.7 % (42.0-52.0) L 11/13/16 07:00 MCV 92.2 fL (80.0-105.0) 11/13/16 07:00 MCH 28.8 pg (25.0-35.0) 11/13/16 07:00 MCHC 31.2 g/dl (31.0-37.0) 11/13/16 07:00 RDW 16.6 % (11.5-14.5) H 11/13/16 07:00 Plt Count 122 10^3/uL (120.0-450.0) 11/13/16 07:00 MPV 13.1 fl (7.0-11.0) H 11/13/16 07:00 Gran % 67.9 % (50.0-68.0) 11/13/16 07:00 Lymph % (Auto) 9.6 % (22.0-35.0) L 11/13/16 07:00 [place] % (Auto) 22.4 % (1.0-6.0) H 11/13/16 07:00 Eos % (Auto) 0.1 % (1.5-5.0) L 11/13/16 07:00 Baso % (Auto) 0.0 % (0.0-3.0) 11/13/16 07:00 Gran # 6.77 (1.4-6.5) H 11/13/16 07:00 Lymph # 1.0 (1.2-3.4) L 11/13/16 07:00 [place] # 2.2 (0.1-0.6) H 11/13/16 07:00 Eos # 0.0 (0.0-0.7) 11/13/16 07:00 Baso # 0.00 K/mm3 (0.0-2.0) 11/13/16 07:00 Sodium 133 mmol/L (132-148) 11/13/16 07:00 Potassium 4.5 mmol/L (3.6-5.0) 11/13/16 07:00 Chloride 99 mmol/L (98-107) 11/13/16 07:00 Carbon Dioxide 27 mmol/L (21-33) 11/13/16 07:00 Anion Gap 12 (10-20) 11/13/16 07:00 BUN 29 mg/dL (7-21) H 11/13/16 07:00 Creatinine 1.1 mg/dL (0.5-1.4) 11/13/16 07:00 Est GFR ( Amer) > 60 11/13/16 07:00 Est GFR (Non-Af Amer) > 60 11/13/16 07:00 POC Glucose (mg/dL) 132 mg/dL (65-110) H 11/13/16 05:11 Random Glucose 128 mg/dL (70-110) H 11/13/16 07:00 Calcium 9.3 mg/dL (8.4-10.5) 11/13/16 07:00 Total Bilirubin 1.0 mg/dL (0.2-1.3) 11/13/16 07:00 AST 21 U/L (15-59) 11/13/16 07:00 ALT 29 U/L (7-56) 11/13/16 07:00 Alkaline Phosphatase 68 U/L (38-133) 11/13/16 07:00 Total Protein 7.3 g/dL (5.8-8.3) 11/13/16 07:00 Albumin 3.3 g/dL (3.0-4.8) 11/13/16 07:00 Globulin 4.0 gm/dL 11/13/16 07:00 Albumin/Globulin Ratio 0.8 (1.1-1.8) L 11/13/16 07:00 Attending/Attestation - Attestation I have personally seen and examined this patient.: Yes I have fully participated in the care of the patient.: Yes I have reviewed all pertinent clinical information, including history, physical exam and plan: Yes Notes (Text): I have seen and examined patient with the resident. This is 81 year old male with history of HTN, DM-2, arthritis, obesity, former smoker, depression, leg edema, right knee surgery, pulmonary hypertension, paroxysmal atrial fibrillation who got admitted for worsening of leg swelling and shortness of breath most likely secondary to decompensated CHF exacerbation. He was found to have elevated BNP, Effusions on CXR. Echo revealed mild LVH, EF 55-60% and moderate to severe TR, pulmonary hypertension. Patient underwent cardiac cath and drug eluting stent was placed in mid circumflex. He had previous stents in LAD and cicumflex. Patient has been getting rehab in TCU. He has been participating in PT. Continue plavix and eliquis. He has chronic respiratory failure secondary to COPD. 6 min walk test showed that patient did require 2l/ min o2 to maintain sats >91% on mild to moderate exertion. Discussed with the patient and SW. Mirian arranged for home. Patient is awake and alert and denies any complaints. Patient has low TSH and Free T4 secondary to non thyroidal illness. Plan to repeat TFT's in 6-8 weeks. Advised to have sleep study as an outpatient. Upon discharge patient will follow up with Dr Beach within 3-5 days and scheduling manager of choice. Dr Amanda Carroll
== END 2016-11-13 18:17 | disposition home health service (06) | DRG 292 ==
LOC: TRCU 18:11
PROVIDERS: ADMIT Hospitalist; ATTEND Hospitalist
PROC: F07Z9FZ Gait Training/Functional Ambulation Treatment using Assistive, Adaptive, Supportive or Protective Equipment (ICD-10-PCS; principal; 2016-11-07)
PROC: F07Z8ZZ Transfer Training Treatment (ICD-10-PCS; 2016-11-07)
PROC: F07L6YZ Therapeutic Exercise Treatment of Musculoskeletal System - Lower Back / Lower Extremity using Other Equipment (ICD-10-PCS; 2016-11-07)
PROC: 5A09457 Assistance with Respiratory Ventilation, 24-96 Consecutive Hours, Continuous Positive Airway Pressure (ICD-10-PCS; 2016-11-07)
PROC: F08Z4FZ Home Management Treatment using Assistive, Adaptive, Supportive or Protective Equipment (ICD-10-PCS; 2016-11-08)
DX: I11.0 Hypertensive heart disease with heart failure (principal); I50.33 Acute on chronic diastolic (congestive) heart failure; J96.10 Chronic respiratory failure, unspecified whether with hypoxia or hypercapnia; E11.42 Type 2 diabetes mellitus with diabetic polyneuropathy; J44.9 Chronic obstructive pulmonary disease, unspecified; I27.2 Other secondary pulmonary hypertension; E66.01 Morbid (severe) obesity due to excess calories; E03.9 Hypothyroidism, unspecified; I25.10 Atherosclerotic heart disease of native coronary artery without angina pectoris; F32.9 Major depressive disorder, single episode, unspecified; K59.00 Constipation, unspecified; M19.90 Unspecified osteoarthritis, unspecified site; G47.33 Obstructive sleep apnea (adult) (pediatric); I48.0 Paroxysmal atrial fibrillation; E78.5 Hyperlipidemia, unspecified; Z95.5 Presence of coronary angioplasty implant and graft; Z68.36 Body mass index [BMI] 36.0-36.9, adult; Z87.891 Personal history of nicotine dependence

== ENCOUNTER 2017-03-05 10:04 | Inpatient (IN) | payer MEDICARE, OTHER ==
[2017-03-05] MEDS ORDERED: Vancomycin 1gm in NS 250ml 1 GM/250 ML BAG IVPB STA (10:21)
[2017-03-05] MEDS ORDERED: Piperacill/Tazo 4.5gm in NS 4.5 GM/100 ML BAG IVPB STA (10:21)
--- NOTE | 2017-03-05 10:22 | ED PDOC ---
Arrival/HPI - General Chief Complaint: Respiratory Distress Time Seen by Provider: 03/05/17 10:17 Historian: Patient - History of Present Illness Narrative History of Present Illness (Text): 03/05/17 11:31 An 81 year old male , whose past medical history includes diabetes, CHF, and pulmonary hypertension, presents to the emergency department with 1 day duration shortness of breath. Patient states that he has noticed blistering and worsening swelling to his right lower extremity. The patient denies any symptoms of fever, chills, nausea, vomiting, diarrhea, headache, or any other complaints. Time/Duration: Prior to Arrival Symptom Course: Unchanged Past Medical History - Provider Review Nursing Documentation Reviewed: Yes - Infectious Disease Hx of Infectious Diseases: None - Tetanus Immunization Tetanus Immunization: Unknown - Cardiac Hx Congestive Heart Failure: Yes (cardiac cath; stent) Hx Hypertension: Yes - Pulmonary Hx Respiratory Disorders: No Other/Comment: o2 dependent 3l - Neurological Hx Neurological Disorder: No - HEENT Hx HEENT Disorder: No - Renal Hx Renal Disorder: No - Endocrine/Metabolic Hx Diabetes Mellitus Type 2: Yes - Hematological/Oncological Hx Blood Disorders: No - Integumentary Hx Dermatological Disorder: No - Musculoskeletal/Rheumatological Hx Arthritis: Yes - Gastrointestinal Hx Gastrointestinal Disorders: No - Genitourinary/Gynecological Hx Genitourinary Disorders: No - Psychiatric Hx Psychophysiologic Disorder: No Hx Substance Use: No Family/Social History - Physician Review Nursing Documentation Reviewed: Yes Family/Social History: No Known Family HX Smoking Status: Never Smoked Hx Alcohol Use: No Hx Substance Use: No Allergies/Home Meds Allergies/Adverse Reactions: Allergies No Known Allergies Allergy (Verified 10/28/16 13:37) Home Medications: Home Meds Medication Instructions Recorded Confirmed Brimonidine Tartrate/Timolol 2 intlu OS Q12 10/28/16 03/05/17 [Combigan 0.2%-0.5% Eye Drops] Pioglitazone HCl/Metformin HCl 1 tab PO BID 10/28/16 03/05/17 [Actoplus Met 15 mg-850 mg Tab] Amlodipine Besylate/Benazepril 1 cap PO DAILY 03/05/17 03/05/17 [Amlodipine-Benazepril 5-20 mg] Brinzolamide [Azopt 15 ml] 1 drop OU BID 03/05/17 03/05/17 Physical Exam - Physical Exam Narrative Physical Exam (Text): - Review of Systems Constitutional: Normal. absent: Fatigue, Weight Change, Fevers Eyes: Normal ENT: Normal Respiratory: (+) shortness of breath Cardiovascular: Normal absent: Chest pain, Palpitations, Syncope Gastrointestinal: Normal absent: Abdominal pain, Diarrhea, Nausea, Vomiting Genitourinary: Normal. absent: Dysuria, Frequency, Hematuria Musculoskeletal: (+) right lower extremity swelling and blistering. absent: Arthralgias, Back Pain, Neck Pain Skin: Normal Neurological: Normal absent: Focal Weakness Endocrine: Normal Hemo/Lymphatic: Normal Psychiatric: Normal - Physical exam Patient appears age appropriate, speaking 2-3 word sentences. - Systems Exam Head: Present: Atraumatic, Normocephalic Pupils: Present: PERRL Extraocular Muscles: Present: EOMI Conjunctiva: Present: Normal Mouth: Present: Moist Mucous Membranes Neck: Present: Normal Range of Motion. No: MIDLINE TENDERNESS, Paraspinal Tenderness Respiratory/Chest: Present: Moderate Respiratory Distress. Mild expiratory wheezing. Cardiovascular: Present: Tachypnic, Normal S1, S2, Peripheral Pulses Present. No: Murmurs Abdomen: Present: Normal Bowel Sounds, No: Tenderness, Peritoneal Signs, Rebound, Guarding, Distention Back: Present: Normal Inspection. No: Midline Tenderness, Paraspinal Tenderness Upper Extremity: Present: Normal Inspection. No: Cyanosis, Edema Lower Extremity: Present: Bilateral lower extremity swelling with trace of edema. Right lower extremity significantly more swelling vs. left. Right lower extremity weeping and blistering. Neurological: Present: GCS=15, Speech Normal, cranial nerves II through XII fully intact with no cerebellar abnormality, neuro-sensory fully intact. No focal neurological deficits. Skin: Present: Warm, Dry, Normal Color. No: Rashes Lymphatic: Present: OX3, NI, NC Psychiatric: Present: Alert, Oriented x 3, Normal Insight, Normal Concentration 03/05/17 12:01 Vital Signs Temp Pulse Resp BP Pulse Ox 03/05/17 12:29 120 H 03/05/17 12:19 102/44 L 03/05/17 10:43 28 H 03/05/17 10:40 99.0 F 03/05/17 10:13 98.4 F 123 H 22 135/93 H 74 L Temperature: Afebrile Blood Pressure: Hypertensive Pulse: Tachycardic Respiratory Rate: Agonal Medical Decision Making ED Course and Treatment: 03/05/17 11:47 Impression: 81 year old male with complaint of 1 day duration shortness of breath and worsening swelling and blistering of the right lower extremity. On exam, patient in moderate respiratory distress, mild expiratory wheezing, bilateral lower extremity swelling with trace of edema. Right lower extremity significantly more swelling vs left. RLE weeping and blistering. Differential Diagnosis included but are not limited to: DVT vs. PE vs. Sepsis vs. CHF Plan: -- EKG -- Angio Chest PE Protocol -- Labs -- Lasix, Nitroglycerin, Solu-Medrol, IV fluids, Vancomycin, and Piperacil -- Blood Culture and Urine Culture -- Urinalysis -- US Bilateral lower extremity vein -- Reassess and disposition Progress Notes: 03/05/17 10:21 Patient's previous records reviewed. Patient was admitted on 11/05/16 with a diagnosis of CHF. He also has a history of cardiac catheterization with stent placement. Patient has a history of hypertension, type 2 diabetes, arthritis, obesity, former smoker, leg edema, pulmonary hypertension, paroxysmal A. fib. Patient was discharged on a course. Patient's echo showed mild LVH with ejection fraction 55-60% and along with moderate to severe tricuspid regurg and pulmonary hypertension. Upon discharge from the hospital, patient was maintaining saturations above 91% on 2 L of oxygen during mild to moderate exertion. 03/05/17 11:13 Chest X-ray Dictator : Chin Garcia MD Report Date : 03/05/2017 11:07:45 IMPRESSION: Moderate vascular congestion 03/05/17 11:23 EKG: Ordered, reviewed, and independently interpreted the EKG. Rate : 120 BPM Rhythm : Tachypnic Interpretation : No ST-segment elevations, Right axis deviation. Interpreted by me. 03/05/17 11:30: after 2 nebulizer treatments patient's wheezing has improved. Patient states he feel much better. 03/05/17 13:18 PROCEDURE: CT Chest with contrast (Pulmonary Angiogram) Dictator : Chin Garcia MD Report Date : 03/05/2017 13:14:48 IMPRESSION: No evidence of pulmonary embolus. Moderate size bilateral pleural effusions right greater than left with adjacent lower lobe consolidation 03/05/17 13:29 grzegorz Reese, states will evaluate 03/05/17 13:48 pt on bipap, tolerating well without difficulty to be admitted for further treatment pt and family aware of and agree with plan 03/05/17 14:46 pt now becoming more lethargic and less responsive family informed of need for intubation refusing intubation and asked for pt to be DNR/DNI accepted by Dr. Reese pt has no PMD service paged, awaiting callback 03/05/17 15:20 grzegorz Luciano, accepted pt to her service 03/05/17 15:22 pt did not receive fluid boluses on arrival due to hx of CHF - Critical Care Critical Care Minutes: 30 minutes - Lab Interpretations Lab Results: 03/05/17 10:35 03/05/17 10:35 Lab Results 03/05/17 14:27: pCO2 61 H, pO2 70.0 L, HCO3 25.5, ABG pH 7.23 L, ABG Total CO2 27.4, ABG O2 Saturation 95.8, ABG O2 Content 11.6 L, ABG Base Excess -2.4 L, ABG Hemoglobin 8.8 L, ABG Carboxyhemoglobin 2.0 H, POC ABG HHb (Measured) 4.1, ABG Methemoglobin 0.7, ABG O2 Capacity 12.1 L, Hgb O2 Saturation 93.2 L, FiO2 80.0 03/05/17 11:30: Urine Color Yellow, Urine Appearance Clear, Urine pH 6.0, Ur Specific [place] 1.025, Urine Protein 100 H, Urine Glucose (UA) Negative, Urine Ketones Negative, Urine Blood Negative, Urine Nitrate Negative, Urine Bilirubin Negative, Urine Urobilinogen 1.0 H, Ur Leukocyte Esterase Negative, Urine RBC 0 - 2, Urine WBC 0 - 2, Ur Epithelial Cells 0 - 2, Urine Bacteria Trace 03/05/17 10:35: Sodium 134, Chloride 95 L, Potassium 4.4, Carbon Dioxide 30, Anion Gap 13, BUN 50 H, Creatinine 1.4, Est GFR ( Amer) 59, Est GFR (Non- Af Amer) 49, Random Glucose 144 H, Calcium 9.4, Phosphorus 4.3, Magnesium 1.7, Total Bilirubin 0.9, AST 22, ALT 21, Alkaline Phosphatase 60, Troponin I 0.01 D , Total Protein 7.2, Albumin 3.7, Globulin 3.5, Albumin/Globulin Ratio 1.1 03/05/17 10:35: pO2 78 H, VBG pH 7.22 L, VBG pCO2 68.0 H*, VBG HCO3 27.8, VBG Total CO2 29.9 H, VBG O2 Sat (Calc) 96.2 H, VBG Base Excess -1.5 L, VBG Potassium 4.9, Sodium 145.0, Chloride 90.0 L, Glucose 149 H, Lactate 1.1, FiO2 21.0, Venous Blood Potassium 4.9 03/05/17 10:35: PT 13.1 H, INR 1.21 H, APTT 31.6 H 03/05/17 10:35: WBC 12.1 H D, RBC 3.25 L, Hgb 9.6 L, Hct 30.0 L, MCV 92.3, MCH 29.5, MCHC 32.0, RDW 17.9 H, Plt Count 107 L, Gran % 80.5 H, Lymph % (Auto) 8.3 L, [place] % (Auto) 11.2 H, Eos % (Auto) 0.0 L, Baso % (Auto) 0.0, Gran # 9.73 H, Lymph # 1.0 L, [place] # 1.4 H, Eos # 0.0, Baso # 0.00 03/05/17 10:30: NT-Pro-B Natriuret Pep 5860 H I have reviewed the lab results: Yes - RAD Interpretation Radiology Orders: 03/05/17 10:22 CHEST PORTABLE [RAD] Stat 03/05/17 11:23 DUPLEX LOWER EXTRM VEIN BILAT [US] Stat 03/05/17 11:49 ANGIO CHEST PE PROTOCOL [CT] Stat - EKG Interpretation Interpreted by ED Physician: Yes Type: 12 lead EKG - Medication Orders Current Medication Orders: Albuterol/Ipratropium (Duoneb 3 Mg/0.5 Mg (3 Ml) Ud) 3 ml IH [id number] JEORME Furosemide (Lasix) 40 mg IVP DAILY JEROME Cefepime HCl (Maxipime 1gm) 1 gm in 100 mls @ 100 mls/hr IVPB Q12 JEROME PRN Reason: Protocol Vancomycin HCl (Vancomycin 1gm) 1 gm in 250 mls @ 167 mls/hr IVPB DAILY JEROME PRN Reason: Protocol Methylprednisolone (Solu-Medrol) 40 mg IVP Q8H JEROME Discontinued Medications Albuterol/Ipratropium (Duoneb 3 Mg/0.5 Mg (3 Ml) Ud) 3 ml IH Q15M JEROME Stop: 03/05/17 11:01 Last Admin: 03/05/17 11:36 Dose: 3 ml Furosemide (Lasix) 40 mg IVP STAT STA Stop: 03/05/17 11:22 Last Admin: 03/05/17 12:19 Dose: 40 mg Sodium Chloride 500 ml/ IV (SUPPLIES) 500 mls @ 7,620.36 mls/hr IV ONCE ONE PRN Reason: 60 ML/KG/HR Stop: 03/05/17 10:22 Last Admin: 03/05/17 11:10 Dose: 7,620.36 mls/hr Vancomycin HCl (Vancomycin 1gm) 1 gm in 250 mls @ 167 mls/hr IVPB STAT STA PRN Reason: Protocol Stop: 03/05/17 11:50 Last Admin: 03/05/17 13:32 Dose: 167 mls/hr Piperacillin Sod/Tazobactam Sod (Zosyn 4.5 Gm In Ns 100ml) 4.5 gm in 100 mls @ 200 mls/hr IVPB STAT STA PRN Reason: Protocol Stop: 03/05/17 10:50 Last Admin: 03/05/17 10:55 Dose: 200 mls/hr Iodixanol (Visipaque 320 Mg/Ml 100 Ml) Confirm Administered Dose 100 ml IV .STK- MED ONE Stop: 03/05/17 11:55 Methylprednisolone (Solu-Medrol) 125 mg IVP STAT STA Stop: 03/05/17 10:25 Last Admin: 03/05/17 10:55 Dose: 125 mg Nitroglycerin (Nitrostat Sl Tab) 0.3 mg SL STAT STA Stop: 03/05/17 11:22 Last Admin: 03/05/17 12:19 Dose: 0.3 mg - Scribe Statement The provider has reviewed the documentation as recorded by the Scribe Christina Gautam Provider Scribe Attestation: All medical record entries made by the Scribe were at my direction and personally dictated by me. I have reviewed the chart and agree that the record accurately reflects my personal performance of the history, physical exam, medical decision making, and the department course for this patient. I have also personally directed, reviewed, and agree with the discharge instructions and disposition. Disposition/Present on Arrival - Present on Arrival Any Indicators Present on Arrival: No History of DVT/PE: No History of Uncontrolled Diabetes: No Urinary Catheter: No History of Decub. Ulcer: No History Surgical Site Infection Following: None - Disposition Have Diagnosis and Disposition been Completed?: Yes Diagnosis: CHF (congestive heart failure), Edema Disposition: HOSPITALIZED Disposition Time: 13:49 Patient Plan: Admission Patient Problems: Current Active Problems Problem Status Onset CHF (congestive heart failure) Acute Edema Acute Condition: FAIR Discharge Instructions (ExitCare): Heart Failure (ED) Forms: [facility] (Malay)
[2017-03-05 10:55] LABS: GRAN # 9.73 (1.4-6.5); GRAN % 80.5 % (50.0-68.0); HEMOGLOBIN 9.6 gm/dL (14.0-18.0); LYMPH % 8.3 % (22.0-35.0); MEAN CELL VOLUME 92.3 fL (80.0-105.0); MEAN CORPUSCULAR HEMOGLOBIN 29.5 pg (25.0-35.0); MONO # 1.4 (0.1-0.6); MONO % 11.2 % (1.0-6.0); RBC 3.25 10^6/uL (3.5-6.1); RED CELL DISTRIBUTION WIDTH 17.9 % (11.5-14.5); WHITE BLOOD COUNT 12.1 10^3/ul (4.5-11.0)
[2017-03-05] MEDS: Albuterol-Ipratrop 3 mg / 0.5 (3 ml) UD IH SCH ×4 (10:55→19:44)
[2017-03-05 10:57] LABS: VENOUS BLOOD GAS BASE EXCESS -1.5 mmol/L (0.0-2.0); VENOUS BLOOD GAS PO2 78 mm/Hg (30-55); VENOUS BLOOD PH 7.22 (7.32-7.43)
[2017-03-05 11:08] LABS: INR 1.21 (0.93-1.08); PARTIAL THROMBOPLASTIN TIME 31.6 Seconds (23.7-30.8); PROTHROMBIN TIME 13.1 Seconds (9.9-11.8)
--- NOTE | 2017-03-05 11:09 | RAD ---
HISTORY: Sepsis Patient COMPARISON: No prior. FINDINGS: LUNGS: No active pulmonary disease. PLEURA: No significant pleural effusion identified, no pneumothorax apparent. CARDIOVASCULAR: Mild cardiomegaly. Moderate vascular congestion OSSEOUS STRUCTURES: No significant abnormalities. VISUALIZED UPPER ABDOMEN: Normal. OTHER FINDINGS: None. IMPRESSION: Moderate vascular congestion
[2017-03-05 11:16] LABS: ALB/GLOB RATIO 1.1 (1.1-1.8); ALBUMIN 3.7 g/dL (3.0-4.8); CALCIUM 9.4 mg/dL (8.4-10.5); MAGNESIUM 1.7 mg/dL (1.7-2.2)
[2017-03-05 11:24] LABS: PLATELET COUNT 107 10^3/uL (120.0-450.0)
[2017-03-05 11:30] LABS: TROPONIN I 0.01 ng/mL
[2017-03-05 11:42] LABS: URINE BILIRUBIN NEGATIVE (NEGATIVE); URINE BLOOD NEGATIVE (NEGATIVE); URINE GLUCOSE (UA) NEGATIVE (NEGATIVE); URINE LEUKOCYTE ESTERASE NEGATIVE Leu/uL (NEGATIVE); URINE NITRATE NEGATIVE (NEGATIVE); URINE PROTEIN 100 mg/dL (<30 mg/dL)
[2017-03-05 11:45] LABS: URINE APPEARANCE CLEAR (CLEAR); URINE COLOR YELLOW (YELLOW)
[2017-03-05] MEDS ORDERED: Iodixanol 320 MG/ML 100 ML BOTTLE IV ONE (11:54)
[2017-03-05 12:04] LABS: URINE BACTERIA TRACE (NEG); URINE EPITHELIAL CELLS 0 - 2 /hpf (0-5); URINE RBC 0 - 2 /hpf (0-2); URINE WBC 0 - 2 /hpf (0-6)
--- NOTE | 2017-03-05 13:16 | CT ---
PROCEDURE: CT Chest with contrast (Pulmonary Angiogram) HISTORY: r/o PE COMPARISON: None available. TECHNIQUE: Axial computed tomography images were obtained of the chest in the pulmonary arterial phase of enhancement. Coronal and sagittal reformatted images were created and reviewed. Intravenous contrast dose: 100 cc of Visipaque Radiation dose: Total exam DLP = 1041 mGy-cm. This CT exam was performed using one or more of the following dose reduction techniques: Automated exposure control, adjustment of the mA and/or kV according to patient size, and/or use of iterative reconstruction technique. FINDINGS: PULMONARY ARTERIES: Unremarkable. No pulmonary embolism. AORTA: No acute findings. No thoracic aortic aneurysm. LUNGS: Bibasilar infiltrates adjacent to pleural effusions, probable atelectasis PLEURAL SPACES: Moderate size bilateral effusions right greater than left HEART: Unremarkable. No cardiomegaly. No significant pericardial effusion. Coronary artery stents LYMPH NODES: No lymphadenopathy. BONES, CHEST WALL: Unremarkable. No fracture or destructive lesion OTHER FINDINGS: Unremarkable. IMPRESSION: No evidence of pulmonary embolus. Moderate size bilateral pleural effusions right greater than left with adjacent lower lobe consolidation
[2017-03-05 14:41] LABS: ARTERIAL BLOOD GAS HCO3 25.5 mmol/L (21-28); ARTERIAL BLOOD GAS HEMOGLOBIN 8.8 g/dL (11.7-17.4); ARTERIAL BLOOD GAS O2 CAPACITY 12.1 mL/dl (16-24); ARTERIAL BLOOD GAS O2 CONTENT 11.6 ML/dl (15-23); ARTERIAL BLOOD GAS O2 SAT 95.8 % (95-98); ARTERIAL BLOOD GAS PCO2 61 mm/Hg (35-45); ARTERIAL BLOOD GAS PH 7.23 (7.35-7.45); ARTERIAL BLOOD GAS TCO2 27.4 mmol.L (22-28)
--- NOTE | 2017-03-05 16:05 | CP.PCM.HP ---
<Eleonora Duran - Last Filed: 03/05/17 16:52> History of Present Illness - History of Present Illness History of Present Illness: Internal medicine H & P for Dr. Ashley Duran, PGY-1 Pt S & E at bedside. History as per EMR- pt unresponsive, family at bedside. Chart reviewed, case discussed with ICU attending and ED attending. 81M w/PMH sig for B/L pleural effusions, CHF, COPD admitted for acute respiratory failure. Per EMR- pt admitted 2/2 SOB x 1 day. Pt with RLE blistering & increased swelling. Pt now unresponsive, on Bipap. Pt not responsive to verbal or toxic stimuli. Unable to obtain ROS. PMH: B/L pleural effusions, CHF, COPD, DM, HTN, paroxsymal afib, CAD s/p cardiac cath and stent to circumflex, arthritis, depression, obesity, chronic LE edema, Obstructive sleep apnea PSH: R knee surgery All: NKDA SH: former tobacco use PMD: Present on Admission - Present on Admission Any Indicators Present on Admission: No History of DVT/PE: No History of Uncontrolled Diabetes: No Urinary Catheter: No Decubitus Ulcer Present: No Review of Systems - Review of Systems Systems not reviewed;Unavailable: Acuity of Condition, Other (unresponsive) Past Patient History - Infectious Disease Hx of Infectious Diseases: None - Tetanus Immunizations Tetanus Immunization: Unknown - Past Medical History & Family History Past Medical History?: Yes - Past Social History Smoking Status: Never Smoked - CARDIAC Hx Congestive Heart Failure: Yes (cardiac cath; stent) Hx Hypertension: Yes - PULMONARY Hx Respiratory Disorders: No Other/Comment: o2 dependent 3l - NEUROLOGICAL Hx Neurological Disorder: No - HEENT Hx HEENT Problems: No - RENAL Hx Chronic Kidney Disease: No - ENDOCRINE/METABOLIC Hx Diabetes Mellitus Type 2: Yes - HEMATOLOGICAL/ONCOLOGICAL Hx Blood Disorders: No - INTEGUMENTARY Hx Dermatological Problems: No - MUSCULOSKELETAL/RHEUMATOLOGICAL Hx Arthritis: Yes - GASTROINTESTINAL Hx Gastrointestinal Disorders: No - GENITOURINARY/GYNECOLOGICAL Hx Genitourinary Disorders: No - PSYCHIATRIC Hx Psychophysiologic Disorder: No Hx Substance Use: No - SURGICAL HISTORY Hx Surgeries: No (pt denies) Meds Allergies/Adverse Reactions: Allergies Allergy/AdvReac Type Severity Reaction Status Date / Time No Known Allergies Allergy Verified 03/05/17 15:41 Physical Exam - Constitutional Appears: Non-toxic, Other (Minimally responsive on Bipap) - Head Exam Head Exam: ATRAUMATIC, NORMAL INSPECTION, NORMOCEPHALIC - Eye Exam Eye Exam: Normal appearance. absent: EOMI Pupil Exam: Fixed, Miosis - ENT Exam ENT Exam: Mucous Membranes Moist - Neck Exam Neck exam: Positive for: Normal Inspection - Respiratory Exam Respiratory Exam: Decreased Breath Sounds, Rhonchi (diffuse). absent: Clear to Auscultation Bilateral, Rales, Wheezes Additional comments: on Bipap - Cardiovascular Exam Cardiovascular Exam: REGULAR RHYTHM, +S1, +S2 - GI/Abdominal Exam GI & Abdominal Exam: Normal Bowel Sounds, Soft. absent: Distended (obese) - Extremities Exam Extremities exam: Positive for: pedal edema. Negative for: normal inspection Additional comments: Right leg with weeping lesions anterior, blisters - Neurological Exam Additional comments: unresponsive - Psychiatric Exam Additional comments: unable to assess, pt unresponsive - Skin Additional comments: Right leg with diffuse erythema, weeping lesions Right upper arm with multiple ecchymoses Results - Vital Signs Recent Vital Signs: Last Vital Signs Temp 99.0 F 03/05/17 10:40 Pulse 120 H 03/05/17 12:29 Resp 28 H 03/05/17 10:43 BP 102/44 L 03/05/17 12:19 Pulse Ox 74 L 03/05/17 10:13 - Labs Result Diagrams: 03/05/17 10:35 03/05/17 10:35 Assessment & Plan - Assessment and Plan (Free Text) Assessment: 81M w/PMH sig for B/L pleural effusions, COPD, and CHF admitted with acute respiratory failure to ICU for stabilization Plan: Acute respiratory failure 2/2 B/L pleural effusions O2 sat 93% on NC ABG pH 7.23, pCO2 61, pO2 70, HCO3 25.5 Bipap PRN DNI Duonebs Lasix Solu-medrol COPD Leukocytosis 12.1 Cefepime Vancomycin FU AM labs FU Urine cx FU blood cx Monitor CHF w/ B/L LE edema FU LE dopplers Duonebs Lasix Solu-medrol BNP 5860 HOB to 30 degrees Monitor I/Os Daily weights Thrombocytopenia Plts 107 Contraindications to DVT ppx Anemia Hgb 9.6 Hct 30 Will monitor DM ISS Accuchecks NPO for now- pt unarousable HTN BP now 102/44 Will hold home meds for HTN 2/2 hypotension Monitor Further mgmt per ICU hx afib, CAD s/p cardiac cath & stents Holding Plavix, ASA Monitor Obstructive sleep apnea Bipap GI/DVT ppx Protonix Contraindications to VTE ppx If plts increase, will re-consider VTE ppx Dispo Admit to ICU VS as per protocol PO hygiene DNR/DNI as per family/POA request Contraindications to VTE ppx Will consider pallative care consult NPO 2/2 pt unarousable Will re-consider if pt becomes awake Further mgmt as per ICU Renee, PGY-1 - Date & Time Date: 03/05/17 Time: 16:46 Decision To Admit - Pt Status Changed To: Hospital Disposition Of: Inpatient Admission - Admit Certification Admit to Inpatient:: After my assessment, the patient will require hospitalization for at least two midnights. This is because of the severity of symptoms shown, intensity of services needed, and/or the medical risk in this patient being treated as an outpatient. - . Bed Request Type: Critical Care Admitting Physician: Jena Luciano <Jena Luciano - Last Filed: 03/06/17 17:00> Results - Vital Signs Recent Vital Signs: Last Vital Signs Temp 97.8 F 03/06/17 12:00 Pulse 119 H 03/06/17 13:05 Resp 17 03/06/17 11:00 BP 135/67 03/06/17 11:00 Pulse Ox 93 L 03/06/17 11:44 - Labs Result Diagrams: 03/06/17 05:40 03/06/17 05:40 Labs: Laboratory Results - last 24 hr 03/05/17 03/05/17 03/05/17 16:56 21:00 23:11 WBC RBC Hgb Hct MCV MCH MCHC RDW Plt Count Gran % Lymph % (Auto) [place] % (Auto) Eos % (Auto) Baso % (Auto) Gran # Lymph # [place] # Eos # Baso # pCO2 pO2 HCO3 ABG pH ABG Total CO2 ABG O2 Saturation ABG O2 Content ABG Base Excess ABG Hemoglobin ABG Carboxyhemoglobin POC ABG HHb (Measured) ABG Methemoglobin ABG O2 Capacity Hgb O2 Saturation FiO2 Sodium Potassium Chloride Carbon Dioxide Anion Gap BUN Creatinine Est GFR ( Amer) Est GFR (Non-Af Amer) POC Glucose (mg/dL) 197 H 181 H Random Glucose Calcium Phosphorus Magnesium Total Bilirubin AST ALT Alkaline Phosphatase Total Protein Albumin Globulin Albumin/Globulin Ratio Ur L.pneumophila Ag Negative 03/06/17 03/06/17 03/06/17 05:20 05:40 05:40 WBC 7.9 D RBC 3.35 L Hgb 9.9 L Hct 31.4 L MCV 93.7 MCH 29.6 MCHC 31.5 RDW 18.2 H Plt Count 108 L Gran % 89.1 H Lymph % (Auto) 6.6 L [place] % (Auto) 4.2 Eos % (Auto) 0.0 L Baso % (Auto) 0.1 Gran # 7.03 H Lymph # 0.5 L [place] # 0.3 Eos # 0.0 Baso # 0.01 pCO2 55 H pO2 65.0 L HCO3 25.3 ABG pH 7.27 L ABG Total CO2 27.0 ABG O2 Saturation 95.1 ABG O2 Content 11.2 L ABG Base Excess -1.8 ABG Hemoglobin 8.5 L ABG Carboxyhemoglobin 2.0 H POC ABG HHb (Measured) 4.8 ABG Methemoglobin 0.1 ABG O2 Capacity 11.8 L Hgb O2 Saturation 93.1 L FiO2 80.0 Sodium 136 Potassium 4.6 Chloride 98 Carbon Dioxide 28 Anion Gap 15 BUN 47 H Creatinine 1.2 Est GFR ( Amer) > 60 Est GFR (Non-Af Amer) 58 POC Glucose (mg/dL) Random Glucose 143 H Calcium 9.4 Phosphorus 5.0 H Magnesium 1.9 Total Bilirubin 0.7 AST 18 ALT 16 Alkaline Phosphatase 47 Total Protein 6.7 Albumin 3.3 Globulin 3.4 Albumin/Globulin Ratio 1.0 L Ur L.pneumophila Ag 03/06/17 03/06/17 03/06/17 06:55 07:22 11:48 WBC RBC Hgb Hct MCV MCH MCHC RDW Plt Count Gran % Lymph % (Auto) [place] % (Auto) Eos % (Auto) Baso % (Auto) Gran # Lymph # [place] # Eos # Baso # pCO2 pO2 HCO3 ABG pH ABG Total CO2 ABG O2 Saturation ABG O2 Content ABG Base Excess ABG Hemoglobin ABG Carboxyhemoglobin POC ABG HHb (Measured) ABG Methemoglobin ABG O2 Capacity Hgb O2 Saturation FiO2 Sodium Potassium Chloride Carbon Dioxide Anion Gap BUN Creatinine Est GFR ( Amer) Est GFR (Non-Af Amer) POC Glucose (mg/dL) 178 H 157 H 170 H Random Glucose Calcium Phosphorus Magnesium Total Bilirubin AST ALT Alkaline Phosphatase Total Protein Albumin Globulin Albumin/Globulin Ratio Ur L.pneumophila Ag Attending/Attestation - Attestation I have personally seen and examined this patient.: Yes I have fully participated in the care of the patient.: Yes I have reviewed all pertinent clinical information: Yes Notes (Text): 03/06/17 16:57 attending note; Patient seen and examined with resident in ER. Patient is a 81-year-old male with a past medical history of CHF, COPD, DM, HTN , paroxsymal afib, CAD s/p cardiac cath and stent to circumflex, arthritis, depression, obesity, chronic LE edema, Obstructive sleep apnea is admitted with lethargy. Currently on BiPAP. Patient was evaluated by ICU attending. patient's son wanted the patient to be DNI DNR as per patient's wishes. Patient will go to ICU for observation. Speech and swallow evaluation ordered. Bilateral pleural effusions; continue IV Lasix. Lower extremity cellulitis; continue vancomycin and cefepime. prognosis is poor. Multiple family members by the bedside.
--- NOTE | 2017-03-05 17:38 | US ---
HISTORY: Leg pain and swelling. Evaluate for DVT PHYSICIAN(S): Sky Herrera MD. TECHNIQUE: Duplex sonography and color-flow Doppler with graded compression were used to evaluate the deep venous systems of both lower extremities. The exam is limited by body habitus and edema. The tibial veins are not adequately seen. FINDINGS: The visualized deep venous systems of both lower extremities are sonographically normal and compressible. Normal wave forms and augmentation are seen. There is no sonographic evidence for deep venous thrombosis in the visualized segments of both lower extremities. IMPRESSION: No sonographic evidence for deep venous thrombosis in the visualized segments of both lower extremities. Limited study.
[2017-03-05] MEDS: Insulin Lispro (humaLOG) MEDIUM Coverage SC SCH ×2 (19:26→22:00)
[2017-03-05] MEDS: MethylPREDNISolone 40 mg Vial IVP SCH (19:27)
[2017-03-05 19:28] VITALS: BMI 40.1
[2017-03-05] MEDS ORDERED: Pneumococcal 23-Valent Vaccine IM ONE (19:28)
[2017-03-05] MEDS: Cefepime 1gm in NS 100ml 1 GM/100 ML BAG IVPB SCH (22:00)
[2017-03-06] MEDS: MethylPREDNISolone 40 mg Vial IVP SCH ×3 (00:26→19:38)
--- NOTE | 2017-03-06 00:47 | CON ---
DATE: 03/05/2017 HISTORY OF PRESENT ILLNESS: The patient is seen and examined at bedside. This is an 81-year-old gentleman with history of severe pulmonary hypertension and right ventricular failure, MAHI, OHS who presented with altered mental status and was found to have hypercapnic respiratory failure. 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 He has been in the hospital before with hypercapnic respiratory failure; however, at that time, he avoided intubation and improved with conservative medical management. No history of shortness of breath, chest pain, fever, chills, sweats, nausea, vomiting or diarrhea. PAST MEDICAL HISTORY: Type 2 diabetes, arthritis, OHS, MAHI, right ventricular failure and severe pulmonary hypertension. FAMILY HISTORY: Noncontributory. SOCIAL HISTORY: No alcohol abuse or drug abuse. No tobacco smoking. ALLERGIES: NKDA. MEDICATIONS AT HOME; Eye drops, amlodipine and benazepril, Azopt. REVIEW OF SYSTEMS: Review of 12-point review of system other than mentioned in history of present illness is negative. PHYSICAL EXAMINATION VITAL SIGNS: Heart rate 120, blood pressure 102/44, respiratory rate 22, oxygen saturation 93% on 80% FiO2, the patient is on BiPAP 20/4 HEENT: Head and neck atraumatic. LUNGS: Decreased breath sounds on the right side. Normal breath sounds in the left side. No crackles. HEART: Regular rate rhythm. S1 and S2 normal. ABDOMEN: Soft, nontender and nondistended. MUSCULOSKELETAL: Some bilateral erythema with some blisters on the right ankle. SKIN: Moist. PSYCHIATRIC: The patient is very lethargic. LABORATORY DATA: CT of the chest revealed no evidence of pulmonary embolus. Moderate sized bilateral pleural effusion right greater than the left with adjacent lower lobe consolidation. WBC 12.1, hemoglobin 9.6 and, platelet count 107. Sodium 134, potassium 4.4, chloride 95, carbon dioxide 30, BUN 50, creatinine 1.4 up from 1.1 from previous admission, glucose 144, calcium 9.4, AST 22, ALT 21, proBNP 5860, troponin 0.01. EKG showed sinus tachycardia without specific ischemic changes. ASSESSMENT AND PLAN: This is an 81-year-old gentleman who presented with community-acquired pneumonia with high risk for multidrug resistant pathogen in the setting of right ventricular failure and severe pulmonary hypertension. The patient has hypercapnic respiratory failure and currently he is on bilevel positive airway pressure (patient is DNR/DNI). We will proceed with septic workup, conservative fluid management, antibiotics, infectious disease followup. We will send urine for streptococcal and Legionella antigen, procalcitonin and CRP. We will start the patient on bronchodilator, low dose steroids and dobutamine to decrease pulmonary hypertension. We will continue to target euvolemia, euglycemia, normothermia and oxygen saturation more than 90%. We will continue with DVT and GI prophylaxis. ccm time 40 min Pedro Reese MD MTDRosalio
[2017-03-06] MEDS: Albuterol-Ipratrop 3 mg / 0.5 (3 ml) UD IH SCH ×2 (01:59→07:29)
[2017-03-06 05:29] LABS: ARTERIAL BLOOD GAS HCO3 25.3 mmol/L (21-28); ARTERIAL BLOOD GAS HEMOGLOBIN 8.5 g/dL (11.7-17.4); ARTERIAL BLOOD GAS O2 CAPACITY 11.8 mL/dl (16-24); ARTERIAL BLOOD GAS O2 CONTENT 11.2 ML/dl (15-23); ARTERIAL BLOOD GAS O2 SAT 95.1 % (95-98); ARTERIAL BLOOD GAS PCO2 55 mm/Hg (35-45); ARTERIAL BLOOD GAS PH 7.27 (7.35-7.45)
[2017-03-06 06:37] LABS: BASO # 0.01 K/mm3 (0.0-2.0); BASO % 0.1 % (0.0-3.0); GRAN # 7.03 (1.4-6.5); GRAN % 89.1 % (50.0-68.0); HEMOGLOBIN 9.9 gm/dL (14.0-18.0); LYMPH # 0.5 (1.2-3.4); LYMPH % 6.6 % (22.0-35.0); MEAN CELL VOLUME 93.7 fL (80.0-105.0); MEAN CORPUSCULAR HEMOGLOBIN 29.6 pg (25.0-35.0); MEAN CORPUSCULAR HGB CONC 31.5 g/dl (31.0-37.0); MONO # 0.3 (0.1-0.6); MONO % 4.2 % (1.0-6.0); PLATELET COUNT 108 10^3/uL (120.0-450.0); RBC 3.35 10^6/uL (3.5-6.1); RED CELL DISTRIBUTION WIDTH 18.2 % (11.5-14.5); WHITE BLOOD COUNT 7.9 10^3/ul (4.5-11.0)
[2017-03-06 06:55] LABS: ALBUMIN 3.3 g/dL (3.0-4.8); ALT/SGPT 16 U/L (7-56); AST/SGOT 18 U/L (15-59); BLOOD UREA NITROGEN 47 mg/dL (7-21); CALCIUM 9.4 mg/dL (8.4-10.5); GFR AFRICAN-AMERICAN > 60; GFR NON-AFRICAN AMERICAN 58; MAGNESIUM 1.9 mg/dL (1.7-2.2)
--- NOTE | 2017-03-06 08:08 | CARD ---
APPROVED REPORT EKG Measurement Heart [id number] ID [id number] <Conclusion> Sinus tachycardia Low voltage limb leads PRWP IVCD NSSTW changes
[2017-03-06] MEDS ORDERED: Heparin 25,000units in D5W 25,000 UNITS/250 ML BAG IV PRN (08:23)
[2017-03-06] MEDS: Insulin Lispro (humaLOG) MEDIUM Coverage SC SCH ×4 (08:35→22:51)
--- NOTE | 2017-03-06 09:23 | CT ---
PROCEDURE: CT HEAD WITHOUT CONTRAST. HISTORY: lethargy COMPARISON: None available. TECHNIQUE: Axial computed tomography images were obtained through the head/brain without intravenous contrast. Radiation dose: Total exam DLP = 724 mGy-cm. This CT exam was performed using one or more of the following dose reduction techniques: Automated exposure control, adjustment of the mA and/or kV according to patient size, and/or use of iterative reconstruction technique. FINDINGS: HEMORRHAGE: No intracranial hemorrhage. BRAIN: No mass effect or edema. There is generalized cerebral atrophy. No gross chronic microvascular ischemic changes. VENTRICLES: The prominence of the lateral ventricles is commensurate with the degree of atrophy and patient's age CALVARIUM: Unremarkable. PARANASAL SINUSES: Thick mucosal reaction in soft tissue density within the left maxillary sinus. Maxillary mendez thickened and sclerotic -chronic left maxillary sinusitis is inferred. There is also a amorphous calcification within the soft tissue left maxillary sinus opacification. No lytic lesions here noted. Left posterior and middle segmental ethmoidal sinus inflammatory changes likely chronic as well suggested MASTOID AIR CELLS: Unremarkable as visualized. No inflammatory changes. OTHER FINDINGS: Atherosclerotic vertebrobasilar and internal carotid arterial calcification IMPRESSION: No intracranial hemorrhage or mass effect. Left maxillary and lesser chronic left ethmoidal sinus inflammatory changes. Dystrophic appearing calcification/ossification in the left maxillary sinus soft tissue inflammatory process. No lytic lesion. Consider ENT consultation
[2017-03-06] MEDS: Cefepime 1gm in NS 100ml 1 GM/100 ML BAG IVPB SCH ×2 (09:37→21:35)
[2017-03-06] MEDS ORDERED: Vancomycin 1gm in NS 250ml 1 GM/250 ML BAG IVPB SCH (10:00)
[2017-03-06] MEDS ORDERED: Enoxaparin 40 mg Syringe SC SCH (10:00)
--- NOTE | 2017-03-06 10:30 | PN ---
DATE: 03/06/2017 SUBJECTIVE: The patient is seen and examined at bedside. He is very lethargic. He responses to painful stimuli only. PHYSICAL EXAMINATION: VITAL SIGNS: Temperature afebrile. Heart rate is 90, blood pressure 120/46, respiratory rate of 16, oxygen saturation 91% on 80% Fio2 via BiPAP 20/4. HEENT: Head and neck atraumatic. LUNGS: Clear to auscultation bilaterally. HEART: Regular rate and rhythm. S1 and S2 normal. ABDOMEN: Soft, nontender, and nondistended. MUSCULOSKELETAL: There is bilateral erythema, right more than left in the ankles. NEUROLOGIC: The patient is somnolent; however, was noted to move his lower extremities spontaneously. SKIN: Erythematous and some blisters on the right side. PSYCHIATRIC: The patient is very somnolent. LABORATORY DATA: ABG shows 7.27 (up from 7.13)/55 (down from 61)/65. Sodium 136, potassium 4.6, chloride 98, carbon dioxide 28, BUN 27, creatinine 1.2 down from 1.4, glucose 143. WBC 7.9, hemoglobin 9.9, platelet count 108. INR 1.21, PTT of 31.6 (the patient is on apixaban which, however, was held yesterday.). I will restart heparin drip. MEDICATIONS: DuoNeb every 6h.; Plavix 40 mg IV daily; cefepime; Solu-Medrol 40 mg IV q. 6h.; Protonix; vancomycin. 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 The patient was admitted with hypercapnic respiratory failure, which slowly improved on BiPAP. Of note, the patient is DNR/DNI. At present time, we are proceeding with antibiotics, steroids taper and bronchodilators. Severe sepsis due to cellulitis of both lower extremities, right more than left may be contributing factor to his ventilatory decompensation. I will order procalcitonin and CRP as well. We will continue to target euvolemia, euglycemia , normothermia and oxygen saturation of more than 90%. The patient is on BiPAP 20/4. The patient is going for CT of the head to rule out intracranial abnormality that would account for his altered mental status. I will continue with GI prophylaxis. Addendum: patient's mental status substantially improved-->he woke up and started eating, talking. DANAY improved, creatinine decreased. ccm time 40 min Pedro Reese MD MTDD
--- NOTE | 2017-03-06 13:43 | CON ---
DATE: 03/06/2017 CONSULT SERVICE: Cardiology. REASON FOR CONSULTATION: Coronary artery disease, atrial fibrillation, and admitted with altered mental status. HISTORY OF PRESENT ILLNESS: An 81-year-old male with past medical history significant for pulmonary hypertension, obstructive sleep apnea, history of coronary artery disease, admitted with altered mental status possibly secondary to hypercapnia, CO2 narcosis, on BiPAP, history of chronic atrial fibrillation, on Eliquis at home and Plavix. Now, the patient is much awake and alert, yesterday was told the patient was not responding to verbal stimuli. The patient is awake and alert. family is at the bedside, but denies any chest pain. PAST MEDICAL HISTORY: Significant for history of atrial fibrillation, morbid obesity, history of stent in the past, history of circumflex stent in the past, admitted with CO2 narcosis, hypertension, hyperlipidemia, congestive heart failure, history of cardiac catheterization left and right and stent in the circumflex, history of pulmonary hypertension, and history of obstructive sleep apnea. Previous cardiac workup as follows; the patient had a cardiac catheterization on 11/01/2016, at that time, left and right heart catheterization was done as well as stent in the circumflex was done. Cardiac catheterization in summary revealed single-vessel CAD mid circumflex codominant system, patent stent in proximal LAD, and [id number] circumflex, preserved LV function ejection fraction 65%, EDP in the range of 223 dated 11/01/2016, right heart catheterization was done at that time that revealed RA 18, RV 70/12, PA 70/35, mean PA 48, pulmonary capillary wedge pressure 20, cardiac output 7.8, and PVR was 4 volts unit, morbid obesity, AFib PTCA mid circumflex was done. Prior history of PTCA of LAD and proximal circumflex, which has patent at the last dated 11/01/2016. CURRENT MEDICATIONS: The patient is taking at home verapamil 120 mg, Januvia and Actos, Lasix 20 mg, Pepcid 20 mg, Lexapro 10 mg, clopidogrel 75 mg, and Eliquis 5 mg b.i.d. REVIEW OF SYSTEMS: As per HPI as negative except in HPI. PHYSICAL EXAMINATION: VITAL SIGNS: Temperature afebrile, heart rate 90, and blood pressure 131/73. HEENT: PERRLA. Extraocular muscles intact. NECK: Supple. No carotid bruit or thyromegaly. CHEST: Clear to auscultation. HEART: S1 and S2 regular. ABDOMEN: Soft. EXTREMITIES: Clubbing and cyanosis negative. LABORATORY DATA: EKG shows AFib at a rate of 123. Blood workup as follows; WBC 7.9, hemoglobin 9.9, hematocrit 31.4, and platelet count 108. Chemistry shows sodium 130, potassium 4.0, chloride 90, carbon dioxide 28, anion gap 15, BUN 47, and creatinine 1.2. Troponin 0.01 negative. IMPRESSION: An 81-year-old male with past medical history significant for chronic atrial fibrillation, obstructive sleep apnea, chronic obstructive pulmonary disease, pulmonary hypertension, morbid obesity, diabetes, hypertension, hyperlipidemia, history of stent on 11/01/2016 with codominant circumflex, at that time, cardiac catheterization revealed pulmonary hypertension, preserved left ventricular function, patent stent in left anterior descending, patent stent in proximal circumflex, and stent diagonal done in mid circumflex. Pulmonary artery pressure was elevated and pulmonary vascular resistance was 4 volts unit. Echo at that time revealed ejection fraction 55% to 60%, mild mitral regurgitation, moderate tricuspid regurgitation, and RV systolic pressure of 75. No evidence of acute myocardial infarction, admitted with altered mental status, and possible CO2 narcosis. RECOMMENDATIONS: Continue CPAP, continue gentle diuretics p.r.n., resume medication, resume Eliquis, resume Plavix, discuss with patient and I will discuss with you. We will resume Plavix and once the patient has p.o. started, we will resume Eliquis and Plavix and discontinue heparin. We will follow with you. Thank you Dr. Luciano for the opportunity in taking care of patient, Jerry Olvera. Anthnoy Mckinley MD
--- NOTE | 2017-03-06 14:29 | CP.PCM.PN ---
<PHIL HERMOSILLO - Last Filed: 03/06/17 14:05> Subjective - Date & Time of Evaluation Date of Evaluation: 03/06/17 Time of Evaluation: 07:30 - Subjective Subjective: Phil Hermosillo DO PGY1 - ICU Progress Note Patient seen and examined at beside. No acute events reported overnight. Patient is much more awake and arousable than last night. Slept well on BIPAP. Denies CP, [place], weakness, numbness, abdominal pain. Objective - Vital Signs/Intake and Output Vital Signs (last 24 hours): Temp Pulse Resp BP Pulse Ox 98.7 F 119 H 17 135/67 93 L 03/06/17 00:01 03/06/17 13:05 03/06/17 11:00 03/06/17 11:00 03/06/17 11:44 Intake and Output: 03/06/17 03/06/17 06:59 18:59 Intake Total 100 Output Total 700 Balance -600 - Medications Medications: Current Medications Apixaban (Eliquis) 5 mg PO BID JING PRN Reason: Protocol Clopidogrel Bisulfate (Plavix) 75 mg PO DAILY [facility] Furosemide (Lasix) 40 mg IVP DAILY [facility] Last Admin: 03/06/17 09:42 Dose: 40 mg Cefepime HCl (Maxipime 1gm) 1 gm in 100 mls @ 100 mls/hr IVPB Q12 JING PRN Reason: Protocol Last Admin: 03/06/17 09:37 Dose: 100 mls/hr Vancomycin HCl (Vancomycin 1gm) 1 gm in 250 mls @ 167 mls/hr IVPB DAILY JING PRN Reason: Protocol Last Admin: 03/06/17 09:41 Dose: 167 mls/hr Insulin Human Lispro (Humalog Med) 0 units SC ACHS JING PRN Reason: Protocol Last Admin: 03/06/17 11:52 Dose: Not Given Levalbuterol HCl (Xopenex) 0.63 mg IH [id number] PRN PRN Reason: Shortness of Breath Methylprednisolone (Solu-Medrol) 40 mg IVP Q8H [facility] Last Admin: 03/06/17 09:43 Dose: 40 mg Pantoprazole Sodium (Protonix Inj) 40 mg IVP DAILY [facility] Last Admin: 03/05/17 19:27 Dose: 40 mg Verapamil HCl (Calan Sr Tab) 120 mg PO DAILY JING Verapamil HCl (Verapamil Inj) 2.5 mg IVP Q6H PRN PRN Reason: for heart rate >120 - Labs Labs: 03/06/17 05:40 03/06/17 05:40 PT 13.1 Seconds (9.9-11.8) H 03/05/17 10:35 INR 1.21 (0.93-1.08) H 03/05/17 10:35 APTT 31.6 Seconds (23.7-30.8) H 03/05/17 10:35 - Constitutional Appears: Non-toxic, No Acute Distress - Head Exam Head Exam: ATRAUMATIC, NORMOCEPHALIC - Eye Exam Eye Exam: EOMI, Normal appearance - ENT Exam ENT Exam: Mucous Membranes Moist - Neck Exam Neck Exam: Normal Inspection - Respiratory Exam Additional comments: Decreased breath sounds. Mild diffuse rhonchi. On BIPAP - Cardiovascular Exam Cardiovascular Exam: Irregular Rhythm, +S1, +S2 - GI/Abdominal Exam GI & Abdominal Exam: Soft, Normal Bowel Sounds. absent: Tenderness - Extremities Exam Extremities Exam: absent: Calf Tenderness Additional comments: RLE: 1+ pitting edema to proximal meyer. Diffuse erythema, tenderness. 4cm bulla with open sore at 3'oclock position, weeping sero-purulent fluid. LLE: 1+ pitting edema to proximal meyer. Some erythema on anterior meyer. - Neurological Exam Neurological Exam: Alert, Awake - Skin Additional comments: As noted in Extremity Exam. Assessment and Plan - Assessment and Plan (Free Text) Assessment: 81 yo M admitted to the ICU for hypoxic and hypercapnic respiratory failure 2/2 to pneumonia and CHF exacerbation Neuro: - AAOx3, mentating normally, sleepy but responsive and arousable - Head CT shows no acute hemorrhage or mass effect - Continue to monitor Pulm: - Acute hypoxic, hypercapnic respiratory failure 2/2 pneumonia, MAHI, and OHS and pulmonary HTN in the setting of RV failure - Diffusely decreased breath sounds on exam, some minimal rhonchi on exam - On BIPAP 20/5, FiO2 80%, satting well - Solumedrol 40mg IV Q8 - Xopenex prn q6 - On vancomycin, and cefepime for pneumonia - Goal SaO2 > 90% Cardio: - Irregularly Irregular Rhythm; Hx paroxysmal afib, currently active - History of right sided CHF, continue lasix - Continue home Eliquis, plavix, verapamil jing and PRN - Maintain MAP > 65 - Cardio (Elías) consulted, all recs appreciated GI: - Currently NPO, pending swallow screen - Protonix for GI ppx Renal: - Cr 1.2, improved with diuresis, cont to monitor renal fcn - Monitor I's and O's - Monitor and replete electrolytes as needed Heme: - Hgb 9.9, stable, baseline per prior charting - Hemodynamically stable, no signs of acute bleed - Transfuse if Hgb < 7.0 or decreasing and presenting with Hemodynamic instability, active cardiac event (NSTEMI/STEMI), or signs of end-organ dmg ID: - WBC improved to 7.9, from 12.1 yesterday, afebrile overnight. Source likely pneumonia vs less likely RLE cellulitis - On Vanc and cefepime IV, continue pending ID eval and recs - ID (Dr. Saini consulted), appreciate all recs - Lactate 1.1 - Blood culture negative after 24 hrs. Wound cultures pending. Endo: - Insulin Med ISS and Accuchecks ACHS - Maintain blood glucose 140-180 Ppx: Protonix for GI, on eliquis covers for DVT Patient seen, reviewed, and discussed with senior resident and attending Angelita PGY1 <Pedro Reese - Last Filed: 03/12/17 15:09> Objective - Vital Signs/Intake and Output Vital Signs (last 24 hours): Temp Pulse Resp BP Pulse Ox 98.1 F 62 26 H 140/61 93 L 03/12/17 07:30 03/12/17 09:37 03/12/17 07:30 03/12/17 14:39 03/12/17 07:30 Intake and Output: 03/12/17 03/12/17 06:59 18:59 Intake Total 1070 Output Total 1300 Balance -230 - Medications Medications: Current Medications Apixaban (Eliquis) 5 mg PO BID JING PRN Reason: Protocol Last Admin: 03/12/17 09:29 Dose: 5 mg Clopidogrel Bisulfate (Plavix) 75 mg PO DAILY [facility] Last Admin: 03/12/17 09:30 Dose: 75 mg Digoxin (Lanoxin) 0.25 mg PO DAILY [facility] Last Admin: 03/12/17 10:01 Dose: 0.25 mg Doxycycline Hyclate (Doryx) 100 mg PO Q12 JING PRN Reason: Protocol Last Admin: 03/12/17 09:28 Dose: 100 mg Furosemide (Lasix) 40 mg PO 0800,1400 [facility] Last Admin: 03/12/17 14:39 Dose: 40 mg Vancomycin HCl (Vancomycin 1gm) 1 gm in 250 mls @ 167 mls/hr IVPB Q12 JING PRN Reason: Protocol Last Admin: 03/12/17 09:30 Dose: 167 mls/hr Insulin Human Lispro (Humalog Med) 0 units SC ACHS JING PRN Reason: Protocol Last Admin: 03/12/17 12:04 Dose: 1 units Levalbuterol HCl (Xopenex) 0.63 mg IH [id number] PRN PRN Reason: Shortness of Breath Last Admin: 03/10/17 14:02 Dose: 0.63 mg Metformin HCl (Glucophage) 500 mg PO BID [facility] Last Admin: 03/12/17 09:29 Dose: 500 mg Methylprednisolone (Solu-Medrol) 30 mg IVP Q12 [facility] Last Admin: 03/12/17 09:30 Dose: 30 mg Mupirocin (Bactroban Ointment) 0 gm TOP BID [facility] Last Admin: 03/12/17 09:12 Dose: Not Given Pantoprazole Sodium (Protonix Ec Tab) 40 mg PO 0600 [facility] Last Admin: 03/12/17 06:11 Dose: 40 mg Verapamil HCl (Verapamil Inj) 2.5 mg IVP Q6H PRN PRN Reason: for heart rate >120 Last Admin: 03/07/17 08:45 Dose: 2.5 mg Verapamil HCl (Calan Sr Tab) 240 mg PO DAILY [facility] Last Admin: 03/12/17 09:37 Dose: 240 mg - Labs Labs: 03/12/17 12:40 03/12/17 12:40 PT 13.1 Seconds (9.9-11.8) H 03/05/17 10:35 INR 1.21 (0.93-1.08) H 03/05/17 10:35 APTT 31.6 Seconds (23.7-30.8) H 03/05/17 10:35 Attending/Attestation - Attestation I have personally seen and examined this patient.: Yes I have fully participated in the care of the patient.: Yes I have reviewed all pertinent clinical information, including history, physical exam and plan: Yes Notes (Text): 03/12/17 15:06 81 yo male with HcRF, on BPAP. continue bronchodilators, stroids taper and abx. maintain euvolemia, euglycemia and normothermia. DVT/GI prophylaxis ccm time 40 min
--- NOTE | 2017-03-06 14:39 | CP.PCM.PN ---
<Eleonora Duran - Last Filed: 03/07/17 15:51> Subjective - Date & Time of Evaluation Date of Evaluation: 03/06/17 Time of Evaluation: 07:15 - Subjective Subjective: Internal medicine progress note for Dr. Grace Duran, PGY-1 Pt S & E at bedside this AM. Pt more responsive overnight, continues on Bipap overnight. Pt able to answer questions- states he continues to have problems breathing, admits to B/L Leg pain, is hungry. No other complaints noted. Objective - Vital Signs/Intake and Output Vital Signs (last 24 hours): Temp Pulse Resp BP Pulse Ox 98.7 F 119 H 17 135/67 93 L 03/06/17 00:01 03/06/17 13:05 03/06/17 11:00 03/06/17 11:00 03/06/17 11:44 Intake and Output: 03/06/17 03/06/17 06:59 18:59 Intake Total 100 Output Total 700 Balance -600 - Medications Medications: Current Medications Apixaban (Eliquis) 5 mg PO BID [facility] PRN Reason: Protocol Clopidogrel Bisulfate (Plavix) 75 mg PO DAILY [facility] Furosemide (Lasix) 40 mg IVP DAILY [facility] Last Admin: 03/06/17 09:42 Dose: 40 mg Cefepime HCl (Maxipime 1gm) 1 gm in 100 mls @ 100 mls/hr IVPB Q12 [facility] PRN Reason: Protocol Last Admin: 03/06/17 09:37 Dose: 100 mls/hr Vancomycin HCl (Vancomycin 1gm) 1 gm in 250 mls @ 167 mls/hr IVPB DAILY [facility] PRN Reason: Protocol Last Admin: 03/06/17 09:41 Dose: 167 mls/hr Insulin Human Lispro (Humalog Med) 0 units SC ACHS [facility] PRN Reason: Protocol Last Admin: 03/06/17 11:52 Dose: Not Given Levalbuterol HCl (Xopenex) 0.63 mg IH [id number] PRN PRN Reason: Shortness of Breath Methylprednisolone (Solu-Medrol) 40 mg IVP Q8H [facility] Last Admin: 03/06/17 09:43 Dose: 40 mg Pantoprazole Sodium (Protonix Inj) 40 mg IVP DAILY [facility] Last Admin: 08/01/17 19:27 Dose: 40 mg Verapamil HCl (Calan Sr Tab) 120 mg PO DAILY [facility] Verapamil HCl (Verapamil Inj) 2.5 mg IVP Q6H PRN PRN Reason: for heart rate >120 - Labs Labs: 03/06/17 05:40 03/06/17 05:40 PT 13.1 Seconds (9.9-11.8) H 03/05/17 10:35 INR 1.21 (0.93-1.08) H 03/05/17 10:35 APTT 31.6 Seconds (23.7-30.8) H 03/05/17 10:35 - Constitutional Appears: Non-toxic, No Acute Distress, Chronically Ill - Head Exam Head Exam: ATRAUMATIC, NORMAL INSPECTION, NORMOCEPHALIC - Eye Exam Eye Exam: EOMI, Normal appearance - ENT Exam ENT Exam: Mucous Membranes Moist, Normal Exam - Neck Exam Neck Exam: Full ROM - Respiratory Exam Respiratory Exam: Rhonchi, NORMAL BREATHING PATTERN. absent: Accessory Muscle Use, Chest Wall Tenderness, Clear to Ausculation Bilateral, Wheezes, Respiratory Distress Additional comments: on Bipap - Cardiovascular Exam Cardiovascular Exam: REGULAR RHYTHM, +S1, +S2 - GI/Abdominal Exam GI & Abdominal Exam: Soft, Normal Bowel Sounds. absent: Distended (obese), Tenderness - Extremities Exam Extremities Exam: Pedal Edema (3+ pitting edema). absent: Normal Inspection Additional comments: Anterior aspect with weeping/fluid filled blisters on RLE - Neurological Exam Neurological Exam: Alert, Awake, CN II-XII Intact - Psychiatric Exam Psychiatric exam: Normal Affect, Normal Mood - Skin Skin Exam: Dry, Intact, Normal Color, Warm Assessment and Plan - Assessment and Plan (Free Text) Assessment: 81M w/PMH sig for B/L pleural effusions, COPD, and CHF with acute respiratory failure 2/2 B/L Pleural effusions, continues with SOB, no longer requiring ICU care. Plan: Acute respiratory failure 2/2 B/L pleural effusions O2 sat 93% on Bipap ABG pH 7.27, pCO2 55, pO2 65, HCO3 25.3 Bipap PRN Xopenex Lasix Solu-medrol Monitor Afib, CAD s/p cardiac cath & stents Eliquis restarted Plavix Verapamil Cardio consulted/following COPD Leukocytosis 12.1 now 7.9- resolved Xopenex Bipap Solu-Medrol Monitor B/L LE cellulitis/blisters/foot care Cefepime Vancomycin FU Urine cx Blood cx neg x 24H Monitor Wound care consult Podiatry consulted/following ID consulted/following CHF w/ B/L LE edema LE dopplers neg for DVT Duonebs Lasix Solu-medrol HOB to 30 degrees Monitor I/Os Daily weights Thrombocytopenia Plts 108 from 107 Monitor Anemia Hgb 9.9 from 9.6 Hct 31.4 from 30 Monitor DM ISS Accuchecks CCHO diet HTN Normotensive Verapamil as per cardio Monitor Obstructive sleep apnea Bipap GI/DVT ppx Protonix On Plavix, Eliquis Cannot tolerate SCDs 2/2 B/L LE edema/pain Dispo Transferred to [facility] VS as per protocol PO hygiene DNR/DNI as per family/POA request Pallative care consult PT/OT Stabber referral DW attending Renee, PGY-1 <Jena Luciano - Last Filed: 03/07/17 16:04> Objective - Vital Signs/Intake and Output Vital Signs (last 24 hours): Temp Pulse Resp BP Pulse Ox 98.2 F 71 19 110/49 L 94 L 03/07/17 12:00 03/07/17 14:30 03/07/17 15:57 03/07/17 14:00 03/07/17 14:30 - Medications Medications: Current Medications Apixaban (Eliquis) 5 mg PO BID [facility] PRN Reason: Protocol Last Admin: 03/07/17 09:39 Dose: 5 mg Clopidogrel Bisulfate (Plavix) 75 mg PO DAILY [facility] Last Admin: 03/07/17 09:41 Dose: 75 mg Doxycycline Hyclate (Doryx) 100 mg PO Q12 [facility] PRN Reason: Protocol Last Admin: 03/07/17 09:40 Dose: 100 mg Furosemide (Lasix) 40 mg IVP DAILY [facility] Last Admin: 03/07/17 09:42 Dose: 40 mg Cefepime HCl (Maxipime 2gm) 2 gm in 100 mls @ 100 mls/hr IVPB Q8 [facility] PRN Reason: Protocol Stop: 03/12/17 14:01 Last Admin: 03/07/17 14:26 Dose: 100 mls/hr Vancomycin HCl (Vancomycin 1gm) 1 gm in 250 mls @ 167 mls/hr IVPB Q12 [facility] PRN Reason: Protocol Last Admin: 03/07/17 09:43 Dose: 167 mls/hr Insulin Human Lispro (Humalog Med) 0 units SC ACHS [facility] PRN Reason: Protocol Last Admin: 03/07/17 12:25 Dose: 3 units Levalbuterol HCl (Xopenex) 0.63 mg IH [id number] PRN PRN Reason: Shortness of Breath Last Admin: 03/07/17 08:12 Dose: 0.63 mg Methylprednisolone (Solu-Medrol) 40 mg IVP Q8H [facility] Last Admin: 03/07/17 09:45 Dose: 40 mg Pantoprazole Sodium (Protonix Ec Tab) 40 mg PO 0600 [facility] Last Admin: 03/07/17 05:30 Dose: 40 mg Verapamil HCl (Calan Sr Tab) 120 mg PO DAILY [facility] Last Admin: 03/07/17 09:45 Dose: 120 mg Verapamil HCl (Verapamil Inj) 2.5 mg IVP Q6H PRN PRN Reason: for heart rate >120 Last Admin: 03/07/17 08:45 Dose: 2.5 mg - Labs Labs: 03/07/17 05:40 03/07/17 05:40 PT 13.1 Seconds (9.9-11.8) H 03/05/17 10:35 INR 1.21 (0.93-1.08) H 03/05/17 10:35 APTT 31.6 Seconds (23.7-30.8) H 03/05/17 10:35 Attending/Attestation - Attestation I have personally seen and examined this patient.: Yes I have fully participated in the care of the patient.: Yes I have reviewed all pertinent clinical information, including history, physical exam and plan: Yes Notes (Text): 03/07/17 16:01 attending note; Patient seen and examined with resident in ICU. Patient is a 81-year-old male with a past medical history of CHF, COPD, DM, HTN , paroxsymal afib, CAD s/p cardiac cath and stent to circumflex, arthritis, depression, obesity, chronic LE edema, Obstructive sleep apnea is admitted with lethargy. Currently on BiPAP. Patient his more alert and awake now. able to swallow. Started on po medications. recent coronary stent; continue Plavix. History of A. fib; continue liquids. Bilateral pleural effusions; continue IV Lasix. Lower extremity cellulitis; continue vancomycin and cefepime. ID evaluation requested. Transfer the patient out of ICU. prognosis is poor.
--- NOTE | 2017-03-06 15:11 | CP.PCM.CON ---
History of Present Illness - History of Present Illness History of Present Illness: 81 year old male with PMH of CAD S/P PCI, chronic CHF, COPD with severe pulmonary HTN, chronic atrial fibrillation, morbid obesity with BMI 40, arthritis, history of depression, obstructive sleep apnea, S/P right knee surgery 5-6 years ago was brought in to [facility] after he was found by family to be lethargic as well as having labored breathing. There was no note of fever, no convulsions, no loss of consciousness, no vomiting, no diarrhea. In the ED, the patient was found to be in hypercapneic respiratory failure and responded well to BiPAP. He was noted to have swelling and blisters on his right leg, and Infectious Diseases consult is requested to further evaluate and manage. Currently the patient is more awake on the BiPAP, denies headache or dizziness, no chest pain, no abdominal pain. He states that the blister on his leg and redness started just about a day ago. He has a pet cat at home; he has not had recent travel outside of his home in the past 3 months. Review of Systems - Review of Systems All systems: reviewed and no additional remarkable complaints except (as per HPI ) Past Patient History - Infectious Disease Hx of Infectious Diseases: None - Tetanus Immunizations Tetanus Immunization: Unknown - Past Medical History & Family History Past Medical History?: Yes - Past Social History Smoking Status: Former Smoker - CARDIAC Hx Cardiac Disorders: Yes Hx Cardia Arrhythmia: Yes (AFIB) Hx Congestive Heart Failure: Yes (cardiac cath; stent 4 ?) Hx Hypercholesterolemia: Yes Hx Hypertension: Yes - PULMONARY Hx Respiratory Disorders: Yes (PULMONARY HTN) Other/Comment: o2 dependent 3l - NEUROLOGICAL Hx Neurological Disorder: Yes (NEUROPATHY) - HEENT Hx HEENT Problems: No - RENAL Hx Chronic Kidney Disease: No - ENDOCRINE/METABOLIC Hx Diabetes Mellitus Type 2: Yes Hx Hypothyroidism: Yes - HEMATOLOGICAL/ONCOLOGICAL Hx Blood Disorders: No - INTEGUMENTARY Hx Dermatological Problems: No - MUSCULOSKELETAL/RHEUMATOLOGICAL Hx Musculoskeletal Disorders: Yes Hx Arthritis: Yes Hx Falls: Yes Hx Unsteady Gait: Yes (CANE WALKER) - GASTROINTESTINAL Hx Gastrointestinal Disorders: No - GENITOURINARY/GYNECOLOGICAL Hx Genitourinary Disorders: No - PSYCHIATRIC Hx Psychophysiologic Disorder: No Hx Substance Use: No - SURGICAL HISTORY Hx Surgeries: Yes (CARD CATH WITH HEART STENT PLACED 4?) Meds Allergies/Adverse Reactions: Allergies Allergy/AdvReac Type Severity Reaction Status Date / Time No Known Allergies Allergy Verified 03/05/17 15:41 - Medications Medications: Current Medications Apixaban (Eliquis) 5 mg PO BID [facility] PRN Reason: Protocol Clopidogrel Bisulfate (Plavix) 75 mg PO DAILY [facility] Furosemide (Lasix) 40 mg IVP DAILY [facility] Last Admin: 03/06/17 09:42 Dose: 40 mg Vancomycin HCl (Vancomycin 1gm) 1 gm in 250 mls @ 167 mls/hr IVPB DAILY [facility] PRN Reason: Protocol Last Admin: 03/06/17 09:41 Dose: 167 mls/hr Cefepime HCl (Maxipime 1gm) 1 gm in 100 mls @ 100 mls/hr IVPB Q8 [facility] PRN Reason: Protocol Insulin Human Lispro (Humalog Med) 0 units SC ACHS [facility] PRN Reason: Protocol Last Admin: 03/06/17 11:52 Dose: Not Given Levalbuterol HCl (Xopenex) 0.63 mg IH [id number] PRN PRN Reason: Shortness of Breath Methylprednisolone (Solu-Medrol) 40 mg IVP Q8H [facility] Last Admin: 03/06/17 09:43 Dose: 40 mg Pantoprazole Sodium (Protonix Inj) 40 mg IVP DAILY [facility] Last Admin: 03/05/17 19:27 Dose: 40 mg Verapamil HCl (Calan Sr Tab) 120 mg PO DAILY [facility] Verapamil HCl (Verapamil Inj) 2.5 mg IVP Q6H PRN PRN Reason: for heart rate >120 Physical Exam - Constitutional Appears: Non-toxic, No Acute Distress - Head Exam Head Exam: NORMAL INSPECTION - ENT Exam ENT Exam: Mucous Membranes Moist - Neck Exam Neck exam: Negative for: Meningismus - Respiratory Exam Respiratory Exam: Decreased Breath Sounds - Cardiovascular Exam Cardiovascular Exam: +S1, +S2 - GI/Abdominal Exam GI & Abdominal Exam: Soft. absent: Tenderness - Extremities Exam Additional comments: right leg with anterior portion erythema and blister formation Results - Vital Signs Recent Vital Signs: Last Vital Signs Temp 97.8 F 03/06/17 12:00 Pulse 119 H 03/06/17 13:05 Resp 17 03/06/17 11:00 BP 135/67 03/06/17 11:00 Pulse Ox 93 L 03/06/17 11:44 - Labs Result Diagrams: 03/06/17 05:40 03/06/17 05:40 Labs: Laboratory Results - last 24 hr 03/05/17 03/05/17 03/05/17 16:56 21:00 23:11 WBC RBC Hgb Hct MCV MCH MCHC RDW Plt Count Gran % Lymph % (Auto) Alger % (Auto) Eos % (Auto) Baso % (Auto) Gran # Lymph # Alger # Eos # Baso # pCO2 pO2 HCO3 ABG pH ABG Total CO2 ABG O2 Saturation ABG O2 Content ABG Base Excess ABG Hemoglobin ABG Carboxyhemoglobin POC ABG HHb (Measured) ABG Methemoglobin ABG O2 Capacity Hgb O2 Saturation FiO2 Sodium Potassium Chloride Carbon Dioxide Anion Gap BUN Creatinine Est GFR ( Amer) Est GFR (Non-Af Amer) POC Glucose (mg/dL) 197 H 181 H Random Glucose Calcium Phosphorus Magnesium Total Bilirubin AST ALT Alkaline Phosphatase Total Protein Albumin Globulin Albumin/Globulin Ratio Ur L.pneumophila Ag Negative 03/06/17 03/06/17 03/06/17 05:20 05:40 05:40 WBC 7.9 D RBC 3.35 L Hgb 9.9 L Hct 31.4 L MCV 93.7 MCH 29.6 MCHC 31.5 RDW 18.2 H Plt Count 108 L Gran % 89.1 H Lymph % (Auto) 6.6 L Alger % (Auto) 4.2 Eos % (Auto) 0.0 L Baso % (Auto) 0.1 Gran # 7.03 H Lymph # 0.5 L Alger # 0.3 Eos # 0.0 Baso # 0.01 pCO2 55 H pO2 65.0 L HCO3 25.3 ABG pH 7.27 L ABG Total CO2 27.0 ABG O2 Saturation 95.1 ABG O2 Content 11.2 L ABG Base Excess -1.8 ABG Hemoglobin 8.5 L ABG Carboxyhemoglobin 2.0 H POC ABG HHb (Measured) 4.8 ABG Methemoglobin 0.1 ABG O2 Capacity 11.8 L Hgb O2 Saturation 93.1 L FiO2 80.0 Sodium 136 Potassium 4.6 Chloride 98 Carbon Dioxide 28 Anion Gap 15 BUN 47 H Creatinine 1.2 Est GFR ( Amer) > 60 Est GFR (Non-Af Amer) 58 POC Glucose (mg/dL) Random Glucose 143 H Calcium 9.4 Phosphorus 5.0 H Magnesium 1.9 Total Bilirubin 0.7 AST 18 ALT 16 Alkaline Phosphatase 47 Total Protein 6.7 Albumin 3.3 Globulin 3.4 Albumin/Globulin Ratio 1.0 L Ur L.pneumophila Ag 03/06/17 03/06/17 03/06/17 06:55 07:22 11:48 WBC RBC Hgb Hct MCV MCH MCHC RDW Plt Count Gran % Lymph % (Auto) Alger % (Auto) Eos % (Auto) Baso % (Auto) Gran # Lymph # Alger # Eos # Baso # pCO2 pO2 HCO3 ABG pH ABG Total CO2 ABG O2 Saturation ABG O2 Content ABG Base Excess ABG Hemoglobin ABG Carboxyhemoglobin POC ABG HHb (Measured) ABG Methemoglobin ABG O2 Capacity Hgb O2 Saturation FiO2 Sodium Potassium Chloride Carbon Dioxide Anion Gap BUN Creatinine Est GFR ( Amer) Est GFR (Non-Af Amer) POC Glucose (mg/dL) 178 H 157 H 170 H Random Glucose Calcium Phosphorus Magnesium Total Bilirubin AST ALT Alkaline Phosphatase Total Protein Albumin Globulin Albumin/Globulin Ratio Ur L.pneumophila Ag Assessment & Plan - Assessment and Plan (Free Text) Plan: Assessment Consider sepsis due to right leg skin and skin structure infection Hyerpcapneic respiratory failure probably from COPD exacerbation / pulmonary HTN CAD S/P PCI chronic CHF COPD with severe pulmonary HTN chronic atrial fibrillation morbid obesity with BMI 40 arthritis history of depression obstructive sleep apnea S/P right knee surgery 5-6 years ago Plan Started patient on Vancomycin and Cefepime pending wound cx, blood cx; if there is no improvement in the next 2 days, kareem have imaging of the leg will monitor clinically
[2017-03-07] MEDS: MethylPREDNISolone 40 mg Vial IVP SCH ×3 (02:07→16:49)
[2017-03-07] MEDS: Cefepime 1gm in NS 100ml 1 GM/100 ML BAG IVPB SCH (05:26)
[2017-03-07] MEDS: Pantoprazole 40 mg EC Tab PO SCH (05:30)
[2017-03-07 06:38] LABS: GRAN # 6.87 (1.4-6.5); GRAN % 89.8 % (50.0-68.0); HEMOGLOBIN 9.2 gm/dL (14.0-18.0); LYMPH # 0.4 (1.2-3.4); LYMPH % 5.1 % (22.0-35.0); MEAN CELL VOLUME 91.5 fL (80.0-105.0); MEAN CORPUSCULAR HEMOGLOBIN 28.8 pg (25.0-35.0); MEAN CORPUSCULAR HGB CONC 31.5 g/dl (31.0-37.0); MONO # 0.4 (0.1-0.6); MONO % 5.1 % (1.0-6.0); PLATELET COUNT 122 10^3/uL (120.0-450.0); RBC 3.19 10^6/uL (3.5-6.1); WHITE BLOOD COUNT 7.7 10^3/ul (4.5-11.0)
[2017-03-07 06:44] LABS: ALB/GLOB RATIO 0.9 (1.1-1.8); ALBUMIN 3.3 g/dL (3.0-4.8); ALT/SGPT 19 U/L (7-56); AST/SGOT 19 U/L (15-59); BLOOD UREA NITROGEN 50 mg/dL (7-21); CALCIUM 9.3 mg/dL (8.4-10.5); GFR AFRICAN-AMERICAN > 60; GFR NON-AFRICAN AMERICAN > 60; HDL CHOLESTEROL 57 mg/dL (29-60)
[2017-03-07 07:01] LABS: LDL CHOLESTEROL < 30 mg/dL (0-129)
[2017-03-07] MEDS: Levalbuterol 0.63 MG/3 ML Inhal Soln UD IH PRN ×2 (08:12→20:02)
[2017-03-07] MEDS: Insulin Lispro (humaLOG) MEDIUM Coverage SC SCH ×4 (08:42→22:00)
--- NOTE | 2017-03-07 09:35 | CP.PCM.CON ---
History of Present Illness - History of Present Illness History of Present Illness: Palliative consult requested by Dr Rebecca Aguirre Reason: Goals of care/advance care planning 81 year old gentlemen who presented with shortness of breath lower extremity edema and blistering of skin in the right meyer area. He denied fever, chills , nausea, vomiting or pain. CT of chest showed moderate sized bilateral pleural effusions R>L with adjacent lower lobe consolidation Tropinins negative. Bilateral US of both lower extremities negative for DVT. PMHx: Pulmonary hypertension,atrial fibrillation, CAD s/p LAD stent, mitral tricuspid regurgitation > EF 55-60%,COPD,CO2 narcosis, morbid obesity, CHF, Social History:Non smoker, no alcohol or drug use. Lives with family. Family History: Non contributory. Advance Care Planning: The patient does not have an Advance Directive. He is DNR /DNI as per family. Review of Systems: As per HPI, all other systems reviewed and are normal Past Patient History - Infectious Disease Hx of Infectious Diseases: None - Tetanus Immunizations Tetanus Immunization: Unknown - Past Medical History & Family History Past Medical History?: Yes - Past Social History Smoking Status: Former Smoker - CARDIAC Hx Cardiac Disorders: Yes Hx Cardia Arrhythmia: Yes (AFIB) Hx Congestive Heart Failure: Yes (cardiac cath; stent 4 ?) Hx Hypercholesterolemia: Yes Hx Hypertension: Yes - PULMONARY Hx Respiratory Disorders: Yes (PULMONARY HTN) Other/Comment: o2 dependent 3l - NEUROLOGICAL Hx Neurological Disorder: Yes (NEUROPATHY) - HEENT Hx HEENT Problems: No - RENAL Hx Chronic Kidney Disease: No - ENDOCRINE/METABOLIC Hx Diabetes Mellitus Type 2: Yes Hx Hypothyroidism: Yes - HEMATOLOGICAL/ONCOLOGICAL Hx Blood Disorders: No - INTEGUMENTARY Hx Dermatological Problems: No - MUSCULOSKELETAL/RHEUMATOLOGICAL Hx Musculoskeletal Disorders: Yes Hx Arthritis: Yes Hx Falls: Yes Hx Unsteady Gait: Yes (CANE WALKER) - GASTROINTESTINAL Hx Gastrointestinal Disorders: No - GENITOURINARY/GYNECOLOGICAL Hx Genitourinary Disorders: No - PSYCHIATRIC Hx Psychophysiologic Disorder: No Hx Substance Use: No - SURGICAL HISTORY Hx Surgeries: Yes (CARD CATH WITH HEART STENT PLACED 4?) Meds Allergies/Adverse Reactions: Allergies Allergy/AdvReac Type Severity Reaction Status Date / Time No Known Allergies Allergy Verified 03/05/17 15:41 - Medications Medications: Current Medications Apixaban (Eliquis) 5 mg PO BID [facility] PRN Reason: Protocol Last Admin: 03/06/17 17:27 Dose: 5 mg Clopidogrel Bisulfate (Plavix) 75 mg PO DAILY [facility] Doxycycline Hyclate (Doryx) 100 mg PO Q12 [facility] PRN Reason: Protocol Furosemide (Lasix) 40 mg IVP DAILY [facility] Last Admin: 03/06/17 09:42 Dose: 40 mg Cefepime HCl (Maxipime 2gm) 2 gm in 100 mls @ 100 mls/hr IVPB Q8 [facility] PRN Reason: Protocol Stop: 03/12/17 14:01 Vancomycin HCl (Vancomycin 1gm) 1 gm in 250 mls @ 167 mls/hr IVPB Q12 [facility] PRN Reason: Protocol Insulin Human Lispro (Humalog Med) 0 units SC ACHS [facility] PRN Reason: Protocol Last Admin: 03/07/17 08:42 Dose: 1 units Levalbuterol HCl (Xopenex) 0.63 mg IH [id number] PRN PRN Reason: Shortness of Breath Last Admin: 03/07/17 08:12 Dose: 0.63 mg Methylprednisolone (Solu-Medrol) 40 mg IVP Q8H [facility] Last Admin: 03/07/17 02:07 Dose: 40 mg Pantoprazole Sodium (Protonix Ec Tab) 40 mg PO 0600 [facility] Last Admin: 03/07/17 05:30 Dose: 40 mg Verapamil HCl (Calan Sr Tab) 120 mg PO DAILY [facility] Verapamil HCl (Verapamil Inj) 2.5 mg IVP Q6H PRN PRN Reason: for heart rate >120 Last Admin: 03/07/17 08:45 Dose: 2.5 mg Physical Exam - Constitutional Appears: No Acute Distress, Chronically Ill - Head Exam Head Exam: NORMOCEPHALIC - Eye Exam Eye Exam: Normal appearance, PERRL - ENT Exam ENT Exam: Mucous Membranes Moist, Normal Oropharynx - Neck Exam Neck exam: Positive for: Normal Inspection - Respiratory Exam Respiratory Exam: Decreased Breath Sounds, Rhonchi, NORMAL BREATHING PATTERN - Cardiovascular Exam Cardiovascular Exam: Irregular Rhythm, +S1, +S2 - GI/Abdominal Exam GI & Abdominal Exam: Normal Bowel Sounds, Soft - Extremities Exam Additional comments: decreased pedal pulses, venous stasis both lower extremities R>L - Neurological Exam Neurological exam: Alert, Oriented x3 - Psychiatric Exam Psychiatric exam: Normal Mood - Skin Skin Exam: Dry, Warm Results - Vital Signs Recent Vital Signs: Last Vital Signs Temp 97.9 F 03/07/17 06:00 Pulse 130 H 03/07/17 08:45 Resp 16 03/07/17 07:40 BP 131/61 03/07/17 08:45 Pulse Ox 96 03/07/17 07:40 - Labs Result Diagrams: 03/08/17 06:15 03/08/17 06:15 Labs: Laboratory Results - last 24 hr 03/05/17 03/05/17 03/06/17 21:00 23:11 06:55 WBC RBC Hgb Hct MCV MCH MCHC RDW Plt Count Gran % Lymph % (Auto) Saunders % (Auto) Eos % (Auto) Baso % (Auto) Gran # Lymph # Saunders # Eos # Baso # Sodium Potassium Chloride Carbon Dioxide Anion Gap BUN Creatinine Est GFR ( Amer) Est GFR (Non-Af Amer) POC Glucose (mg/dL) 181 H 178 H Random Glucose Calcium Phosphorus Magnesium Total Bilirubin AST ALT Alkaline Phosphatase Total Protein Albumin Globulin Albumin/Globulin Ratio Triglycerides Cholesterol LDL Cholesterol Direct HDL Cholesterol TSH 3rd Generation Ur L.pneumophila Ag Negative 03/06/17 03/06/17 03/07/17 07:22 11:48 05:40 WBC 7.7 RBC 3.19 L Hgb 9.2 L Hct 29.2 L MCV 91.5 MCH 28.8 MCHC 31.5 RDW 18.0 H Plt Count 122 Gran % 89.8 H Lymph % (Auto) 5.1 L Saunders % (Auto) 5.1 Eos % (Auto) 0.0 L Baso % (Auto) 0.0 Gran # 6.87 H Lymph # 0.4 L Saunders # 0.4 Eos # 0.0 Baso # 0.00 Sodium Potassium Chloride Carbon Dioxide Anion Gap BUN Creatinine Est GFR ( Amer) Est GFR (Non-Af Amer) POC Glucose (mg/dL) 157 H 170 H Random Glucose Calcium Phosphorus Magnesium Total Bilirubin AST ALT Alkaline Phosphatase Total Protein Albumin Globulin Albumin/Globulin Ratio Triglycerides Cholesterol LDL Cholesterol Direct HDL Cholesterol TSH 3rd Generation Ur L.pneumophila Ag 03/07/17 03/07/17 05:40 05:40 WBC RBC Hgb Hct MCV MCH MCHC RDW Plt Count Gran % Lymph % (Auto) Saunders % (Auto) Eos % (Auto) Baso % (Auto) Gran # Lymph # Saunders # Eos # Baso # Sodium 136 Potassium 4.4 Chloride 100 Carbon Dioxide 29 Anion Gap 11 BUN 50 H Creatinine 1.1 Est GFR ( Amer) > 60 Est GFR (Non-Af Amer) > 60 POC Glucose (mg/dL) Random Glucose 170 H Calcium 9.3 Phosphorus 4.1 Magnesium 2.0 Total Bilirubin 0.7 AST 19 ALT 19 Alkaline Phosphatase 46 Total Protein 6.7 Albumin 3.3 Globulin 3.5 Albumin/Globulin Ratio 0.9 L Triglycerides 49 Cholesterol 114 L LDL Cholesterol Direct < 30 HDL Cholesterol 57 TSH 3rd Generation 0.14 L Ur L.pneumophila Ag Assessment & Plan - Assessment and Plan (Free Text) Assessment: 89 year old male with history of CHF, CAD, COPD, chronic A Fib, pulmonary hypertension who is admitted with respiratory failure, bilateral pleural effusions, hypoxemia, shortness of breath and lower extremity edema. The patient is alert and oriented. Using high flow O2. Able to speka in full sentences. Complains of chronic discomfort in both lower extremities. State he live with his daughter in law and granddaughter. 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 I was asked to meet with patient and/ family to discuss future goals of care and advance care planning.Patient daughter in law present during our discussion.Patient agreeable to initiating POLST: DNR/DNI. Patient not interested in Hospice,still wishes to purse medical interventions at this time. Time spent in advance care panning discussion with patient regarding goals of care and advance care planning,30 minutes Plan: Palliative support. Advance care planning
[2017-03-07] MEDS: Vancomycin 1gm in NS 250ml 1 GM/250 ML BAG IVPB SCH ×2 (09:43→21:50)
[2017-03-07] MEDS: Verapamil 120 mg ER Tab PO SCH (09:45)
--- NOTE | 2017-03-07 09:55 | CP.PCM.PN ---
Subjective - Date & Time of Evaluation Date of Evaluation: 03/07/17 Time of Evaluation: 09:20 - Subjective Subjective: Breathing better although still on high flow O2, no fevers overnight, still with pain in the right leg. Objective - Vital Signs/Intake and Output Vital Signs (last 24 hours): Temp Pulse Resp BP Pulse Ox 97.9 F 88 20 127/78 95 03/07/17 06:00 03/07/17 06:00 03/07/17 06:00 03/07/17 06:00 03/07/17 06:00 - Medications Medications: Current Medications Apixaban (Eliquis) 5 mg PO BID [facility] PRN Reason: Protocol Last Admin: 03/06/17 17:27 Dose: 5 mg Clopidogrel Bisulfate (Plavix) 75 mg PO DAILY [facility] Furosemide (Lasix) 40 mg IVP DAILY [facility] Last Admin: 03/06/17 09:42 Dose: 40 mg Vancomycin HCl (Vancomycin 1gm) 1 gm in 250 mls @ 167 mls/hr IVPB DAILY [facility] PRN Reason: Protocol Last Admin: 03/06/17 09:41 Dose: 167 mls/hr Cefepime HCl (Maxipime 1gm) 1 gm in 100 mls @ 100 mls/hr IVPB Q8 [facility] PRN Reason: Protocol Last Admin: 03/07/17 05:26 Dose: 100 mls/hr Insulin Human Lispro (Humalog Med) 0 units SC ACHS [facility] PRN Reason: Protocol Last Admin: 03/06/17 22:51 Dose: Not Given Levalbuterol HCl (Xopenex) 0.63 mg IH [id number] PRN PRN Reason: Shortness of Breath Methylprednisolone (Solu-Medrol) 40 mg IVP Q8H [facility] Last Admin: 03/07/17 02:07 Dose: 40 mg Pantoprazole Sodium (Protonix Ec Tab) 40 mg PO 0600 [facility] Last Admin: 03/07/17 05:30 Dose: 40 mg Verapamil HCl (Calan Sr Tab) 120 mg PO DAILY [facility] Verapamil HCl (Verapamil Inj) 2.5 mg IVP Q6H PRN PRN Reason: for heart rate >120 - Labs Labs: 03/06/17 05:40 03/06/17 05:40 PT 13.1 Seconds (9.9-11.8) H 03/05/17 10:35 INR 1.21 (0.93-1.08) H 03/05/17 10:35 APTT 31.6 Seconds (23.7-30.8) H 03/05/17 10:35 - Constitutional Appears: Other (on high flow oxygen) - Head Exam Head Exam: NORMAL INSPECTION - ENT Exam ENT Exam: Mucous Membranes Moist - Neck Exam Neck Exam: absent: Lymphadenopathy, Meningismus - Respiratory Exam Respiratory Exam: Decreased Breath Sounds - Cardiovascular Exam Cardiovascular Exam: +S1, +S2 - GI/Abdominal Exam GI & Abdominal Exam: Soft. absent: Tenderness - Extremities Exam Additional comments: right leg with swelling, some ecchymoses noted, anterior blister with serous fluid draining from the blister Assessment and Plan - Assessment and Plan (Free Text) Plan: Assessment Consider sepsis due to right leg skin and skin structure infection, R/O bilateral lower lobe healthcare-associated pneumonia with associated bilateral pleural effusion Hyerpcapneic respiratory failure probably from COPD exacerbation / pulmonary HTN CAD S/P PCI chronic CHF COPD with severe pulmonary HTN chronic atrial fibrillation morbid obesity with BMI 40 arthritis history of depression obstructive sleep apnea S/P right knee surgery 5-6 years ago Plan continue Vancomycin and Cefepime (day 2, dose increased since renal function has improved), pending blood cx; discussed with Podiatry will continue to monitor clinically
--- NOTE | 2017-03-07 10:13 | CP.PCM.PN ---
Addendum entered and electronically signed by Tony Macias DPM 03/07/17 10:19 : Objective: Lower extremity focused physical exam. Neuro-vascular status intact bilaterally to level of digits. +2 pitting edema noted bilaterally. DERM: Low turgid, non-tender bulla, measuring 4 x 3 cm to proximal anterior aspect of right lower leg. Medial punctate blowout of bulla actively weeping drainage of serous contents. Noted regressing margins of erythema from marked borders dated 24 hours prior. Erythema is blanchable. Left leg anterior patch of dishydrotic skin. Original Note: <Tony Macias - Last Filed: 03/07/17 10:06> Subjective - Date & Time of Evaluation Date of Evaluation: 03/07/17 Time of Evaluation: 09:35 - Subjective Subjective: 81 year old male seen at bedside with attending Dr. Shrestha, concerning right leg tenderness, swelling, edema, and blisters. Pt reports that the swelling has been and ongoing issue to the bilateral lower extremities but has increased over the last week. The right blister appeared overnight Saturday into Saturday, but pt and reports it has decreased in since since then. No pus drainage has been noted. Pt reports pain to the right lower leg is a 4/10 when under under light touch from sheets. Pt admits to recent shortness of breath, a primary reason for admission. He has recently come off Bipap machine. He denied fever, chills , nausea, vomiting or pain. Objective - Vital Signs/Intake and Output Vital Signs (last 24 hours): Temp Pulse Resp BP Pulse Ox 97.9 F 120 H 16 140/72 96 03/07/17 06:00 03/07/17 09:45 03/07/17 07:40 03/07/17 09:45 03/07/17 07:40 - Medications Medications: Current Medications Apixaban (Eliquis) 5 mg PO BID [facility] PRN Reason: Protocol Last Admin: 03/07/17 09:39 Dose: 5 mg Clopidogrel Bisulfate (Plavix) 75 mg PO DAILY [facility] Last Admin: 03/07/17 09:41 Dose: 75 mg Doxycycline Hyclate (Doryx) 100 mg PO Q12 [facility] PRN Reason: Protocol Last Admin: 03/07/17 09:40 Dose: 100 mg Furosemide (Lasix) 40 mg IVP DAILY [facility] Last Admin: 08/03/17 09:42 Dose: 40 mg Cefepime HCl (Maxipime 2gm) 2 gm in 100 mls @ 100 mls/hr IVPB Q8 [facility] PRN Reason: Protocol Stop: 03/12/17 14:01 Vancomycin HCl (Vancomycin 1gm) 1 gm in 250 mls @ 167 mls/hr IVPB Q12 [facility] PRN Reason: Protocol Last Admin: 03/07/17 09:43 Dose: 167 mls/hr Insulin Human Lispro (Humalog Med) 0 units SC ACHS [facility] PRN Reason: Protocol Last Admin: 03/07/17 08:42 Dose: 1 units Levalbuterol HCl (Xopenex) 0.63 mg IH [id number] PRN PRN Reason: Shortness of Breath Last Admin: 03/07/17 08:12 Dose: 0.63 mg Methylprednisolone (Solu-Medrol) 40 mg IVP Q8H [facility] Last Admin: 03/07/17 09:45 Dose: 40 mg Pantoprazole Sodium (Protonix Ec Tab) 40 mg PO 0600 [facility] Last Admin: 03/07/17 05:30 Dose: 40 mg Verapamil HCl (Calan Sr Tab) 120 mg PO DAILY [facility] Last Admin: 03/07/17 09:45 Dose: 120 mg Verapamil HCl (Verapamil Inj) 2.5 mg IVP Q6H PRN PRN Reason: for heart rate >120 Last Admin: 03/07/17 08:45 Dose: 2.5 mg - Labs Labs: 03/07/17 05:40 03/07/17 05:40 PT 13.1 Seconds (9.9-11.8) H 03/05/17 10:35 INR 1.21 (0.93-1.08) H 03/05/17 10:35 APTT 31.6 Seconds (23.7-30.8) H 03/05/17 10:35 Assessment and Plan - Assessment and Plan (Free Text) Assessment: 81 year old male with 1) Bilateral Lower extremity edema, secondary to chronic CHF and acute pleural effusion. 2) Right leg uncomplicated serous bulla. Plan: Pt evaluated and treated with attending, Dr. Shrestha present. Chart, labs, and vitals reviewed. Bulla left intact, as steady drainage occuring. Dressed with xeroform, DSD. Right below knee JUAN compression applied. Pt is stable from podiatric standpoint will continue to follow while inhouse. <Tremayne Shrestha - Last Filed: 03/08/17 11:13> Objective - Vital Signs/Intake and Output Vital Signs (last 24 hours): Temp Pulse Resp BP Pulse Ox 97 F L 112 H 19 130/60 95 03/08/17 06:00 03/08/17 11:11 03/08/17 11:11 03/08/17 09:45 03/08/17 11:11 Intake and Output: 03/08/17 03/08/17 06:59 18:59 Intake Total 500 Output Total 700 Balance -200 - Medications Medications: Current Medications Apixaban (Eliquis) 5 mg PO BID [facility] PRN Reason: Protocol Last Admin: 03/08/17 09:44 Dose: 5 mg Clopidogrel Bisulfate (Plavix) 75 mg PO DAILY [facility] Last Admin: 03/08/17 09:45 Dose: 75 mg Doxycycline Hyclate (Doryx) 100 mg PO Q12 [facility] PRN Reason: Protocol Last Admin: 03/08/17 09:45 Dose: 100 mg Furosemide (Lasix) 40 mg PO 0800,1400 [facility] Cefepime HCl (Maxipime 2gm) 2 gm in 100 mls @ 100 mls/hr IVPB Q8 [facility] PRN Reason: Protocol Stop: 03/12/17 14:01 Last Admin: 03/08/17 06:37 Dose: 100 mls/hr Vancomycin HCl (Vancomycin 1gm) 1 gm in 250 mls @ 167 mls/hr IVPB Q12 [facility] PRN Reason: Protocol Last Admin: 03/08/17 09:46 Dose: 167 mls/hr Insulin Human Lispro (Humalog Med) 0 units SC ACHS [facility] PRN Reason: Protocol Last Admin: 03/08/17 09:46 Dose: 3 units Levalbuterol HCl (Xopenex) 0.63 mg IH [id number] PRN PRN Reason: Shortness of Breath Last Admin: 03/07/17 20:02 Dose: 0.63 mg Methylprednisolone (Solu-Medrol) 40 mg IVP Q8H [facility] Last Admin: 03/08/17 09:48 Dose: 40 mg Pantoprazole Sodium (Protonix Ec Tab) 40 mg PO 0600 [facility] Last Admin: 03/08/17 06:31 Dose: 40 mg Verapamil HCl (Calan Sr Tab) 120 mg PO DAILY [facility] Last Admin: 03/08/17 09:45 Dose: 120 mg Verapamil HCl (Verapamil Inj) 2.5 mg IVP Q6H PRN PRN Reason: for heart rate >120 Last Admin: 03/07/17 08:45 Dose: 2.5 mg - Labs Labs: 03/08/17 06:15 03/08/17 06:15 PT 13.1 Seconds (9.9-11.8) H 03/05/17 10:35 INR 1.21 (0.93-1.08) H 03/05/17 10:35 APTT 31.6 Seconds (23.7-30.8) H 03/05/17 10:35 Attending/Attestation - Attestation I have personally seen and examined this patient.: Yes I have fully participated in the care of the patient.: Yes I have reviewed all pertinent clinical information, including history, physical exam and plan: Yes
--- NOTE | 2017-03-07 11:44 | CP.PCM.PN ---
<Eleonora Duran - Last Filed: 03/07/17 15:46> Subjective - Date & Time of Evaluation Date of Evaluation: 03/07/17 Time of Evaluation: 09:15 - Subjective Subjective: Internal medicine progress note for Dr. Luciano-Eleonora Duran, PGY-1 Pt S & E at bedside this AM. Pt awake, alert, answering questions, currently on hi flow O2 with sat at 90%. Able to answer questions, admits to SOB, B/L leg pain- reports leg cellulitis present prior to admission to hospital. No other complaints at this time. Taylor in place with 700cc UOP/24H of clear yellow urine. Objective - Vital Signs/Intake and Output Vital Signs (last 24 hours): Temp Pulse Resp BP Pulse Ox 97.6 F 109 H 24 139/66 94 L 03/07/17 08:00 03/07/17 11:10 03/07/17 11:10 03/07/17 11:00 03/07/17 11:10 - Medications Medications: Current Medications Apixaban (Eliquis) 5 mg PO BID [facility] PRN Reason: Protocol Last Admin: 03/07/17 09:39 Dose: 5 mg Clopidogrel Bisulfate (Plavix) 75 mg PO DAILY [facility] Last Admin: 03/07/17 09:41 Dose: 75 mg Doxycycline Hyclate (Doryx) 100 mg PO Q12 [facility] PRN Reason: Protocol Last Admin: 03/07/17 09:40 Dose: 100 mg Furosemide (Lasix) 40 mg IVP DAILY [facility] Last Admin: 03/07/17 09:42 Dose: 40 mg Cefepime HCl (Maxipime 2gm) 2 gm in 100 mls @ 100 mls/hr IVPB Q8 [facility] PRN Reason: Protocol Stop: 03/12/17 14:01 Vancomycin HCl (Vancomycin 1gm) 1 gm in 250 mls @ 167 mls/hr IVPB Q12 [facility] PRN Reason: Protocol Last Admin: 03/07/17 09:43 Dose: 167 mls/hr Insulin Human Lispro (Humalog Med) 0 units SC ACHS [facility] PRN Reason: Protocol Last Admin: 03/07/17 08:42 Dose: 1 units Levalbuterol HCl (Xopenex) 0.63 mg IH [id number] PRN PRN Reason: Shortness of Breath Last Admin: 03/07/17 08:12 Dose: 0.63 mg Methylprednisolone (Solu-Medrol) 40 mg IVP Q8H [facility] Last Admin: 03/07/17 09:45 Dose: 40 mg Pantoprazole Sodium (Protonix Ec Tab) 40 mg PO 0600 [facility] Last Admin: 03/07/17 05:30 Dose: 40 mg Verapamil HCl (Calan Sr Tab) 120 mg PO DAILY [facility] Last Admin: 03/07/17 09:45 Dose: 120 mg Verapamil HCl (Verapamil Inj) 2.5 mg IVP Q6H PRN PRN Reason: for heart rate >120 Last Admin: 03/07/17 08:45 Dose: 2.5 mg - Labs Labs: 03/07/17 05:40 03/07/17 05:40 PT 13.1 Seconds (9.9-11.8) H 03/05/17 10:35 INR 1.21 (0.93-1.08) H 03/05/17 10:35 APTT 31.6 Seconds (23.7-30.8) H 03/05/17 10:35 - Constitutional Appears: Non-toxic, No Acute Distress - Head Exam Head Exam: ATRAUMATIC, NORMAL INSPECTION, NORMOCEPHALIC - Eye Exam Eye Exam: EOMI, Normal appearance - ENT Exam ENT Exam: Mucous Membranes Dry, Normal Exam - Neck Exam Neck Exam: Full ROM, Normal Inspection - Respiratory Exam Respiratory Exam: Decreased Breath Sounds, Rhonchi, NORMAL BREATHING PATTERN. absent: Accessory Muscle Use, Clear to Ausculation Bilateral, Wheezes, Respiratory Distress - Cardiovascular Exam Cardiovascular Exam: REGULAR RHYTHM, +S1, +S2 - GI/Abdominal Exam GI & Abdominal Exam: Soft, Normal Bowel Sounds. absent: Distended (obese), Tenderness - Extremities Exam Extremities Exam: Pedal Edema (3+ pitting edema B/L), Tenderness (B/L LE ). absent: Normal Inspection (B/L LE w/erythema, tenderness, cellulitis, fluid filled blisters, weeping of RLE ) - Neurological Exam Neurological Exam: Alert, Awake, Oriented x3 - Psychiatric Exam Psychiatric exam: Normal Affect, Normal Mood - Skin Skin Exam: Dry, Erythema (RLE ), Warm. absent: Intact, Normal Color Assessment and Plan - Assessment and Plan (Free Text) Assessment: 81M w/PMH sig for B/L pleural effusions, COPD, and CHF with respiratory failure 2/2 B/L Pleural effusions, continues with SOB, seems to be at baseline Plan: Acute respiratory failure 2/2 B/L pleural effusions O2 sat 90% on Hi flow BiPap HS Xopenex Lasix Solu-medrol Monitor Afib, CAD s/p cardiac cath & stents Eliquis Plavix Verapamil Cardio consulted/following COPD/CHF Leukocytosis- resolved Xopenex Monitor I/Os Daily wts Monitor B/L Leg edema/blisters/cellulitis LE dopplers neg for DVT Cefepime Vancomycin Lasix FU Urine cx Blood cx neg x 24H ID consulted/following Wound care consult Podiatry consulted/following Thrombocytopenia- resolved Plts 122 from 108 Monitor Anemia- chronic Hgb 9.2 from 9.9 Hct 29.2 from 31.4 Monitor DM ISS Accuchecks CCHO diet HTN Normotensive Verapamil as per cardio Monitor Obstructive sleep apnea Bipap GI/DVT ppx Protonix On Plavix, Eliquis Cannot tolerate SCDs 2/2 B/L LE edema/pain Dispo DNR/DNI as per family/POA request Pallative care following PT/OT 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 referral DW attending Renee, PGY-1 <Jena Luciano - Last Filed: 03/07/17 16:07> Objective - Vital Signs/Intake and Output Vital Signs (last 24 hours): Temp Pulse Resp BP Pulse Ox 98.2 F 71 19 110/49 L 94 L 03/07/17 12:00 03/07/17 14:30 03/07/17 15:57 03/07/17 14:00 03/07/17 14:30 - Medications Medications: Current Medications Apixaban (Eliquis) 5 mg PO BID [facility] PRN Reason: Protocol Last Admin: 03/07/17 09:39 Dose: 5 mg Clopidogrel Bisulfate (Plavix) 75 mg PO DAILY [facility] Last Admin: 03/07/17 09:41 Dose: 75 mg Doxycycline Hyclate (Doryx) 100 mg PO Q12 [facility] PRN Reason: Protocol Last Admin: 03/07/17 09:40 Dose: 100 mg Furosemide (Lasix) 40 mg IVP DAILY [facility] Last Admin: 03/07/17 09:42 Dose: 40 mg Cefepime HCl (Maxipime 2gm) 2 gm in 100 mls @ 100 mls/hr IVPB Q8 [facility] PRN Reason: Protocol Stop: 03/12/17 14:01 Last Admin: 03/07/17 14:26 Dose: 100 mls/hr Vancomycin HCl (Vancomycin 1gm) 1 gm in 250 mls @ 167 mls/hr IVPB Q12 [facility] PRN Reason: Protocol Last Admin: 03/07/17 09:43 Dose: 167 mls/hr Insulin Human Lispro (Humalog Med) 0 units SC ACHS [facility] PRN Reason: Protocol Last Admin: 03/07/17 12:25 Dose: 3 units Levalbuterol HCl (Xopenex) 0.63 mg IH [id number] PRN PRN Reason: Shortness of Breath Last Admin: 03/07/17 08:12 Dose: 0.63 mg Methylprednisolone (Solu-Medrol) 40 mg IVP Q8H [facility] Last Admin: 03/07/17 09:45 Dose: 40 mg Pantoprazole Sodium (Protonix Ec Tab) 40 mg PO 0600 [facility] Last Admin: 03/07/17 05:30 Dose: 40 mg Verapamil HCl (Calan Sr Tab) 120 mg PO DAILY [facility] Last Admin: 03/07/17 09:45 Dose: 120 mg Verapamil HCl (Verapamil Inj) 2.5 mg IVP Q6H PRN PRN Reason: for heart rate >120 Last Admin: 03/07/17 08:45 Dose: 2.5 mg - Labs Labs: 03/07/17 05:40 03/07/17 05:40 PT 13.1 Seconds (9.9-11.8) H 03/05/17 10:35 INR 1.21 (0.93-1.08) H 03/05/17 10:35 APTT 31.6 Seconds (23.7-30.8) H 03/05/17 10:35 Attending/Attestation - Attestation I have personally seen and examined this patient.: Yes I have fully participated in the care of the patient.: Yes I have reviewed all pertinent clinical information, including history, physical exam and plan: Yes Notes (Text): 03/07/17 16:05 attending note; Patient seen and examined with resident in ICU. currently on high flow oxygen. Patient is a 81-year-old male with a past medical history of CHF, COPD, DM, HTN , paroxsymal afib, CAD s/p cardiac cath and stent to circumflex, arthritis, depression, obesity, chronic LE edema, Obstructive sleep apnea is admitted with lethargy. continue BiPAP at night. Patient his more alert and awake now. Lower extremity cellulitis; improving. recent coronary stent; continue Plavix. History of A. fib; continue liquids. Bilateral pleural effusions; continue IV Lasix. Lower extremity cellulitis; continue vancomycin and cefepime. ID evaluation appreciated. Physical therapy evaluation requested. 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 Palliative care evaluation Appreciated. Transfer the patient out of ICU. prognosis is poor. follow-up with PMD on discharge.
[2017-03-07 12:57] LABS: FREE T4 2.1 ng/dL (0.78-2.19); T4 7.9 ug/dL (5.5-11.0)
[2017-03-07 13:10] LABS: T3 0.78 ng/mL (0.97-1.69)
--- NOTE | 2017-03-07 13:49 | PN ---
DATE: 03/07/2017 REASON FOR CONSULTATION AND FOLLOWUP: Coronary artery disease, atrial fibrillation, admitted with altered mental status, possible CO2 narcosis. SUBJECTIVE: The patient is awake and alert. Denies any chest pain, shortness of breath, or any palpitations, on BiPAP. OBJECTIVE: GENERAL: Not in apparent distress. Lying flat in bed with BiPAP. VITAL SIGNS: Temperature afebrile, heart rate 70, and blood pressure 130/61. HEENT: PERRLA. Extraocular muscles are intact. NECK: Supple. No carotid bruit or thyromegaly. CHEST: Clear to auscultation. HEART: S1 and S2, regular. ABDOMEN: Soft. EXTREMITIES: Clubbing and cyanosis negative. LABORATORY DATA: Blood workup is as follows: WBC 7.7, hemoglobin 9.8, hematocrit 29.2, and platelet count 122. Chemistry shows sodium 136, potassium 4.4, chloride 100, carbon dioxide 29, anion gap of 11, BUN 50, creatinine 1.1; troponin 0.01. IMPRESSION: An 81-year-old male with a past medical history of chronic atrial fibrillation, status post percutaneous transluminal coronary angioplasty in the past. Recently, the patient had a stent in the mid circumflex on 11/01/2016. The mid circumflex is codominant. Prior to that, the patient had a stent in left anterior descending; admitted with very weak, lethargic, possibly carbon dioxide narcosis, history of chronic atrial fibrillation, was on Eliquis and Plavix, which was held because the patient is n.p.o., was on heparin yesterday; heparin is discontinued. Eliquis and Plavix are restarted after loading dose of 300 Plavix and Eliquis 5 mg from yesterday. The patient is much awake and alert. Denies any chest pain, shortness of breath, or any palpitations. So far no evidence of acute myocardial infarction; morbid obesity; chronic obstructive pulmonary disease; obstructive sleep apnea, on bilevel positive airway pressure; history of pulmonary hypertension; last catheterization revealed right atrium 18, right ventricle 70/12, pulmonary artery 70/35, mean pulmonary artery 48, pulmonary capillary wedge pressure 20, cardiac output 7.8, pulmonary vascular resistance 4 Wood unit, morbid obesity. RECOMMENDATIONS: Continue BiPAP. Monitor electrolytes. Monitor H and H. Continue Eliquis for atrial fibrillation. Start Verapamil to control the heart rate. Continue Plavix for a stent done in October 2016 in the mid circumflex. Prior to that the patient has a stent in LAD. A stent was deployed on 11/01/2016. History of diabetes. Lipid profile revealed triglyceride 49, total cholesterol 114, and his LDL is less than 30. I recommended, as mentioned, to continue verapamil; continue Plavix, restarted; continue Eliquis. P.r.n. Verapamil IV for heart rate more than 130. Continue BiPAP. Overall, the patient's condition is relatively stable. CVA status is stable. The patient had echo on 10/29/2016 that revealed ejection fraction of 55% to 60%, normal segmental wall motion, trace aortic regurgitation, mild mitral regurgitation, moderate tricuspid regurgitation, RV systolic pressure is 75 consistent with right heart cath. We will follow. Thank you Dr. Luciano for providing the opportunity in taking care of the patient, Wade, we will follow up with you. Anthony Mckinley MD
[2017-03-07] MEDS: Cefepime IV 2 gm in NS 2 GM/100 ML BAG IVPB SCH ×2 (14:26→21:49)
[2017-03-08] MEDS: MethylPREDNISolone 40 mg Vial IVP SCH ×3 (00:33→17:03)
[2017-03-08] MEDS: Pantoprazole 40 mg EC Tab PO SCH (06:31)
[2017-03-08] MEDS: Cefepime IV 2 gm in NS 2 GM/100 ML BAG IVPB SCH ×2 (06:37→14:22)
[2017-03-08 07:04] LABS: GRAN # 5.48 (1.4-6.5); GRAN % 90.3 % (50.0-68.0); HEMOGLOBIN 9.3 gm/dL (14.0-18.0); LYMPH # 0.3 (1.2-3.4); LYMPH % 4.9 % (22.0-35.0); MEAN CELL VOLUME 91.6 fL (80.0-105.0); MEAN CORPUSCULAR HEMOGLOBIN 28.8 pg (25.0-35.0); MEAN CORPUSCULAR HGB CONC 31.4 g/dl (31.0-37.0); MONO # 0.3 (0.1-0.6); MONO % 4.8 % (1.0-6.0); PLATELET COUNT 114 10^3/uL (120.0-450.0); RBC 3.23 10^6/uL (3.5-6.1); RED CELL DISTRIBUTION WIDTH 17.8 % (11.5-14.5); WHITE BLOOD COUNT 6.1 10^3/ul (4.5-11.0)
[2017-03-08 07:22] LABS: ALB/GLOB RATIO 1.1 (1.1-1.8); ALBUMIN 3.3 g/dL (3.0-4.8); ALT/SGPT 25 U/L (7-56); AST/SGOT 24 U/L (15-59); BLOOD UREA NITROGEN 56 mg/dL (7-21); CALCIUM 9.4 mg/dL (8.4-10.5); GFR AFRICAN-AMERICAN > 60; GFR NON-AFRICAN AMERICAN 58; MAGNESIUM 2.1 mg/dL (1.7-2.2)
[2017-03-08] MEDS: Verapamil 120 mg ER Tab PO SCH (09:45)
[2017-03-08] MEDS: Vancomycin 1gm in NS 250ml 1 GM/250 ML BAG IVPB SCH ×2 (09:46→21:23)
[2017-03-08] MEDS: Insulin Lispro (humaLOG) MEDIUM Coverage SC SCH ×4 (09:46→21:18)
--- NOTE | 2017-03-08 11:43 | CP.PCM.PN ---
Subjective - Date & Time of Evaluation Date of Evaluation: 03/08/17 Time of Evaluation: 09:40 - Subjective Subjective: Comfortable on a chair, still on high flow oxygen, no fevers overnight. Breathing better, less pain in the right leg. Objective - Vital Signs/Intake and Output Vital Signs (last 24 hours): Temp Pulse Resp BP Pulse Ox 97 F L 80 20 157/77 H 94 L 03/08/17 06:00 03/08/17 06:00 03/08/17 06:00 03/08/17 06:00 03/08/17 06:00 Intake and Output: 03/07/17 03/08/17 18:59 06:59 Intake Total 990 500 Output Total 750 500 Balance 240 0 - Medications Medications: Current Medications Apixaban (Eliquis) 5 mg PO BID [facility] PRN Reason: Protocol Last Admin: 03/07/17 17:08 Dose: 5 mg Clopidogrel Bisulfate (Plavix) 75 mg PO DAILY [facility] Last Admin: 03/07/17 09:41 Dose: 75 mg Doxycycline Hyclate (Doryx) 100 mg PO Q12 [facility] PRN Reason: Protocol Last Admin: 03/07/17 21:51 Dose: 100 mg Furosemide (Lasix) 40 mg IVP DAILY [facility] Last Admin: 03/07/17 09:42 Dose: 40 mg Cefepime HCl (Maxipime 2gm) 2 gm in 100 mls @ 100 mls/hr IVPB Q8 [facility] PRN Reason: Protocol Stop: 03/12/17 14:01 Last Admin: 03/08/17 06:37 Dose: 100 mls/hr Vancomycin HCl (Vancomycin 1gm) 1 gm in 250 mls @ 167 mls/hr IVPB Q12 [facility] PRN Reason: Protocol Last Admin: 03/07/17 21:50 Dose: 167 mls/hr Insulin Human Lispro (Humalog Med) 0 units SC ACHS [facility] PRN Reason: Protocol Last Admin: 03/07/17 22:00 Dose: Not Given Levalbuterol HCl (Xopenex) 0.63 mg IH [id number] PRN PRN Reason: Shortness of Breath Last Admin: 03/07/17 20:02 Dose: 0.63 mg Methylprednisolone (Solu-Medrol) 40 mg IVP Q8H [facility] Last Admin: 03/08/17 00:33 Dose: 40 mg Pantoprazole Sodium (Protonix Ec Tab) 40 mg PO 0600 [facility] Last Admin: 03/08/17 06:31 Dose: 40 mg Verapamil HCl (Calan Sr Tab) 120 mg PO DAILY [facility] Last Admin: 03/07/17 09:45 Dose: 120 mg Verapamil HCl (Verapamil Inj) 2.5 mg IVP Q6H PRN PRN Reason: for heart rate >120 Last Admin: 03/07/17 08:45 Dose: 2.5 mg - Labs Labs: 03/07/17 05:40 03/07/17 05:40 PT 13.1 Seconds (9.9-11.8) H 03/05/17 10:35 INR 1.21 (0.93-1.08) H 03/05/17 10:35 APTT 31.6 Seconds (23.7-30.8) H 03/05/17 10:35 - Constitutional Appears: Non-toxic, No Acute Distress - Head Exam Head Exam: NORMAL INSPECTION - ENT Exam ENT Exam: Mucous Membranes Moist - Neck Exam Neck Exam: absent: Meningismus - Respiratory Exam Respiratory Exam: Decreased Breath Sounds - Cardiovascular Exam Cardiovascular Exam: +S1, +S2 - GI/Abdominal Exam GI & Abdominal Exam: Soft. absent: Tenderness Assessment and Plan - Assessment and Plan (Free Text) Plan: Assessment Consider sepsis due to right leg skin and skin structure infection, R/O bilateral lower lobe healthcare-associated pneumonia with associated bilateral pleural effusion Hyerpcapneic respiratory failure probably from COPD exacerbation / pulmonary HTN CAD S/P PCI chronic CHF COPD with severe pulmonary HTN chronic atrial fibrillation morbid obesity with BMI 40 arthritis history of depression obstructive sleep apnea S/P right knee surgery 5-6 years ago Plan continue Vancomycin and Cefepime (day 3, dose increased since renal function has improved); blood cx are negative; discussed with Podiatry will continue to monitor clinically
--- NOTE | 2017-03-08 14:03 | PN ---
DATE: 03/08/2017 REASON FOR FOLLOWUP: Coronary artery disease, atrial fibrillation, admitted with altered mental status, possible CO2 narcosis. SUBJECTIVE: The patient denies any chest pain, shortness of breath, or any palpitation, feels much better. OBJECTIVE: GENERAL: Awake and alert. Lying comfortable. On BiPAP. VITAL SIGNS: Temperature afebrile, heart rate 80 and blood pressure 157/77. HEENT: PERRLA. Extraocular muscles are intact. NECK: Supple. No carotid bruit. No thyromegaly. CHEST: Clear to auscultation. HEART: S1 and S2 regular. ABDOMEN: Soft. EXTREMITIES: Clubbing, and cyanosis negative . LABORATORY DATA: Blood workup as follow; WBC , hemoglobin 9.8, hematocrit 29.6, and platelet count 114. Chemistry shows sodium 138, potassium 4.6, chloride 101, carbon dioxide 29, anion gap of , creatinine 1.2. Total protein 6.4, albumin 3.3, album-globulin ratio 1.1. IMPRESSION: An 81-year-old morbidly obese male with past medical history of chronic atrial fibrillation, status post multiple stents, history of stent in left anterior descending, in the past history of stent in circumflex at [facility] on 11/01/2016. Admitted altered mental status possibly secondary to CO2 narcosis, The patient is not using BiPAP, supposed to use BiPAP at home. Now the patient is awake and alert. Started p.o. medicine including Eliquis and Plavix. Denies any chest pain, shortness of breath, or any palpitation. RECOMMENDATION: Resume back verapamil 120 mg daily. Continue Eliquis 5 mg daily, continue Lasix, continue Plavix. CVA status is stable. No evidence of [place]. We will follow with you. We will change the Lasix to p.o. 40 mg b.i.d. at 8 o'clock and 2 p.m. and discontinue IV Lasix after today's dose. Thank you Dr. Luciano for providing this opportunity in taking care of the patient Jerry Olvera. Anthony Mckinley MD
--- NOTE | 2017-03-08 14:11 | CP.PCM.PN ---
<Tony Macias - Last Filed: 03/08/17 14:24> Subjective - Date & Time of Evaluation Date of Evaluation: 03/08/17 Time of Evaluation: 12:45 - Subjective Subjective: 81 year old male seen at bedside bilateral edema right leg blister. He undergoing Bipap respirator during evaluation. He denied fever, chills , nausea , vomiting or pain. Denies and acute overnight events. Objective - Vital Signs/Intake and Output Vital Signs (last 24 hours): Temp Pulse Resp BP Pulse Ox 98.5 F 100 H 19 133/81 95 03/08/17 12:00 03/08/17 12:00 03/08/17 12:00 03/08/17 12:00 03/08/17 11:11 Intake and Output: 03/08/17 03/08/17 06:59 18:59 Intake Total 500 Output Total 700 Balance -200 - Medications Medications: Current Medications Apixaban (Eliquis) 5 mg PO BID [facility] PRN Reason: Protocol Last Admin: 03/08/17 09:44 Dose: 5 mg Clopidogrel Bisulfate (Plavix) 75 mg PO DAILY [facility] Last Admin: 03/08/17 09:45 Dose: 75 mg Doxycycline Hyclate (Doryx) 100 mg PO Q12 [facility] PRN Reason: Protocol Last Admin: 03/08/17 09:45 Dose: 100 mg Furosemide (Lasix) 40 mg PO 0800,1400 [facility] Cefepime HCl (Maxipime 2gm) 2 gm in 100 mls @ 100 mls/hr IVPB Q8 [facility] PRN Reason: Protocol Stop: 03/12/17 14:01 Last Admin: 03/08/17 06:37 Dose: 100 mls/hr Vancomycin HCl (Vancomycin 1gm) 1 gm in 250 mls @ 167 mls/hr IVPB Q12 [facility] PRN Reason: Protocol Last Admin: 03/08/17 09:46 Dose: 167 mls/hr Insulin Human Lispro (Humalog Med) 0 units SC ACHS [facility] PRN Reason: Protocol Last Admin: 03/08/17 12:16 Dose: 5 units Levalbuterol HCl (Xopenex) 0.63 mg IH [id number] PRN PRN Reason: Shortness of Breath Last Admin: 03/07/17 20:02 Dose: 0.63 mg Methylprednisolone (Solu-Medrol) 40 mg IVP Q8H [facility] Last Admin: 03/08/17 09:48 Dose: 40 mg Pantoprazole Sodium (Protonix Ec Tab) 40 mg PO 0600 [facility] Last Admin: 03/08/17 06:31 Dose: 40 mg Verapamil HCl (Calan Sr Tab) 120 mg PO DAILY [facility] Last Admin: 03/08/17 09:45 Dose: 120 mg Verapamil HCl (Verapamil Inj) 2.5 mg IVP Q6H PRN PRN Reason: for heart rate >120 Last Admin: 03/07/17 08:45 Dose: 2.5 mg - Labs Labs: 03/08/17 06:15 03/08/17 06:15 PT 13.1 Seconds (9.9-11.8) H 03/05/17 10:35 INR 1.21 (0.93-1.08) H 03/05/17 10:35 APTT 31.6 Seconds (23.7-30.8) H 03/05/17 10:35 - Constitutional Appears: Non-toxic, No Acute Distress - Extremities Exam Additional comments: Lower extremity focused physical exam. Neuro-vascular status intact bilaterally to level of digits. +2 pitting edema noted bilaterally. DERM: Ruptured flaccid bulla noted to proximal anterior aspect of right lower leg.Weeping serous drainage noted, epidermal roof still inplace. Noted regressing margins and intensity of erythema from marked borders dated 24 hours prior. Erythema is blanchable. Left leg anterior patch of dishydrotic skin. Assessment and Plan - Assessment and Plan (Free Text) Assessment: 81 year old male with 1) Bilateral Lower extremity edema, secondary to chronic CHF and acute pleural effusion. 2) Right leg ruptured serous bulla. 3) right lower extremity cellulits, resolving. Plan: Pt evaluated and treated with attending, Dr. Shrestha present. Chart, labs, and vitals reviewed. Prior bulla dressed with xeroform, DSD. Right below knee JUAN compression applied. Pt is stable from podiatric standpoint will continue to follow while inhouse. <Tremayne Shrestha - Last Filed: 03/08/17 17:39> Objective - Vital Signs/Intake and Output Vital Signs (last 24 hours): Temp Pulse Resp BP Pulse Ox 98.3 F 68 18 108/64 94 L 03/08/17 17:07 03/08/17 17:07 03/08/17 17:07 03/08/17 17:07 03/08/17 14:31 Intake and Output: 03/08/17 03/08/17 06:59 18:59 Intake Total 1100 Output Total 1950 Balance -850 - Medications Medications: Current Medications Apixaban (Eliquis) 5 mg PO BID [facility] PRN Reason: Protocol Last Admin: 03/08/17 17:03 Dose: 5 mg Clopidogrel Bisulfate (Plavix) 75 mg PO DAILY [facility] Last Admin: 03/08/17 09:45 Dose: 75 mg Doxycycline Hyclate (Doryx) 100 mg PO Q12 [facility] PRN Reason: Protocol Last Admin: 03/08/17 09:45 Dose: 100 mg Furosemide (Lasix) 40 mg PO 0800,1400 [facility] Last Admin: 03/08/17 14:21 Dose: 40 mg Cefepime HCl (Maxipime 2gm) 2 gm in 100 mls @ 100 mls/hr IVPB Q8 [facility] PRN Reason: Protocol Stop: 03/12/17 14:01 Last Admin: 03/08/17 14:22 Dose: 100 mls/hr Vancomycin HCl (Vancomycin 1gm) 1 gm in 250 mls @ 167 mls/hr IVPB Q12 [facility] PRN Reason: Protocol Last Admin: 03/08/17 09:46 Dose: 167 mls/hr Insulin Human Lispro (Humalog Med) 0 units SC ACHS [facility] PRN Reason: Protocol Last Admin: 03/08/17 17:03 Dose: 1 units Levalbuterol HCl (Xopenex) 0.63 mg IH [id number] PRN PRN Reason: Shortness of Breath Last Admin: 03/07/17 20:02 Dose: 0.63 mg Methylprednisolone (Solu-Medrol) 40 mg IVP Q8H [facility] Last Admin: 03/08/17 17:03 Dose: 40 mg Pantoprazole Sodium (Protonix Ec Tab) 40 mg PO 0600 [facility] Last Admin: 03/08/17 06:31 Dose: 40 mg Verapamil HCl (Calan Sr Tab) 120 mg PO DAILY [facility] Last Admin: 03/08/17 09:45 Dose: 120 mg Verapamil HCl (Verapamil Inj) 2.5 mg IVP Q6H PRN PRN Reason: for heart rate >120 Last Admin: 03/07/17 08:45 Dose: 2.5 mg - Labs Labs: 03/08/17 06:15 03/08/17 06:15 PT 13.1 Seconds (9.9-11.8) H 03/05/17 10:35 INR 1.21 (0.93-1.08) H 03/05/17 10:35 APTT 31.6 Seconds (23.7-30.8) H 03/05/17 10:35 Attending/Attestation - Attestation I have personally seen and examined this patient.: Yes I have fully participated in the care of the patient.: Yes I have reviewed all pertinent clinical information, including history, physical exam and plan: Yes
--- NOTE | 2017-03-08 18:23 | CP.PCM.PN ---
<JaspalMariajose - Last Filed: 03/08/17 18:36> Subjective - Date & Time of Evaluation Date of Evaluation: 03/08/17 Time of Evaluation: 08:20 - Subjective Subjective: Internal Medicine Progress Note for Dr. Haile Pt S&E at bedside. Pt awake, alert, answering questions, currently on hi flow O2 with sat ranging from 85-89% at time of visit. Patient was advised to breathe through the nose, where oxygen was being administered. Patient is AAOx3, Able to answer questions , admits to SOB, and leg pain at location of cellulitis. Patient denies dizziness, N/V, Headaches, Constipation, diarrhea. O2 saturation recheck is 95% on hi flow O2. O2 saturation is 65% on exertion from comode to chair at time of visit with the attending. Patient on BIPAP at time of Dr. Shrestha's visit to patient Objective - Vital Signs/Intake and Output Vital Signs (last 24 hours): Temp Pulse Resp BP Pulse Ox 98.3 F 68 18 108/64 94 L 03/08/17 17:07 03/08/17 17:07 03/08/17 17:07 03/08/17 17:07 03/08/17 14:31 Intake and Output: 03/08/17 03/08/17 06:59 18:59 Intake Total 1100 Output Total 1950 Balance -850 - Medications Medications: Current Medications Apixaban (Eliquis) 5 mg PO BID [facility] PRN Reason: Protocol Last Admin: 03/08/17 17:03 Dose: 5 mg Clopidogrel Bisulfate (Plavix) 75 mg PO DAILY [facility] Last Admin: 03/08/17 09:45 Dose: 75 mg Doxycycline Hyclate (Doryx) 100 mg PO Q12 [facility] PRN Reason: Protocol Last Admin: 03/08/17 09:45 Dose: 100 mg Furosemide (Lasix) 40 mg PO 0800,1400 [facility] Last Admin: 03/08/17 14:21 Dose: 40 mg Cefepime HCl (Maxipime 2gm) 2 gm in 100 mls @ 100 mls/hr IVPB Q8 [facility] PRN Reason: Protocol Stop: 03/12/17 14:01 Last Admin: 03/08/17 14:22 Dose: 100 mls/hr Vancomycin HCl (Vancomycin 1gm) 1 gm in 250 mls @ 167 mls/hr IVPB Q12 [facility] PRN Reason: Protocol Last Admin: 03/08/17 09:46 Dose: 167 mls/hr Insulin Human Lispro (Humalog Med) 0 units SC ACHS [facility] PRN Reason: Protocol Last Admin: 03/08/17 17:03 Dose: 1 units Levalbuterol HCl (Xopenex) 0.63 mg IH [id number] PRN PRN Reason: Shortness of Breath Last Admin: 03/07/17 20:02 Dose: 0.63 mg Methylprednisolone (Solu-Medrol) 40 mg IVP Q8H [facility] Last Admin: 03/08/17 17:03 Dose: 40 mg Pantoprazole Sodium (Protonix Ec Tab) 40 mg PO 0600 [facility] Last Admin: 03/08/17 06:31 Dose: 40 mg Verapamil HCl (Calan Sr Tab) 120 mg PO DAILY [facility] Last Admin: 03/08/17 09:45 Dose: 120 mg Verapamil HCl (Verapamil Inj) 2.5 mg IVP Q6H PRN PRN Reason: for heart rate >120 Last Admin: 03/07/17 08:45 Dose: 2.5 mg - Labs Labs: 03/08/17 06:15 03/08/17 06:15 PT 13.1 Seconds (9.9-11.8) H 03/05/17 10:35 INR 1.21 (0.93-1.08) H 03/05/17 10:35 APTT 31.6 Seconds (23.7-30.8) H 03/05/17 10:35 - Constitutional Appears: In Acute Distress - Eye Exam Eye Exam: EOMI, Normal appearance - ENT Exam ENT Exam: Mucous Membranes Moist - Respiratory Exam Respiratory Exam: Accessory Muscle Use, Clear to Ausculation Bilateral, Respiratory Distress. absent: Rhonchi, Wheezes - Cardiovascular Exam Cardiovascular Exam: REGULAR RHYTHM. absent: Bradycardia, Tachycardia - Extremities Exam Extremities Exam: Full ROM, Normal Inspection. absent: Joint Swelling, Pedal Edema - Neurological Exam Neurological Exam: Alert, Awake, Oriented x3 - Psychiatric Exam Psychiatric exam: Normal Affect, Normal Mood - Skin Skin Exam: Intact, Normal Color, Warm Additional comments: cellulitic changes under marjorie wrapped bandage. Ruptured flaccid bulla noted to proximal anterior aspect of right lower leg. serous drainage noted regressing margins and intensity of erythema - marked 24 hours ago blanchable erythema Assessment and Plan - Assessment and Plan (Free Text) Assessment: 81 M presents with SOB, and cellulitis of Right lower extremity. Plan: Acute respiratory failure 2/2 B/L pleural effusions O2 sat 90% on Hi flow BiPap HS Xopenex Lasix Solu-medrol Monitor Obstructive sleep apnea Bipap Afib, CAD s/p cardiac cath & stents Eliquis Plavix Verapamil Cardio consulted/following COPD/CHF Leukocytosis- resolved Xopenex Monitor I/Os Daily wts Monitor f/u CXR in AM B/L Leg edema/blisters/cellulitis LE dopplers neg for DVT Cefepime Vancomycin Lasix FU Urine cx Blood cx neg x 24H ID consulted/following Wound care consult Podiatry consulted/following Heme Thrombocytopenia- resolved Plts 122 from 108 Anemia- chronic Hgb 9.2 from 9.9 Hct 29.2 from 31.4 Monitor DM ISS Accuchecks CCHO diet HTN Normotensive Verapamil as per cardio Monitor GI/DVT ppx Protonix On Plavix, Eliquis Cannot tolerate SCDs 2/2 B/L LE edema/pain Dispo DNR/DNI as per family/POA request Pallative care following PT/OT Immigration Case Worker referral DW attending <Lazara JOSHUA,Anthony - Last Filed: 03/14/17 07:56> Objective - Vital Signs/Intake and Output Vital Signs (last 24 hours): Temp Pulse Resp BP Pulse Ox 97.5 F L 66 20 126/66 98 03/13/17 07:43 03/13/17 14:08 03/13/17 07:43 03/13/17 13:39 03/13/17 07:43 - Labs Labs: 03/12/17 12:40 03/12/17 12:40 PT 13.1 Seconds (9.9-11.8) H 03/05/17 10:35 INR 1.21 (0.93-1.08) H 03/05/17 10:35 APTT 31.6 Seconds (23.7-30.8) H 03/05/17 10:35 Attending/Attestation - Attestation I have personally seen and examined this patient.: Yes I have fully participated in the care of the patient.: Yes I have reviewed all pertinent clinical information, including history, physical exam and plan: Yes Notes (Text): 03/14/17 07:52 Patient was seen and examined with medical information specialist. 81 yrs old male with PMH of Morbid Obesity, COPD, CAD was admitted with change of mental status, was also found to be hypercapnic and hypoxic , was treated with BIPAP .Mental status is improved.Patient is still hypoxic , requiring high flow oxygen, .He is on IV antibiotics for sepsis due to cellulitis. Prognosis is guarded. Management plan was discussed in detail with patient Education was provided. 03/14/17 07:56
[2017-03-09] MEDS: MethylPREDNISolone 40 mg Vial IVP SCH ×3 (00:15→17:35)
[2017-03-09] MEDS: Cefepime IV 2 gm in NS 2 GM/100 ML BAG IVPB SCH ×4 (00:16→21:34)
[2017-03-09] MEDS: Pantoprazole 40 mg EC Tab PO SCH (06:05)
[2017-03-09 07:30] LABS: GRAN # 4.52 (1.4-6.5); GRAN % 87.6 % (50.0-68.0); HEMOGLOBIN 9.9 gm/dL (14.0-18.0); LYMPH # 0.3 (1.2-3.4); MEAN CELL VOLUME 92.2 fL (80.0-105.0); MEAN CORPUSCULAR HEMOGLOBIN 28.7 pg (25.0-35.0); MEAN CORPUSCULAR HGB CONC 31.1 g/dl (31.0-37.0); MONO # 0.4 (0.1-0.6); MONO % 7.4 % (1.0-6.0); PLATELET COUNT 131 10^3/uL (120.0-450.0); RBC 3.45 10^6/uL (3.5-6.1); RED CELL DISTRIBUTION WIDTH 17.9 % (11.5-14.5); WHITE BLOOD COUNT 5.2 10^3/ul (4.5-11.0)
[2017-03-09 07:45] LABS: ALB/GLOB RATIO 0.9 (1.1-1.8); ALBUMIN 3.4 g/dL (3.0-4.8); ALT/SGPT 29 U/L (7-56); AST/SGOT 22 U/L (15-59); BLOOD UREA NITROGEN 63 mg/dL (7-21); GFR AFRICAN-AMERICAN > 60; GFR NON-AFRICAN AMERICAN > 60; MAGNESIUM 2.1 mg/dL (1.7-2.2)
--- NOTE | 2017-03-09 08:20 | CP.PCM.PN ---
<Berenice Paredes - Last Filed: 03/09/17 09:58> Subjective - Date & Time of Evaluation Date of Evaluation: 03/09/17 Time of Evaluation: 08:20 - Subjective Subjective: 81 year old male patient seen at bedside with attending, Dr. Shrestha, for bilateral lower extremity edema and right leg bullae. Patient is seen with BIPAP respirator at this visit. Patient is AAOx3 and NAD. Patient denies any acute events overnight. Patient denies N/V/F/D/C/SOB/calf pain. No other pedal complaints at this time. Objective - Vital Signs/Intake and Output Vital Signs (last 24 hours): Temp Pulse Resp BP Pulse Ox 97.6 F 89 18 138/73 95 03/09/17 06:00 03/09/17 06:00 03/09/17 06:00 03/09/17 06:00 03/09/17 06:00 Intake and Output: 03/09/17 03/09/17 06:59 18:59 Intake Total 690 Output Total 2100 Balance -1410 - Medications Medications: Current Medications Apixaban (Eliquis) 5 mg PO BID [facility] PRN Reason: Protocol Last Admin: 03/08/17 17:03 Dose: 5 mg Clopidogrel Bisulfate (Plavix) 75 mg PO DAILY [facility] Last Admin: 03/08/17 09:45 Dose: 75 mg Doxycycline Hyclate (Doryx) 100 mg PO Q12 [facility] PRN Reason: Protocol Last Admin: 03/08/17 21:23 Dose: 100 mg Furosemide (Lasix) 40 mg PO 0800,1400 [facility] Last Admin: 03/08/17 14:21 Dose: 40 mg Cefepime HCl (Maxipime 2gm) 2 gm in 100 mls @ 100 mls/hr IVPB Q8 [facility] PRN Reason: Protocol Stop: 03/12/17 14:01 Last Admin: 03/09/17 06:05 Dose: 100 mls/hr Vancomycin HCl (Vancomycin 1gm) 1 gm in 250 mls @ 167 mls/hr IVPB Q12 [facility] PRN Reason: Protocol Last Admin: 03/08/17 21:23 Dose: 167 mls/hr Insulin Human Lispro (Humalog Med) 0 units SC ACHS [facility] PRN Reason: Protocol Last Admin: 03/08/17 21:18 Dose: Not Given Levalbuterol HCl (Xopenex) 0.63 mg IH [id number] PRN PRN Reason: Shortness of Breath Last Admin: 03/07/17 20:02 Dose: 0.63 mg Methylprednisolone (Solu-Medrol) 40 mg IVP Q8H [facility] Last Admin: 03/09/17 00:15 Dose: 40 mg Pantoprazole Sodium (Protonix Ec Tab) 40 mg PO 0600 [facility] Last Admin: 03/09/17 06:05 Dose: 40 mg Verapamil HCl (Calan Sr Tab) 120 mg PO DAILY [facility] Last Admin: 03/08/17 09:45 Dose: 120 mg Verapamil HCl (Verapamil Inj) 2.5 mg IVP Q6H PRN PRN Reason: for heart rate >120 Last Admin: 03/07/17 08:45 Dose: 2.5 mg - Labs Labs: 03/09/17 07:18 03/09/17 07:18 PT 13.1 Seconds (9.9-11.8) H 03/05/17 10:35 INR 1.21 (0.93-1.08) H 03/05/17 10:35 APTT 31.6 Seconds (23.7-30.8) H 03/05/17 10:35 - Constitutional Appears: Well, Non-toxic, No Acute Distress - Extremities Exam Additional comments: Lower extremity focused physical exam. Neuro-vascular status intact bilaterally to level of digits. +2 pitting edema noted bilaterally. DERM: Ruptured flaccid bulla noted to proximal anterior aspect of right lower leg. Bullae noted to have a granular base with no drainage noted; epidermal roof still in place. Noted regressing margins and intensity of erythema from marked borders since last visit. Erythema is blanchable. Left leg anterior patch of dishydrotic skin. Ortho: No pain on palpation noted to right lower extremity - Neurological Exam Neurological Exam: Alert, Awake, Oriented x3 - Psychiatric Exam Psychiatric exam: Normal Affect, Normal Mood Assessment and Plan - Assessment and Plan (Free Text) Assessment: 81 year old male with 1) Bilateral Lower extremity edema, secondary to chronic CHF and acute pleural effusion. 2) Right leg ruptured serous bulla. 3) right lower extremity cellulits, resolving. Plan: Patient seen and evaluated at bedside with attending, Dr. Shrestha. Chart, vitals, labs reviewed = afebrile, WBC WNL @ 5.2 Bullae dressed with optifoam. Below knee JUAN wrap applied to RLE. Continue abx per ID = Cefepime, Vancomycin Podiatry will continue to follow patient while in house. <Tremayne Shrestha - Last Filed: 03/12/17 11:55> Objective - Vital Signs/Intake and Output Vital Signs (last 24 hours): Temp Pulse Resp BP Pulse Ox 98.1 F 62 26 H 130/70 93 L 03/12/17 07:30 03/12/17 09:37 03/12/17 07:30 03/12/17 09:37 03/12/17 07:30 Intake and Output: 03/12/17 03/12/17 06:59 18:59 Intake Total 1070 Output Total 1300 Balance -230 - Medications Medications: Current Medications Apixaban (Eliquis) 5 mg PO BID [facility] PRN Reason: Protocol Last Admin: 03/12/17 09:29 Dose: 5 mg Clopidogrel Bisulfate (Plavix) 75 mg PO DAILY [facility] Last Admin: 03/12/17 09:30 Dose: 75 mg Digoxin (Lanoxin) 0.25 mg PO DAILY [facility] Doxycycline Hyclate (Doryx) 100 mg PO Q12 [facility] PRN Reason: Protocol Last Admin: 03/12/17 09:28 Dose: 100 mg Furosemide (Lasix) 40 mg PO 0800,1400 [facility] Last Admin: 03/12/17 08:22 Dose: 40 mg Cefepime HCl (Maxipime 2gm) 2 gm in 100 mls @ 100 mls/hr IVPB Q8 [facility] PRN Reason: Protocol Stop: 03/12/17 14:01 Last Admin: 03/12/17 06:11 Dose: 100 mls/hr Vancomycin HCl (Vancomycin 1gm) 1 gm in 250 mls @ 167 mls/hr IVPB Q12 [facility] PRN Reason: Protocol Last Admin: 03/12/17 09:30 Dose: 167 mls/hr Insulin Human Lispro (Humalog Med) 0 units SC ACHS [facility] PRN Reason: Protocol Last Admin: 03/12/17 08:27 Dose: 5 units Levalbuterol HCl (Xopenex) 0.63 mg IH [id number] PRN PRN Reason: Shortness of Breath Last Admin: 03/10/17 14:02 Dose: 0.63 mg Metformin HCl (Glucophage) 500 mg PO BID [facility] Last Admin: 03/12/17 09:29 Dose: 500 mg Methylprednisolone (Solu-Medrol) 30 mg IVP Q12 [facility] Last Admin: 03/12/17 09:30 Dose: 30 mg Mupirocin (Bactroban Ointment) 0 gm TOP BID [facility] Last Admin: 03/12/17 09:12 Dose: Not Given Pantoprazole Sodium (Protonix Ec Tab) 40 mg PO 0600 [facility] Last Admin: 03/12/17 06:11 Dose: 40 mg Verapamil HCl (Verapamil Inj) 2.5 mg IVP Q6H PRN PRN Reason: for heart rate >120 Last Admin: 03/07/17 08:45 Dose: 2.5 mg Verapamil HCl (Calan Sr Tab) 240 mg PO DAILY [facility] Last Admin: 03/12/17 09:37 Dose: 240 mg - Labs Labs: 03/11/17 06:30 03/11/17 06:30 PT 13.1 Seconds (9.9-11.8) H 03/05/17 10:35 INR 1.21 (0.93-1.08) H 03/05/17 10:35 APTT 31.6 Seconds (23.7-30.8) H 03/05/17 10:35 Attending/Attestation - Attestation I have personally seen and examined this patient.: Yes I have fully participated in the care of the patient.: Yes I have reviewed all pertinent clinical information, including history, physical exam and plan: Yes
[2017-03-09] MEDS: Insulin Lispro (humaLOG) MEDIUM Coverage SC SCH ×4 (08:25→21:35)
[2017-03-09] MEDS: Verapamil 120 mg ER Tab PO SCH (10:00)
[2017-03-09] MEDS: Vancomycin 1gm in NS 250ml 1 GM/250 ML BAG IVPB SCH ×2 (10:01→21:37)
--- NOTE | 2017-03-09 11:10 | CP.PCM.PN ---
<Gagan Pemberton - Last Filed: 03/09/17 11:44> Subjective - Date & Time of Evaluation Date of Evaluation: 03/09/17 Time of Evaluation: 11:05 - Subjective Subjective: Patient seen and examined this AM on GMF. No acute events overnight. Patient tolerated BiPAP overnight. Patient has no complaints at the time of interview. Pt denies chest pain, trouble breathing, nausea, vomiting, fever. O2 saturation range over past 24H is 93-95 on BiPAP at night and hi flow O2 during day Objective - Vital Signs/Intake and Output Vital Signs (last 24 hours): Temp Pulse Resp BP Pulse Ox 97.6 F 89 18 130/80 95 03/09/17 06:00 03/09/17 06:00 03/09/17 06:00 03/09/17 08:24 03/09/17 06:00 Intake and Output: 03/09/17 03/09/17 06:59 18:59 Intake Total 690 Output Total 2100 Balance -1410 - Medications Medications: Current Medications Apixaban (Eliquis) 5 mg PO BID [facility] PRN Reason: Protocol Last Admin: 03/09/17 10:01 Dose: 5 mg Clopidogrel Bisulfate (Plavix) 75 mg PO DAILY [facility] Last Admin: 03/09/17 10:01 Dose: 75 mg Doxycycline Hyclate (Doryx) 100 mg PO Q12 [facility] PRN Reason: Protocol Last Admin: 03/09/17 10:00 Dose: 100 mg Furosemide (Lasix) 40 mg PO 0800,1400 [facility] Last Admin: 03/09/17 08:24 Dose: 40 mg Cefepime HCl (Maxipime 2gm) 2 gm in 100 mls @ 100 mls/hr IVPB Q8 [facility] PRN Reason: Protocol Stop: 03/12/17 14:01 Last Admin: 03/09/17 06:05 Dose: 100 mls/hr Vancomycin HCl (Vancomycin 1gm) 1 gm in 250 mls @ 167 mls/hr IVPB Q12 [facility] PRN Reason: Protocol Last Admin: 03/09/17 10:01 Dose: 167 mls/hr Insulin Human Lispro (Humalog Med) 0 units SC ACHS [facility] PRN Reason: Protocol Last Admin: 03/09/17 08:25 Dose: 5 units Levalbuterol HCl (Xopenex) 0.63 mg IH [id number] PRN PRN Reason: Shortness of Breath Last Admin: 03/07/17 20:02 Dose: 0.63 mg Methylprednisolone (Solu-Medrol) 40 mg IVP Q8H [facility] Last Admin: 03/09/17 10:22 Dose: 40 mg Mupirocin (Bactroban Ointment) 0 gm TOP BID [facility] Pantoprazole Sodium (Protonix Ec Tab) 40 mg PO 0600 [facility] Last Admin: 03/09/17 06:05 Dose: 40 mg Verapamil HCl (Calan Sr Tab) 120 mg PO DAILY [facility] Last Admin: 03/09/17 10:00 Dose: 120 mg Verapamil HCl (Verapamil Inj) 2.5 mg IVP Q6H PRN PRN Reason: for heart rate >120 Last Admin: 03/07/17 08:45 Dose: 2.5 mg - Labs Labs: 03/09/17 07:18 03/09/17 07:18 PT 13.1 Seconds (9.9-11.8) H 03/05/17 10:35 INR 1.21 (0.93-1.08) H 03/05/17 10:35 APTT 31.6 Seconds (23.7-30.8) H 03/05/17 10:35 - Head Exam Head Exam: ATRAUMATIC, NORMAL INSPECTION - Eye Exam Eye Exam: EOMI, PERRL - ENT Exam ENT Exam: Mucous Membranes Moist, Normal Exam - Neck Exam Neck Exam: Full ROM, Normal Inspection - Respiratory Exam Respiratory Exam: Decreased Breath Sounds, NORMAL BREATHING PATTERN Additional comments: minimal crackles at base - Cardiovascular Exam Cardiovascular Exam: REGULAR RHYTHM, +S1, +S2 - Extremities Exam Extremities Exam: Full ROM Additional comments: +2/+3 edema b/l up to thigh - Neurological Exam Neurological Exam: Alert, Awake, Oriented x3 - Psychiatric Exam Psychiatric exam: Normal Affect, Normal Mood - Skin Skin Exam: Normal Color, Warm Additional comments: right lower anterior leg with ruptured flaccid bulla, with serous drainage noted blanchable erythema diminished Cellulitic changes under marjorie wrap Assessment and Plan (1) CHF (congestive heart failure) Status: Acute (2) Edema Status: Acute (3) Afib Status: Chronic (4) HTN (hypertension) Status: Chronic - Assessment and Plan (Free Text) Assessment: 81 year old male with past medical history significant for DM, CHF, pulmonary HTN, CAD and paroxysmal Afib who is being treated for respiratory failure Plan: 1. Acute respiratory failure 2/2 B/L pleural effusions - Continue Hi flow with goal of O2 sat >90% - Continue BiPap HS - Continue Lasix, solu-medrol, xopenex 2. B/L Leg edema/blisters/cellulitis - Continue cefepime and vancomycin - ID consulted and following - Podiatry consulted and following - urine culture negative 3. COPD/CHF - HI Flow during day and BiPAP at night - Lasix for fluid accumulation - CXR this AM shows 4. Afib, CAD s/p cardiac cath & stents - Eliquis, plavix, verapamil - Cardio consulted and following 5. DM - Lispro ISS - Accuchecks - CCHO diet 6. HTN - Verapamil 7. Obstructive sleep apnea - Bipap at night 8. GI/DVT ppx - Protonix - Plavix, Eliquis Dispo: Patient is DNR/DNI and pallative care following <Jena Luciano - Last Filed: 03/09/17 15:58> Objective - Vital Signs/Intake and Output Vital Signs (last 24 hours): Temp Pulse Resp BP Pulse Ox 97.8 F 130 H 22 128/77 95 03/09/17 12:00 03/09/17 12:00 03/09/17 12:00 03/09/17 15:15 03/09/17 06:00 Intake and Output: 03/09/17 03/09/17 06:59 18:59 Intake Total 690 780 Output Total 2100 1025 Balance -1410 -245 - Medications Medications: Current Medications Apixaban (Eliquis) 5 mg PO BID [facility] PRN Reason: Protocol Last Admin: 03/09/17 10:01 Dose: 5 mg Aspirin (Aspirin Chewable) 81 mg PO DAILY [facility] Last Admin: 03/09/17 15:15 Dose: 81 mg Clopidogrel Bisulfate (Plavix) 75 mg PO DAILY [facility] Last Admin: 03/09/17 10:01 Dose: 75 mg Doxycycline Hyclate (Doryx) 100 mg PO Q12 [facility] PRN Reason: Protocol Last Admin: 03/09/17 10:00 Dose: 100 mg Furosemide (Lasix) 40 mg PO 0800,1400 [facility] Last Admin: 03/09/17 15:15 Dose: 40 mg Cefepime HCl (Maxipime 2gm) 2 gm in 100 mls @ 100 mls/hr IVPB Q8 [facility] PRN Reason: Protocol Stop: 03/12/17 14:01 Last Admin: 03/09/17 15:17 Dose: 100 mls/hr Vancomycin HCl (Vancomycin 1gm) 1 gm in 250 mls @ 167 mls/hr IVPB Q12 [facility] PRN Reason: Protocol Last Admin: 03/09/17 10:01 Dose: 167 mls/hr Insulin Human Lispro (Humalog Med) 0 units SC ACHS [facility] PRN Reason: Protocol Last Admin: 03/09/17 12:20 Dose: 3 units Levalbuterol HCl (Xopenex) 0.63 mg IH [id number] PRN PRN Reason: Shortness of Breath Last Admin: 03/07/17 20:02 Dose: 0.63 mg Methylprednisolone (Solu-Medrol) 40 mg IVP Q8H [facility] Last Admin: 03/09/17 10:22 Dose: 40 mg Mupirocin (Bactroban Ointment) 0 gm TOP BID [facility] Pantoprazole Sodium (Protonix Ec Tab) 40 mg PO 0600 [facility] Last Admin: 03/09/17 06:05 Dose: 40 mg Verapamil HCl (Verapamil Inj) 2.5 mg IVP Q6H PRN PRN Reason: for heart rate >120 Last Admin: 03/07/17 08:45 Dose: 2.5 mg Verapamil HCl (Calan Sr Tab) 240 mg PO DAILY [facility] - Labs Labs: 03/09/17 07:18 03/09/17 07:18 PT 13.1 Seconds (9.9-11.8) H 03/05/17 10:35 INR 1.21 (0.93-1.08) H 03/05/17 10:35 APTT 31.6 Seconds (23.7-30.8) H 03/05/17 10:35 Attending/Attestation - Attestation I have personally seen and examined this patient.: Yes I have fully participated in the care of the patient.: Yes I have reviewed all pertinent clinical information, including history, physical exam and plan: Yes Notes (Text): 03/09/17 15:55 attending note; Patient seen and examined with resident in room 272. currently on high flow oxygen. siting in bed comfortably. Patient is a 81-year-old male with a past medical history of CHF, COPD, DM, HTN , paroxsymal afib, CAD s/p cardiac cath and stent to circumflex, arthritis, depression, obesity, chronic LE edema, Obstructive sleep apnea is admitted with lethargy. continue BiPAP at night. Patient his more alert and awake now. Lower extremity cellulitis; improving. recent coronary stent; continue Plavix. History of A. fib; continue liquids. Bilateral pleural effusions; continue IV Lasix. Lower extremity cellulitis; continue vancomycin and cefepime. ID evaluation appreciated. repeat chest x-ray showed bilateral atelectasis and vascular congestion. continue to monitor closely. follow-up with PMD on discharge.
--- NOTE | 2017-03-09 12:00 | RAD ---
HISTORY: shob COMPARISON: 03/05/2017 FINDINGS: LUNGS: There is moderate vascular congestion and bibasilar infiltrates PLEURA: No significant pleural effusion identified, no pneumothorax apparent. CARDIOVASCULAR: Normal. OSSEOUS STRUCTURES: No significant abnormalities. VISUALIZED UPPER ABDOMEN: Normal. OTHER FINDINGS: None. IMPRESSION: No change in vascular congestion and bibasilar infiltrates
--- NOTE | 2017-03-09 12:54 | CP.PCM.PN ---
Subjective - Date & Time of Evaluation Date of Evaluation: 03/09/17 Time of Evaluation: 11:50 - Subjective Subjective: Comfortable in bed, not in distress., no fevers, breathing better, less pain in the right leg. Objective - Vital Signs/Intake and Output Vital Signs (last 24 hours): Temp Pulse Resp BP Pulse Ox 97.6 F 89 18 138/73 95 03/09/17 06:00 03/09/17 06:00 03/09/17 06:00 03/09/17 06:00 03/09/17 06:00 Intake and Output: 03/09/17 03/09/17 06:59 18:59 Intake Total 690 Output Total 2100 Balance -1410 - Medications Medications: Current Medications Apixaban (Eliquis) 5 mg PO BID [facility] PRN Reason: Protocol Last Admin: 03/08/17 17:03 Dose: 5 mg Clopidogrel Bisulfate (Plavix) 75 mg PO DAILY [facility] Last Admin: 03/08/17 09:45 Dose: 75 mg Doxycycline Hyclate (Doryx) 100 mg PO Q12 [facility] PRN Reason: Protocol Last Admin: 03/08/17 21:23 Dose: 100 mg Furosemide (Lasix) 40 mg PO 0800,1400 [facility] Last Admin: 03/08/17 14:21 Dose: 40 mg Cefepime HCl (Maxipime 2gm) 2 gm in 100 mls @ 100 mls/hr IVPB Q8 [facility] PRN Reason: Protocol Stop: 03/12/17 14:01 Last Admin: 03/09/17 06:05 Dose: 100 mls/hr Vancomycin HCl (Vancomycin 1gm) 1 gm in 250 mls @ 167 mls/hr IVPB Q12 [facility] PRN Reason: Protocol Last Admin: 03/08/17 21:23 Dose: 167 mls/hr Insulin Human Lispro (Humalog Med) 0 units SC ACHS [facility] PRN Reason: Protocol Last Admin: 03/08/17 21:18 Dose: Not Given Levalbuterol HCl (Xopenex) 0.63 mg IH [id number] PRN PRN Reason: Shortness of Breath Last Admin: 03/07/17 20:02 Dose: 0.63 mg Methylprednisolone (Solu-Medrol) 40 mg IVP Q8H [facility] Last Admin: 03/09/17 00:15 Dose: 40 mg Pantoprazole Sodium (Protonix Ec Tab) 40 mg PO 0600 [facility] Last Admin: 03/09/17 06:05 Dose: 40 mg Verapamil HCl (Calan Sr Tab) 120 mg PO DAILY [facility] Last Admin: 03/08/17 09:45 Dose: 120 mg Verapamil HCl (Verapamil Inj) 2.5 mg IVP Q6H PRN PRN Reason: for heart rate >120 Last Admin: 03/07/17 08:45 Dose: 2.5 mg - Labs Labs: 03/08/17 06:15 03/08/17 06:15 PT 13.1 Seconds (9.9-11.8) H 03/05/17 10:35 INR 1.21 (0.93-1.08) H 03/05/17 10:35 APTT 31.6 Seconds (23.7-30.8) H 03/05/17 10:35 - Constitutional Appears: Non-toxic, No Acute Distress - Head Exam Head Exam: NORMAL INSPECTION - ENT Exam ENT Exam: Mucous Membranes Moist - Neck Exam Neck Exam: absent: Meningismus - Respiratory Exam Respiratory Exam: Decreased Breath Sounds - Cardiovascular Exam Cardiovascular Exam: +S1, +S2 - GI/Abdominal Exam GI & Abdominal Exam: Soft. absent: Tenderness - Extremities Exam Additional comments: right leg with dressings in place Assessment and Plan - Assessment and Plan (Free Text) Plan: Assessment Consider sepsis due to right leg skin and skin structure infection, R/O bilateral lower lobe healthcare-associated pneumonia with associated bilateral pleural effusion Hyerpcapneic respiratory failure probably from COPD exacerbation / pulmonary HTN CAD S/P PCI chronic CHF COPD with severe pulmonary HTN chronic atrial fibrillation morbid obesity with BMI 40 arthritis history of depression obstructive sleep apnea S/P right knee surgery 5-6 years ago Plan continue Vancomycin and Cefepime (day 4, dose increased since renal function has improved); blood cx are negative; discussed with Podiatry will continue to follow clinically
--- NOTE | 2017-03-09 15:09 | PN ---
DATE: SUBJECTIVE: I was asked to evaluated Mr. Olvera because of atrial flutter, which was one conduction on the monitor. The patient is mildly tachypneic. He denies any dyspnea or chest pain. PHYSICAL EXAMINATION: VITAL SIGNS: Blood pressure 128/77, heart rate 130, temperature 97.8, respirations 22. HEENT: Pale conjunctivae. CHEST: Bibasilar rhonchi. HEART: S1 and S2 regular. ABDOMEN: Soft. EXTREMITIES: Right leg cellulitis with 2-3+ pitting edema. LABORATORY DATA: Hemoglobin and hematocrit 9.1 and 31.8, white count and platelet count are within normal limits. SMA-7 is within normal limits except for glucose and BUN of 63. EKG was done revealed atrial flutter with variable conduction with the heart rate of 127. Echocardiographic study in October of this year revealed normal ejection fraction with normal segmental wall motion and severe pulmonary hypertension. The patient's record revealed that the patient underwent successfully PTCA with drug-eluting stent with midcircumflex artery on 10/15/2016. ASSESSMENT: 1. Paroxysmal atrial fibrillation and atrial flutter. 2. Chronic obstructive lung disease with severe pulmonary hypertension. 3. Morbid obesity. 4. Coronary stenting to the circumflex artery in October of this year. CONDITIONS: Continue current CPAP. Continue Eliquis 5 mg once a day, Lasix 40 mg intravenous twice a day, Plavix 75 mg once a day. Increase verapamil to 240 mg once a day. Start aspirin at 81 mg once a day. Cecil Waters MD
[2017-03-10] MEDS: MethylPREDNISolone 40 mg Vial IVP SCH ×4 (00:16→21:25)
[2017-03-10] MEDS: Pantoprazole 40 mg EC Tab PO SCH (05:29)
[2017-03-10] MEDS: Cefepime IV 2 gm in NS 2 GM/100 ML BAG IVPB SCH ×3 (05:32→21:25)
[2017-03-10 07:41] LABS: BASO # 0.01 K/mm3 (0.0-2.0); BASO % 0.2 % (0.0-3.0); GRAN # 4.14 (1.4-6.5); GRAN % 86.1 % (50.0-68.0); HEMOGLOBIN 10.6 gm/dL (14.0-18.0); LYMPH # 0.3 (1.2-3.4); LYMPH % 5.8 % (22.0-35.0); MEAN CELL VOLUME 92.9 fL (80.0-105.0); MEAN CORPUSCULAR HEMOGLOBIN 28.9 pg (25.0-35.0); MEAN CORPUSCULAR HGB CONC 31.1 g/dl (31.0-37.0); MONO # 0.4 (0.1-0.6); MONO % 7.9 % (1.0-6.0); RBC 3.67 10^6/uL (3.5-6.1); RED CELL DISTRIBUTION WIDTH 17.8 % (11.5-14.5); WHITE BLOOD COUNT 4.8 10^3/ul (4.5-11.0)
[2017-03-10 07:59] LABS: ALBUMIN 3.3 g/dL (3.0-4.8); ALT/SGPT 31 U/L (7-56); AST/SGOT 18 U/L (15-59); BLOOD UREA NITROGEN 61 mg/dL (7-21); CALCIUM 9.3 mg/dL (8.4-10.5); GFR AFRICAN-AMERICAN > 60; GFR NON-AFRICAN AMERICAN > 60
[2017-03-10 08:52] LABS: PLATELET COUNT 126 10^3/uL (120.0-450.0)
[2017-03-10] MEDS: Insulin Lispro (humaLOG) MEDIUM Coverage SC SCH ×4 (08:57→21:57)
[2017-03-10] MEDS: Verapamil 240 mg ER Tab PO SCH (09:02)
[2017-03-10] MEDS: Vancomycin 1gm in NS 250ml 1 GM/250 ML BAG IVPB SCH ×2 (09:03→21:25)
--- NOTE | 2017-03-10 09:37 | CARD ---
APPROVED REPORT EKG Measurement Heart [id number] <Conclusion> Atrial fibrillation with rapid ventricular response Incomplete right bundle branch block PRWP IVCD STTW changes c/w ischemia No change
--- NOTE | 2017-03-10 11:16 | CP.PCM.PN ---
Subjective - Date & Time of Evaluation Date of Evaluation: 03/10/17 Time of Evaluation: 10:00 - Subjective Subjective: Still on high flow oxygen but feels better, no fevers overnight, a little less pain in the right leg. Objective - Vital Signs/Intake and Output Vital Signs (last 24 hours): Temp Pulse Resp BP Pulse Ox 97.5 F L 94 H 22 131/81 92 L 03/10/17 05:53 03/10/17 05:53 03/10/17 05:53 03/10/17 05:53 03/10/17 05:53 Intake and Output: 03/09/17 03/10/17 18:59 06:59 Intake Total 780 900 Output Total 1025 1000 Balance -245 -100 - Medications Medications: Current Medications Apixaban (Eliquis) 5 mg PO BID [facility] PRN Reason: Protocol Last Admin: 03/09/17 17:27 Dose: 5 mg Aspirin (Aspirin Chewable) 81 mg PO DAILY [facility] Last Admin: 03/09/17 15:15 Dose: 81 mg Clopidogrel Bisulfate (Plavix) 75 mg PO DAILY [facility] Last Admin: 03/09/17 10:01 Dose: 75 mg Doxycycline Hyclate (Doryx) 100 mg PO Q12 [facility] PRN Reason: Protocol Last Admin: 03/09/17 21:37 Dose: 100 mg Furosemide (Lasix) 40 mg PO 0800,1400 [facility] Last Admin: 03/09/17 15:15 Dose: 40 mg Cefepime HCl (Maxipime 2gm) 2 gm in 100 mls @ 100 mls/hr IVPB Q8 [facility] PRN Reason: Protocol Stop: 03/12/17 14:01 Last Admin: 03/10/17 05:32 Dose: 100 mls/hr Vancomycin HCl (Vancomycin 1gm) 1 gm in 250 mls @ 167 mls/hr IVPB Q12 [facility] PRN Reason: Protocol Last Admin: 03/09/17 21:37 Dose: 167 mls/hr Insulin Human Lispro (Humalog Med) 0 units SC ACHS [facility] PRN Reason: Protocol Last Admin: 03/09/17 21:35 Dose: Not Given Levalbuterol HCl (Xopenex) 0.63 mg IH [id number] PRN PRN Reason: Shortness of Breath Last Admin: 03/07/17 20:02 Dose: 0.63 mg Methylprednisolone (Solu-Medrol) 40 mg IVP Q8H [facility] Last Admin: 03/10/17 00:16 Dose: 40 mg Mupirocin (Bactroban Ointment) 0 gm TOP BID [facility] Pantoprazole Sodium (Protonix Ec Tab) 40 mg PO 0600 [facility] Last Admin: 03/10/17 05:29 Dose: 40 mg Verapamil HCl (Verapamil Inj) 2.5 mg IVP Q6H PRN PRN Reason: for heart rate >120 Last Admin: 03/07/17 08:45 Dose: 2.5 mg Verapamil HCl (Calan Sr Tab) 240 mg PO DAILY [facility] - Labs Labs: 03/09/17 07:18 03/09/17 07:18 PT 13.1 Seconds (9.9-11.8) H 03/05/17 10:35 INR 1.21 (0.93-1.08) H 03/05/17 10:35 APTT 31.6 Seconds (23.7-30.8) H 03/05/17 10:35 - Constitutional Appears: Non-toxic, No Acute Distress - Head Exam Head Exam: NORMAL INSPECTION - ENT Exam ENT Exam: Mucous Membranes Moist - Neck Exam Neck Exam: absent: Meningismus - Respiratory Exam Respiratory Exam: Decreased Breath Sounds - Cardiovascular Exam Cardiovascular Exam: +S1, +S2 - GI/Abdominal Exam GI & Abdominal Exam: Soft. absent: Tenderness Assessment and Plan - Assessment and Plan (Free Text) Plan: Assessment Consider sepsis due to right leg skin and skin structure infection, R/O bilateral lower lobe healthcare-associated pneumonia with associated bilateral pleural effusion Hyerpcapneic respiratory failure probably from COPD exacerbation / pulmonary HTN CAD S/P PCI chronic CHF COPD with severe pulmonary HTN chronic atrial fibrillation morbid obesity with BMI 40 arthritis history of depression obstructive sleep apnea S/P right knee surgery 5-6 years ago Plan continue Vancomycin and Cefepime (day 5, dose increased since renal function has improved); blood cx are negative; discussed with Podiatry will continue to monitor clinically
--- NOTE | 2017-03-10 12:41 | CP.PCM.PN ---
<Gagan Pemberton - Last Filed: 03/10/17 12:35> Subjective - Date & Time of Evaluation Date of Evaluation: 03/10/17 Time of Evaluation: 12:35 - Subjective Subjective: Patient seen and examined this AM. No acute events overnight. Patient is tolerating BiPAP at night and Hi flow during day. Patient has no complaints today. Reports his breathing is improving everyday. He denies chest pain, abdominal pain, fever, nausea, vomiting. His O2 sat has ranged from 88-93%. Patient has been up to chair with minimal difficulty. Objective - Vital Signs/Intake and Output Vital Signs (last 24 hours): Temp Pulse Resp BP Pulse Ox 97.5 F L 115 H 21 142/84 93 L 03/10/17 11:43 03/10/17 11:43 03/10/17 11:50 03/10/17 11:43 03/10/17 09:22 Intake and Output: 03/10/17 03/10/17 06:59 18:59 Intake Total 900 Output Total 1000 Balance -100 - Medications Medications: Current Medications Apixaban (Eliquis) 5 mg PO BID [facility] PRN Reason: Protocol Last Admin: 03/10/17 09:02 Dose: 5 mg Aspirin (Aspirin Chewable) 81 mg PO DAILY [facility] Last Admin: 03/10/17 09:02 Dose: 81 mg Clopidogrel Bisulfate (Plavix) 75 mg PO DAILY [facility] Last Admin: 03/10/17 09:02 Dose: 75 mg Doxycycline Hyclate (Doryx) 100 mg PO Q12 [facility] PRN Reason: Protocol Last Admin: 03/10/17 09:04 Dose: 100 mg Furosemide (Lasix) 40 mg PO 0800,1400 [facility] Last Admin: 03/10/17 08:58 Dose: 40 mg Cefepime HCl (Maxipime 2gm) 2 gm in 100 mls @ 100 mls/hr IVPB Q8 [facility] PRN Reason: Protocol Stop: 03/12/17 14:01 Last Admin: 03/10/17 05:32 Dose: 100 mls/hr Vancomycin HCl (Vancomycin 1gm) 1 gm in 250 mls @ 167 mls/hr IVPB Q12 [facility] PRN Reason: Protocol Last Admin: 03/10/17 09:03 Dose: 167 mls/hr Insulin Human Lispro (Humalog Med) 0 units SC ACHS [facility] PRN Reason: Protocol Last Admin: 03/10/17 11:50 Dose: 5 units Levalbuterol HCl (Xopenex) 0.63 mg IH [id number] PRN PRN Reason: Shortness of Breath Last Admin: 03/07/17 20:02 Dose: 0.63 mg Metformin HCl (Glucophage) 500 mg PO BID [facility] Last Admin: 03/10/17 09:08 Dose: 500 mg Methylprednisolone (Solu-Medrol) 30 mg IVP Q12 [facility] Last Admin: 03/10/17 09:08 Dose: 30 mg Mupirocin (Bactroban Ointment) 0 gm TOP BID [facility] Last Admin: 03/10/17 10:46 Dose: Not Given Pantoprazole Sodium (Protonix Ec Tab) 40 mg PO 0600 [facility] Last Admin: 03/10/17 05:29 Dose: 40 mg Verapamil HCl (Verapamil Inj) 2.5 mg IVP Q6H PRN PRN Reason: for heart rate >120 Last Admin: 03/07/17 08:45 Dose: 2.5 mg Verapamil HCl (Calan Sr Tab) 240 mg PO DAILY [facility] Last Admin: 03/10/17 09:02 Dose: 240 mg - Labs Labs: 03/10/17 07:34 03/10/17 07:34 PT 13.1 Seconds (9.9-11.8) H 03/05/17 10:35 INR 1.21 (0.93-1.08) H 03/05/17 10:35 APTT 31.6 Seconds (23.7-30.8) H 03/05/17 10:35 Assessment and Plan (1) CHF (congestive heart failure) Status: Acute (2) Edema Status: Acute (3) Afib Status: Chronic (4) HTN (hypertension) Status: Chronic - Assessment and Plan (Free Text) Assessment: 81 year old male with past medical history significant for DM, CHF, pulmonary HTN, CAD and paroxysmal Afib who is being treated for respiratory failure. Patient continues to require BiPAP at night and Hi Flow O2 during the day to maintain O2 sats Plan: 1. Acute respiratory failure 2/2 B/L pleural effusions - Continue Hi flow with goal of O2 sat >90% - Continue BiPap HS - Continue Lasix, solu-medrol, xopenex 2. B/L Leg edema/blisters/cellulitis - Continue cefepime and vancomycin - ID consulted and following - Podiatry consulted and following 3. COPD/CHF - HI Flow during day and BiPAP at night - Lasix for fluid accumulation 4. Afib, CAD s/p cardiac cath & stents - Eliquis, plavix, verapamil - Cardio consulted and following 5. DM - Lispro ISS - Accuchecks - CCHO diet 6. HTN - Verapamil 7. Obstructive sleep apnea - Bipap at night 8. GI/DVT ppx - Protonix - Plavix, Eliquis Dispo: Patient is DNR/DNI and palliative care following. Prognosis is gaurded seconday to patient requiring Hi-flow O2 to maintain O2 sats >90%. <Jena Luciano - Last Filed: 03/10/17 17:43> Objective - Vital Signs/Intake and Output Vital Signs (last 24 hours): Temp Pulse Resp BP Pulse Ox 97.6 F 73 21 150/70 93 L 03/10/17 16:55 03/10/17 16:55 03/10/17 16:55 03/10/17 16:55 03/10/17 09:22 Intake and Output: 03/10/17 03/10/17 06:59 18:59 Intake Total 1740 Output Total 1950 Balance -210 - Medications Medications: Current Medications Apixaban (Eliquis) 5 mg PO BID [facility] PRN Reason: Protocol Last Admin: 03/10/17 17:06 Dose: 5 mg Aspirin (Aspirin Chewable) 81 mg PO DAILY [facility] Last Admin: 03/10/17 09:02 Dose: 81 mg Clopidogrel Bisulfate (Plavix) 75 mg PO DAILY [facility] Last Admin: 03/10/17 09:02 Dose: 75 mg Digoxin (Lanoxin) 0.25 mg IVP 1400 [facility] Last Admin: 03/10/17 14:10 Dose: 0.25 mg Digoxin (Lanoxin Elixir Soln) 0.25 mg PO DAILY [facility] Doxycycline Hyclate (Doryx) 100 mg PO Q12 [facility] PRN Reason: Protocol Last Admin: 03/10/17 09:04 Dose: 100 mg Furosemide (Lasix) 40 mg PO 0800,1400 [facility] Last Admin: 03/10/17 14:11 Dose: 40 mg Cefepime HCl (Maxipime 2gm) 2 gm in 100 mls @ 100 mls/hr IVPB Q8 [facility] PRN Reason: Protocol Stop: 03/12/17 14:01 Last Admin: 03/10/17 14:07 Dose: 100 mls/hr Vancomycin HCl (Vancomycin 1gm) 1 gm in 250 mls @ 167 mls/hr IVPB Q12 [facility] PRN Reason: Protocol Last Admin: 03/10/17 09:03 Dose: 167 mls/hr Insulin Human Lispro (Humalog Med) 0 units SC ACHS [facility] PRN Reason: Protocol Last Admin: 03/10/17 17:06 Dose: 3 units Levalbuterol HCl (Xopenex) 0.63 mg IH [id number] PRN PRN Reason: Shortness of Breath Last Admin: 03/10/17 14:02 Dose: 0.63 mg Metformin HCl (Glucophage) 500 mg PO BID [facility] Last Admin: 03/10/17 17:06 Dose: 500 mg Methylprednisolone (Solu-Medrol) 30 mg IVP Q12 [facility] Last Admin: 03/10/17 09:08 Dose: 30 mg Mupirocin (Bactroban Ointment) 0 gm TOP BID [facility] Last Admin: 03/10/17 17:07 Dose: Not Given Pantoprazole Sodium (Protonix Ec Tab) 40 mg PO 0600 [facility] Last Admin: 03/10/17 05:29 Dose: 40 mg Verapamil HCl (Verapamil Inj) 2.5 mg IVP Q6H PRN PRN Reason: for heart rate >120 Last Admin: 03/07/17 08:45 Dose: 2.5 mg Verapamil HCl (Calan Sr Tab) 240 mg PO DAILY [facility] Last Admin: 03/10/17 09:02 Dose: 240 mg - Labs Labs: 03/10/17 07:34 03/10/17 07:34 PT 13.1 Seconds (9.9-11.8) H 03/05/17 10:35 INR 1.21 (0.93-1.08) H 03/05/17 10:35 APTT 31.6 Seconds (23.7-30.8) H 03/05/17 10:35 Attending/Attestation - Attestation I have personally seen and examined this patient.: Yes I have fully participated in the care of the patient.: Yes I have reviewed all pertinent clinical information, including history, physical exam and plan: Yes Notes (Text): 03/10/17 17:42 attending note; Patient seen and examined with resident in room 272. patient desaturated during physical therapy. oxygen saturation improved upon resting. Patient is a 81-year-old male with a past medical history of CHF, COPD, DM, HTN , paroxsymal afib, CAD s/p cardiac cath and stent to circumflex, arthritis, depression, obesity, chronic LE edema, Obstructive sleep apnea is admitted with lethargy. continue BiPAP at night. Patient his more alert and awake now. Lower extremity cellulitis; improving. recent coronary stent; continue Plavix. History of A. fib; continue liquids. Bilateral pleural effusions; continue IV Lasix. Lower extremity cellulitis; continue vancomycin and cefepime. ID evaluation appreciated. PT is recommending subacute rehabilitation. Will discuss with lead case manager for discharge planning. follow-up with PMD on discharge. 03/10/17 17:42
[2017-03-10] MEDS: Levalbuterol 0.63 MG/3 ML Inhal Soln UD IH PRN (14:02)
[2017-03-10] MEDS: Digoxin 500 mcg/2ml (0.5 mg/2ml) Inj IVP SCH (14:10)
[2017-03-11] MEDS: Cefepime IV 2 gm in NS 2 GM/100 ML BAG IVPB SCH ×3 (05:07→22:46)
[2017-03-11] MEDS: Pantoprazole 40 mg EC Tab PO SCH (05:07)
[2017-03-11 07:43] LABS: GRAN # 5.72 (1.4-6.5); GRAN % 85.1 % (50.0-68.0); HEMOGLOBIN 10.4 gm/dL (14.0-18.0); LYMPH # 0.4 (1.2-3.4); LYMPH % 6.1 % (22.0-35.0); MEAN CORPUSCULAR HGB CONC 31.1 g/dl (31.0-37.0); MONO # 0.6 (0.1-0.6); MONO % 8.8 % (1.0-6.0); PLATELET COUNT 136 10^3/uL (120.0-450.0); RBC 3.59 10^6/uL (3.5-6.1); RED CELL DISTRIBUTION WIDTH 17.7 % (11.5-14.5); WHITE BLOOD COUNT 6.7 10^3/ul (4.5-11.0)
[2017-03-11 07:52] LABS: ALBUMIN 3.3 g/dL (3.0-4.8); ALT/SGPT 32 U/L (7-56); AST/SGOT 28 U/L (15-59); BLOOD UREA NITROGEN 59 mg/dL (7-21); CALCIUM 9.3 mg/dL (8.4-10.5); GFR AFRICAN-AMERICAN > 60; GFR NON-AFRICAN AMERICAN 58
[2017-03-11] MEDS: Insulin Lispro (humaLOG) MEDIUM Coverage SC SCH ×4 (07:53→22:25)
[2017-03-11] MEDS: Verapamil 240 mg ER Tab PO SCH (09:33)
[2017-03-11] MEDS: MethylPREDNISolone 40 mg Vial IVP SCH ×2 (09:34→22:30)
[2017-03-11] MEDS: Vancomycin 1gm in NS 250ml 1 GM/250 ML BAG IVPB SCH ×2 (09:38→22:16)
[2017-03-11] MEDS ORDERED: Digoxin 0.05 mg/mL Elixir 5mL PO SCH (10:00)
--- NOTE | 2017-03-11 10:23 | CP.PCM.PN ---
Subjective - Date & Time of Evaluation Date of Evaluation: 03/11/17 Time of Evaluation: 09:45 - Subjective Subjective: 81 year old male patient seen at bedside with attending, Dr. Rodriguez, for bilateral lower extremity edema and right leg bullae. Patient is seen with BIPAP respirator at this visit. Patient denies any acute events overnight. Patient denies N/V/F/D/C/SOB/calf pain. No other pedal complaints at this time. Objective - Vital Signs/Intake and Output Vital Signs (last 24 hours): Temp Pulse Resp BP Pulse Ox 97.6 F 82 18 151/55 H 92 L 03/11/17 05:51 03/11/17 09:33 03/11/17 05:51 03/11/17 09:33 03/11/17 05:51 Intake and Output: 03/11/17 03/11/17 06:59 18:59 Intake Total 450 Balance 450 - Medications Medications: Current Medications Apixaban (Eliquis) 5 mg PO BID [facility] PRN Reason: Protocol Last Admin: 03/11/17 09:34 Dose: 5 mg Aspirin (Aspirin Chewable) 81 mg PO DAILY [facility] Last Admin: 03/11/17 09:34 Dose: 81 mg Clopidogrel Bisulfate (Plavix) 75 mg PO DAILY [facility] Last Admin: 03/11/17 09:34 Dose: 75 mg Digoxin (Lanoxin) 0.25 mg IVP 1400 [facility] Last Admin: 03/10/17 14:10 Dose: 0.25 mg Digoxin (Lanoxin Elixir Soln) 0.25 mg PO DAILY [facility] Last Admin: 03/11/17 09:39 Dose: 0.25 mg Doxycycline Hyclate (Doryx) 100 mg PO Q12 [facility] PRN Reason: Protocol Last Admin: 03/11/17 09:33 Dose: 100 mg Furosemide (Lasix) 40 mg PO 0800,1400 [facility] Last Admin: 03/11/17 07:54 Dose: 40 mg Cefepime HCl (Maxipime 2gm) 2 gm in 100 mls @ 100 mls/hr IVPB Q8 [facility] PRN Reason: Protocol Stop: 03/12/17 14:01 Last Admin: 03/11/17 05:07 Dose: 100 mls/hr Vancomycin HCl (Vancomycin 1gm) 1 gm in 250 mls @ 167 mls/hr IVPB Q12 [facility] PRN Reason: Protocol Last Admin: 03/11/17 09:38 Dose: 167 mls/hr Insulin Human Lispro (Humalog Med) 0 units SC ACHS [facility] PRN Reason: Protocol Last Admin: 03/11/17 07:53 Dose: 5 units Levalbuterol HCl (Xopenex) 0.63 mg IH [id number] PRN PRN Reason: Shortness of Breath Last Admin: 03/10/17 14:02 Dose: 0.63 mg Metformin HCl (Glucophage) 500 mg PO BID [facility] Last Admin: 03/11/17 09:34 Dose: 500 mg Methylprednisolone (Solu-Medrol) 30 mg IVP Q12 [facility] Last Admin: 03/11/17 09:34 Dose: 30 mg Mupirocin (Bactroban Ointment) 0 gm TOP BID [facility] Last Admin: 03/11/17 10:14 Dose: Not Given Pantoprazole Sodium (Protonix Ec Tab) 40 mg PO 0600 [facility] Last Admin: 03/11/17 05:07 Dose: 40 mg Verapamil HCl (Verapamil Inj) 2.5 mg IVP Q6H PRN PRN Reason: for heart rate >120 Last Admin: 03/07/17 08:45 Dose: 2.5 mg Verapamil HCl (Calan Sr Tab) 240 mg PO DAILY [facility] Last Admin: 03/11/17 09:33 Dose: 240 mg - Labs Labs: 03/11/17 06:30 03/11/17 06:30 PT 13.1 Seconds (9.9-11.8) H 03/05/17 10:35 INR 1.21 (0.93-1.08) H 03/05/17 10:35 APTT 31.6 Seconds (23.7-30.8) H 03/05/17 10:35 - Constitutional Appears: Well, Non-toxic, No Acute Distress - Extremities Exam Additional comments: Lower extremity focused physical exam. Dressing clean, dry, and intact, heavy exudate noted on foam. Neuro-vascular status intact bilaterally to level of digits. +2 pitting edema noted bilaterally. DERM: Ruptured, deroofed bulla with remaining superficial ulcration measuring 3.0 x 2.2 cm on a 100% granular base. Wound noted to proximal anterior aspect of right lower leg. Active weeping serous drainage noted. Noted regressing margins and intensity of erythema from marked proximal borders since last visit. Erythema is blanchable. Left leg anterior patch of dishydrotic skin. Ortho: No pain on palpation noted to right lower extremity - Neurological Exam Neurological Exam: Alert, Awake, Oriented x3 - Psychiatric Exam Psychiatric exam: Normal Affect, Normal Mood Assessment and Plan - Assessment and Plan (Free Text) Assessment: 81 year old male with 1) Bilateral Lower extremity edema, secondary to chronic CHF and acute pleural effusion. 2) Right leg ruptured serous bulla. 3) right lower extremity cellulits, resolving. Plan: Patient seen and evaluated at bedside with attending, Dr. Rodriguez. Chart, vitals, labs reviewed = afebrile, absent leukoctosis. Bulla dressed with optifoam. Below knee JUAN wrap applied to RLE. Dressing to be change BID due to excessive drainage, verbalized order to nursing staff. Continue abx per ID = Cefepime, Vancomycin, Doxycycline Podiatry will continue to follow patient while in house.
--- NOTE | 2017-03-11 11:30 | CP.PCM.PN ---
Subjective - Date & Time of Evaluation Date of Evaluation: 03/11/17 Time of Evaluation: 08:20 - Subjective Subjective: Comfortable, less pain in the right leg, breathing a little better today. Objective - Vital Signs/Intake and Output Vital Signs (last 24 hours): Temp Pulse Resp BP Pulse Ox 97.6 F 83 18 129/70 92 L 03/11/17 05:51 03/11/17 05:51 03/11/17 05:51 03/11/17 05:51 03/11/17 05:51 Intake and Output: 03/10/17 03/11/17 18:59 06:59 Intake Total 450 Balance 450 - Medications Medications: Current Medications Apixaban (Eliquis) 5 mg PO BID [facility] PRN Reason: Protocol Last Admin: 03/10/17 17:06 Dose: 5 mg Aspirin (Aspirin Chewable) 81 mg PO DAILY [facility] Last Admin: 03/10/17 09:02 Dose: 81 mg Clopidogrel Bisulfate (Plavix) 75 mg PO DAILY [facility] Last Admin: 03/10/17 09:02 Dose: 75 mg Digoxin (Lanoxin) 0.25 mg IVP 1400 [facility] Last Admin: 03/10/17 14:10 Dose: 0.25 mg Digoxin (Lanoxin Elixir Soln) 0.25 mg PO DAILY [facility] Doxycycline Hyclate (Doryx) 100 mg PO Q12 [facility] PRN Reason: Protocol Last Admin: 03/10/17 21:24 Dose: 100 mg Furosemide (Lasix) 40 mg PO 0800,1400 [facility] Last Admin: 03/10/17 14:11 Dose: 40 mg Cefepime HCl (Maxipime 2gm) 2 gm in 100 mls @ 100 mls/hr IVPB Q8 [facility] PRN Reason: Protocol Stop: 03/12/17 14:01 Last Admin: 03/11/17 05:07 Dose: 100 mls/hr Vancomycin HCl (Vancomycin 1gm) 1 gm in 250 mls @ 167 mls/hr IVPB Q12 [facility] PRN Reason: Protocol Last Admin: 03/10/17 21:25 Dose: 167 mls/hr Insulin Human Lispro (Humalog Med) 0 units SC ACHS [facility] PRN Reason: Protocol Last Admin: 03/10/17 21:57 Dose: Not Given Levalbuterol HCl (Xopenex) 0.63 mg IH [id number] PRN PRN Reason: Shortness of Breath Last Admin: 03/10/17 14:02 Dose: 0.63 mg Metformin HCl (Glucophage) 500 mg PO BID [facility] Last Admin: 03/10/17 17:06 Dose: 500 mg Methylprednisolone (Solu-Medrol) 30 mg IVP Q12 [facility] Last Admin: 03/10/17 21:25 Dose: 30 mg Mupirocin (Bactroban Ointment) 0 gm TOP BID [facility] Last Admin: 03/10/17 17:07 Dose: Not Given Pantoprazole Sodium (Protonix Ec Tab) 40 mg PO 0600 [facility] Last Admin: 03/11/17 05:07 Dose: 40 mg Verapamil HCl (Verapamil Inj) 2.5 mg IVP Q6H PRN PRN Reason: for heart rate >120 Last Admin: 03/07/17 08:45 Dose: 2.5 mg Verapamil HCl (Calan Sr Tab) 240 mg PO DAILY [facility] Last Admin: 03/10/17 09:02 Dose: 240 mg - Labs Labs: 03/10/17 07:34 03/10/17 07:34 PT 13.1 Seconds (9.9-11.8) H 03/05/17 10:35 INR 1.21 (0.93-1.08) H 03/05/17 10:35 APTT 31.6 Seconds (23.7-30.8) H 03/05/17 10:35 - Constitutional Appears: Non-toxic, No Acute Distress - Head Exam Head Exam: NORMAL INSPECTION - Neck Exam Neck Exam: absent: Meningismus - Respiratory Exam Respiratory Exam: Decreased Breath Sounds - Cardiovascular Exam Cardiovascular Exam: +S1, +S2 - GI/Abdominal Exam GI & Abdominal Exam: Soft. absent: Tenderness - Extremities Exam Additional comments: right leg with dressings in place Assessment and Plan - Assessment and Plan (Free Text) Plan: Assessment Consider sepsis due to right leg skin and skin structure infection, R/O bilateral lower lobe healthcare-associated pneumonia with associated bilateral pleural effusion, clinically improving Hyerpcapneic respiratory failure probably from COPD exacerbation / pulmonary HTN CAD S/P PCI chronic CHF COPD with severe pulmonary HTN chronic atrial fibrillation morbid obesity with BMI 40 arthritis history of depression obstructive sleep apnea S/P right knee surgery 5-6 years ago Plan continue Vancomycin and Cefepime and Doxycycline (day 6); blood cx are negative ; discussed with Podiatry will continue to monitor clinically
--- NOTE | 2017-03-11 12:13 | CP.PCM.PN ---
<JaspalMariajose - Last Filed: 03/11/17 12:25> Subjective - Date & Time of Evaluation Date of Evaluation: 03/11/17 Time of Evaluation: 12:11 - Subjective Subjective: PT S&E at bedside. NAEON. Patient has difficulty with O2 Saturation when moving from chair to bed. Patient denies CP, F/C, N/V. Patient admits to SOB. Patient is tolerating BiPAP at night and Hi flow during day. Patient has no complaints today. O2 saturation at 94%. Objective - Vital Signs/Intake and Output Vital Signs (last 24 hours): Temp Pulse Resp BP Pulse Ox 98.8 F 68 19 125/63 125 H 03/11/17 11:34 03/11/17 11:34 03/11/17 11:34 03/11/17 11:34 03/11/17 11:34 Intake and Output: 03/11/17 03/11/17 06:59 18:59 Intake Total 450 Balance 450 - Medications Medications: Current Medications Apixaban (Eliquis) 5 mg PO BID [facility] PRN Reason: Protocol Last Admin: 03/11/17 09:34 Dose: 5 mg Clopidogrel Bisulfate (Plavix) 75 mg PO DAILY [facility] Last Admin: 03/11/17 09:34 Dose: 75 mg Digoxin (Lanoxin) 0.25 mg IVP 1400 [facility] Last Admin: 03/10/17 14:10 Dose: 0.25 mg Digoxin (Lanoxin Elixir Soln) 0.25 mg PO DAILY [facility] Last Admin: 03/11/17 09:39 Dose: 0.25 mg Doxycycline Hyclate (Doryx) 100 mg PO Q12 [facility] PRN Reason: Protocol Last Admin: 03/11/17 09:33 Dose: 100 mg Furosemide (Lasix) 40 mg PO 0800,1400 [facility] Last Admin: 03/11/17 07:54 Dose: 40 mg Cefepime HCl (Maxipime 2gm) 2 gm in 100 mls @ 100 mls/hr IVPB Q8 [facility] PRN Reason: Protocol Stop: 03/12/17 14:01 Last Admin: 03/11/17 05:07 Dose: 100 mls/hr Vancomycin HCl (Vancomycin 1gm) 1 gm in 250 mls @ 167 mls/hr IVPB Q12 [facility] PRN Reason: Protocol Last Admin: 03/11/17 09:38 Dose: 167 mls/hr Insulin Human Lispro (Humalog Med) 0 units SC ACHS [facility] PRN Reason: Protocol Last Admin: 03/11/17 07:53 Dose: 5 units Levalbuterol HCl (Xopenex) 0.63 mg IH [id number] PRN PRN Reason: Shortness of Breath Last Admin: 03/10/17 14:02 Dose: 0.63 mg Metformin HCl (Glucophage) 500 mg PO BID [facility] Last Admin: 03/11/17 09:34 Dose: 500 mg Methylprednisolone (Solu-Medrol) 30 mg IVP Q12 [facility] Last Admin: 03/11/17 09:34 Dose: 30 mg Mupirocin (Bactroban Ointment) 0 gm TOP BID [facility] Last Admin: 03/11/17 10:14 Dose: Not Given Pantoprazole Sodium (Protonix Ec Tab) 40 mg PO 0600 [facility] Last Admin: 03/11/17 05:07 Dose: 40 mg Verapamil HCl (Verapamil Inj) 2.5 mg IVP Q6H PRN PRN Reason: for heart rate >120 Last Admin: 03/07/17 08:45 Dose: 2.5 mg Verapamil HCl (Calan Sr Tab) 240 mg PO DAILY [facility] Last Admin: 03/11/17 09:33 Dose: 240 mg - Labs Labs: 03/11/17 06:30 03/11/17 06:30 PT 13.1 Seconds (9.9-11.8) H 03/05/17 10:35 INR 1.21 (0.93-1.08) H 03/05/17 10:35 APTT 31.6 Seconds (23.7-30.8) H 03/05/17 10:35 - Constitutional Appears: Non-toxic, No Acute Distress - Head Exam Head Exam: NORMAL INSPECTION - Eye Exam Eye Exam: EOMI, Normal appearance - ENT Exam ENT Exam: Mucous Membranes Moist - Neck Exam Neck Exam: Full ROM, Normal Inspection - Respiratory Exam Respiratory Exam: Clear to Ausculation Bilateral, NORMAL BREATHING PATTERN. absent: Accessory Muscle Use, Respiratory Distress - Cardiovascular Exam Cardiovascular Exam: REGULAR RHYTHM. absent: Bradycardia, Tachycardia - GI/Abdominal Exam GI & Abdominal Exam: Distended, Soft, Normal Bowel Sounds. absent: Firm, Rigid - Extremities Exam Extremities Exam: Full ROM Assessment and Plan - Assessment and Plan (Free Text) Assessment: 81 year old male with respiratory failure, with past medical history significant for DM, CHF, pulmonary HTN, CAD and paroxysmal Afib. Patient continues to require BiPAP at night and Hi Flow O2 during the day to maintain O2 sats Plan: Plan: 1. Acute respiratory failure 2/2 B/L pleural effusions - Continue Hi flow with goal of O2 sat >90% - Continue BiPap HS - Continue Lasix, solu-medrol, xopenex 2. B/L Leg edema/blisters/cellulitis - Continue cefepime and vancomycin - ID consulted and following - Podiatry consulted and following 3. COPD/CHF - HI Flow during day and BiPAP at night - Lasix for fluid accumulation - HI Flow FiO2 adjustments - monitor ABG, monitor O2 saturation 4. Afib, CAD s/p cardiac cath & stents - Eliquis, plavix, verapamil - Cardio consulted and following 5. DM - Lispro ISS - Accuchecks - CCHO diet 6. HTN - Verapamil 7. Obstructive sleep apnea - Bipap at night 8. GI/DVT ppx - Protonix - Plavix, Eliquis Dispo: Patient is DNR/DNI and palliative care following. Prognosis is guarded secondary to patient requiring Hi-flow O2 to maintain O2 sats >90%. Today, plan is to decrease O2 administration and monitor O2 saturation/tolerance <Jena Luciano - Last Filed: 03/11/17 16:25> Objective - Vital Signs/Intake and Output Vital Signs (last 24 hours): Temp Pulse Resp BP Pulse Ox 98.8 F 56 L 19 125/63 125 H 03/11/17 11:34 03/11/17 14:00 03/11/17 11:34 03/11/17 13:27 03/11/17 11:34 Intake and Output: 03/11/17 03/11/17 06:59 18:59 Intake Total 450 Balance 450 - Medications Medications: Current Medications Apixaban (Eliquis) 5 mg PO BID [facility] PRN Reason: Protocol Last Admin: 03/11/17 09:34 Dose: 5 mg Clopidogrel Bisulfate (Plavix) 75 mg PO DAILY [facility] Last Admin: 03/11/17 09:34 Dose: 75 mg Digoxin (Lanoxin) 0.25 mg IVP 1400 [facility] Last Admin: 03/11/17 14:50 Dose: 0.25 mg Digoxin (Lanoxin Elixir Soln) 0.25 mg PO DAILY [facility] Last Admin: 03/11/17 09:39 Dose: 0.25 mg Doxycycline Hyclate (Doryx) 100 mg PO Q12 [facility] PRN Reason: Protocol Last Admin: 03/11/17 09:33 Dose: 100 mg Furosemide (Lasix) 40 mg PO 0800,1400 [facility] Last Admin: 03/11/17 13:27 Dose: 40 mg Cefepime HCl (Maxipime 2gm) 2 gm in 100 mls @ 100 mls/hr IVPB Q8 [facility] PRN Reason: Protocol Stop: 03/12/17 14:01 Last Admin: 03/11/17 13:29 Dose: 100 mls/hr Vancomycin HCl (Vancomycin 1gm) 1 gm in 250 mls @ 167 mls/hr IVPB Q12 [facility] PRN Reason: Protocol Last Admin: 03/11/17 09:38 Dose: 167 mls/hr Insulin Human Lispro (Humalog Med) 0 units SC ACHS [facility] PRN Reason: Protocol Last Admin: 03/11/17 12:12 Dose: 3 units Levalbuterol HCl (Xopenex) 0.63 mg IH [id number] PRN PRN Reason: Shortness of Breath Last Admin: 03/10/17 14:02 Dose: 0.63 mg Metformin HCl (Glucophage) 500 mg PO BID [facility] Last Admin: 03/11/17 09:34 Dose: 500 mg Methylprednisolone (Solu-Medrol) 30 mg IVP Q12 [facility] Last Admin: 03/11/17 09:34 Dose: 30 mg Mupirocin (Bactroban Ointment) 0 gm TOP BID [facility] Last Admin: 03/11/17 10:14 Dose: Not Given Pantoprazole Sodium (Protonix Ec Tab) 40 mg PO 0600 [facility] Last Admin: 03/11/17 05:07 Dose: 40 mg Verapamil HCl (Verapamil Inj) 2.5 mg IVP Q6H PRN PRN Reason: for heart rate >120 Last Admin: 03/07/17 08:45 Dose: 2.5 mg Verapamil HCl (Calan Sr Tab) 240 mg PO DAILY [facility] Last Admin: 03/11/17 09:33 Dose: 240 mg - Labs Labs: 03/11/17 06:30 03/11/17 06:30 PT 13.1 Seconds (9.9-11.8) H 03/05/17 10:35 INR 1.21 (0.93-1.08) H 03/05/17 10:35 APTT 31.6 Seconds (23.7-30.8) H 03/05/17 10:35 Attending/Attestation - Attestation I have personally seen and examined this patient.: Yes I have fully participated in the care of the patient.: Yes I have reviewed all pertinent clinical information, including history, physical exam and plan: Yes Notes (Text): 03/11/17 16:21 attending note; Patient seen and examined with resident in room 272. patient desaturated during physical therapy yesterday. oxygen saturation improved upon resting. on high flow oxygen. Patient is a 81-year-old male with a past medical history of CHF, COPD, DM, HTN , paroxsymal afib, CAD s/p cardiac cath and stent to circumflex, arthritis, depression, obesity, chronic LE edema, Obstructive sleep apnea is admitted with lethargy. on high flow oxygen at day time. continue BiPAP at night. Patient his more alert and awake now. Lower extremity cellulitis; improving. recent coronary stent; continue Plavix. History of A. fib; continue liquids. Bilateral pleural effusions; continue IV Lasix. Lower extremity cellulitis; continue vancomycin and cefepime and doxy. ID evaluation appreciated. PT is recommending subacute rehabilitation. Will discuss with wrapper caser for discharge planning. possible LTAC evaluation in process. follow-up with PMD on discharge.
--- NOTE | 2017-03-11 14:13 | PN ---
DATE: 03/11/2017 REASON FOR CONSULTATION: Followup coronary artery disease, atrial fibrillation, admitted with altered mental status, CO2 narcosis. SUBJECTIVE: The patient is awake and alert, sitting on chair in room 272, bed 1. Denies any chest pain, shortness of breath or any palpitation. OBJECTIVE: As follows: GENERAL: Sitting comfortable. VITAL SIGNS: Temperature afebrile, heart rate 80 and blood pressure 128/70. HEENT: PERRLA. Extraocular muscles intact. NECK: Supple. No carotid bruit. No thyromegaly. CHEST: Clear to auscultation. HEART: S1 and S2 regular. ABDOMEN: Soft. EXTREMITIES: Clubbing, cyanosis negative. LABORATORY DATA: Blood workup as follow: WBC 6.7, hemoglobin 10.4, hematocrit 33.4, platelet count 136. Chemistry shows sodium 142, potassium 4.1, chloride 101, carbon dioxide 32, anion gap of 13, BUN 15, creatinine 1.2. Total protein 6.6, albumin 3.3, album-globulin ratio 1.1. IMPRESSION: An 81-year-old morbidly obese male with past medical history significant for coronary atrial fibrillation, status post stent in left anterior descending in the remote; status post a stent in the circumflex on 11/01/2016; history of chronic obstructive pulmonary disease; history of obstructive sleep apnea, admitted with altered mental status secondary to CO2 narcosis; history of atrial fibrillation, on Eliquis and Plavix. Plavix for stent and Eliquis for atrial fibrillation, stable, no evidence of acute myocardial infarction and no evidence of acute coronary syndrome. RECOMMENDATIONS: Continue verapamil, increased by Dr. Waters. Continue Eliquis, continue Plavix, continue Lasix. We will discontinue telemetry. DISCHARGE PLAINING: Continue CPAP machine the patient to continue for CPAP. In view of Eliquis and Plavix and a stent of 3 months hold, we will discontinue aspirin. Thank you for providing me the opportunity in taking care of the patient, Jerry Olvera . Anthony Mckinley MD
[2017-03-11] MEDS: Digoxin 500 mcg/2ml (0.5 mg/2ml) Inj IVP SCH (14:50)
[2017-03-12] MEDS: Cefepime IV 2 gm in NS 2 GM/100 ML BAG IVPB SCH ×2 (06:11→14:40)
[2017-03-12] MEDS: Pantoprazole 40 mg EC Tab PO SCH (06:11)
[2017-03-12] MEDS: Insulin Lispro (humaLOG) MEDIUM Coverage SC SCH ×3 (08:27→16:48)
--- NOTE | 2017-03-12 09:28 | CP.PCM.PN ---
<JaspalMariajose - Last Filed: 03/12/17 13:04> Subjective - Date & Time of Evaluation Date of Evaluation: 03/12/17 Time of Evaluation: 09:28 - Subjective Subjective: PT S&E at bedside. NAEON. Patient denies CP, F/C, N/V. Patient admits to SOB. Patient is tolerating BiPAP at night and Hi flow during day. Patient has no complaints today. O2 saturation at 94%. Patient has difficulty with O2 Saturation when moving from chair to bed. Patient states he is breathing better today compared to yesterday. Objective - Vital Signs/Intake and Output Vital Signs (last 24 hours): Temp Pulse Resp BP Pulse Ox 98.1 F 67 26 H 146/74 93 L 03/12/17 07:30 03/12/17 07:30 03/12/17 07:30 03/12/17 08:22 03/12/17 07:30 Intake and Output: 03/12/17 03/12/17 06:59 18:59 Intake Total 1070 Output Total 1300 Balance -230 - Medications Medications: Current Medications Apixaban (Eliquis) 5 mg PO BID [facility] PRN Reason: Protocol Last Admin: 03/11/17 17:16 Dose: 5 mg Clopidogrel Bisulfate (Plavix) 75 mg PO DAILY [facility] Last Admin: 03/11/17 09:34 Dose: 75 mg Digoxin (Lanoxin) 0.25 mg IVP 1400 [facility] Last Admin: 03/11/17 14:50 Dose: 0.25 mg Digoxin (Lanoxin Elixir Soln) 0.25 mg PO DAILY [facility] Last Admin: 03/11/17 09:39 Dose: 0.25 mg Doxycycline Hyclate (Doryx) 100 mg PO Q12 [facility] PRN Reason: Protocol Last Admin: 03/11/17 22:11 Dose: 100 mg Furosemide (Lasix) 40 mg PO 0800,1400 [facility] Last Admin: 03/12/17 08:22 Dose: 40 mg Cefepime HCl (Maxipime 2gm) 2 gm in 100 mls @ 100 mls/hr IVPB Q8 [facility] PRN Reason: Protocol Stop: 03/12/17 14:01 Last Admin: 03/12/17 06:11 Dose: 100 mls/hr Vancomycin HCl (Vancomycin 1gm) 1 gm in 250 mls @ 167 mls/hr IVPB Q12 [facility] PRN Reason: Protocol Last Admin: 03/11/17 22:16 Dose: 167 mls/hr Insulin Human Lispro (Humalog Med) 0 units SC ACHS [facility] PRN Reason: Protocol Last Admin: 03/12/17 08:27 Dose: 5 units Levalbuterol HCl (Xopenex) 0.63 mg IH [id number] PRN PRN Reason: Shortness of Breath Last Admin: 03/10/17 14:02 Dose: 0.63 mg Metformin HCl (Glucophage) 500 mg PO BID [facility] Last Admin: 03/11/17 17:16 Dose: 500 mg Methylprednisolone (Solu-Medrol) 30 mg IVP Q12 [facility] Last Admin: 03/11/17 22:30 Dose: 30 mg Mupirocin (Bactroban Ointment) 0 gm TOP BID [facility] Last Admin: 03/11/17 18:06 Dose: Not Given Pantoprazole Sodium (Protonix Ec Tab) 40 mg PO 0600 [facility] Last Admin: 03/12/17 06:11 Dose: 40 mg Verapamil HCl (Verapamil Inj) 2.5 mg IVP Q6H PRN PRN Reason: for heart rate >120 Last Admin: 03/07/17 08:45 Dose: 2.5 mg Verapamil HCl (Calan Sr Tab) 240 mg PO DAILY [facility] Last Admin: 03/11/17 09:33 Dose: 240 mg - Labs Labs: 03/11/17 06:30 03/11/17 06:30 PT 13.1 Seconds (9.9-11.8) H 03/05/17 10:35 INR 1.21 (0.93-1.08) H 03/05/17 10:35 APTT 31.6 Seconds (23.7-30.8) H 03/05/17 10:35 - Constitutional Appears: Chronically Ill - Head Exam Head Exam: NORMAL INSPECTION - Eye Exam Eye Exam: EOMI, Normal appearance - ENT Exam ENT Exam: Mucous Membranes Moist - Neck Exam Neck Exam: Full ROM. absent: Normal Inspection - Respiratory Exam Respiratory Exam: NORMAL BREATHING PATTERN. absent: Accessory Muscle Use, Decreased Breath Sounds, Respiratory Distress - Cardiovascular Exam Cardiovascular Exam: absent: Bradycardia, Tachycardia - GI/Abdominal Exam GI & Abdominal Exam: Normal Bowel Sounds - Extremities Exam Extremities Exam: Full ROM, Pedal Edema Additional comments: 1+ pitting edema of shins. 2+ pitting edema of foot bilaterally normal capillary refill 2 secs bilaterally - Back Exam Back Exam: Full ROM, NORMAL INSPECTION - Neurological Exam Neurological Exam: Alert, Awake - Psychiatric Exam Psychiatric exam: Normal Mood - Skin Skin Exam: Dry, Normal Color, Warm Additional comments: cellulitis of anterior tibial region bilaterally. right leg is wrapped in marjorie bandage. Assessment and Plan - Assessment and Plan (Free Text) Assessment: 81 year old male with respiratory failure, with past medical history significant for DM, CHF, pulmonary HTN, CAD and paroxysmal Afib. Patient continues to require BiPAP at night and Hi Flow O2 during the day to maintain O2 sats Awaiting LTAC transfer. Plan: Plan: 1. Acute respiratory failure 2/2 B/L pleural effusions - Continue Hi flow with goal of O2 sat >90% - Continue BiPap HS - Continue Lasix, solu-medrol, xopenex 2. 1+ B/L Leg edema/blisters/cellulitis - Continue cefepime and vancomycin - ID consulted and following - Podiatry following leg wounds 3. COPD/CHF - HI Flow during day 82.8% FiO2 and 50cc flow rate and BiPAP at night - Lasix for fluid accumulation - HI Flow FiO2 adjustments - monitor ABG, monitor O2 saturation awaiting Pulm consult for adjustments/weaning 4. Afib, CAD s/p cardiac cath & stents - Eliquis, plavix, verapamil - Cardio consulted and following 5. DM - Lispro ISS - Accuchecks - CCHO diet 6. HTN - Verapamil 7. Obstructive sleep apnea - Bipap at night 8. GI/DVT ppx - Protonix - Plavix, Eliquis Dispo: Patient is DNR/DNI and palliative care following. Prognosis is guarded secondary to patient requiring Hi-flow O2 to maintain O2 sats >90%. Today, plan is to decrease O2 administration and monitor O2 saturation/tolerance will discuss with disability case manager for discharge planning. possible LTAC evaluation in process. follow-up with PMD on discharge. <Jena Luciano - Last Filed: 03/12/17 16:53> Objective - Vital Signs/Intake and Output Vital Signs (last 24 hours): Temp Pulse Resp BP Pulse Ox 98.1 F 62 24 140/61 93 L 03/12/17 07:30 03/12/17 09:37 03/12/17 15:06 03/12/17 14:39 03/12/17 07:30 Intake and Output: 03/12/17 03/12/17 06:59 18:59 Intake Total 1070 Output Total 1300 Balance -230 - Medications Medications: Current Medications Apixaban (Eliquis) 5 mg PO BID [facility] PRN Reason: Protocol Last Admin: 03/12/17 09:29 Dose: 5 mg Clopidogrel Bisulfate (Plavix) 75 mg PO DAILY [facility] Last Admin: 03/12/17 09:30 Dose: 75 mg Digoxin (Lanoxin) 0.25 mg PO DAILY [facility] Last Admin: 03/12/17 10:01 Dose: 0.25 mg Doxycycline Hyclate (Doryx) 100 mg PO Q12 [facility] PRN Reason: Protocol Last Admin: 03/12/17 09:28 Dose: 100 mg Furosemide (Lasix) 40 mg PO 0800,1400 [facility] Last Admin: 03/12/17 14:39 Dose: 40 mg Vancomycin HCl (Vancomycin 1gm) 1 gm in 250 mls @ 167 mls/hr IVPB Q12 [facility] PRN Reason: Protocol Last Admin: 03/12/17 09:30 Dose: 167 mls/hr Insulin Human Lispro (Humalog Med) 0 units SC ACHS [facility] PRN Reason: Protocol Last Admin: 03/12/17 16:48 Dose: 3 units Levalbuterol HCl (Xopenex) 0.63 mg IH [id number] PRN PRN Reason: Shortness of Breath Last Admin: 03/10/17 14:02 Dose: 0.63 mg Metformin HCl (Glucophage) 500 mg PO BID [facility] Last Admin: 03/12/17 09:29 Dose: 500 mg Methylprednisolone (Solu-Medrol) 30 mg IVP Q12 [facility] Last Admin: 03/12/17 09:30 Dose: 30 mg Mupirocin (Bactroban Ointment) 0 gm TOP BID [facility] Last Admin: 03/12/17 09:12 Dose: Not Given Pantoprazole Sodium (Protonix Ec Tab) 40 mg PO 0600 [facility] Last Admin: 03/12/17 06:11 Dose: 40 mg Verapamil HCl (Verapamil Inj) 2.5 mg IVP Q6H PRN PRN Reason: for heart rate >120 Last Admin: 03/07/17 08:45 Dose: 2.5 mg Verapamil HCl (Calan Sr Tab) 240 mg PO DAILY [facility] Last Admin: 03/12/17 09:37 Dose: 240 mg - Labs Labs: 03/12/17 12:40 03/12/17 12:40 PT 13.1 Seconds (9.9-11.8) H 03/05/17 10:35 INR 1.21 (0.93-1.08) H 03/05/17 10:35 APTT 31.6 Seconds (23.7-30.8) H 03/05/17 10:35 Attending/Attestation - Attestation I have personally seen and examined this patient.: Yes I have fully participated in the care of the patient.: Yes I have reviewed all pertinent clinical information, including history, physical exam and plan: Yes Notes (Text): 03/12/17 16:52 attending note; Patient seen and examined with resident. on high flow oxygen. Patient is a 81-year-old male with a past medical history of CHF, COPD, DM, HTN , paroxsymal afib, CAD s/p cardiac cath and stent to circumflex, arthritis, depression, obesity, chronic LE edema, Obstructive sleep apnea is admitted with lethargy. on high flow oxygen at day time. continue BiPAP at night. Patient his more alert and awake now. Lower extremity cellulitis; improving. recent coronary stent; continue Plavix. History of A. fib; continue liquids. Bilateral pleural effusions; continue IV Lasix. Lower extremity cellulitis; continue vancomycin and cefepime and doxy. ID evaluation appreciated. PT is recommending subacute rehabilitation. Will discuss with disability case manager for discharge planning. possible LTAC evaluation in process. follow-up with PMD on discharge.
[2017-03-12] MEDS: Vancomycin 1gm in NS 250ml 1 GM/250 ML BAG IVPB SCH (09:30)
[2017-03-12] MEDS: MethylPREDNISolone 40 mg Vial IVP SCH (09:30)
[2017-03-12] MEDS: Verapamil 240 mg ER Tab PO SCH (09:37)
[2017-03-12] MEDS: Digoxin 250 mcg (0.25 mg) Tab PO SCH (10:01)
[2017-03-12 12:49] LABS: BASO # 0.01 K/mm3 (0.0-2.0); BASO % 0.1 % (0.0-3.0); GRAN % 87.2 % (50.0-68.0); LYMPH # 0.4 (1.2-3.4); LYMPH % 3.2 % (22.0-35.0); MEAN CELL VOLUME 92.1 fl (80.0-105.0); MEAN CORPUSCULAR HEMOGLOBIN 29.7 pg (25.0-35.0); MEAN CORPUSCULAR HGB CONC 32.3 g/dl (31.0-37.0); MONO # 1.3 (0.1-0.6); MONO % 9.5 % (1.0-6.0); PLATELET COUNT 127 10^3/uL (120.0-450.0); RBC 4.04 10^6/uL (3.5-6.1); RED CELL DISTRIBUTION WIDTH 17.4 % (11.5-14.5); WHITE BLOOD COUNT 13.9 10^3/ul (4.5-11.0)
--- NOTE | 2017-03-12 13:02 | CP.PCM.CON ---
History of Present Illness - History of Present Illness History of Present Illness: Patient is 81yo male with PMHx of COPD on home O2, DM, CHF, Pulm HTN, PAF, MAHI on BIPAP at night, presented to the ICU initially with hypercapenic/hypoxic resp failure, requiring continuous BIPAP, weaned off to high flow O2 at 80%, being treated for LE cellulitis and possible HCAP with broad spectrum antibiotics. Pt continues to require high flow O2 at 80%, as he desaturates upon ambulation. Patient seen and examined at the bedside. Pt denies any major complaints. Reports NO SOB, CP, cough, palpitations, [place], dizziness. Currently on BIPAP 20/4/80% at time of examination. PMHx: Pulm HTN, Home O2, DM, CHF, PAF, MAHI PSHx: NONE Allergies: NKDA FHx: NC Meds: as per EMR Review of Systems - Review of Systems All systems: reviewed and no additional remarkable complaints except - Constitutional Constitutional: As Per HPI - EENT Eyes: As Per HPI Ears: As Per HPI Nose/Mouth/Throat: As Per HPI - Cardiovascular Cardiovascular: As Per HPI - Respiratory Respiratory: As Per HPI - Gastrointestinal Gastrointestinal: As Per HPI - Genitourinary Genitourinary: As Per HPI - Neurological Neurological: As Per HPI Past Patient History - Infectious Disease Hx of Infectious Diseases: None - Tetanus Immunizations Tetanus Immunization: Unknown - Past Medical History & Family History Past Family History: Reviewed and not pertinent - Past Social History Smoking Status: Never Smoked Chewing Tobacco Use: No Cigar Use: No Alcohol: None Drugs: Denies - CARDIAC Hx Cardiac Disorders: Yes Hx Congestive Heart Failure: Yes Hx Hypertension: Yes - PULMONARY Hx Respiratory Disorders: Yes (PULMONARY HTN) Other/Comment: o2 dependent 3l - NEUROLOGICAL Hx Neurological Disorder: Yes (NEUROPATHY) - HEENT Hx HEENT Problems: No - RENAL Hx Chronic Kidney Disease: No - ENDOCRINE/METABOLIC Hx Diabetes Mellitus Type 2: Yes - HEMATOLOGICAL/ONCOLOGICAL Hx Blood Disorders: No - INTEGUMENTARY Hx Dermatological Problems: No - MUSCULOSKELETAL/RHEUMATOLOGICAL Hx Musculoskeletal Disorders: Yes Hx Arthritis: Yes Hx Falls: Yes Hx Unsteady Gait: Yes (CANE WALKER) - GASTROINTESTINAL Hx Gastrointestinal Disorders: No - GENITOURINARY/GYNECOLOGICAL Hx Genitourinary Disorders: No - PSYCHIATRIC Hx Psychophysiologic Disorder: No Hx Substance Use: No - SURGICAL HISTORY Hx Surgeries: Yes (CARD CATH WITH HEART STENT PLACED 4?) Meds Allergies/Adverse Reactions: Allergies Allergy/AdvReac Type Severity Reaction Status Date / Time No Known Allergies Allergy Verified 03/05/17 15:41 - Medications Medications: Current Medications Apixaban (Eliquis) 5 mg PO BID [facility] PRN Reason: Protocol Last Admin: 03/11/17 17:16 Dose: 5 mg Clopidogrel Bisulfate (Plavix) 75 mg PO DAILY [facility] Last Admin: 03/11/17 09:34 Dose: 75 mg Digoxin (Lanoxin) 0.25 mg IVP 1400 [facility] Last Admin: 03/11/17 14:50 Dose: 0.25 mg Digoxin (Lanoxin Elixir Soln) 0.25 mg PO DAILY [facility] Last Admin: 03/11/17 09:39 Dose: 0.25 mg Doxycycline Hyclate (Doryx) 100 mg PO Q12 [facility] PRN Reason: Protocol Last Admin: 03/11/17 22:11 Dose: 100 mg Furosemide (Lasix) 40 mg PO 0800,1400 [facility] Last Admin: 03/12/17 08:22 Dose: 40 mg Cefepime HCl (Maxipime 2gm) 2 gm in 100 mls @ 100 mls/hr IVPB Q8 [facility] PRN Reason: Protocol Stop: 03/12/17 14:01 Last Admin: 03/12/17 06:11 Dose: 100 mls/hr Vancomycin HCl (Vancomycin 1gm) 1 gm in 250 mls @ 167 mls/hr IVPB Q12 [facility] PRN Reason: Protocol Last Admin: 03/11/17 22:16 Dose: 167 mls/hr Insulin Human Lispro (Humalog Med) 0 units SC ACHS [facility] PRN Reason: Protocol Last Admin: 03/12/17 08:27 Dose: 5 units Levalbuterol HCl (Xopenex) 0.63 mg IH [id number] PRN PRN Reason: Shortness of Breath Last Admin: 03/10/17 14:02 Dose: 0.63 mg Metformin HCl (Glucophage) 500 mg PO BID [facility] Last Admin: 03/11/17 17:16 Dose: 500 mg Methylprednisolone (Solu-Medrol) 30 mg IVP Q12 [facility] Last Admin: 03/11/17 22:30 Dose: 30 mg Mupirocin (Bactroban Ointment) 0 gm TOP BID [facility] Last Admin: 03/11/17 18:06 Dose: Not Given Pantoprazole Sodium (Protonix Ec Tab) 40 mg PO 0600 [facility] Last Admin: 03/12/17 06:11 Dose: 40 mg Verapamil HCl (Verapamil Inj) 2.5 mg IVP Q6H PRN PRN Reason: for heart rate >120 Last Admin: 03/07/17 08:45 Dose: 2.5 mg Verapamil HCl (Calan Sr Tab) 240 mg PO DAILY [facility] Last Admin: 03/11/17 09:33 Dose: 240 mg Physical Exam - Constitutional Appears: Well - Head Exam Head Exam: ATRAUMATIC - Eye Exam Eye Exam: EOMI, Normal appearance - Neck Exam Additional comments: On BIPAP - Respiratory Exam Additional comments: bilateral rales, decreased breath sounds at abses, R>L - Cardiovascular Exam Cardiovascular Exam: RRR, +S1, +S2 - GI/Abdominal Exam GI & Abdominal Exam: Normal Bowel Sounds, Soft - Rectal Exam Rectal Exam: Deferred - Extremities Exam Additional comments: bilateral pitting edema 3+, R calf in marjorie bandage wrap Results - Vital Signs Recent Vital Signs: Last Vital Signs Temp 98.1 F 03/12/17 07:30 Pulse 67 03/12/17 07:30 Resp 26 H 03/12/17 07:30 BP 146/74 03/12/17 08:22 Pulse Ox 93 L 03/12/17 07:30 - Labs Result Diagrams: 03/12/17 12:40 03/11/17 06:30 Labs: Laboratory Results - last 24 hr 03/05/17 03/11/17 03/11/17 19:00 06:30 15:59 POC Glucose (mg/dL) 261 H Hemoglobin A1c 6.6 H Ur Strep pneumoniae Ag Not detected - Imaging and Cardiology CT scan - chest Status: Image reviewed by me, Report reviewed by me Chest x-ray Status: Image reviewed by me, Report reviewed by me Assessment & Plan - Assessment and Plan (Free Text) Assessment: 81yo male with PMHx of CHF, Pulm HTN, DM, PAF, MAHI with hypoxia, volume overload Recommend: - patient remains on BIPAP at night and high flow O2 at 80% during the day, as he desaturates on ambulation - CXR on 03/09 with bilateral pulm vascular congestion, LE duplex neg for DVT - abx as per ID - aggressive diuresis - I/Os, daily weights - cardiology follow up - cont with high flow O2, titrate FIO2 down goal sat 90-92% - BIPAP at night - palliative care follow up
[2017-03-12 13:06] LABS: ALBUMIN 3.5 g/dL (3.0-4.8); ALT/SGPT 30 U/L (7-56); AST/SGOT 22 U/L (15-59); BLOOD UREA NITROGEN 55 mg/dL (7-21); CALCIUM 9.4 mg/dL (8.4-10.5); GFR AFRICAN-AMERICAN > 60; GFR NON-AFRICAN AMERICAN 58
--- NOTE | 2017-03-12 13:33 | PQF PNEUMO ---
This form is a permanent part of the medical record Dr. Saini, Your documentation states "r/o B/L lower lobe HCAP" throughout all your notes. Please document specifically if this diagnosis was present, ruled out, undetermined. Clarification of your documentation is requested to better reflect the severity of illness and intensity of treatment of your patient. Indicators present [] Documented diagnosis of pneumonia [x] X-ray findings: [] Positive Sputum cultures [] Cough w/ fever [] Abnormal lungs sounds [] Poor gag reflex [] Speech consults/swallow evaluation [] Vent dependence [] Other: [] Location in the medical record that reflects the above clinical findings: [] Treatment Provided: [] PHYSICIAN'S RESPONSE Based on your medical judgment of the clinical indicators outlined above, are you treating this patient for a known or suspected: [] Aspiration pneumonia [] Community acquired pneumonia [] Ventilator associated pneumonia [] Viral pneumonia [] Bacterial pneumonia Please specify organism: [] [] Other, please indicate [x] If Unable to Determine, please check the box, sign and date. Present On Admission (POA) Indicator: [x] Present at the time of admission [] Not present at the time of admission [] Clinically Undetermined In responding to this query, please exercise your independent professional judgment. The fact that a question is asked does not imply that any particular answer is desired or expected. Thank you for your clarification on this documentation. If you have any questions please call:[ ] * Thank you, [ ]Tammi Crawford [facility] #[id number] [employer] [place]
--- NOTE | 2017-03-12 13:56 | CP.PCM.PN ---
<Tony Macias - Last Filed: 03/12/17 13:53> Subjective - Date & Time of Evaluation Date of Evaluation: 03/12/17 Time of Evaluation: 13:53 - Subjective Subjective: 81 year old male patient seen at bedside for bilateral lower extremity edema and right leg bullae. Patient is seen with BIPAP respirator at this visit. Patient denies any acute events overnight. Patient denies N/V/F/D/C/SOB/calf pain. No other pedal complaints at this time. Objective - Vital Signs/Intake and Output Vital Signs (last 24 hours): Temp Pulse Resp BP Pulse Ox 98.1 F 62 26 H 130/70 93 L 03/12/17 07:30 03/12/17 09:37 03/12/17 07:30 03/12/17 09:37 03/12/17 07:30 Intake and Output: 03/12/17 03/12/17 06:59 18:59 Intake Total 1070 Output Total 1300 Balance -230 - Medications Medications: Current Medications Apixaban (Eliquis) 5 mg PO BID [facility] PRN Reason: Protocol Last Admin: 03/12/17 09:29 Dose: 5 mg Clopidogrel Bisulfate (Plavix) 75 mg PO DAILY [facility] Last Admin: 03/12/17 09:30 Dose: 75 mg Digoxin (Lanoxin) 0.25 mg PO DAILY [facility] Last Admin: 03/12/17 10:01 Dose: 0.25 mg Doxycycline Hyclate (Doryx) 100 mg PO Q12 [facility] PRN Reason: Protocol Last Admin: 03/12/17 09:28 Dose: 100 mg Furosemide (Lasix) 40 mg PO 0800,1400 [facility] Last Admin: 03/12/17 08:22 Dose: 40 mg Cefepime HCl (Maxipime 2gm) 2 gm in 100 mls @ 100 mls/hr IVPB Q8 [facility] PRN Reason: Protocol Stop: 03/12/17 14:01 Last Admin: 03/12/17 06:11 Dose: 100 mls/hr Vancomycin HCl (Vancomycin 1gm) 1 gm in 250 mls @ 167 mls/hr IVPB Q12 [facility] PRN Reason: Protocol Last Admin: 03/12/17 09:30 Dose: 167 mls/hr Insulin Human Lispro (Humalog Med) 0 units SC ACHS [facility] PRN Reason: Protocol Last Admin: 03/12/17 12:04 Dose: 1 units Levalbuterol HCl (Xopenex) 0.63 mg IH [id number] PRN PRN Reason: Shortness of Breath Last Admin: 03/10/17 14:02 Dose: 0.63 mg Metformin HCl (Glucophage) 500 mg PO BID [facility] Last Admin: 03/12/17 09:29 Dose: 500 mg Methylprednisolone (Solu-Medrol) 30 mg IVP Q12 [facility] Last Admin: 03/12/17 09:30 Dose: 30 mg Mupirocin (Bactroban Ointment) 0 gm TOP BID [facility] Last Admin: 03/12/17 09:12 Dose: Not Given Pantoprazole Sodium (Protonix Ec Tab) 40 mg PO 0600 [facility] Last Admin: 03/12/17 06:11 Dose: 40 mg Verapamil HCl (Verapamil Inj) 2.5 mg IVP Q6H PRN PRN Reason: for heart rate >120 Last Admin: 03/07/17 08:45 Dose: 2.5 mg Verapamil HCl (Calan Sr Tab) 240 mg PO DAILY [facility] Last Admin: 03/12/17 09:37 Dose: 240 mg - Labs Labs: 03/12/17 12:40 03/12/17 12:40 PT 13.1 Seconds (9.9-11.8) H 03/05/17 10:35 INR 1.21 (0.93-1.08) H 03/05/17 10:35 APTT 31.6 Seconds (23.7-30.8) H 03/05/17 10:35 - Constitutional Appears: Well, Non-toxic, No Acute Distress - Extremities Exam Additional comments: Lower extremity focused physical exam. Dressing clean, dry, and intact, heavy exudate noted on foam. Neuro-vascular status intact bilaterally to level of digits. +2 pitting edema noted bilaterally. DERM: Ruptured, deroofed bulla with remaining superficial ulcration measuring 3.0 x 2.2 cm on a 100% granular base. Wound noted to proximal anterior aspect of right lower leg. Active weeping serous drainage noted. Noted regressing margins and intensity of erythema from marked proximal borders since last visit. Erythema is blanchable. Left leg anterior patch of dishydrotic skin. Ortho: No pain on palpation noted to right lower extremity - Neurological Exam Neurological Exam: Alert, Awake, Oriented x3 - Psychiatric Exam Psychiatric exam: Normal Affect, Normal Mood Assessment and Plan - Assessment and Plan (Free Text) Assessment: 81 year old male with 1) Bilateral Lower extremity edema, secondary to chronic CHF and acute pleural effusion. 2) Right leg ruptured serous bulla. 3) right lower extremity cellulits, resolving. Plan: Patient seen and evaluated at bedside with attending, Dr. Shrestha Chart, vitals, labs reviewed = afebrile, absent leukoctosis. Applie lotrisone to right LE. Bulla dressed with optifoam. Below knee JUAN wrap applied to RLE. Dressing to be change BID due to excessive drainage, verbalized order to nursing staff. Continue abx per ID = Cefepime, Vancomycin, Doxycycline Podiatry will continue to follow patient while in house. <Tremayne Shrestha - Last Filed: 03/15/17 10:59> Objective - Vital Signs/Intake and Output Vital Signs (last 24 hours): Temp Pulse Resp BP Pulse Ox 97.5 F L 66 20 126/66 98 03/13/17 07:43 03/13/17 14:08 03/13/17 07:43 03/13/17 13:39 03/13/17 07:43 - Labs Labs: 03/12/17 12:40 03/12/17 12:40 PT 13.1 Seconds (9.9-11.8) H 03/05/17 10:35 INR 1.21 (0.93-1.08) H 03/05/17 10:35 APTT 31.6 Seconds (23.7-30.8) H 03/05/17 10:35 Attending/Attestation - Attestation I have personally seen and examined this patient.: Yes I have fully participated in the care of the patient.: Yes I have reviewed all pertinent clinical information, including history, physical exam and plan: Yes
--- NOTE | 2017-03-12 15:47 | CP.PCM.DIS ---
<JaspalMariajose - Last Filed: 03/12/17 16:15> Provider - Provider Date of Admission: 03/05/17 15:21 Attending physician: Jena Luciano MD Primary care physician: Dr. Doty Consults: Cardiology - Dr. Mckinley - CAD, A fib Infectious disease - Dr. Saini - leukocytosis Palliative care - comfort care Podiatry - Dr. Shrestha BL Lower extremity Pulmonary - Amirt Navarro evaluation of COPD/MAHI/BIPAP HI Flow Time Spent in preparation of Discharge (in minutes): 20 Hospital Course - Lab Results Lab Results: Micro Results 03/09/17 06:00 Leg - Right Gram Stain - Final 03/09/17 06:00 Leg - Right Wound Culture - Final Coagulase Neg Staphylococcus 03/05/17 19:00 Urine Urine Culture - Final No Growth (<1,000 CFU/ML) 03/05/17 16:30 Naris MRSA Culture (Admit) - Final MRSA NOT DETECTED Most Recent Lab Values WBC 13.9 10^3/ul (4.5-11.0) H D 03/12/17 12:40 RBC 4.04 10^6/uL (3.5-6.1) 03/12/17 12:40 Hgb 12.0 g/dL (14.0-18.0) L 03/12/17 12:40 Hct 37.2 % (42.0-52.0) L 03/12/17 12:40 MCV 92.1 fl (80.0-105.0) 03/12/17 12:40 MCH 29.7 pg (25.0-35.0) 03/12/17 12:40 MCHC 32.3 g/dl (31.0-37.0) 03/12/17 12:40 RDW 17.4 % (11.5-14.5) H 03/12/17 12:40 Plt Count 127 10^3/uL (120.0-450.0) 03/12/17 12:40 Gran % 87.2 % (50.0-68.0) H 03/12/17 12:40 Lymph % (Auto) 3.2 % (22.0-35.0) L 03/12/17 12:40 [place] % (Auto) 9.5 % (1.0-6.0) H 03/12/17 12:40 Eos % (Auto) 0.0 % (1.5-5.0) L 03/12/17 12:40 Baso % (Auto) 0.1 % (0.0-3.0) 03/12/17 12:40 Gran # 12.10 (1.4-6.5) H 03/12/17 12:40 Lymph # 0.4 (1.2-3.4) L 03/12/17 12:40 Gr[place]gs # 1.3 (0.1-0.6) H 03/12/17 12:40 Eos # 0.0 (0.0-0.7) 03/12/17 12:40 Baso # 0.01 K/mm3 (0.0-2.0) 03/12/17 12:40 PT 13.1 Seconds (9.9-11.8) H 03/05/17 10:35 INR 1.21 (0.93-1.08) H 03/05/17 10:35 APTT 31.6 Seconds (23.7-30.8) H 03/05/17 10:35 pCO2 55 mm/Hg (35-45) H 03/06/17 05:20 pO2 65.0 mm/Hg (80-100) L 03/06/17 05:20 HCO3 25.3 mmol/L (21-28) 03/06/17 05:20 ABG pH 7.27 (7.35-7.45) L 03/06/17 05:20 ABG Total CO2 27.0 mmol.L (22-28) 03/06/17 05:20 ABG O2 Saturation 95.1 % (95-98) 03/06/17 05:20 ABG O2 Content 11.2 ML/dl (15-23) L 03/06/17 05:20 ABG Base Excess -1.8 mmol/L (-2.0-3.0) 03/06/17 05:20 ABG Hemoglobin 8.5 g/dL (11.7-17.4) L 03/06/17 05:20 ABG Carboxyhemoglobin 2.0 % (0.5-1.5) H 03/06/17 05:20 POC ABG HHb (Measured) 4.8 % (0-5) 03/06/17 05:20 ABG Methemoglobin 0.1 % (0.0-3.0) 03/06/17 05:20 ABG O2 Capacity 11.8 mL/dl (16-24) L 03/06/17 05:20 VBG pH 7.22 (7.32-7.43) L 03/05/17 10:35 VBG pCO2 68.0 (40-60) H* 03/05/17 10:35 VBG HCO3 27.8 mmol/l (21-28) 03/05/17 10:35 VBG Total CO2 29.9 mmol.L (22-28) H 03/05/17 10:35 VBG O2 Sat (Calc) 96.2 % (40-65) H 03/05/17 10:35 VBG Base Excess -1.5 mmol/L (0.0-2.0) L 03/05/17 10:35 VBG Potassium 4.9 mmol/L (3.6-5.2) 03/05/17 10:35 Hgb O2 Saturation 93.1 % (95.0-98.0) L 03/06/17 05:20 Sodium 145.0 mmol/L (132-148) 03/05/17 10:35 Chloride 90.0 mmol/L (98-107) L 03/05/17 10:35 Glucose 149 mg/dl (75-110) H 03/05/17 10:35 Lactate 1.1 mmol/L (0.7-2.1) 03/05/17 10:35 FiO2 80.0 % 03/06/17 05:20 Sodium 141 mmol/L (132-148) 03/12/17 12:40 Potassium 4.2 mmol/L (3.6-5.0) 03/12/17 12:40 Chloride 98 mmol/L (98-107) 03/12/17 12:40 Carbon Dioxide 31 mmol/L (21-33) 03/12/17 12:40 Anion Gap 16 (10-20) 03/12/17 12:40 BUN 55 mg/dL (7-21) H 03/12/17 12:40 Creatinine 1.2 mg/dL (0.5-1.4) 03/12/17 12:40 Est GFR ( Amer) > 60 03/12/17 12:40 Est GFR (Non-Af Amer) 58 03/12/17 12:40 POC Glucose (mg/dL) 197 mg/dL (65-110) H 03/12/17 11:17 Random Glucose 211 mg/dL (70-110) H 03/12/17 12:40 Hemoglobin A1c 6.6 % (4.2-6.5) H 03/11/17 06:30 Calcium 9.4 mg/dL (8.4-10.5) 03/12/17 12:40 Phosphorus 3.7 mg/dL (2.5-4.5) 03/10/17 07:34 Magnesium 2.0 mg/dL (1.7-2.2) 03/10/17 07:34 Total Bilirubin 1.1 mg/dL (0.2-1.3) 03/12/17 12:40 AST 22 U/L (15-59) 03/12/17 12:40 ALT 30 U/L (7-56) 03/12/17 12:40 Alkaline Phosphatase 58 U/L (38-133) 03/12/17 12:40 Troponin I 0.01 ng/mL D 03/05/17 10:35 C-React Prot High Sens > 15.00 mg/L (1.00-3.00) H 03/05/17 11:00 NT-Pro-B Natriuret Pep 5860 pg/mL (0-450) H 03/05/17 10:30 Total Protein 7.0 g/dL (5.8-8.3) 03/12/17 12:40 Albumin 3.5 g/dL (3.0-4.8) 03/12/17 12:40 Globulin 3.5 gm/dL 03/12/17 12:40 Albumin/Globulin Ratio 1.0 (1.1-1.8) L 03/12/17 12:40 Triglycerides 49 mg/dL (35-160) 03/07/17 05:40 Cholesterol 114 mg/dL (130-200) L 03/07/17 05:40 LDL Cholesterol Direct < 30 mg/dL (0-129) 03/07/17 05:40 HDL Cholesterol 57 mg/dL (29-60) 03/07/17 05:40 Procalcitonin 0.06 NG/ML (0.19-0.49) L 03/05/17 11:00 Free T4 2.10 ng/dL (0.78-2.19) 03/07/17 08:00 Thyroxine (T4) 7.9 ug/dL (5.5-11.0) 03/07/17 08:00 Total T3 0.78 ng/mL (0.97-1.69) L 03/07/17 08:00 TSH 3rd Generation 0.14 mIU/mL (0.46-4.68) L 03/07/17 05:40 Venous Blood Potassium 4.9 mmol/L (3.6-5.2) 03/05/17 10:35 Urine Color Yellow (YELLOW) 03/05/17 11:30 Urine Appearance Clear (CLEAR) 03/05/17 11:30 Urine pH 6.0 (4.7-8.0) 03/05/17 11:30 Ur Specific [place] 1.025 (1.005-1.035) 03/05/17 11:30 Urine Protein 100 mg/dL (<30 mg/dL) H 03/05/17 11:30 Urine Glucose (UA) Negative mg/dL (NEGATIVE) 03/05/17 11:30 Urine Ketones Negative mg/dL (NEGATIVE) 03/05/17 11:30 Urine Blood Negative (NEGATIVE) 03/05/17 11:30 Urine Nitrate Negative (NEGATIVE) 03/05/17 11:30 Urine Bilirubin Negative (NEGATIVE) 03/05/17 11:30 Urine Urobilinogen 1.0 E.U./dL (<1 E.U./dL) H 03/05/17 11:30 Ur Leukocyte Esterase Negative Ulysses/uL (NEGATIVE) 03/05/17 11:30 Urine RBC 0 - 2 /hpf (0-2) 03/05/17 11:30 Urine WBC 0 - 2 /hpf (0-6) 03/05/17 11:30 Ur Epithelial Cells 0 - 2 /hpf (0-5) 03/05/17 11:30 Urine Bacteria Trace (NEG) 03/05/17 11:30 Ur L.pneumophila Ag Negative (NEGATIVE) 03/05/17 21:00 Ur Strep pneumoniae Ag Not detected 03/05/17 19:00 - Hospital Course Hospital Course: 81 year old male admitted for respiratory failure, with past medical history significant for DM, CHF, pulmonary HTN, CAD and paroxysmal Afib. Patient continues to require BiPAP at night and Hi Flow O2 during the day to maintain O2 sats. Awaiting LTAC transfer today. During his stay at the hospital, Cardiology was consulted for his history of A-fib, CAD s/p cardiac cath & stent placement. patient was on eliquis, plavix. verapamil for HTN. Patient was treated for diabetes with Lispro ISS, Accuchecks for glucose level monitoring and a carbohydrate controlled diet. Patient experienced ARF (Acute respiratory failure) secondary to bilateral pleural effusions. Patient was monitored by respiratory therapists for O2 saturation with HI flow during the day and BiPap HS. Patient was given continue Lasix, solu-medrol, xopenex. For his bilateral leg edema, cellulitis, blisters, patient was given cefepime and vancomycin. ID was consulted and Podiatry was consulted for treatment of leg wounds. HI Flow during day 82.8% FiO2 and 50cc flow rate and BiPAP at night. Lasix for fluid accumulation. HI Flow FiO2 adjustments, with ABG to follow. Pulmonary was consulted for adjustments/weaning. GI/DVT ppx - Protonix - Plavix, Eliquis Dispo: Patient is DNR/DNI and palliative care following. Prognosis is guarded secondary to patient requiring Hi-flow O2 to maintain O2 sats >90%. Today, plan is to decrease O2 administration and monitor O2 saturation/tolerance Patient is being transfered to LTAC at [facility]. follow-up with PMD on discharge. - Date & Time of H&P Date of H&P: 03/12/17 Time of H&P: 15:44 Discharge Exam - Head Exam Head Exam: NORMAL INSPECTION - Eye Exam Eye Exam: EOMI, Normal appearance - ENT Exam ENT Exam: Mucous Membranes Moist - Respiratory Exam Respiratory Exam: Decreased Breath Sounds. absent: Accessory Muscle Use, Respiratory Distress Additional comments: crackles on auscultation. accessory muscle use with movement from laying to sitting, from out of bed to chair - Cardiovascular Exam Cardiovascular Exam: REGULAR RHYTHM - GI/Abdominal Exam GI & Abdominal Exam: Soft. absent: Firm, Guarding, Rebound, Rigid - Extremities Exam Extremities exam: full ROM, pedal edema Additional comments: tibial erythema 1+ pitting edema anterior shins bilaterally 2+ pedal pitting edema - Neurological Exam Neurological exam: Alert, Normal Gait - Psychiatric Exam Psychiatric exam: Flat Affect, Normal Mood - Skin Skin Exam: Dry, Warm Additional comments: cellulitis of bilateral lower extremities Discharge Plan - Discharge Medications Prescriptions: Levalbuterol [Xopenex] 0.63 mg IH [id number] PRN #30 PRN Reason: Shortness Of Breath Cefepime [Maxipime] 1 gm IV Q12 #14 vial Doxycycline Hyclate [Doryx] 100 mg PO Q12 #14 cap Furosemide [Lasix] 40 mg PO 0800,1400 #60 tab Vancomycin [Vancomycin HCl] 1 gm IV Q12 #14 vial - Follow Up Plan Condition: FAIR [facility] Instructions: Heart Failure (DC), Pneumococcal Vaccine for Adults (DC), Heart Healthy Diet (DC), Diabetes Mellitus Type 2 in Adults (GEN), Aspiration Pneumonia (GEN), Basic Carbohydrate Counting (DC), Acute Wound Care (DC), Hypertension (DC), Fall Prevention (DC), BiPAP (GEN) Additional Instructions: 1. Follow up with PMD DR. doty in 1 week. 2. Continue high flow oxygen at day time and wean off. BIPAP at night. 3. continue with current wound care management (marjorie wrap, ointment) PT as tolerated. <Jena Luciano - Last Filed: 03/12/17 16:55> Provider - Provider Date of Admission: 03/05/17 15:21 Attending physician: Jena Luciano MD Consults: 03/05/17 19:28 Nursing Referral for Wound Care Routine Comment: BILATERAL PITTING EDEMA +4 MORE TO R WITH BLISTER Physician Instructions: Reason For Exam: EVALUATION 03/05/17 19:49 Nursing Referral for Wound Care Routine Comment: BILATERAL PITTING EDEMA. +4 TO R,+3 TO LEFT. Physician Instructions: Reason For Exam: EVALUATION-OPENED BLISTER RIGHT SOFIA BONE Hospital Course - Lab Results Lab Results: Micro Results 03/09/17 06:00 Leg - Right Gram Stain - Final 03/09/17 06:00 Leg - Right Wound Culture - Final Coagulase Neg Staphylococcus 03/05/17 19:00 Urine Urine Culture - Final No Growth (<1,000 CFU/ML) 03/05/17 16:30 Naris MRSA Culture (Admit) - Final MRSA NOT DETECTED Most Recent Lab Values WBC 13.9 10^3/ul (4.5-11.0) H D 03/12/17 12:40 RBC 4.04 10^6/uL (3.5-6.1) 03/12/17 12:40 Hgb 12.0 g/dL (14.0-18.0) L 03/12/17 12:40 Hct 37.2 % (42.0-52.0) L 03/12/17 12:40 MCV 92.1 fl (80.0-105.0) 03/12/17 12:40 MCH 29.7 pg (25.0-35.0) 03/12/17 12:40 MCHC 32.3 g/dl (31.0-37.0) 03/12/17 12:40 RDW 17.4 % (11.5-14.5) H 03/12/17 12:40 Plt Count 127 10^3/uL (120.0-450.0) 03/12/17 12:40 Gran % 87.2 % (50.0-68.0) H 03/12/17 12:40 Lymph % (Auto) 3.2 % (22.0-35.0) L 03/12/17 12:40 [place] % (Auto) 9.5 % (1.0-6.0) H 03/12/17 12:40 Eos % (Auto) 0.0 % (1.5-5.0) L 03/12/17 12:40 Baso % (Auto) 0.1 % (0.0-3.0) 03/12/17 12:40 Gran # 12.10 (1.4-6.5) H 03/12/17 12:40 Lymph # 0.4 (1.2-3.4) L 03/12/17 12:40 [place]gs # 1.3 (0.1-0.6) H 03/12/17 12:40 Eos # 0.0 (0.0-0.7) 03/12/17 12:40 Baso # 0.01 K/mm3 (0.0-2.0) 03/12/17 12:40 PT 13.1 Seconds (9.9-11.8) H 03/05/17 10:35 INR 1.21 (0.93-1.08) H 03/05/17 10:35 APTT 31.6 Seconds (23.7-30.8) H 03/05/17 10:35 pCO2 55 mm/Hg (35-45) H 03/06/17 05:20 pO2 65.0 mm/Hg (80-100) L 03/06/17 05:20 HCO3 25.3 mmol/L (21-28) 03/06/17 05:20 ABG pH 7.27 (7.35-7.45) L 03/06/17 05:20 ABG Total CO2 27.0 mmol.L (22-28) 03/06/17 05:20 ABG O2 Saturation 95.1 % (95-98) 03/06/17 05:20 ABG O2 Content 11.2 ML/dl (15-23) L 03/06/17 05:20 ABG Base Excess -1.8 mmol/L (-2.0-3.0) 03/06/17 05:20 ABG Hemoglobin 8.5 g/dL (11.7-17.4) L 03/06/17 05:20 ABG Carboxyhemoglobin 2.0 % (0.5-1.5) H 03/06/17 05:20 POC ABG HHb (Measured) 4.8 % (0-5) 03/06/17 05:20 ABG Methemoglobin 0.1 % (0.0-3.0) 03/06/17 05:20 ABG O2 Capacity 11.8 mL/dl (16-24) L 03/06/17 05:20 VBG pH 7.22 (7.32-7.43) L 03/05/17 10:35 VBG pCO2 68.0 (40-60) H* 03/05/17 10:35 VBG HCO3 27.8 mmol/l (21-28) 03/05/17 10:35 VBG Total CO2 29.9 mmol.L (22-28) H 03/05/17 10:35 VBG O2 Sat (Calc) 96.2 % (40-65) H 03/05/17 10:35 VBG Base Excess -1.5 mmol/L (0.0-2.0) L 03/05/17 10:35 VBG Potassium 4.9 mmol/L (3.6-5.2) 03/05/17 10:35 Hgb O2 Saturation 93.1 % (95.0-98.0) L 03/06/17 05:20 Sodium 145.0 mmol/L (132-148) 03/05/17 10:35 Chloride 90.0 mmol/L (98-107) L 03/05/17 10:35 Glucose 149 mg/dl (75-110) H 03/05/17 10:35 Lactate 1.1 mmol/L (0.7-2.1) 03/05/17 10:35 FiO2 80.0 % 03/06/17 05:20 Sodium 141 mmol/L (132-148) 03/12/17 12:40 Potassium 4.2 mmol/L (3.6-5.0) 03/12/17 12:40 Chloride 98 mmol/L (98-107) 03/12/17 12:40 Carbon Dioxide 31 mmol/L (21-33) 03/12/17 12:40 Anion Gap 16 (10-20) 03/12/17 12:40 BUN 55 mg/dL (7-21) H 03/12/17 12:40 Creatinine 1.2 mg/dL (0.5-1.4) 03/12/17 12:40 Est GFR ( Amer) > 60 03/12/17 12:40 Est GFR (Non-Af Amer) 58 03/12/17 12:40 POC Glucose (mg/dL) 250 mg/dL (65-110) H 03/12/17 16:06 Random Glucose 211 mg/dL (70-110) H 03/12/17 12:40 Hemoglobin A1c 6.6 % (4.2-6.5) H 03/11/17 06:30 Calcium 9.4 mg/dL (8.4-10.5) 03/12/17 12:40 Phosphorus 3.7 mg/dL (2.5-4.5) 03/10/17 07:34 Magnesium 2.0 mg/dL (1.7-2.2) 03/10/17 07:34 Total Bilirubin 1.1 mg/dL (0.2-1.3) 03/12/17 12:40 AST 22 U/L (15-59) 03/12/17 12:40 ALT 30 U/L (7-56) 03/12/17 12:40 Alkaline Phosphatase 58 U/L (38-133) 03/12/17 12:40 Troponin I 0.01 ng/mL D 03/05/17 10:35 C-React Prot High Sens > 15.00 mg/L (1.00-3.00) H 03/05/17 11:00 NT-Pro-B Natriuret Pep 5860 pg/mL (0-450) H 03/05/17 10:30 Total Protein 7.0 g/dL (5.8-8.3) 03/12/17 12:40 Albumin 3.5 g/dL (3.0-4.8) 03/12/17 12:40 Globulin 3.5 gm/dL 03/12/17 12:40 Albumin/Globulin Ratio 1.0 (1.1-1.8) L 03/12/17 12:40 Triglycerides 49 mg/dL (35-160) 03/07/17 05:40 Cholesterol 114 mg/dL (130-200) L 03/07/17 05:40 LDL Cholesterol Direct < 30 mg/dL (0-129) 03/07/17 05:40 HDL Cholesterol 57 mg/dL (29-60) 03/07/17 05:40 Procalcitonin 0.06 NG/ML (0.19-0.49) L 03/05/17 11:00 Free T4 2.10 ng/dL (0.78-2.19) 03/07/17 08:00 Thyroxine (T4) 7.9 ug/dL (5.5-11.0) 03/07/17 08:00 Total T3 0.78 ng/mL (0.97-1.69) L 03/07/17 08:00 TSH 3rd Generation 0.14 mIU/mL (0.46-4.68) L 03/07/17 05:40 Venous Blood Potassium 4.9 mmol/L (3.6-5.2) 03/05/17 10:35 Urine Color Yellow (YELLOW) 03/05/17 11:30 Urine Appearance Clear (CLEAR) 03/05/17 11:30 Urine pH 6.0 (4.7-8.0) 03/05/17 11:30 Ur Specific [place] 1.025 (1.005-1.035) 03/05/17 11:30 Urine Protein 100 mg/dL (<30 mg/dL) H 03/05/17 11:30 Urine Glucose (UA) Negative mg/dL (NEGATIVE) 03/05/17 11:30 Urine Ketones Negative mg/dL (NEGATIVE) 03/05/17 11:30 Urine Blood Negative (NEGATIVE) 03/05/17 11:30 Urine Nitrate Negative (NEGATIVE) 03/05/17 11:30 Urine Bilirubin Negative (NEGATIVE) 03/05/17 11:30 Urine Urobilinogen 1.0 E.U./dL (<1 E.U./dL) H 03/05/17 11:30 Ur Leukocyte Esterase Negative [place]lysses/uL (NEGATIVE) 03/05/17 11:30 Urine RBC 0 - 2 /hpf (0-2) 03/05/17 11:30 Urine WBC 0 - 2 /hpf (0-6) 03/05/17 11:30 Ur Epithelial Cells 0 - 2 /hpf (0-5) 03/05/17 11:30 Urine Bacteria Trace (NEG) 03/05/17 11:30 Ur L.pneumophila Ag Negative (NEGATIVE) 03/05/17 21:00 Ur Strep pneumoniae Ag Not detected 03/05/17 19:00 Attending/Attestation - Attestation I have personally seen and examined this patient.: Yes I have fully participated in the care of the patient.: Yes I have reviewed all pertinent clinical information, including history, physical exam and plan: Yes Notes (Text): 03/12/17 16:53 Patient seen and examined with resident. on high flow oxygen. Patient is a 81-year-old male with a past medical history of CHF, COPD, DM, HTN , paroxsymal afib, CAD s/p cardiac cath and stent to circumflex, arthritis, depression, obesity, chronic LE edema, Obstructive sleep apnea is admitted with lethargy. on high flow oxygen at day time. continue BiPAP at night. Patient his more alert and awake now. Lower extremity cellulitis; improving. recent coronary stent; continue Plavix. History of A. fib; continue liquids. Bilateral pleural effusions; continue IV Lasix. Lower extremity cellulitis; continue vancomycin and cefepime and doxy. ID evaluation appreciated. PT is recommending subacute rehabilitation. Transfer to LTAC today. follow-up with PMD on discharge. diagnosis; lower extremity cellulitis Hospital-acquired pneumonia/sepsis A. fib Obesity BiPAP/oxygen dependent Diabetes Hypertension 03/12/17 16:54
--- NOTE | 2017-03-12 16:09 | CP.PCM.PN ---
Subjective - Date & Time of Evaluation Date of Evaluation: 03/12/17 Time of Evaluation: 09:50 - Subjective Subjective: Comfortable, breathing better, less pain in the legs. No fevers overnight. Objective - Vital Signs/Intake and Output Vital Signs (last 24 hours): Temp Pulse Resp BP Pulse Ox 98.1 F 67 26 H 146/74 93 L 03/12/17 07:30 03/12/17 07:30 03/12/17 07:30 03/12/17 08:22 03/12/17 07:30 Intake and Output: 03/12/17 03/12/17 06:59 18:59 Intake Total 1070 Output Total 1300 Balance -230 - Medications Medications: Current Medications Apixaban (Eliquis) 5 mg PO BID JEROME PRN Reason: Protocol Last Admin: 03/11/17 17:16 Dose: 5 mg Clopidogrel Bisulfate (Plavix) 75 mg PO DAILY [facility] Last Admin: 03/11/17 09:34 Dose: 75 mg Digoxin (Lanoxin) 0.25 mg IVP 1400 [facility] Last Admin: 03/11/17 14:50 Dose: 0.25 mg Digoxin (Lanoxin Elixir Soln) 0.25 mg PO DAILY [facility] Last Admin: 03/11/17 09:39 Dose: 0.25 mg Doxycycline Hyclate (Doryx) 100 mg PO Q12 JEROME PRN Reason: Protocol Last Admin: 03/11/17 22:11 Dose: 100 mg Furosemide (Lasix) 40 mg PO 0800,1400 [facility] Last Admin: 03/12/17 08:22 Dose: 40 mg Cefepime HCl (Maxipime 2gm) 2 gm in 100 mls @ 100 mls/hr IVPB Q8 JEROME PRN Reason: Protocol Stop: 03/12/17 14:01 Last Admin: 03/12/17 06:11 Dose: 100 mls/hr Vancomycin HCl (Vancomycin 1gm) 1 gm in 250 mls @ 167 mls/hr IVPB Q12 JEROME PRN Reason: Protocol Last Admin: 03/11/17 22:16 Dose: 167 mls/hr Insulin Human Lispro (Humalog Med) 0 units SC ACHS JEROME PRN Reason: Protocol Last Admin: 03/12/17 08:27 Dose: 5 units Levalbuterol HCl (Xopenex) 0.63 mg IH [id number] PRN PRN Reason: Shortness of Breath Last Admin: 03/10/17 14:02 Dose: 0.63 mg Metformin HCl (Glucophage) 500 mg PO BID [facility] Last Admin: 03/11/17 17:16 Dose: 500 mg Methylprednisolone (Solu-Medrol) 30 mg IVP Q12 [facility] Last Admin: 03/11/17 22:30 Dose: 30 mg Mupirocin (Bactroban Ointment) 0 gm TOP BID [facility] Last Admin: 03/11/17 18:06 Dose: Not Given Pantoprazole Sodium (Protonix Ec Tab) 40 mg PO 0600 [facility] Last Admin: 03/12/17 06:11 Dose: 40 mg Verapamil HCl (Verapamil Inj) 2.5 mg IVP Q6H PRN PRN Reason: for heart rate >120 Last Admin: 03/07/17 08:45 Dose: 2.5 mg Verapamil HCl (Calan Sr Tab) 240 mg PO DAILY [facility] Last Admin: 03/11/17 09:33 Dose: 240 mg - Labs Labs: 03/11/17 06:30 03/11/17 06:30 PT 13.1 Seconds (9.9-11.8) H 03/05/17 10:35 INR 1.21 (0.93-1.08) H 03/05/17 10:35 APTT 31.6 Seconds (23.7-30.8) H 03/05/17 10:35 - Constitutional Appears: Non-toxic, No Acute Distress - Head Exam Head Exam: NORMAL INSPECTION - ENT Exam ENT Exam: Mucous Membranes Moist - Neck Exam Neck Exam: absent: Lymphadenopathy, Meningismus - Respiratory Exam Respiratory Exam: Decreased Breath Sounds - Cardiovascular Exam Cardiovascular Exam: +S1, +S2 - GI/Abdominal Exam GI & Abdominal Exam: Soft. absent: Tenderness - Extremities Exam Additional comments: right leg with bandages in place Assessment and Plan - Assessment and Plan (Free Text) Plan: Assessment Consider sepsis due to right leg skin and skin structure infection, R/O bilateral lower lobe healthcare-associated pneumonia with associated bilateral pleural effusion, clinically improving Hyerpcapneic respiratory failure probably from COPD exacerbation / pulmonary HTN CAD S/P PCI chronic CHF COPD with severe pulmonary HTN chronic atrial fibrillation morbid obesity with BMI 40 arthritis history of depression obstructive sleep apnea S/P right knee surgery 5-6 years ago Plan continue Vancomycin and Cefepime and Doxycycline (day 7); blood cx are negative ; discussed with Podiatry; target is 7-10 days of therapy will continue to monitor clinically
--- NOTE | 2017-03-12 18:19 | PN ---
DATE: 03/12/2017 REASON FOR CONSULTATION: Follow up coronary artery disease, atrial fibrillation, admitted with altered mental status, CO2 narcosis. SUBJECTIVE: The patient is awake and alert. Denies any chest pain, shortness of breath or any palpitation. Currently in 570, bed 1. OBJECTIVE: Lying flat in bed, not in apparent distress. PHYSICAL EXAMINATION: VITAL SIGNS: Temperature is afebrile, heart rate 62, and blood pressure 130/70. HEENT: PERRLA. Extraocular muscles intact. NECK: Supple. No carotid bruit. No thyromegaly. CHEST: Clear to auscultation. HEART: S1 and S2 regular. ABDOMEN: Soft. EXTREMITIES: Clubbing and cyanosis negative. LABORATORY DATA: Blood workup as follow: WBC 6.3, hemoglobin 10.4, hematocrit 33.4, platelet count 136. Chemistry shows sodium 142, potassium 4.1, chloride 101, carbon dioxide 32, anion gap of 13, BUN 15, creatinine 1.2. Total protein 6.3, albumin 3.3, album-globulin ratio 1.1. IMPRESSION: Morbidly obese with diabetes, hypertension, hyperlipidemia, coronary artery disease, status post stent on 11/01/2016, history of chronic obstructive pulmonary disease, history of obstructive sleep apnea, history of carbon dioxide narcosis, history of chronic atrial fibrillation, history of stent in left anterior descending, admitted with carbon dioxide narcosis, but currently the patient is stable on CPAP. RECOMMENDATIONS: Continue Eliquis, continue Plavix, continue CPAP, continue digoxin, continue verapamil. We will follow with you. CO2 has been stable. Okay to be discharged from Cardiology point of view. Thank you Dr. Luciano for providing me the opportunity in taking care of the patient. Anthony Mckinley MD cc: Jena Luciano MD
[2017-03-13] MEDS: Levalbuterol 0.63 MG/3 ML Inhal Soln UD IH PRN ×2 (00:21→12:05)
[2017-03-13] MEDS: MethylPREDNISolone 40 mg Vial IVP SCH ×2 (01:09→09:08)
[2017-03-13] MEDS: Insulin Lispro (humaLOG) MEDIUM Coverage SC SCH ×3 (01:09→12:23)
[2017-03-13] MEDS: Vancomycin 1gm in NS 250ml 1 GM/250 ML BAG IVPB SCH ×2 (01:10→09:09)
[2017-03-13] MEDS: Pantoprazole 40 mg EC Tab PO SCH (05:36)
[2017-03-13 07:43] VITALS: RESP 20; TEMP 97.5; O2SAT 98
[2017-03-13] MEDS: Verapamil 240 mg ER Tab PO SCH (09:06)
[2017-03-13] MEDS: Digoxin 250 mcg (0.25 mg) Tab PO SCH (09:07)
[2017-03-13 09:11] VITALS: PULSE 63
[2017-03-13] MEDS ORDERED: MethylPREDNISolone 40 mg Vial IVP SCH (11:58)
[2017-03-13] MEDS ORDERED: Cefepime 1gm in NS 100ml 1 GM/100 ML BAG IVPB SCH (12:45)
[2017-03-13 13:44] VITALS: BP 126/66
[2017-03-13 14:09] VITALS: PULSE 66
--- NOTE | 2017-03-13 14:28 | CP.PCM.PN ---
<Mariajose Shay - Last Filed: 03/13/17 14:34> Subjective - Date & Time of Evaluation Date of Evaluation: 03/13/17 Time of Evaluation: 13:29 - Subjective Subjective: Internal Medicine Progress note for Dr. Luciano Patient did not go to LTAC yesterday because transport did not have the necessary materials for adequate O2 delivery during transfer. Today, more crackles in lungs. Lasix 40mg ordered. Patient states he is feeling better. Spoke to Patient's daughter in law who said that the patient's son is incarcerated and is the power of pond tender. #. Jerry Olvera. is how to reach the son. Midline could not be placed by by PICC line team. Patient and granddaughter consented to the peripheral access. F/C, N/V, C/D. Objective - Vital Signs/Intake and Output Vital Signs (last 24 hours): Temp Pulse Resp BP Pulse Ox 97.5 F L 74 20 150/64 98 03/13/17 07:43 03/13/17 11:52 03/13/17 07:43 03/13/17 09:08 03/13/17 07:43 Intake and Output: 03/13/17 03/13/17 06:59 18:59 Intake Total 960 Output Total 1900 Balance -940 - Medications Medications: Current Medications Apixaban (Eliquis) 5 mg PO BID [facility] PRN Reason: Protocol Last Admin: 03/13/17 09:06 Dose: 5 mg Clopidogrel Bisulfate (Plavix) 75 mg PO DAILY [facility] Last Admin: 03/13/17 09:08 Dose: 75 mg Digoxin (Lanoxin) 0.25 mg PO DAILY [facility] Last Admin: 03/13/17 09:07 Dose: 0.25 mg Doxycycline Hyclate (Doryx) 100 mg PO Q12 [facility] PRN Reason: Protocol Last Admin: 03/13/17 09:06 Dose: 100 mg Furosemide (Lasix) 40 mg PO 0800,1400 [facility] Last Admin: 03/13/17 09:08 Dose: 40 mg Cefepime HCl (Maxipime 1gm) 1 gm in 100 mls @ 100 mls/hr IVPB Q12 [facility] PRN Reason: Protocol Insulin Human Lispro (Humalog Med) 0 units SC ACHS [facility] PRN Reason: Protocol Last Admin: 03/13/17 12:23 Dose: 3 units Levalbuterol HCl (Xopenex) 0.63 mg IH [id number] PRN PRN Reason: Shortness of Breath Last Admin: 03/13/17 12:05 Dose: 0.63 mg Metformin HCl (Glucophage) 500 mg PO BID [facility] Last Admin: 03/13/17 09:06 Dose: 500 mg Methylprednisolone (Solu-Medrol) 20 mg IVP Q12 [facility] Mupirocin (Bactroban Ointment) 0 gm TOP BID [facility] Last Admin: 03/13/17 09:05 Dose: Not Given Pantoprazole Sodium (Protonix Ec Tab) 40 mg PO 0600 [facility] Last Admin: 03/13/17 05:36 Dose: 40 mg Verapamil HCl (Verapamil Inj) 2.5 mg IVP Q6H PRN PRN Reason: for heart rate >120 Last Admin: 03/07/17 08:45 Dose: 2.5 mg Verapamil HCl (Calan Sr Tab) 240 mg PO DAILY [facility] Last Admin: 03/13/17 09:06 Dose: 240 mg - Labs Labs: 03/12/17 12:40 03/12/17 12:40 PT 13.1 Seconds (9.9-11.8) H 03/05/17 10:35 INR 1.21 (0.93-1.08) H 03/05/17 10:35 APTT 31.6 Seconds (23.7-30.8) H 03/05/17 10:35 - Constitutional Appears: Non-toxic - Head Exam Head Exam: NORMAL INSPECTION - Eye Exam Eye Exam: EOMI, Normal appearance Pupil Exam: NORMAL ACCOMODATION - ENT Exam ENT Exam: Mucous Membranes Moist - Neck Exam Neck Exam: Full ROM, Normal Inspection - Respiratory Exam Respiratory Exam: Clear to Ausculation Bilateral, NORMAL BREATHING PATTERN. absent: Accessory Muscle Use, Respiratory Distress Additional comments: Crackles - Cardiovascular Exam Cardiovascular Exam: absent: Bradycardia, Tachycardia - Neurological Exam Neurological Exam: Alert, Awake - Skin Additional comments: bilateral leg cellulitis, 1+ pitting edema, 1+ edema of feet Assessment and Plan - Assessment and Plan (Free Text) Assessment: 81 year old male with respiratory failure, with past medical history significant for DM, CHF, pulmonary HTN, CAD and paroxysmal Afib. Patient continues to require BiPAP at night and Hi Flow O2 during the day to maintain O2 sats Awaiting PJ/LTAC transfer. Plan: 1. Acute respiratory failure 2/2 B/L pleural effusions - Continue Hi flow with goal of O2 sat >90% - Continue BiPap HS - Continue Lasix, solu-medrol, xopenex increased cackles. add Lasix 40mg 2. 1+ B/L Leg edema/blisters/cellulitis - Continue cefepime and vancomycin - ID consulted and following - Podiatry following leg wounds 3. COPD/CHF - HI Flow during day 81.8% FiO2 and 45 cc flow rate and BiPAP at night - Lasix for fluid accumulation - HI Flow FiO2 adjustments - monitor ABG, monitor O2 saturation. awaiting Pulm consult for adjustments/weaning 4. Afib, CAD s/p cardiac cath & stents - Eliquis, plavix, verapamil - Cardio consulted and following 5. DM - Lispro ISS - Accuchecks - CCHO diet 6. HTN - Verapamil 7. Obstructive sleep apnea - Bipap at night 8. GI/DVT ppx - Protonix - Plavix, Eliquis Dispo: Patient is DNR/DNI. Prognosis is guarded secondary to patient requiring Hi-flow O2 to maintain O2 sats >90%. Today, plan is to decrease O2 administration and monitor O2 saturation/tolerance. Possible LTAC/PJ follow-up with PMD on discharge. <Jena Luciano - Last Filed: 03/13/17 17:43> Objective - Vital Signs/Intake and Output Vital Signs (last 24 hours): Temp Pulse Resp BP Pulse Ox 97.5 F L 66 20 126/66 98 03/13/17 07:43 03/13/17 14:08 03/13/17 07:43 03/13/17 13:39 03/13/17 07:43 Intake and Output: 03/13/17 03/13/17 06:59 18:59 Intake Total 960 640 Output Total 1900 Balance -940 640 - Medications Medications: Current Medications Apixaban (Eliquis) 5 mg PO BID [facility] PRN Reason: Protocol Last Admin: 03/13/17 09:06 Dose: 5 mg Clopidogrel Bisulfate (Plavix) 75 mg PO DAILY [facility] Last Admin: 03/13/17 09:08 Dose: 75 mg Digoxin (Lanoxin) 0.25 mg PO DAILY [facility] Last Admin: 03/13/17 09:07 Dose: 0.25 mg Doxycycline Hyclate (Doryx) 100 mg PO Q12 [facility] PRN Reason: Protocol Last Admin: 03/13/17 09:06 Dose: 100 mg Furosemide (Lasix) 40 mg PO 0800,1400 [facility] Last Admin: 03/13/17 13:39 Dose: 40 mg Cefepime HCl (Maxipime 1gm) 1 gm in 100 mls @ 100 mls/hr IVPB Q12 [facility] PRN Reason: Protocol Last Admin: 03/13/17 13:40 Dose: Not Given Insulin Human Lispro (Humalog Med) 0 units SC ACHS [facility] PRN Reason: Protocol Last Admin: 03/13/17 12:23 Dose: 3 units Levalbuterol HCl (Xopenex) 0.63 mg IH [id number] PRN PRN Reason: Shortness of Breath Last Admin: 03/13/17 12:05 Dose: 0.63 mg Metformin HCl (Glucophage) 500 mg PO BID [facility] Last Admin: 03/13/17 09:06 Dose: 500 mg Methylprednisolone (Solu-Medrol) 20 mg IVP Q12 [facility] Mupirocin (Bactroban Ointment) 0 gm TOP BID [facility] Last Admin: 03/13/17 09:05 Dose: Not Given Pantoprazole Sodium (Protonix Ec Tab) 40 mg PO 0600 [facility] Last Admin: 03/13/17 05:36 Dose: 40 mg Verapamil HCl (Verapamil Inj) 2.5 mg IVP Q6H PRN PRN Reason: for heart rate >120 Last Admin: 03/07/17 08:45 Dose: 2.5 mg Verapamil HCl (Calan Sr Tab) 240 mg PO DAILY [facility] Last Admin: 03/13/17 09:06 Dose: 240 mg - Labs Labs: 03/12/17 12:40 03/12/17 12:40 PT 13.1 Seconds (9.9-11.8) H 03/05/17 10:35 INR 1.21 (0.93-1.08) H 03/05/17 10:35 APTT 31.6 Seconds (23.7-30.8) H 03/05/17 10:35 Attending/Attestation - Attestation I have personally seen and examined this patient.: Yes I have fully participated in the care of the patient.: Yes I have reviewed all pertinent clinical information, including history, physical exam and plan: Yes Notes (Text): 03/13/17 17:40 Patient seen and examined with resident. on high flow oxygen. Patient is a 81-year-old male with a past medical history of CHF, COPD, DM, HTN , paroxsymal afib, CAD s/p cardiac cath and stent to circumflex, arthritis, depression, obesity, chronic LE edema, Obstructive sleep apnea is admitted with lethargy. on high flow oxygen at day time. continue BiPAP at night. patient is complaining of shortness of breath on and off. Lower extremity cellulitis; improving. recent coronary stent; continue Plavix. History of A. fib; continue liquids. Bilateral pleural effusions; continue IV Lasix. Lower extremity cellulitis; continue vancomycin and cefepime and doxy. case discussed with ID in detail. Continue cefepime and doxycycline for 5 more days. Patient lost IV access. PICC line requested. DNI DNR. Prognosis poor. Case discussed with patient's [id number] gaudencio in detail. patient's granddaughter by the bedside. Case discussed with patient's son health Proxy Mr. Jerry Olvera in detail. Poor prognosis explained. Comfort care/hospice care recommended again. Family aware patient's critical condition and poor prognosis.
--- NOTE | 2017-03-13 14:37 | PN ---
DATE: 03/13/2017 LOCATION: Room 570, Bed 2. REASON FOR CONSULTATION: Followup coronary artery disease, atrial fibrillation, altered mental status, CO2 narcosis. SUBJECTIVE: The patient is sitting in chair, conscious, alert, denies any chest pain. Patient with CPAP, breathing is stable. PHYSICAL EXAMINATION VITAL SIGNS: Blood pressure 150/64, earlier blood pressure was 148/63, respirations 20, pulse 63, respirations 97.5. HEENT: Head is normocephalic. Eyes: Pupil normal. Conjunctivae is slightly pale. NECK: JVP low. Carotid equal. Thorax, AP diameter normal. LUNGS: No significant rales. CARDIOVASCULAR: S1, S2. ABDOMEN: Protuberant. No organomegaly. EXTREMITIES: No clubbing. No cyanosis. LABORATORY DATA: WBC 13.9, hemoglobin 12.0, hematocrit 37.2, platelet 127. Sodium 141, potassium 4.2, BUN 55, creatinine 1.2, random sugar 265, AST and ALT normal, total protein and albumin normal. DIAGNOSES: Altered mental status, status post carbon dioxide narcosis. Patient improved now on CPAP. History of coronary artery disease, he has stent for LAD, obstructive sleep apnea, chronic obstructive pulmonary disease, obesity, chronic atrial fibrillation, diabetes mellitus, hypertension, hyperlipidemia. PLAN: Plan is to continue present therapy. Clinically, cardiac status stable. Patient on Calan SR 240 one daily, Eliquis 5 b.i.d., digoxin 0.25 daily, furosemide 40 mg p.o. b.i.d., Plavix 75 mg daily, methylprednisolone 20 mg IV q. 12 hour, patient getting Xopenex, patient also getting metformin. Clinically cardiac status stable. We will continue present therapy. We will follow. Anthony Aldana MD
[2017-03-13] MEDS ORDERED: Lidocaine 2% Inj (20ml) ONE (14:47)
--- NOTE | 2017-03-13 15:08 | CP.PCM.PN ---
Subjective - Date & Time of Evaluation Date of Evaluation: 03/13/17 Time of Evaluation: 09:45 - Subjective Subjective: Comfortable, breathing a little better, a little less pain in the legs. No fevers. Objective - Vital Signs/Intake and Output Vital Signs (last 24 hours): Temp Pulse Resp BP Pulse Ox 97.5 F L 61 20 148/63 98 03/13/17 07:43 03/13/17 07:43 03/13/17 07:43 03/13/17 07:43 03/13/17 07:43 Intake and Output: 03/13/17 03/13/17 06:59 18:59 Intake Total 960 Output Total 1900 Balance -940 - Medications Medications: Current Medications Apixaban (Eliquis) 5 mg PO BID [facility] PRN Reason: Protocol Last Admin: 03/12/17 17:08 Dose: 5 mg Clopidogrel Bisulfate (Plavix) 75 mg PO DAILY [facility] Last Admin: 03/12/17 09:30 Dose: 75 mg Digoxin (Lanoxin) 0.25 mg PO DAILY [facility] Last Admin: 03/12/17 10:01 Dose: 0.25 mg Doxycycline Hyclate (Doryx) 100 mg PO Q12 [facility] PRN Reason: Protocol Last Admin: 03/12/17 22:19 Dose: 100 mg Furosemide (Lasix) 40 mg PO 0800,1400 [facility] Last Admin: 03/12/17 14:39 Dose: 40 mg Vancomycin HCl (Vancomycin 1gm) 1 gm in 250 mls @ 167 mls/hr IVPB Q12 [facility] PRN Reason: Protocol Last Admin: 03/13/17 01:10 Dose: Not Given Insulin Human Lispro (Humalog Med) 0 units SC ACHS [facility] PRN Reason: Protocol Last Admin: 03/13/17 01:09 Dose: Not Given Levalbuterol HCl (Xopenex) 0.63 mg IH [id number] PRN PRN Reason: Shortness of Breath Last Admin: 03/13/17 00:21 Dose: 0.63 mg Metformin HCl (Glucophage) 500 mg PO BID [facility] Last Admin: 03/12/17 17:08 Dose: 500 mg Methylprednisolone (Solu-Medrol) 30 mg IVP Q12 [facility] Last Admin: 03/13/17 01:09 Dose: Not Given Mupirocin (Bactroban Ointment) 0 gm TOP BID [facility] Last Admin: 03/12/17 17:07 Dose: Not Given Pantoprazole Sodium (Protonix Ec Tab) 40 mg PO 0600 [facility] Last Admin: 03/13/17 05:36 Dose: 40 mg Verapamil HCl (Verapamil Inj) 2.5 mg IVP Q6H PRN PRN Reason: for heart rate >120 Last Admin: 03/07/17 08:45 Dose: 2.5 mg Verapamil HCl (Calan Sr Tab) 240 mg PO DAILY [facility] Last Admin: 03/12/17 09:37 Dose: 240 mg - Labs Labs: 03/12/17 12:40 03/12/17 12:40 PT 13.1 Seconds (9.9-11.8) H 03/05/17 10:35 INR 1.21 (0.93-1.08) H 03/05/17 10:35 APTT 31.6 Seconds (23.7-30.8) H 03/05/17 10:35 - Constitutional Appears: Non-toxic, No Acute Distress - Head Exam Head Exam: NORMAL INSPECTION - ENT Exam ENT Exam: Mucous Membranes Moist - Neck Exam Neck Exam: absent: Lymphadenopathy, Meningismus - Respiratory Exam Respiratory Exam: Decreased Breath Sounds - Cardiovascular Exam Cardiovascular Exam: +S1, +S2 - GI/Abdominal Exam GI & Abdominal Exam: Soft. absent: Tenderness - Extremities Exam Additional comments: right leg with dressings in place Assessment and Plan - Assessment and Plan (Free Text) Plan: Assessment Consider sepsis due to right leg skin and skin structure infection, R/O bilateral lower lobe healthcare-associated pneumonia with associated bilateral pleural effusion, clinically improving Hyerpcapneic respiratory failure probably from COPD exacerbation / pulmonary HTN CAD S/P PCI chronic CHF COPD with severe pulmonary HTN chronic atrial fibrillation morbid obesity with BMI 40 arthritis history of depression obstructive sleep apnea S/P right knee surgery 5-6 years ago Plan continue Vancomycin and Cefepime and Doxycycline (day 8); blood cx are negative ; discussed with Podiatry; target is 7-10 days of therapy (we have d/c'ed Vancomycin) will continue to monitor clinically
--- NOTE | 2017-03-13 17:23 | CP.PCM.PN ---
Subjective - Date & Time of Evaluation Date of Evaluation: 03/13/17 Time of Evaluation: 16:30 - Subjective Subjective: called by nurse pt has no response pt is in vascular , was there for picc line , pt is not breathing no pule no bp. pt was DNR at 4:25 pm. Objective - Vital Signs/Intake and Output Vital Signs (last 24 hours): Temp Pulse Resp BP Pulse Ox 97.5 F L 66 20 126/66 98 03/13/17 07:43 03/13/17 14:08 03/13/17 07:43 03/13/17 13:39 03/13/17 07:43 Intake and Output: 03/13/17 03/13/17 06:59 18:59 Intake Total 960 640 Output Total 1900 Balance -940 640 - Medications Medications: Current Medications Apixaban (Eliquis) 5 mg PO BID [facility] PRN Reason: Protocol Last Admin: 03/13/17 09:06 Dose: 5 mg Clopidogrel Bisulfate (Plavix) 75 mg PO DAILY [facility] Last Admin: 03/13/17 09:08 Dose: 75 mg Digoxin (Lanoxin) 0.25 mg PO DAILY [facility] Last Admin: 03/13/17 09:07 Dose: 0.25 mg Doxycycline Hyclate (Doryx) 100 mg PO Q12 [facility] PRN Reason: Protocol Last Admin: 03/13/17 09:06 Dose: 100 mg Furosemide (Lasix) 40 mg PO 0800,1400 [facility] Last Admin: 03/13/17 13:39 Dose: 40 mg Cefepime HCl (Maxipime 1gm) 1 gm in 100 mls @ 100 mls/hr IVPB Q12 [facility] PRN Reason: Protocol Last Admin: 03/13/17 13:40 Dose: Not Given Insulin Human Lispro (Humalog Med) 0 units SC ACHS [facility] PRN Reason: Protocol Last Admin: 03/13/17 12:23 Dose: 3 units Levalbuterol HCl (Xopenex) 0.63 mg IH [id number] PRN PRN Reason: Shortness of Breath Last Admin: 03/13/17 12:05 Dose: 0.63 mg Metformin HCl (Glucophage) 500 mg PO BID [facility] Last Admin: 03/13/17 09:06 Dose: 500 mg Methylprednisolone (Solu-Medrol) 20 mg IVP Q12 [facility] Mupirocin (Bactroban Ointment) 0 gm TOP BID [facility] Last Admin: 03/13/17 09:05 Dose: Not Given Pantoprazole Sodium (Protonix Ec Tab) 40 mg PO 0600 [facility] Last Admin: 03/13/17 05:36 Dose: 40 mg Verapamil HCl (Verapamil Inj) 2.5 mg IVP Q6H PRN PRN Reason: for heart rate >120 Last Admin: 03/07/17 08:45 Dose: 2.5 mg Verapamil HCl (Calan Sr Tab) 240 mg PO DAILY [facility] Last Admin: 03/13/17 09:06 Dose: 240 mg - Labs Labs: 03/12/17 12:40 03/12/17 12:40 PT 13.1 Seconds (9.9-11.8) H 03/05/17 10:35 INR 1.21 (0.93-1.08) H 03/05/17 10:35 APTT 31.6 Seconds (23.7-30.8) H 03/05/17 10:35 Assessment and Plan - Assessment and Plan (Free Text) Assessment: at 4 :[address] villavicencio was at bed side . she will speak to family.
--- NOTE | 2017-03-13 20:50 | CP.PCM.PRO ---
Pronouncement of Note - Clinical Findings Physical Exam: No Response Verbal/Painful Stimuli, Absent Peripheral Pulses{ Carotid & Femoral}, Absent Heart & Breath Sounds, No Pupillary Light Reflex, No Corneal Reflex, Pupils Fixed & Dilated, Absence of Vital Signs - Pronouncement Time Time of Pronouncement of : 04:25 - Notifications Pronouncement Notifications: Family Notified, At[place] Notified - [place] [id number]
--- NOTE | 2017-03-14 20:26 | VASCULAR ---
PROCEDURE: Ultrasound and fluoroscopically placed right upper extremity PICC line. HISTORY: Respiratory failure. Limited IV access. Needs PICC line. PHYSICIAN(S): Sky Herrera MD. TECHNIQUE: The relative risks and indications of the procedure were explained to the patient's daughter by the PICC line service and consent obtained. The patient was placed supine on the arteriogram table and the right arm prepped and draped in the usual sterile fashion. A tourniquet was applied to the right axilla. 1% Xylocaine was used to anesthetize the skin and soft tissues at the puncture site above the elbow. The right brachial vein was punctured under direct ultrasound guidance with a micropuncture set. A 0.018 guidewire was advanced centrally and used to measure the length to the SVC/RA junction. A 5 [place] single-lumen PICC line 40 cm long was advanced to the SVC/RA junction. The catheter was flushed and secured. Near the end of the procedure the patient became bradycardic and hypotensive. The patient was DNR/DNI according to the person all in the room. Two doses of atropine and 2 doses of epinephrine were given through the PICC line. The patient did not respond to these medical interventions. IMPRESSION: 1. Ultrasound and fluoroscopically placed right upper extremity PICC line. A 5 [place] single-lumen PICC line 40 cm long was advanced to the SVC/RA junction.
== END 2017-03-13 16:29 | DRG 871 ==
LOC: ED 10:04 → ERH 15:21 → CCU 16:27 → 2RSO 03-08 01:29 → 5RSO 03-11 19:26
PROVIDERS: ADMIT Internal Medicine; ATTEND Internal Medicine
PROC: 5A09557 Assistance with Respiratory Ventilation, Greater than 96 Consecutive Hours, Continuous Positive Airway Pressure (ICD-10-PCS; 2017-03-05)
PROC: 3E0F7GC Introduction of Other Therapeutic Substance into Respiratory Tract, Via Natural or Artificial Opening (ICD-10-PCS; 2017-03-05)
PROC: 02HV33Z Insertion of Infusion Device into Superior Vena Cava, Percutaneous Approach (ICD-10-PCS; principal; 2017-03-13)
PROC: B548ZZA Ultrasonography of Superior Vena Cava, Guidance (ICD-10-PCS; 2017-03-13)
DX: A41.9 Sepsis, unspecified organism (principal); J96.02 Acute respiratory failure with hypercapnia; J96.01 Acute respiratory failure with hypoxia; N17.9 Acute kidney failure, unspecified; L03.115 Cellulitis of right lower limb; L03.116 Cellulitis of left lower limb; J18.9 Pneumonia, unspecified organism; J44.1 Chronic obstructive pulmonary disease with (acute) exacerbation; I27.2 Other secondary pulmonary hypertension; D69.6 Thrombocytopenia, unspecified; I11.0 Hypertensive heart disease with heart failure; J44.0 Chronic obstructive pulmonary disease with (acute) lower respiratory infection; I50.9 Heart failure, unspecified; E66.2 Morbid (severe) obesity with alveolar hypoventilation; Z68.41 Body mass index [BMI] 40.0-44.9, adult; I48.92 Unspecified atrial flutter; R65.20 Severe sepsis without septic shock; I48.0 Paroxysmal atrial fibrillation; I25.10 Atherosclerotic heart disease of native coronary artery without angina pectoris; E11.9 Type 2 diabetes mellitus without complications; G47.33 Obstructive sleep apnea (adult) (pediatric); M19.90 Unspecified osteoarthritis, unspecified site; Z66 Do not resuscitate; I48.2 Chronic atrial fibrillation; E78.5 Hyperlipidemia, unspecified; I08.1 Rheumatic disorders of both mitral and tricuspid valves; F32.9 Major depressive disorder, single episode, unspecified; S80.821A Blister (nonthermal), right lower leg, initial encounter; Y95 Nosocomial condition; E03.9 Hypothyroidism, unspecified; Z95.5 Presence of coronary angioplasty implant and graft; Z79.02 Long term (current) use of antithrombotics/antiplatelets; Z79.01 Long term (current) use of anticoagulants; Z87.891 Personal history of nicotine dependence